=== PATIENT | male | born 1950 | race Caucasian/White ===

== ENCOUNTER 2018-09-22 16:14 | Emergency (ER) | payer MEDICARE, OTHER ==
[2018-09-22 16:22] VITALS: PULSE 72
--- NOTE | 2018-09-22 16:56 | ED ---
General Adult HPI - General Chief complaint: Recheck/Abnormal Lab/Rx Stated complaint: pt states he felt a shock in body Time Seen by Provider: 09/22/18 16:15 Source: patient, RN notes reviewed Mode of arrival: wheelchair Limitations: no limitations - History of Present Illness Initial comments: This is a 68-year-old man who presents with a past history of coronary artery disease. Patient has a pacemaker defibrillator in place. Patient states she was falling asleep today when he quickly woke up and thought maybe he was shocked. Patient states there was no pain there was no palpitations there was no difficult to breathing or shortness of breath. Patient states this happens about once a month to him and today it happened so he decided to come in and get it checked out. Patient states she's had no symptoms since and currently feels completely fine. Patient never experienced any chest pain at all just a sensation of being awoken quickly and he thought maybe it was because he was shocked. Patient denies any abdominal pain patient denies nausea vomiting diarrhea. Patient denies any fever chills or cough. Patient denies any calf pain or leg swelling. - Related Data Home Medications Medication Instructions Recorded Confirmed Aspirin [Adult Low Dose Aspirin EC] 81 mg PO DAILY 07/08/16 09/22/18 Atorvastatin [Lipitor] 20 mg PO DAILY 07/08/16 09/22/18 Carvedilol [Coreg] 12.5 mg PO BID 07/08/16 09/22/18 Digoxin [Lanoxin] 125 mcg PO DAILY 07/08/16 09/22/18 Enalapril [Vasotec] 10 mg PO BID 07/08/16 09/22/18 Fenofibrate Nanocrystallized 145 mg PO DAILY 07/08/16 09/22/18 [Tricor] Furosemide [Lasix] 40 mg PO BID 07/08/16 09/22/18 HYDROcodone/APAP 5-325MG [[place] 1 tab PO Q12H PRN 07/08/16 09/22/18 5-325] Ipratropium/Albuterol Sulfate 2 puff INHALATION RT-QID 07/08/16 09/22/18 [Combivent Respimat Inhaler] Tamsulosin [Flomax] 0.4 mg PO DAILY 07/08/16 09/22/18 glipiZIDE [Glucotrol] 5 mg PO AC-TID 07/08/16 09/22/18 Ergocalciferol [Vitamin D2] 50,000 unit PO WE 09/22/18 09/22/18 Folic Acid 1 mg PO DAILY 09/22/18 09/22/18 Nitroglycerin Sl Tabs [Nitrostat] 0.4 mg SUBLINGUAL Q5M PRN 09/22/18 09/22/18 Ranitidine HCl 300 mg PO BID 09/22/18 09/22/18 traZODone HCL 50 mg PO HS 09/22/18 09/22/18 Allergies Allergy/AdvReac Type Severity Reaction Status Date / Time corn Allergy Unknown Verified 09/22/18 16:56 Fish Containing Products Allergy Unknown Verified 09/22/18 16:56 Mushroom Allergy Unknown Verified 09/22/18 16:56 all nuts Allergy Unknown Uncoded 09/22/18 16:22 green beans Allergy Unknown Uncoded 09/22/18 16:22 olives Allergy Unknown Uncoded 09/22/18 16:22 peanuts Allergy Unknown Uncoded 09/22/18 16:22 white cheese Allergy Unknown Uncoded 09/22/18 16:22 Review of Systems ROS Statement: Those systems with pertinent positive or pertinent negative responses have been documented in the HPI. ROS Other: All systems not noted in ROS Statement are negative. Past Medical History Past Medical History: Diabetes Mellitus, Skin Disorder Additional Past Medical History / Comment(s): SEE DR RAFIQ Flores, ECZEMA, USES WHEELCHAIR IS ABLE TO TRANSFER WITH SLIDING BOARD History of Any Multi-Drug Resistant Organisms: MRSA Date of last positivie culture/infection: ?2010 MDRO Source:: ARM Past Surgical History: AICD Additional Past Surgical History / Comment(s): RADHA LEG AMPUTATIONS, LEFT IS BELOW THE KNEE AND RT IS ABOVE THE KNEE Past Anesthesia/Blood Transfusion Reactions: No Reported Reaction Type of Cardiac Device: Permanent Pacemaker, AICD Device Placement Date:: 2005 Past Psychological History: No Psychological Hx Reported Smoking Status: Current every day smoker Past Alcohol Use History: None Reported Past Drug Use History: None Reported General Exam - General Exam Comments Initial Comments: GENERAL: Patient is well-developed and well-nourished. Patient is nontoxic and well- hydrated and is in no acute distress. ENT: Neck is soft and supple. No significant lymphadenopathy is noted. Oropharynx is clear. Moist mucous membranes. Neck has full range of motion without eliciting any pain. EYES: The sclera were anicteric and conjunctiva were pink and moist. Extraocular movements were intact and pupils were equal round and reactive to light. Eyelids were unremarkable. PULMONARY: Unlabored respirations. Good breath sounds bilaterally. No audible rales rhonchi or wheezing was noted. CARDIOVASCULAR: There is a regular rate and rhythm without any murmurs gallops or rubs. ABDOMEN: Soft and nontender with normal bowel sounds. No palpable organomegaly was noted. There is no palpable pulsatile mass. SKIN: Skin is clear with no lesions or rashes and otherwise unremarkable. NEUROLOGIC: Patient is alert and oriented x3. Cranial nerves II through XII are grossly intact. Motor and sensory are also intact. Normal speech, volume and content. Symmetrical smile. MUSCULOSKELETAL: Patient has a amputation of the right leg [id number] in the left leg below the knee LYMPHATICS: No significant lymphadenopathy is noted PSYCHIATRIC: Normal psychiatric evaluation. Limitations: no limitations Course Vital Signs 09/22/18 16:18 Temperature 97.7 F Pulse Rate 72 Respiratory 20 Rate Blood Pressure 160/83 O2 Sat by Pulse 99 Oximetry Medical Decision Making - Medical Decision Making EKG shows a normal sinus rhythm at 69 bpm MT interval is 196 QRS is 90 QT interval 364 QTC is 390 per patient's EKG shows no ST segment elevation or depression Patient had his defibrillator interrogated I was called by the shared services representative and he said that there was no shock in no arrhythmia. Patient has been asymptomatic throughout his ED stay. - Lab Data Result diagrams: 09/22/18 17:28 09/22/18 17:28 Lab Results 09/22/18 09/22/18 09/22/18 Range/Units 17:28 17:28 17:28 WBC 8.1 (3.8-10.6) k/uL RBC 5.19 (4.30-5.90) m/uL Hgb 16.4 (13.0-17.5) gm/dL Hct 47.9 (39.0-53.0) % MCV 92.4 (80.0-100.0) fL MCH 31.6 (25.0-35.0) pg MCHC 34.3 (31.0-37.0) g/dL RDW 13.6 (11.5-15.5) % Plt Count 267 (150-450) k/uL Neutrophils % 61 % Lymphocytes % 24 % Monocytes % 9 % Eosinophils % 4 % Basophils % 0 % Neutrophils # 4.9 (1.3-7.7) k/uL Lymphocytes # 1.9 (1.0-4.8) k/uL Monocytes # 0.7 (0-1.0) k/uL Eosinophils # 0.3 (0-0.7) k/uL Basophils # 0.0 (0-0.2) k/uL PT (9.0-12.0) sec INR (<1.2) APTT (22.0-30.0) sec Sodium 135 L (137-145) mmol/L Potassium 4.5 (3.5-5.1) mmol/L Chloride 98 (98-107) mmol/L Carbon Dioxide 28 (22-30) mmol/L Anion Gap 9 mmol/L BUN 14 (9-20) mg/dL Creatinine 0.84 (0.66-1.25) mg/dL Est GFR (CKD-EPI)AfAm >90 (>60 ml/min/1.73 sqM) Est GFR (CKD-EPI)NonAf 89 (>60 ml/min/1.73 sqM) Glucose 133 H (74-99) mg/dL Calcium 9.8 (8.4-10.2) mg/dL Magnesium 1.7 (1.6-2.3) mg/dL Total Bilirubin 0.9 (0.2-1.3) mg/dL AST 19 (17-59) U/L ALT 25 (21-72) U/L Alkaline Phosphatase 34 L (38-126) U/L Total Creatine Kinase 48 L (55-170) U/L CK-MB (CK-2) 1.6 (0.0-2.4) ng/mL CK-MB (CK-2) Rel Index 3.3 Troponin I <0.012 (0.000-0.034) ng/mL Total Protein 7.5 (6.3-8.2) g/dL Albumin 4.2 (3.5-5.0) g/dL 09/22/18 Range/Units 17:28 WBC (3.8-10.6) k/uL RBC (4.30-5.90) m/uL Hgb (13.0-17.5) gm/dL Hct (39.0-53.0) % MCV (80.0-100.0) fL MCH (25.0-35.0) pg MCHC (31.0-37.0) g/dL RDW (11.5-15.5) % Plt Count (150-450) k/uL Neutrophils % % Lymphocytes % % Monocytes % % Eosinophils % % Basophils % % Neutrophils # (1.3-7.7) k/uL Lymphocytes # (1.0-4.8) k/uL Monocytes # (0-1.0) k/uL Eosinophils # (0-0.7) k/uL Basophils # (0-0.2) k/uL PT 13.2 H (9.0-12.0) sec INR 1.4 H (<1.2) APTT 26.1 (22.0-30.0) sec Sodium (137-145) mmol/L Potassium (3.5-5.1) mmol/L Chloride (98-107) mmol/L Carbon Dioxide (22-30) mmol/L Anion Gap mmol/L BUN (9-20) mg/dL Creatinine (0.66-1.25) mg/dL Est GFR (CKD-EPI)AfAm (>60 ml/min/1.73 sqM) Est GFR (CKD-EPI)NonAf (>60 ml/min/1.73 sqM) Glucose (74-99) mg/dL Calcium (8.4-10.2) mg/dL Magnesium (1.6-2.3) mg/dL Total Bilirubin (0.2-1.3) mg/dL AST (17-59) U/L ALT (21-72) U/L Alkaline Phosphatase (38-126) U/L Total Creatine Kinase (55-170) U/L CK-MB (CK-2) (0.0-2.4) ng/mL CK-MB (CK-2) Rel Index Troponin I (0.000-0.034) ng/mL Total Protein (6.3-8.2) g/dL Albumin (3.5-5.0) g/dL Disposition Clinical Impression: Normal cardiac exam Disposition: HOME SELF-CARE Condition: Good Instructions: Implantable Cardioverter Defibrillator (DC) Is patient prescribed a controlled substance at d/c from ED?: No Referrals: Robinson Campuzano MD [Primary Care Provider] - 1-2 days Time of Disposition: 18:56
[2018-09-22 17:50] LABS: Basophils % (A) 0 %; Eosinophils # (A) 0.3 k/uL (0-0.7); Eosinophils % (A) 4 %; HCT 47.9 % (39.0-53.0); HGB 16.4 gm/dL (13.0-17.5); Lymphocytes # (A) 1.9 k/uL (1.0-4.8); Lymphocytes % (A) 24 %; MCH 31.6 pg (25.0-35.0); MCHC 34.3 g/dL (31.0-37.0); MCV 92.4 fL (80.0-100.0); Mean Platelet Volume 7.2; Monocytes # (A) 0.7 k/uL (0-1.0); Monocytes % (A) 9 %; Neutrophils # (A) 4.9 k/uL (1.3-7.7); Neutrophils % (A) 61 %; Platelet Count 267 k/uL (150-450); RBC 5.19 m/uL (4.30-5.90); RDW 13.6 % (11.5-15.5); WBC 8.1 k/uL (3.8-10.6)
[2018-09-22 18:01] LABS: INR 1.4 (<1.2); Partial Thromboplastin Time 26.1 sec (22.0-30.0); Prothrombin Time 13.2 sec (9.0-12.0)
[2018-09-22 18:03] LABS: Creatine Kinase 48 U/L (55-170)
[2018-09-22 18:04] LABS: ALT 25 U/L (21-72); AST 19 U/L (17-59); Albumin 4.2 g/dL (3.5-5.0); Alkaline Phosphatase 34 U/L (38-126); Anion Gap 9 mmol/L; Blood Urea Nitrogen 14 mg/dL (9-20); Calcium 9.8 mg/dL (8.4-10.2); Carbon Dioxide 28 mmol/L (22-30); Chloride 98 mmol/L (98-107); Glucose 133 mg/dL (74-99); Magnesium 1.7 mg/dL (1.6-2.3); Potassium 4.5 mmol/L (3.5-5.1); Sodium 135 mmol/L (137-145); Total Bilirubin 0.9 mg/dL (0.2-1.3); Total Protein 7.5 g/dL (6.3-8.2)
[2018-09-22 18:15] LABS: Creatine Kinase MB 1.6 ng/mL (0.0-2.4); Troponin I <0.012 ng/mL (0.000-0.034)
[2018-09-22 19:07] VITALS: BP 146/82; RESP 18; TEMP 97.8
== END 2018-09-22 19:07 | disposition home or self-care (01) ==
LOC: EC 16:14
DX: Z13.6 Encounter for screening for cardiovascular disorders (principal); I25.10 Atherosclerotic heart disease of native coronary artery without angina pectoris; E11.9 Type 2 diabetes mellitus without complications; F17.200 Nicotine dependence, unspecified, uncomplicated; Z91.010 Allergy to peanuts; Z91.013 Allergy to seafood; Z91.018 Allergy to other foods; Z79.82 Long term (current) use of aspirin; Z79.84 Long term (current) use of oral hypoglycemic drugs; Z79.899 Other long term (current) drug therapy; Z86.14 Personal history of Methicillin resistant Staphylococcus aureus infection; Z95.0 Presence of cardiac pacemaker; Z89.611 Acquired absence of right leg above knee; Z89.512 Acquired absence of left leg below knee; Z99.3 Dependence on wheelchair
CPT/HCPCS: 36415; 80053; 82550; 82553; 83735; 84484; 85025; 85610; 85730; 93005; 99283

== ENCOUNTER → 2018-11-27 | Outpatient (CLI) | payer MEDICARE, OTHER | END | disposition home or self-care (01) | LOC: LABWHC1 15:59 | PROVIDERS: ATTEND Dermatology Dermatopathology | DX: L40.0 Psoriasis vulgaris (principal); Z11.1 Encounter for screening for respiratory tuberculosis; Z79.899 Other long term (current) drug therapy | CPT/HCPCS: 36415; 86480 ==

== ENCOUNTER → 2019-10-18 | Outpatient (CLI) | payer MEDICARE, OTHER ==
[2019-10-18 19:19] LABS: African American GFR (CKD) 87.4 (60.0-200.0); Anion Gap 5.1 mmol/L (4.00-12.00); Calcium 9.5 mg/dL (8.7-10.3); Carbon Dioxide 27.9 mmol/L (21.6-31.8); Non-African American GFR(CKD) 75.4 (60.0-200.0); Potassium 4.2 mmol/L (3.5-5.5)
== END ==
LOC: LABWHC1 13:51
PROVIDERS: ATTEND Physician Assistant
DX: I11.0 Hypertensive heart disease with heart failure (principal); I50.9 Heart failure, unspecified
CPT/HCPCS: 36415; 80048; 80162

== ENCOUNTER → 2020-01-11 | Outpatient (CLI) | payer MEDICARE, OTHER | END | disposition home or self-care (01) | LOC: LABWHC1 14:02 | PROVIDERS: ATTEND Internal Medicine | DX: M06.9 Rheumatoid arthritis, unspecified (principal); Z79.899 Other long term (current) drug therapy | CPT/HCPCS: 36415; 86480 ==

== ENCOUNTER 2020-04-26 16:14 | Emergency (ER) | payer MEDICARE, OTHER ==
[2020-04-26 16:24] VITALS: BP 148/75; PULSE 78; RESP 18; TEMP 98
[2020-04-26] MEDS ORDERED: MORPHINE SULFATE 4 MG/ML SYRINGE IM STA (16:59)
--- NOTE | 2020-04-26 17:04 | ED ---
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 Patient states that for very long time he has had numbness in the left hand and fingertips. States he often drops coffee cups which has been chronic. Patient states that today and yesterday he had sharp shooting pains in the fingertips and hand. States his pain kept him up at night. Patient denies any increased numbness in the left hand. Denies any weakness of the left arm or hand.Patient has no other complaints at this time including shortness of breath, chest pain, abdominal pain, nausea or vomiting, headache, or visual changes. - Related Data Home Medications Medication Instructions Recorded Confirmed Aspirin [Adult Low Dose Aspirin EC] 81 mg PO DAILY 07/08/16 09/22/18 Atorvastatin [Lipitor] 20 mg PO DAILY 07/08/16 09/22/18 Carvedilol [Coreg] 12.5 mg PO BID 07/08/16 09/22/18 Digoxin [Lanoxin] 125 mcg PO DAILY 07/08/16 09/22/18 Enalapril [Vasotec] 10 mg PO BID 07/08/16 09/22/18 Fenofibrate Nanocrystallized 145 mg PO DAILY 07/08/16 09/22/18 [Tricor] Furosemide [Lasix] 40 mg PO BID 07/08/16 09/22/18 HYDROcodone/APAP 5-325MG [[place] 1 tab PO Q12H PRN 07/08/16 09/22/18 5-325] Ipratropium/Albuterol Sulfate 2 puff INHALATION RT-QID 07/08/16 09/22/18 [Combivent Respimat Inhaler] Tamsulosin [Flomax] 0.4 mg PO DAILY 07/08/16 09/22/18 glipiZIDE [Glucotrol] 5 mg PO AC-TID 07/08/16 09/22/18 Ergocalciferol [Vitamin D2] 50,000 unit PO WE 09/22/18 09/22/18 Folic Acid 1 mg PO DAILY 09/22/18 09/22/18 Nitroglycerin Sl Tabs [Nitrostat] 0.4 mg SUBLINGUAL Q5M PRN 09/22/18 09/22/18 Ranitidine HCl 300 mg PO BID 09/22/18 09/22/18 traZODone HCL 50 mg PO HS 09/22/18 09/22/18 Previous Rx's Medication Instructions Recorded HYDROcodone/APAP 5-325MG [[place] 1 tab PO Q6HR PRN #10 tab 04/26/20 5-325] Allergies Allergy/AdvReac Type Severity Reaction Status Date / Time corn Allergy Unknown Verified 04/26/20 16:24 Fish Containing Products Allergy Unknown Verified 04/26/20 16:24 Mushroom Allergy Unknown Verified 04/26/20 16:24 all nuts Allergy Unknown Uncoded 04/26/20 16:24 green beans Allergy Unknown Uncoded 04/26/20 16:24 olives Allergy Unknown Uncoded 04/26/20 16:24 peanuts Allergy Unknown Uncoded 04/26/20 16:24 white cheese Allergy Unknown Uncoded 04/26/20 16:24 Review of Systems ROS Statement: Those systems with pertinent positive or pertinent negative responses have been documented in the HPI. ROS Other: All systems not noted in ROS Statement are negative. Past Medical History Past Medical History: CVA/TIA, Diabetes Mellitus, Myocardial Infarction ([place]), Skin Disorder Additional Past Medical History / Comment(s): SEE DR CONROY H&P, ECZEMA, USES WHEELCHAIR IS ABLE TO TRANSFER WITH SLIDING BOARD History of Any Multi-Drug Resistant Organisms: MRSA Date of last positivie culture/infection: ?2010 MDRO Source:: ARM Past Surgical History: AICD Additional Past Surgical History / Comment(s): RADHA LEG AMPUTATIONS, LEFT IS BELOW THE KNEE AND RT IS ABOVE THE KNEE Past Anesthesia/Blood Transfusion Reactions: No Reported Reaction Type of Cardiac Device: Permanent Pacemaker, AICD Device Placement Date:: 2005 Past Psychological History: No Psychological Hx Reported Smoking Status: Current every day smoker Past Alcohol Use History: None Reported Past Drug Use History: None Reported General Exam - General Exam Comments Initial Comments: 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 He has flaccid paralysis of the right arm. Patient's does have sensation in the fingertips of the left hand however states these are diminished. Radial pulse is 2+. Full range of motion of the left hand. Gynaecological Oncologist strength 5 out of 5. No drift of the left arm. Full range of motion of the left arm, no weakness. Limitations: physical limitation General appearance: alert, in no apparent distress Head exam: Present: atraumatic, normocephalic, normal inspection Eye exam: Present: normal appearance, PERRL, EOMI. Absent: scleral icterus, conjunctival injection, periorbital swelling ENT exam: Present: normal exam, mucous membranes moist Neck exam: Present: normal inspection. Absent: tenderness, meningismus, lymphadenopathy Respiratory exam: Present: normal lung sounds bilaterally. Absent: respiratory distress, wheezes, rales, rhonchi, stridor Cardiovascular Exam: Present: regular rate, normal rhythm, normal heart sounds. Absent: systolic murmur, diastolic murmur, rubs, gallop, clicks GI/Abdominal exam: Present: soft, normal bowel sounds. Absent: distended, tenderness, guarding, rebound, rigid Neurological exam: Present: alert Course Vital Signs 04/26/20 16:21 Temperature 98.0 F Pulse Rate 78 Respiratory 18 Rate Blood Pressure 148/75 O2 Sat by Pulse 98 Oximetry Medical Decision Making - Medical Decision Making Vitals are stable. Physical exam does reveal bilateral lower extremity P patient, patient has flaccid paralysis of the right arm secondary to a remote stroke. Patient is denying any new numbness or weakness in the left arm saying those have been chronic. He always drops coffee cups because of this. There is no change in the numbness or weakness. On physical exam I do not appreciate any obvious weakness of the left arm he is able to fully lift the left arm and floor grinder strength is 5 out of 5. He does have sensation in all fingertips of the left hand however slightly diminished. Radial pulses 2+ and left upper extremity. Cap refill less than 2 seconds, hand is warm and skin exam is normal. Patient's new symptom is pain in the left hand. His heart is a shooting pain in the left hand. Feels similar to pains he has in his legs from neuropathy. Patient does take gabapentin. Patient states the pain kept him up at night. Patient was given IM morphine here in the emergency room. Patient will be given a prescription of pain medication. Maps is performed which is unremarkable. He will follow up with his doctor for further management of this pain and return here for any worsening symptoms. Disposition Clinical Impression: Hand pain, left Disposition: HOME SELF-CARE Condition: Good Instructions (If sedation given, give patient instructions): Arthralgia (ED) Additional Instructions: Please take pain medication as directed. Please follow-up with your primary care provider for further pain management. If you have any worsening symptoms return here to the emergency room. Prescriptions: HYDROcodone/APAP 5-325MG [[place] 5-325] 1 tab PO Q6HR PRN #10 tab PRN Reason: Pain Is patient prescribed a controlled substance at d/c from ED?: Yes When asked, does pt state using other controlled substances?: No If prescribed controlled substance>3 days was MAPS reviewed?: Prescribed <3 Days If opioid is for acute pain is fill amount 7 days or less?: Yes If Rx opioid, was Start Talking consent form obtained?: Yes Referrals: Robinson Campuzano MD [Primary Care Provider] - 1-2 days Time of Disposition: 17:33
== END 2020-04-26 18:21 | disposition home or self-care (01) ==
LOC: EC 16:14
DX: M79.642 Pain in left hand (principal); R20.0 Anesthesia of skin; E11.9 Type 2 diabetes mellitus without complications; I25.2 Old myocardial infarction; F17.200 Nicotine dependence, unspecified, uncomplicated; Z89.512 Acquired absence of left leg below knee; Z89.611 Acquired absence of right leg above knee; Z95.810 Presence of automatic (implantable) cardiac defibrillator; Z79.82 Long term (current) use of aspirin; Z79.02 Long term (current) use of antithrombotics/antiplatelets; Z79.899 Other long term (current) drug therapy; Z79.51 Long term (current) use of inhaled steroids; Z79.84 Long term (current) use of oral hypoglycemic drugs; Z91.018 Allergy to other foods; Z91.013 Allergy to seafood; Z91.010 Allergy to peanuts; Z91.011 Allergy to milk products; Z86.73 Personal history of transient ischemic attack (TIA), and cerebral infarction without residual deficits
CPT/HCPCS: 99284; 96372; J2270

== ENCOUNTER 2020-10-02 17:38 | Inpatient (IN) | payer MEDICARE, OTHER ==
[2020-10-02] MEDS ORDERED: methylPREDNISolone SOD SUCCI 125 MG/2 ML VIAL IV STA (18:14)
[2020-10-02] MEDS ORDERED: ALBUTEROL HFA INHALER INHALATION STA (18:14)
[2020-10-02 19:07] LABS: Basophils # (A) 0.1 k/uL (0-0.2); Basophils % (A) 1 %; Eosinophils # (A) 0.4 k/uL (0-0.7); Eosinophils % (A) 5 %; HCT 40.5 % (39.0-53.0); HGB 12.6 gm/dL (13.0-17.5); Hypochromasia Slight; Lymphocytes # (A) 1.6 k/uL (1.0-4.8); Lymphocytes % (A) 19 %; MCH 29.3 pg (25.0-35.0); MCHC 31.1 g/dL (31.0-37.0); Mean Platelet Volume 7.7; Monocytes # (A) 0.5 k/uL (0-1.0); Monocytes % (A) 6 %; Neutrophils # (A) 5.8 k/uL (1.3-7.7); Neutrophils % (A) 68 %; Platelet Count 482 k/uL (150-450); RBC 4.31 m/uL (4.30-5.90); RDW 13.5 % (11.5-15.5); WBC 8.5 k/uL (3.8-10.6)
--- NOTE | 2020-10-02 19:14 | ED ---
General Adult HPI - General Chief complaint: Shortness of Breath Stated complaint: Diff Breathing Time Seen by Provider: 10/02/20 17:40 Source: patient, EMS, RN notes reviewed, old records reviewed Mode of arrival: EMS Limitations: no limitations - History of Present Illness Initial comments: 70-year-old male history of COPD and CHF presenting with dyspnea for the past 24 hours. EMS reports that the patient was found at home without his home oxygen. Patient states that he does not use home oxygen. He was hypoxic by EMS, placed on nasal cannula transported to the emergency department. He complains of cough which is productive of clear sputum. no chest pain at all, not currently and now within the past week.. No abdominal pain nausea vomiting. No central chest pain. He has history of bilateral lower extremity Amputation. - Related Data Home Medications Medication Instructions Recorded Confirmed Aspirin [Adult Low Dose Aspirin EC] 81 mg PO DAILY 07/08/16 09/22/18 Atorvastatin [Lipitor] 20 mg PO DAILY 07/08/16 09/22/18 Carvedilol [Coreg] 12.5 mg PO BID 07/08/16 09/22/18 Digoxin [Lanoxin] 125 mcg PO DAILY 07/08/16 09/22/18 Enalapril [Vasotec] 10 mg PO BID 07/08/16 09/22/18 Fenofibrate Nanocrystallized 145 mg PO DAILY 07/08/16 09/22/18 [Tricor] Furosemide [Lasix] 40 mg PO BID 07/08/16 09/22/18 HYDROcodone/APAP 5-325MG [[place] 1 tab PO Q12H PRN 07/08/16 09/22/18 5-325] Ipratropium/Albuterol Sulfate 2 puff INHALATION RT-QID 07/08/16 09/22/18 [Combivent Respimat Inhaler] Tamsulosin [Flomax] 0.4 mg PO DAILY 07/08/16 09/22/18 glipiZIDE [Glucotrol] 5 mg PO AC-TID 07/08/16 09/22/18 Ergocalciferol [Vitamin D2] 50,000 unit PO WE 09/22/18 09/22/18 Folic Acid 1 mg PO DAILY 09/22/18 09/22/18 Nitroglycerin Sl Tabs [Nitrostat] 0.4 mg SUBLINGUAL Q5M PRN 09/22/18 09/22/18 raNITIdine HCL [Ranitidine HCl] 300 mg PO BID 09/22/18 09/22/18 traZODone HCL 50 mg PO HS 09/22/18 09/22/18 Previous Rx's Medication Instructions Recorded HYDROcodone/APAP 5-325MG [[place] 1 tab PO Q6HR PRN #10 tab 04/26/20 5-325] Allergies Allergy/AdvReac Type Severity Reaction Status Date / Time corn Allergy Unknown Verified 04/26/20 16:24 Fish Containing Products Allergy Unknown Verified 04/26/20 16:24 Mushroom Allergy Unknown Verified 04/26/20 16:24 all nuts Allergy Unknown Uncoded 04/26/20 16:24 green beans Allergy Unknown Uncoded 04/26/20 16:24 olives Allergy Unknown Uncoded 04/26/20 16:24 peanuts Allergy Unknown Uncoded 04/26/20 16:24 white cheese Allergy Unknown Uncoded 04/26/20 16:24 Review of Systems ROS Statement: Those systems with pertinent positive or pertinent negative responses have been documented in the HPI. ROS Other: All systems not noted in ROS Statement are negative. Past Medical History Past Medical History: CVA/TIA, Diabetes Mellitus, Myocardial Infarction (PA), Skin Disorder Additional Past Medical History / Comment(s): SEE DR RAFIQ [place], [place], USES WHEELCHAIR IS ABLE TO TRANSFER WITH SLIDING BOARD History of Any Multi-Drug Resistant Organisms: MRSA Date of last positivie culture/infection: ?2010 MDRO Source:: ARM Past Surgical History: AICD Additional Past Surgical History / Comment(s): RADHA LEG AMPUTATIONS, LEFT IS BELOW THE KNEE AND RT IS ABOVE THE KNEE Past Anesthesia/Blood Transfusion Reactions: No Reported Reaction Type of Cardiac Device: Permanent Pacemaker, AICD Device Placement Date:: 2005 Past Psychological History: No Psychological Hx Reported Smoking Status: Current every day smoker Past Alcohol Use History: None Reported Past Drug Use History: None Reported General Exam Limitations: no limitations General appearance: alert, in no apparent distress Head exam: Present: atraumatic, normocephalic Eye exam: Present: normal appearance ENT exam: Present: mucous membranes dry Neck exam: Present: normal inspection. Absent: tenderness, meningismus Respiratory exam: Present: rales, decreased breath sounds. Absent: respiratory distress Cardiovascular Exam: Present: regular rate, normal rhythm. Absent: bradycardia, tachycardia GI/Abdominal exam: Present: soft. Absent: distended, tenderness, guarding Extremities exam: Present: other (left belowthe knee, right above the knee amputation) Back exam: Present: normal inspection Neurological exam: Present: alert, oriented X3, CN II-XII intact. Absent: motor sensory deficit Psychiatric exam: Present: normal affect, normal mood Skin exam: Present: warm, dry, intact. Absent: cyanosis, diaphoretic Course Vital Signs 10/02/20 10/02/20 17:48 18:07 Temperature 97.5 F L 98.2 F Pulse Rate 98 Respiratory 18 Rate Blood Pressure 187/92 O2 Sat by Pulse 98 Oximetry - Reevaluation(s) Reevaluation #1: 10/02/20 20:54 patient comfortable, normal oxygenation on 2 L nasal cannula, no chest pain. Reevaluation #2: 10/02/20 20:[address] García regarding elevated troponin. Patient has been started on heparin, given aspirin, will be given Lasix, echo will be obtained. EKG Findings - EKG Comments: EKG Findings:: EKG: Sinus rhythm with a first-degree AV block left atrial enlargement, low voltage, rate of 92, NM interval 226, QRS duration 90, QTC 427, no ST segment elevation. Medical Decision Making - Medical Decision Making 70-year-old male history of COPD and CHF presenting with dyspnea. No pain complaints. EKG is sinus rhythm. Workup reveals a chest x-ray showing CHF. He has a mildly elevated d-dimer, CT angiography has been obtained which is negative for PE does show CHF. His troponin is significantly elevated at 5. He has no active chest pain. He is started on heparin, given aspirin, Lasix. Echo will be obtained. Case discussed with both the admitting physician Dr. Campuzano and technology development intern Dr. García. - Lab Data Result diagrams: 10/02/20 18:33 10/02/20 18:33 Lab Results 10/02/20 10/02/20 10/02/20 Range/Units 18:33 18:33 18:33 WBC 8.5 (3.8-10.6) k/uL RBC 4.31 (4.30-5.90) m/uL Hgb 12.6 L (13.0-17.5) gm/dL Hct 40.5 (39.0-53.0) % MCV 94.0 (80.0-100.0) fL MCH 29.3 (25.0-35.0) pg MCHC 31.1 (31.0-37.0) g/dL RDW 13.5 (11.5-15.5) % Plt Count 482 H (150-450) k/uL MPV 7.7 Neutrophils % 68 % Lymphocytes % 19 % Monocytes % 6 % Eosinophils % 5 % Basophils % 1 % Neutrophils # 5.8 (1.3-7.7) k/uL Lymphocytes # 1.6 (1.0-4.8) k/uL Monocytes # 0.5 (0-1.0) k/uL Eosinophils # 0.4 (0-0.7) k/uL Basophils # 0.1 (0-0.2) k/uL Hypochromasia Slight PT 14.7 H (9.0-12.0) sec INR 1.5 H (<1.2) APTT 27.8 (22.0-30.0) sec D-Dimer 0.66 H (<0.60) mg/L FEU VBG pH (7.31-7.41) VBG pCO2 (37-51) mmHg VBG HCO3 (24-28) mmol/L Sodium 136 L (137-145) mmol/L Potassium 4.7 (3.5-5.1) mmol/L Chloride 102 (98-107) mmol/L Carbon Dioxide 32 H (22-30) mmol/L Anion Gap 2 mmol/L BUN 11 (9-20) mg/dL Creatinine 0.77 (0.66-1.25) mg/dL Est GFR (CKD-EPI)AfAm >90 (>60 ml/min/1.73 sqM) Est GFR (CKD-EPI)NonAf >90 (>60 ml/min/1.73 sqM) Glucose 186 H (74-99) mg/dL Plasma Lactic Acid Elvis (0.7-2.0) mmol/L Calcium 8.9 (8.4-10.2) mg/dL Magnesium 1.6 (1.6-2.3) mg/dL Total Bilirubin 0.5 (0.2-1.3) mg/dL AST 25 (17-59) U/L ALT 24 (4-49) U/L Alkaline Phosphatase 50 (38-126) U/L Troponin I (0.000-0.034) ng/mL NT-Pro-B Natriuret Pep pg/mL Total Protein 6.9 (6.3-8.2) g/dL Albumin 3.2 L (3.5-5.0) g/dL Coronavirus (PCR) (Not Detectd) Influenza Type A RNA (Not Detectd) Influenza Type B (PCR) (Not Detectd) 10/02/20 10/02/20 10/02/20 Range/Units 18:33 18:33 18:33 WBC (3.8-10.6) k/uL RBC (4.30-5.90) m/uL Hgb (13.0-17.5) gm/dL Hct (39.0-53.0) % MCV (80.0-100.0) fL MCH (25.0-35.0) pg MCHC (31.0-37.0) g/dL RDW (11.5-15.5) % Plt Count (150-450) k/uL MPV Neutrophils % % Lymphocytes % % Monocytes % % Eosinophils % % Basophils % % Neutrophils # (1.3-7.7) k/uL Lymphocytes # (1.0-4.8) k/uL Monocytes # (0-1.0) k/uL Eosinophils # (0-0.7) k/uL Basophils # (0-0.2) k/uL Hypochromasia PT (9.0-12.0) sec INR (<1.2) APTT (22.0-30.0) sec D-Dimer (<0.60) mg/L FEU VBG pH (7.31-7.41) VBG pCO2 (37-51) mmHg VBG HCO3 (24-28) mmol/L Sodium (137-145) mmol/L Potassium (3.5-5.1) mmol/L Chloride (98-107) mmol/L Carbon Dioxide (22-30) mmol/L Anion Gap mmol/L BUN (9-20) mg/dL Creatinine (0.66-1.25) mg/dL Est GFR (CKD-EPI)AfAm (>60 ml/min/1.73 sqM) Est GFR (CKD-EPI)NonAf (>60 ml/min/1.73 sqM) Glucose (74-99) mg/dL Plasma Lactic Acid Elvis 0.8 (0.7-2.0) mmol/L Calcium (8.4-10.2) mg/dL Magnesium (1.6-2.3) mg/dL Total Bilirubin (0.2-1.3) mg/dL AST (17-59) U/L ALT (4-49) U/L Alkaline Phosphatase (38-126) U/L Troponin I 5.640 H* (0.000-0.034) ng/mL NT-Pro-B Natriuret Pep 2510 pg/mL Total Protein (6.3-8.2) g/dL Albumin (3.5-5.0) g/dL Coronavirus (PCR) (Not Detectd) Influenza Type A RNA (Not Detectd) Influenza Type B (PCR) (Not Detectd) 10/02/20 10/02/20 10/02/20 Range/Units 18:33 18:33 19:41 WBC (3.8-10.6) k/uL RBC (4.30-5.90) m/uL Hgb (13.0-17.5) gm/dL Hct (39.0-53.0) % MCV (80.0-100.0) fL MCH (25.0-35.0) pg MCHC (31.0-37.0) g/dL RDW (11.5-15.5) % Plt Count (150-450) k/uL MPV Neutrophils % % Lymphocytes % % Monocytes % % Eosinophils % % Basophils % % Neutrophils # (1.3-7.7) k/uL Lymphocytes # (1.0-4.8) k/uL Monocytes # (0-1.0) k/uL Eosinophils # (0-0.7) k/uL Basophils # (0-0.2) k/uL Hypochromasia PT (9.0-12.0) sec INR (<1.2) APTT (22.0-30.0) sec D-Dimer (<0.60) mg/L FEU VBG pH 7.44 H (7.31-7.41) VBG pCO2 45 (37-51) mmHg VBG HCO3 30 H (24-28) mmol/L Sodium (137-145) mmol/L Potassium (3.5-5.1) mmol/L Chloride (98-107) mmol/L Carbon Dioxide (22-30) mmol/L Anion Gap mmol/L BUN (9-20) mg/dL Creatinine (0.66-1.25) mg/dL Est GFR (CKD-EPI)AfAm (>60 ml/min/1.73 sqM) Est GFR (CKD-EPI)NonAf (>60 ml/min/1.73 sqM) Glucose (74-99) mg/dL Plasma Lactic Acid Elvis (0.7-2.0) mmol/L Calcium (8.4-10.2) mg/dL Magnesium (1.6-2.3) mg/dL Total Bilirubin (0.2-1.3) mg/dL AST (17-59) U/L ALT (4-49) U/L Alkaline Phosphatase (38-126) U/L Troponin I (0.000-0.034) ng/mL NT-Pro-B Natriuret Pep pg/mL Total Protein (6.3-8.2) g/dL Albumin (3.5-5.0) g/dL Coronavirus (PCR) Not Detected (Not Detectd) Influenza Type A RNA Not Detected (Not Detectd) Influenza Type B (PCR) Not Detected (Not Detectd) Critical Care Time Critical Care Time: Yes Total Critical Care Time: 35 Disposition Clinical Impression: Congestive heart failure, NSTEMI (non-ST elevated myocardial infarction) Disposition: ADMITTED IP TO THIS [facility] Condition: Stable Is patient prescribed a controlled substance at d/c from ED?: No Referrals: Robinson Campuzano MD [Primary Care Provider] - 1-2 days Decision to Admit Reason: Admit from EC Decision Date: 10/02/20 Decision Time: 20:56
[2020-10-02 19:21] LABS: ALT 24 U/L (4-49); AST 25 U/L (17-59); African American GFR (CKD) >90 (>60 ml/min/1.73 sqM); Albumin 3.2 g/dL (3.5-5.0); Alkaline Phosphatase 50 U/L (38-126); Anion Gap 2 mmol/L; Blood Urea Nitrogen 11 mg/dL (9-20); Calcium 8.9 mg/dL (8.4-10.2); Carbon Dioxide 32 mmol/L (22-30); Chloride 102 mmol/L (98-107); Glucose 186 mg/dL (74-99); Magnesium 1.6 mg/dL (1.6-2.3); Non-African American GFR(CKD) >90 (>60 ml/min/1.73 sqM); Potassium 4.7 mmol/L (3.5-5.1); Sodium 136 mmol/L (137-145); Total Bilirubin 0.5 mg/dL (0.2-1.3); Total Protein 6.9 g/dL (6.3-8.2)
[2020-10-02 19:29] LABS: INR 1.5 (<1.2); Partial Thromboplastin Time 27.8 sec (22.0-30.0); Prothrombin Time 14.7 sec (9.0-12.0)
[2020-10-02 19:36] LABS: D-Dimer 0.66 mg/L FEU (<0.60)
[2020-10-02 19:55] LABS: VBG PH 7.44 (7.31-7.41)
[2020-10-02] MEDS ORDERED: HEPARIN SODIUM,PORCINE 5,000 UNIT/ML 1 ML VIAL IV ONE (20:00)
[2020-10-02] MEDS ORDERED: ASPIRIN 325 MG TAB PO STA (20:00)
--- NOTE | 2020-10-02 20:19 | CT ---
EXAMINATION TYPE: CT angio chest DATE OF EXAM: 10/02/2020 8:11 PM COMPARISON: None available. HISTORY: Difficulty breathing. CT DLP: 424.5 mGycm Automated exposure control for dose reduction was used. CONTRAST: CTA scan of the thorax is performed with IV Contrast, patient injected with 100 mL of Isovue 370, pul monary embolism protocol. MIP images are created and reviewed. FINDINGS: LUNGS: There is mild interstitial thickening with atelectatic changes, compatible with interstitial e jeannie. No significant patchy airspace opacity, consolidation or pneumothorax. There is small right ple ural effusion. No suspicious pulmonary nodule. MEDIASTINUM: There is satisfactory enhancement of the pulmonary artery and its branches, there is no CT evidence for pulmonary embolism. There are scattered small to borderline mediastinal lymph nodes, likely reactive. No pericardial effusion is seen. Cardiomegaly is seen. OTHER: No additional significant abnormality is seen. IMPRESSION: FINDINGS COMPATIBLE WITH MILD INTERSTITIAL EDEMA WITH SMALL RIGHT PLEURAL EFFUSION. NO SIGNIFICANT PATCHY AIRSPACE OPACITY OR CONSOLIDATION.
[2020-10-02] MEDS ORDERED: FUROSEMIDE 10 MG/ML 4 ML VIAL IV STA (20:26)
[2020-10-02] MEDS: HEPARIN SOD,PORK IN 0.45% NACL 25,000 UNIT in 0.45% NACL 1 250ML.BAG IV SCH (20:37)
--- NOTE | 2020-10-02 20:37 | XR ---
EXAMINATION TYPE: XR chest 2V DATE OF EXAM: 10/02/2020 COMPARISON: 10/03/2014. HISTORY: Fever and shortness of breath. TECHNIQUE: Frontal and lateral views of the chest are obtained. FINDINGS: There is moderate perihilar and bibasilar opacities. No significant pleural effusion or pn eumothorax seen. Cardiomegaly and left AICD seen. The osseous structures are intact. IMPRESSION: Moderate perihilar and bibasilar opacities concerning for infiltrates in the setting of fever.
[2020-10-02] MEDS ORDERED: MORPHINE SULFATE 4 MG/ML SYRINGE IV PRN (20:51)
[2020-10-02] MEDS ORDERED: NALOXONE 0.4 MG/ML 1 ML VIAL IV PRN (20:51)
[2020-10-02] MEDS ORDERED: ACETAMINOPHEN TAB 325 MG TAB PO PRN (20:51)
[2020-10-03 02:39] LABS: Basophils % (A) 0 %; Eosinophils # (A) 0.1 k/uL (0-0.7); Eosinophils % (A) 1 %; HGB 13.4 gm/dL (13.0-17.5); Hypochromasia Marked; Lymphocytes # (A) 0.6 k/uL (1.0-4.8); Lymphocytes % (A) 7 %; MCH 29.2 pg (25.0-35.0); MCHC 29.7 g/dL (31.0-37.0); MCV 98.3 fL (80.0-100.0); Mean Platelet Volume 7.9; Monocytes # (A) 0.1 k/uL (0-1.0); Monocytes % (A) 1 %; Neutrophils # (A) 8.5 k/uL (1.3-7.7); Neutrophils % (A) 91 %; Platelet Count 608 k/uL (150-450); RBC 4.58 m/uL (4.30-5.90); RDW 13.4 % (11.5-15.5); WBC 9.3 k/uL (3.8-10.6)
[2020-10-03] MEDS: HEPARIN SODIUM,PORCINE 5,000 UNIT/ML 1 ML VIAL IV PRN ×2 (03:07→11:28)
[2020-10-03] MEDS: FUROSEMIDE 10 MG/ML 4 ML VIAL IV SCH ×2 (08:36→20:09)
[2020-10-03] MEDS ORDERED: lisinopriL 20 MG TAB PO SCH (09:00)
[2020-10-03] MEDS ORDERED: ALPRAZolam 0.25 MG TAB PO PRN (09:50)
--- NOTE | 2020-10-03 10:00 | ECHOF ---
Referral Reason:shortness of breath MEASUREMENTS -------- HEIGHT: 172.7 cm WEIGHT: 80.3 kg BP: 162/81 RVIDd: 2.0 cm (< 3.3) IVSd: 1.3 cm (0.6 - 1.1) LVIDd: 5.8 cm (3.9 - 5.3) LVPWd: 1.5 cm (0.6 - 1.1) IVSs: 1.6 cm LVIDs: 5.4 cm LVPWs: 1.6 cm LA Diam: 1.5 cm (2.7 - 3.8) LAESV Index (A-L): 40.10 ml/m Ao Diam: 3.3 cm (2.0 - 3.7) AV Cusp: 1.9 cm (1.5 - 2.6) LA Diam: 4.7 cm (2.7 - 3.8) MV EXCURSION: 19.436 mm (> 18.000) MV EF SLOPE: 235 mm/s (70 - 150) EPSS: 1.6 cm MV E Aamir: 0.83 m/s MV DecT: 91 ms MV A Aamir: 0.76 m/s MV E/A Ratio: 1.10 AR PHT: 321 ms RAP: 5.00 mmHg RVSP: 10.49 mmHg FINDINGS -------- AICD This was a technically difficult study with suboptimal views. The left ventricular size is normal. There is mild concentric left ventricular hypertrophy. Overa ll left ventricular systolic function is severely impaired with, an EF between 25 - 30 %. Increased LAP Grade 3 Diastolic Dysfunction. Inferior Hypokinesis The right ventricle is normal in size. LA is severely dilated >40 ml/m2 The right atrial size is normal. Lumason used Unable to visualize the septum. Aortic valve is trileaflet and is mildly thickened. Trace amount of aortic regurgitation. The mitral valve is normal. Mild mitral regurgitation is present. The tricuspid valve appears structurally normal. Mild tricuspid regurgitation present. Right vent ricular systolic pressure is normal at < 35 mmHg. There is no pulmonic regurgitation present. The aortic root size is normal. IVC Not well visulized. There is no pericardial effusion. CONCLUSIONS -------- 1. The left ventricular size is normal. 2. There is mild concentric left ventricular hypertrophy. 3. Overall left ventricular systolic function is severely impaired with, an EF between 25 - 30 %. 4. Increased LAP Grade 3 Diastolic Dysfunction. 5. Inferior Hypokinesis 6. LA is severely dilated >40 ml/m2 7. Aortic valve is trileaflet and is mildly thickened. 8. Trace amount of aortic regurgitation. 9. Mild mitral regurgitation is present. 10. Mild tricuspid regurgitation present. 11. There is no pericardial effusion. PERSONAL INJURY ATTORNEY: Elif Barney RDCS
--- NOTE | 2020-10-03 10:11 | P.CRDCN ---
History of Present Illness History of present illness: HISTORY OF PRESENTING ILLNESS This is a pleasant 70-year-old male past medical history significant for coronary artery disease with a chronically occluded mid RCA and mild disease of the LAD and circumflex, ischemic cardiomyopathy status post AICD, chronic systolic heart failure, COPD, hypertension, dyslipidemia, peripheral vascular disease status post bilateral [id number] amputations and chronic nicotine dependence. He follows in the office with and Dr. Hernandez. We have been asked to see in consultation for NSTEMI. He presented to the hospital with symptoms of shortness of breath. He states he woke up acutely last night with a sensation of shortness of breath and a warm sensation all over. He states he could not lay flat and could not catch his breath. He denies ever feeling chest discomfort or pain. He denies any recent changes in his medications or diet. He was given one dose of IV Lasix. Currently his breathing is stable. He denies any worsening shortness of breath. DIAGNOSTICS EKG reveals sinus mechanism with first-degree AV block and nonspecific ST abnormalities. Chest xray bibasilar opacity is and cardiomegaly. CT angio chest reveals mild interstitial edema with small right pleural effusion. Negative for pulmonary embolism. No pericardial effusion noted and cardiomegaly. Laboratory reviewed, WBC 9.3, hemoglobin 13.4, platelets 608, INR 1.5, d-dimer 0.66, venous pH 7.44, pCO2 45 and venous bicarb 30, sodium 136, potassium 4.7, creatinine 0.77, magnesium 1.6, troponin 5.64, 5.33, 4.29 and NT proBNP 2510. Current cardiac medications include losartan 25 mg daily, Lasix 40 mg twice a day, atorvastatin 80 mg daily, Coreg 12.5 mg twice a day and aspirin 81 mg daily. Most recent echocardiogram obtained in the office December 2018 revealed s everely impaired LV systolic function with ejection fraction 35-40%, moderate concentric LVH, grade 1 diastolic dysfunction, mild mitral regurgitation and mild tricuspid regurgitation. Most recent cardiac catheterization performed in 2009 revealed severe calcification involving the LAD and the circumflex, left main with no obstructive disease, LAD with an eccentric plaque in the midsegment 40-50%, circumflex with 20-30% mild intimal disease, RCA totally occluded in the mid segment with bridging collaterals that slowly fill distally. REVIEW OF SYSTEMS At the time of my exam: CONSTITUTIONAL: Denies fever or chills. CARDIOVASCULAR: Denies chest pain, shortness of breath, orthopnea, PND or pa lpitations. RESPIRATORY: Denies cough. GASTROINTESTINAL: Denies abdominal pain, diarrhea, constipation, nausea or vomiting. MUSCULOSKELETAL: Denies myalgias. NEUROLOGIC: Denies numbness, tingling or weakness. ENDOCRINE: Denies fatigue, weight change, polydipsia or polyurina. GENITOURINARY: Denies burning, hematuria or urgency with micturation. HEMATOLOGIC: Denies history of anemia or bleeding. PHYSICAL EXAMINATION Blood pressure 162/81 heart rate 84 afebrile and maintaining oxygen saturation on nasal cannula. CONSTITUTIONAL: No apparent distress. HEENT: Head is normocephalic. Pupils are equal, round. Sclerae anicteric. Mucous membranes of the mouth are moist. No JVD. No carotid bruit. CHEST EXAMINATION: Diminished bilaterally. No chest wall tenderness is noted on palpation or with deep breathing. HEART EXAMINATION: Regular rate and rhythm. S1, S2 heard. No murmurs, gallops or rub. ABDOMEN: Soft, nontender. Positive bowel sounds. EXTREMITIES: 2+ radial pulses, bilateral above the knee amputation and no calf tenderness. NEUROLOGIC EXAMINATION: Patient is awake, alert and oriented x3. ASSESSMENT Non-ST elevated myocardial infarction Acute on chronic mixed systolic and diastolic heart failure Ischemic cardiomyopathy s/p AICD Coronary artery disease Hypertension Dyslipidemia Diabetes mellitus Peripheral vascular disease Chronic nicotine dependence PLAN Repeat 2D echocardiogram and doppler study to assess cardiac structure and function. Continue heparin infusion. Continue IV diuresis for 24 hours. Repeat chest xray in the morning. Recommend proceeding with coronary angiography tomorrow morning via the right radial artery. I have discussed the risks, benefits and alternative therapies for the above-mentioned procedure and for both sedation/analgesia as well as n ecessary blood product administration, if indicated, as they pertain to this patient. The patient has indicated understanding and acceptance of the risks and procedures discussed. Follow renal function and electrolytes in the morning. Document accurate intake and output along with daily weights. Further recommendations to follow based on clinical course. Thank you kindly for this consultation. Nurse Practitioner note has been reviewed, I agree with a documented findings and plan of care. Patient was seen and examined. Past Medical History Past Medical History: CVA/TIA, Diabetes Mellitus, Myocardial Infarction ([place]), Skin Disorder Additional Past Medical History / Comment(s): SEE DR RAFIQ [place]mber[place], [place], USES WHEELCHAIR IS ABLE TO TRANSFER WITH SLIDING BOARD History of Any Multi-Drug Resistant Organisms: MRSA Date of last positivie culture/infection: ?2010 MDRO Source:: ARM Past Surgical History: AICD Additional Past Surgical History / Comment(s): RADHA LEG AMPUTATIONS, LEFT IS BELOW THE KNEE AND RT IS ABOVE THE KNEE Past Anesthesia/Blood Transfusion Reactions: No Reported Reaction Type of Cardiac Device: Permanent Pacemaker, AICD Device Placement Date:: 2005 Past Psychological History: No Psychological Hx Reported Smoking Status: Current every day smoker Past Alcohol Use History: None Reported Past Drug Use History: None Reported Medications and Allergies Home Medications Medication Instructions Recorded Confirmed Type Aspirin [Adult Low Dose Aspirin EC] 81 mg PO DAILY 07/08/16 09/22/18 History Atorvastatin [Lipitor] 20 mg PO DAILY 07/08/16 09/22/18 History Carvedilol [Coreg] 12.5 mg PO BID 07/08/16 09/22/18 History Digoxin [Lanoxin] 125 mcg PO DAILY 07/08/16 09/22/18 History Enalapril [Vasotec] 10 mg PO BID 07/08/16 09/22/18 History Fenofibrate Nanocrystallized 145 mg PO DAILY 07/08/16 09/22/18 History [Tricor] Furosemide [Lasix] 40 mg PO BID 07/08/16 09/22/18 History HYDROcodone/APAP 5-325MG [[facility] 1 tab PO Q12H PRN 07/08/16 09/22/18 History 5-325] Ipratropium/Albuterol Sulfate 2 puff INHALATION RT-QID 07/08/16 09/22/18 History [Combivent Respimat Inhaler] Tamsulosin [Flomax] 0.4 mg PO DAILY 07/08/16 09/22/18 History glipiZIDE [Glucotrol] 5 mg PO AC-TID 07/08/16 09/22/18 History Ergocalciferol [Vitamin D2] 50,000 unit PO WE 09/22/18 09/22/18 History Folic Acid 1 mg PO DAILY 09/22/18 09/22/18 History Nitroglycerin Sl Tabs [Nitrostat] 0.4 mg SUBLINGUAL Q5M PRN 09/22/18 09/22/18 History raNITIdine HCL [Ranitidine HCl] 300 mg PO BID 09/22/18 09/22/18 History traZODone HCL 50 mg PO HS 09/22/18 09/22/18 History HYDROcodone/APAP 5-325MG [[facility] 1 tab PO Q6HR PRN #10 tab 04/26/20 Rx 5-325] Allergies Allergy/AdvReac Type Severity Reaction Status Date / Time corn Allergy Unknown Verified 04/26/20 16:24 Fish Containing Products Allergy Unknown Verified 04/26/20 16:24 Mushroom Allergy Unknown Verified 04/26/20 16:24 all nuts Allergy Unknown Uncoded 04/26/20 16:24 green beans Allergy Unknown Uncoded 04/26/20 16:24 olives Allergy Unknown Uncoded 04/26/20 16:24 peanuts Allergy Unknown Uncoded 04/26/20 16:24 white cheese Allergy Unknown Uncoded 04/26/20 16:24 Physical Exam Vitals: Vital Signs Temp Pulse Resp BP Pulse Ox 10/03/20 06:25 98.3 F 84 18 162/81 96 10/03/20 02:00 98.1 F 100 18 171/78 95 10/02/20 22:00 98.5 F 92 18 164/76 95 10/02/20 18:07 98.2 F 10/02/20 17:48 97.5 F L 98 18 187/92 98 Intake and Output 10/02/20 10/03/20 10/03/20 22:59 06:59 14:59 Intake Total 62.621 49.778 Balance 62.621 49.778 Intake: Intake, IV Titration 62.621 49.778 Amount Heparin Sod,Pork in 0.45% 62.621 49.778 NaCl 25,000 unit In 0.45 % NaCl 1 250ml.bag @ 12 UNITS/KG/HR 9.634 mls/hr IV .Q24H [facility] Rx#: [id number] Other: Weight 80.286 kg Results 10/03/20 02:05 10/02/20 18:33 Cardiac Enzymes 10/02/20 10/02/20 10/02/20 Range/Units 18:33 18:33 22:40 AST 25 (17-59) U/L Troponin I 5.640 H* 5.330 H* (0.000-0.034) ng/mL 10/03/20 Range/Units 02:05 AST (17-59) U/L Troponin I 4.290 H* (0.000-0.034) ng/mL Coagulation 10/02/20 10/03/20 Range/Units 18:33 02:05 PT 14.7 H (9.0-12.0) sec APTT 27.8 27.7 (22.0-30.0) sec CBC 10/02/20 10/03/20 Range/Units 18:33 02:05 WBC 8.5 9.3 (3.8-10.6) k/uL RBC 4.31 4.58 (4.30-5.90) m/uL Hgb 12.6 L 13.4 (13.0-17.5) gm/dL Hct 40.5 45.0 (39.0-53.0) % Plt Count 482 H 608 H (150-450) k/uL Comprehensive Metabolic Panel 10/02/20 Range/Units 18:33 Sodium 136 L (137-145) mmol/L Potassium 4.7 (3.5-5.1) mmol/L Chloride 102 (98-107) mmol/L Carbon Dioxide 32 H (22-30) mmol/L BUN 11 (9-20) mg/dL Creatinine 0.77 (0.66-1.25) mg/dL Glucose 186 H (74-99) mg/dL Calcium 8.9 (8.4-10.2) mg/dL AST 25 (17-59) U/L ALT 24 (4-49) U/L Alkaline Phosphatase 50 (38-126) U/L Total Protein 6.9 (6.3-8.2) g/dL Albumin 3.2 L (3.5-5.0) g/dL Current Medications Generic Name Dose Route Start Last Admin Trade Name Freq PRN Reason Stop Dose Admin Acetaminophen 650 mg 10/02/20 20:51 Acetaminophen Tab 325 Mg Tab PO Q6HR PRN Mild Pain or Fever > 100.5 Aspirin 81 mg 10/03/20 09:00 Aspirin 81 Mg PO DAILY [facility] Atorvastatin Calcium 80 mg 10/03/20 09:00 Atorvastatin 20 Mg Tab PO DAILY [facility] Carvedilol 12.5 mg 11/17/20 09:00 Carvedilol 12.5 Mg Tab PO BID [facility] Furosemide 40 mg 10/03/20 09:00 10/03/20 08:36 Furosemide 10 Mg/Ml 4 Ml Vial IV 40 mg Q12HR [facility] Administration Heparin Sodium (Porcine) 0 unit 10/02/20 20:00 10/03/20 03:07 Heparin Sodium,Porcine 5,000 Unit/Ml 1 Ml Vial IV 4,000 unit PER PROTOCOL PRN Administration Low PTT Protocol Heparin Sodium/Sodium Chloride 250 mls @ 9.634 mls/hr 10/02/20 20:00 10/03/20 07:50 25,000 unit/ Sodium Chloride IV 15 units/kg/hr .Q24H [facility] 12.043 mls/hr Titration Protocol 12 UNITS/KG/HR Morphine Sulfate 4 mg 10/02/20 20:51 Morphine Sulfate 4 Mg/Ml Syringe IV Q4HR PRN Severe Pain Naloxone HCl 0.2 mg 10/02/20 20:51 Naloxone 0.4 Mg/Ml 1 Ml Vial IV Q2M PRN Opioid Reversal Nitroglycerin 0.4 mg 10/02/20 20:52 Nitroglycerin Sl Tabs 0.4 Mg Tab SUBLINGUAL Q5M PRN Chest Pain Non-Formulary Medication 10 mg 10/03/20 09:00 Enalapril PO BID [facility] Intake and Output 10/02/20 10/03/20 10/03/20 22:59 06:59 14:59 Intake Total 62.621 49.778 Balance 62.621 49.778 Intake: Intake, IV Titration 62.621 49.778 Amount Heparin Sod,Pork in 0.45% 62.621 49.778 NaCl 25,000 unit In 0.45 % NaCl 1 250ml.bag @ 12 UNITS/KG/HR 9.634 mls/hr IV .Q24H [facility] Rx#: [id number] Other: Weight 80.286 kg 10/03/20 02:05 10/02/20 18:33
[2020-10-03] MEDS ORDERED: LOSARTAN 25 MG TAB PO SCH (10:15)
[2020-10-03 12:17] LABS: Glucose,Whole Blood 250 mg/dL (75-99)
[2020-10-03] MEDS: carvediloL 12.5 MG TAB PO SCH ×2 (13:52→19:30)
[2020-10-03 16:28] LABS: Glucose,Whole Blood 371 mg/dL (75-99)
--- NOTE | 2020-10-03 17:14 | P.CNPUL ---
History of Present Illness Consult date: 10/03/20 Reason for consult: dyspnea History of present illness: 70-year-old male patient, known history of coronary artery disease and CHF and the patient is known to have chronic occluded mid RCA, mild LAD, mild circumflex disease, and addition to ischemic artery myopathy and the patient has an AICD in place. Other comorbidities include COPD as the patient is a chronic smoker, hypertension and hyperlipidemia and peripheral Vascular disease and the patient has had previous amputation of the lower extremities bilaterally. The patient is coming to the hospital because of increased shortness of breath and the patient is ruled in for acute non-ST segment elevation myocardial infarction. Noted the patient's troponin peaked at 5.33 and the patient's EKG showed sinus mechanism with a first-degree AV block and nonspecific ST segment abnormalities. I was consulted in this patient because of shortness of breath. The patient is still going to undergo a cardiac physician tomorrow. Note that the chest x-ray showed cardiac megaly and some bibasilar opacities and a CT angiogram showed interstitial edema and a small right-sided pleural effusion. It was negative for pulmonary embolism. No evidence of any pericardial effusion. Note that the patient had a proBNP level of 2510. The venous blood gas showed a pH of 7.44 with a pCO2 of 45. The sodium level was at 136 with a potassium level of 4.7 and a creatinine of 0.7. White cell count was at 9.3. He is feeling well for now. Is a chronic smoker. He is known to have COPD. Uses only albuterol and asked and his bases without any maintenance inhalational treatments. He denies being on oxygen on outpatient basis. Review of Systems Constitutional: Reports fatigue Eyes: denies as per HPI, denies blurred vision, denies bulging eye, denies decreased vision, denies diplopia, denies discharge, denies dry eye, denies ir ritation, denies itching, denies pain, denies photophobia, denies loss of peripheral vision, denies loss of vision, denies tunnel vision/blind spots Ears: deny: decreased hearing, ear discharge, earache, tinnitus Ears, nose, mouth and throat: Reports as per HPI Breasts: absent: as per HPI, gynecomastia Cardiovascular: Reports chest pain, Reports decreased exercise tolerance, Reports dyspnea on exertion Respiratory: Reports dyspnea Gastrointestinal: Reports as per HPI Genitourinary: Reports as per HPI Musculoskeletal: Reports as per HPI Integumentary: Reports as per HPI Neurological: Reports as per HPI, Reports gait dysfunction Psychiatric: Reports as per HPI Endocrine: Reports as per HPI Hematologic/Lymphatic: Reports as per HPI Allergic/Immunologic: Reports as per HPI Past Medical History Past Medical History: Coronary Artery Disease (CAD), Heart Failure, COPD, CVA/TIA, Diabetes Mellitus, Hyperlipidemia, Myocardial Infarction ([place]), Prostate Disorder, Skin Disorder, Vascular Disorder Additional Past Medical History / Comment(s): CAD, COPD, CHF and patient has AICD, PVOD and the patient has 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, History of Any Multi-Drug Resistant Organisms: MRSA Date of last positivie culture/infection: ?2010 MDRO Source:: ARM Past Surgical History: AICD Additional Past Surgical History / Comment(s): RADHA LEG AMPUTATIONS, LEFT IS BELOW THE KNEE AND RT IS ABOVE THE KNEE Past Anesthesia/Blood Transfusion Reactions: No Reported Reaction Type of Cardiac Device: Permanent Pacemaker, AICD Device Placement Date:: 2005 Past Psychological History: No Psychological Hx Reported Smoking Status: Current every day smoker Past Alcohol Use History: None Reported Past Drug Use History: None Reported - Past Family History Mother History Unknown: Yes Father History Unknown: Yes Medications and Allergies Home Medications Medication Instructions Recorded Confirmed Type Aspirin [Adult Low Dose Aspirin EC] 81 mg PO DAILY 07/08/16 10/03/20 History Digoxin [Lanoxin] 125 mcg PO DAILY 07/08/16 10/03/20 History Fenofibrate Nanocrystallized 145 mg PO DAILY 07/08/16 10/03/20 History [Tricor] Tamsulosin [Flomax] 0.4 mg PO DAILY 07/08/16 10/03/20 History glipiZIDE [Glucotrol] 5 mg PO AC-TID 07/08/16 10/03/20 History Folic Acid 1 mg PO DAILY 09/22/18 10/03/20 History Nitroglycerin Sl Tabs [Nitrostat] 0.4 mg SUBLINGUAL Q5M PRN 09/22/18 10/03/20 History traZODone HCL 50 mg PO HS 09/22/18 10/03/20 History Adalimumab [Humira Pen 40 mg SQ Q14D 10/03/20 10/03/20 History Crohn's-Uc-Hs] Atorvastatin [Lipitor] 40 mg PO HS 10/03/20 10/03/20 History Cetirizine HCl [Zyrtec] 10 mg PO DAILY 10/03/20 10/03/20 History Famotidine [Pepcid] 20 mg PO BID 10/03/20 10/03/20 History Fluticasone Propionate [Flovent 1 puff INHALATION RT-DAILY 10/03/20 10/03/20 History Diskus] Gabapentin [Neurontin] 300 mg PO TID 10/03/20 10/03/20 History Losartan Potassium [Cozaar] 25 mg PO DAILY 10/03/20 10/03/20 History Montelukast [Singulair] 10 mg PO DAILY 10/03/20 10/03/20 History Multivitamins, Thera [Multivitamin 1 tab PO DAILY 10/03/20 10/03/20 History (formulary)] Allergies Allergy/AdvReac Type Severity Reaction Status Date / Time corn Allergy Unknown Verified 04/26/20 16:24 Fish Containing Products Allergy Unknown Verified 04/26/20 16:24 Mushroom Allergy Unknown Verified 04/26/20 16:24 all nuts Allergy Unknown Uncoded 04/26/20 16:24 green beans Allergy Unknown Uncoded 04/26/20 16:24 olives Allergy Unknown Uncoded 04/26/20 16:24 peanuts Allergy Unknown Uncoded 04/26/20 16:24 white cheese Allergy Unknown Uncoded 04/26/20 16:24 Physical Exam Vitals: Vital Signs Temp Pulse Resp BP Pulse Ox 10/03/20 10:00 98.5 F 80 18 148/78 95 10/03/20 06:25 98.3 F 84 18 162/81 96 10/03/20 02:00 98.1 F 100 18 171/78 95 10/02/20 22:00 98.5 F 92 18 164/76 95 10/02/20 18:07 98.2 F 10/02/20 17:48 97.5 F L 98 18 187/92 98 Intake and Output 10/02/20 10/03/20 10/03/20 22:59 06:59 14:59 Intake Total 62.621 93.936 Balance 62.621 93.936 Intake: Intake, IV Titration 62.621 93.936 Amount Heparin Sod,Pork in 0.45% 62.621 93.936 NaCl 25,000 unit In 0.45 % NaCl 1 250ml.bag @ 12 UNITS/KG/HR 9.634 mls/hr IV .Q24H [facility] Rx#: [id number] Other: Weight 80.286 kg Blood pressure 162/81 heart rate 84 afebrile and maintaining oxygen saturation on nasal cannula. CONSTITUTIONAL: No apparent distress. Head exam was generally normal. There was no scleral icterus or corneal arcus. Mucous membranes were moist. HEENT: Head is normocephalic. Pupils are equal, round. Sclerae anicteric. Mucous membranes of the mouth are moist. No JVD. No carotid bruit. CHEST EXAMINATION: Diminished bilaterally. No chest wall tenderness is noted on palpation or with deep breathing. HEART EXAMINATION: Regular rate and rhythm. S1, S2 heard. No murmurs, gallops or rub. ABDOMEN: Soft, nontender. Positive bowel sounds. EXTREMITIES: 2+ radial pulses, bilateral amputation, right-sided [id number] and a left-sided below the knee. No cyanosis in upper extremities. No clubbing. NEUROLOGIC EXAMINATION: Patient is awake, alert and oriented x3. Results - Laboratory Findings CBC and BMP: 10/03/20 02:05 10/02/20 18:33 PT/INR, D-dimer PT 14.7 sec (9.0-12.0) H 10/02/20 18:33 INR 1.5 (<1.2) H 10/02/20 18:33 D-Dimer 0.66 mg/L FEU (<0.60) H 10/02/20 18:33 Abnormal lab findings: Abnormal Labs 10/02/20 10/02/20 10/02/20 18:33 18:33 18:33 Hgb 12.6 L MCHC Plt Count 482 H Neutrophils # Lymphocytes # PT 14.7 H INR 1.5 H APTT D-Dimer 0.66 H VBG pH VBG HCO3 Sodium 136 L Carbon Dioxide 32 H Glucose 186 H Troponin I Albumin 3.2 L 10/02/20 10/02/20 10/02/20 18:33 19:41 22:40 Hgb MCHC Plt Count Neutrophils # Lymphocytes # PT INR APTT D-Dimer VBG pH 7.44 H VBG HCO3 30 H Sodium Carbon Dioxide Glucose Troponin I 5.640 H* 5.330 H* Albumin 10/03/20 10/03/20 10/03/20 02:05 02:05 09:08 Hgb MCHC 29.7 L Plt Count 608 H Neutrophils # 8.5 H Lymphocytes # 0.6 L PT INR APTT 32.5 H D-Dimer VBG pH VBG HCO3 Sodium Carbon Dioxide Glucose Troponin I 4.290 H* Albumin - Diagnostic Findings Chest x-ray: image reviewed CT scan - chest: image reviewed Assessment and Plan Plan: 1 shortness of breath likely on the basis of CHF in the setting of a acute non- STEMI 2 acute non-STEMI, and the patient has a known history of coronary artery disease with a previous cardiac catheterization from 2009 revealing severe calcification of the LAD and circumflex, LAD with an eccentric plaque in the order of 40-50% and the circumflex involving a 20% to 30% lesion and RCA is chronically occluded with some collaterals. 3 History ischemic cardiomyopathy with an ejection fraction of 25-30% and the patient has a mass in place 4 hypertension 5 hyperlipidemia 6 COPD 7 diabetes mellitus 8 peripheral vascular disease and the patient has bilateral amputation 9 chronic smoking Plan Continue aspirin and IV heparin Keep the patient on Coreg 12.5 mg by mouth twice a day IV Lasix 40 mg every 12 hours to optimize CHF Repeat echocardiogram was noted Cardiac catheterization in a.m. to assess the patient's coronary artery status in the setting of an acute non-STEMI Smoking cessation counseling was done We'll continue to follow
[2020-10-03 18:08] LABS: Glucose,Whole Blood 252 mg/dL (75-99)
[2020-10-03] MEDS: NITROGLYCERIN SL TABS 0.4 MG TAB SUBLINGUAL PRN ×3 (18:08→18:20)
[2020-10-03] MEDS ORDERED: FUROSEMIDE 10 MG/ML 2 ML VIAL IV ONE ×2 (18:14→18:45)
[2020-10-03] MEDS: IPRATROPIUM-ALBUTEROL 3 ML NEB INHALATION SCH (18:15)
[2020-10-03] MEDS ORDERED: hydrALAZINE HCL 20 MG/ML 1 ML VIAL ONE (18:21)
[2020-10-03] MEDS ORDERED: hydrALAZINE HCL 20 MG/ML 1 ML VIAL IVP STA (18:22)
--- NOTE | 2020-10-03 18:37 | P.HPIM ---
History of Present Illness H&P Date: 10/03/20 Eder Fang, is a 70-year-old male who presented to [facility] emergency room with a chief complaint of worsening shortness of breath, he was evaluated in the emergency room, vital examination on presentation reveals a temperature of 97.5 pulse 98 respiration 18 blood pressure 187/92 pulse ox 98% on room air, his white blood count was 8.5 hemoglobin 12.6 platelet count 482 INR 1.5 d-dimer 0.66 troponin level was elevated at 5.33 and BNP level was 2510 patient was started on IV heparin and was admitted to telemetry floor for further evaluation and treatment cardiology consultation and pulmonary consultation were requested echocardiogram was ordered. Patient has a known history of coronary artery disease, he had a cardiac catheterization 10 years ago which revealed severe calcification in his coronary arteries, patient continued to smoke, he has underlying history of congestive heart failure with cardiomyopathy with ejection fraction of 25-30% , he also has a known history of chronic obstructive pulmonary disease and severe peripheral vascular disease with bilateral lower extremity amputation. On review of systems patient is alert and oriented 3 in no distress he is complaining of shortness of breath with activity otherwise he denies any complaints there is no fever or chills no headache or dizziness no chest pain he has occasional cough no nausea or vomiting no abdominal pain no diarrhea no blood in the stools no burning with urination no frequency or urgency and no hematuria no weakness or numbness in any of the extremities no change in vision speech or mobility. Past Medical History Past Medical History: Coronary Artery Disease (CAD), Heart Failure, COPD, CVA/TIA, Diabetes Mellitus, Hyperlipidemia, Myocardial Infarction (RI), Prostate Disorder, Skin Disorder, Vascular Disorder Additional Past Medical History / Comment(s): CAD, COPD, CHF and patient has AICD, PVOD and the patient has 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, History of Any Multi-Drug Resistant Organisms: MRSA Date of last positivie culture/infection: ?2010 MDRO Source:: ARM Past Surgical History: AICD Additional Past Surgical History / Comment(s): RADHA LEG AMPUTATIONS, LEFT IS BELOW THE KNEE AND RT IS ABOVE THE KNEE Past Anesthesia/Blood Transfusion Reactions: No Reported Reaction Type of Cardiac Device: Permanent Pacemaker, AICD Device Placement Date:: 2005 Past Psychological History: No Psychological Hx Reported Smoking Status: Current every day smoker Past Alcohol Use History: None Reported Past Drug Use History: None Reported - Past Family History Mother History Unknown: Yes Father History Unknown: Yes Medications and Allergies Home Medications Medication Instructions Recorded Confirmed Type Aspirin [Adult Low Dose Aspirin EC] 81 mg PO DAILY 07/08/16 10/03/20 History Digoxin [Lanoxin] 125 mcg PO DAILY 07/08/16 10/03/20 History Fenofibrate Nanocrystallized 145 mg PO DAILY 07/08/16 10/03/20 History [Tricor] Tamsulosin [Flomax] 0.4 mg PO DAILY 07/08/16 10/03/20 History glipiZIDE [Glucotrol] 5 mg PO AC-TID 07/08/16 10/03/20 History Folic Acid 1 mg PO DAILY 09/22/18 10/03/20 History Nitroglycerin Sl Tabs [Nitrostat] 0.4 mg SUBLINGUAL Q5M PRN 09/22/18 10/03/20 History traZODone HCL 50 mg PO HS 09/22/18 10/03/20 History Adalimumab [Humira Pen 40 mg SQ Q14D 10/03/20 10/03/20 History Crohn's-Uc-Hs] Atorvastatin [Lipitor] 40 mg PO HS 10/03/20 10/03/20 History Cetirizine HCl [Zyrtec] 10 mg PO DAILY 10/03/20 10/03/20 History Famotidine [Pepcid] 20 mg PO BID 10/03/20 10/03/20 History Fluticasone Propionate [Flovent 1 puff INHALATION RT-DAILY 10/03/20 10/03/20 History Diskus] Gabapentin [Neurontin] 300 mg PO TID 10/03/20 10/03/20 History Losartan Potassium [Cozaar] 25 mg PO DAILY 10/03/20 10/03/20 History Montelukast [Singulair] 10 mg PO DAILY 10/03/20 10/03/20 History Multivitamins, Thera [Multivitamin 1 tab PO DAILY 10/03/20 10/03/20 History (formulary)] Allergies Allergy/AdvReac Type Severity Reaction Status Date / Time corn Allergy Unknown Verified 04/26/20 16:24 Fish Containing Products Allergy Unknown Verified 04/26/20 16:24 Mushroom Allergy Unknown Verified 04/26/20 16:24 all nuts Allergy Unknown Uncoded 04/26/20 16:24 green beans Allergy Unknown Uncoded 04/26/20 16:24 olives Allergy Unknown Uncoded 04/26/20 16:24 peanuts Allergy Unknown Uncoded 04/26/20 16:24 white cheese Allergy Unknown Uncoded 04/26/20 16:24 Physical Exam Vitals: Vital Signs Temp Pulse Resp BP Pulse Ox 10/03/20 10:00 98.5 F 80 18 148/78 95 10/03/20 06:25 98.3 F 84 18 162/81 96 10/03/20 02:00 98.1 F 100 18 171/78 95 10/02/20 22:00 98.5 F 92 18 164/76 95 10/02/20 18:07 98.2 F 10/02/20 17:48 97.5 F L 98 18 187/92 98 Intake and Output 10/03/20 10/03/20 10/03/20 06:59 14:59 22:59 Intake Total 62.621 93.936 Balance 62.621 93.936 Intake: Intake, IV Titration 62.621 93.936 Amount Heparin Sod,Pork in 0.45% 62.621 93.936 NaCl 25,000 unit In 0.45 % NaCl 1 250ml.bag @ 12 UNITS/KG/HR 9.634 mls/hr IV .Q24H [facility] Rx#: [id number] In general patient is alert and oriented 3 in no distress HEENT head normocephalic and atraumatic Neck is supple no JVD no goiter no lymphadenopathy Chest exam reveals a few scattered crackles in both bases no wheezing Cardiac exam reveals regular heart sounds S1 and S2 no gallops no murmurs Abdomen is soft nontender no organomegaly with normal bowel sounds Extremity exam patient has bilateral lower extremity amputation Neurological examination no gross focal deficit Results CBC & Chem 7: 10/03/20 02:05 10/02/20 18:33 Labs: Abnormal Lab Results - Last 24 Hours (Table) 10/02/20 10/02/20 10/02/20 Range/Units 18:33 18:33 18:33 Hgb 12.6 L (13.0-17.5) gm/dL MCHC (31.0-37.0) g/dL Plt Count 482 H (150-450) k/uL Neutrophils # (1.3-7.7) k/uL Lymphocytes # (1.0-4.8) k/uL PT 14.7 H (9.0-12.0) sec INR 1.5 H (<1.2) APTT (22.0-30.0) sec D-Dimer 0.66 H (<0.60) mg/L FEU VBG pH (7.31-7.41) VBG HCO3 (24-28) mmol/L Sodium 136 L (137-145) mmol/L Carbon Dioxide 32 H (22-30) mmol/L Glucose 186 H (74-99) mg/dL POC Glucose (mg/dL) (75-99) mg/dL Troponin I (0.000-0.034) ng/mL Albumin 3.2 L (3.5-5.0) g/dL 10/02/20 10/02/20 10/02/20 Range/Units 18:33 19:41 22:40 Hgb (13.0-17.5) gm/dL MCHC (31.0-37.0) g/dL Plt Count (150-450) k/uL Neutrophils # (1.3-7.7) k/uL Lymphocytes # (1.0-4.8) k/uL PT (9.0-12.0) sec INR (<1.2) APTT (22.0-30.0) sec D-Dimer (<0.60) mg/L FEU VBG pH 7.44 H (7.31-7.41) VBG HCO3 30 H (24-28) mmol/L Sodium (137-145) mmol/L Carbon Dioxide (22-30) mmol/L Glucose (74-99) mg/dL POC Glucose (mg/dL) (75-99) mg/dL Troponin I 5.640 H* 5.330 H* (0.000-0.034) ng/mL Albumin (3.5-5.0) g/dL 10/03/20 10/03/20 10/03/20 Range/Units 02:05 02:05 09:08 Hgb (13.0-17.5) gm/dL MCHC 29.7 L (31.0-37.0) g/dL Plt Count 608 H (150-450) k/uL Neutrophils # 8.5 H (1.3-7.7) k/uL Lymphocytes # 0.6 L (1.0-4.8) k/uL PT (9.0-12.0) sec INR (<1.2) APTT 32.5 H (22.0-30.0) sec D-Dimer (<0.60) mg/L FEU VBG pH (7.31-7.41) VBG HCO3 (24-28) mmol/L Sodium (137-145) mmol/L Carbon Dioxide (22-30) mmol/L Glucose (74-99) mg/dL POC Glucose (mg/dL) (75-99) mg/dL Troponin I 4.290 H* (0.000-0.034) ng/mL Albumin (3.5-5.0) g/dL 10/03/20 10/03/20 10/03/20 Range/Units 12:14 15:07 16:27 Hgb (13.0-17.5) gm/dL MCHC (31.0-37.0) g/dL Plt Count (150-450) k/uL Neutrophils # (1.3-7.7) k/uL Lymphocytes # (1.0-4.8) k/uL PT (9.0-12.0) sec INR (<1.2) APTT 61.2 H (22.0-30.0) sec D-Dimer (<0.60) mg/L FEU VBG pH (7.31-7.41) VBG HCO3 (24-28) mmol/L Sodium (137-145) mmol/L Carbon Dioxide (22-30) mmol/L Glucose (74-99) mg/dL POC Glucose (mg/dL) 250 H 371 H (75-99) mg/dL Troponin I (0.000-0.034) ng/mL Albumin (3.5-5.0) g/dL Thrombosis Risk Factor Assmnt - Choose All That Apply Any of the Below Risk Factors Present?: Yes Each Factor Represents 1 point: Abnormal pulmonary function (COPD) Other Risk Factors: Yes Each Risk Factor Represents 2 Points: Age 61-74 years Other congenital or acquired thrombophilia - If yes, enter type in comment: No Thrombosis Risk Factor Assessment Total Risk Factor Score: 3 Thrombosis Risk Factor Assessment Level: Moderate Risk Assessment and Plan Plan: 1. Acute systolic and diastolic congestive heart failure exacerbation 2. Acute non-STEMI, with elevated troponin level 3. Chronic COPD 4. Underlying history of hypertension 5. Underlying history of hyperlipidemia 6. Underlying history of peripheral vascular disease with bilateral lower extremity amputation 7. Underlying history of diabetes mellitus 8. Underlying history of chronic tobacco use. At this time patient is admitted to telemetry floor he was started on IV heparin He was also started on IV Lasix for CHF exacerbation Cardiology consultation and echocardiogram were requested Pulmonary critical care consultation requested Patient was counseled in length in regard to smoking cessation Prognosis is guarded will follow closely
[2020-10-03 19:53] LABS: Glucose,Whole Blood 241 mg/dL (75-99)
[2020-10-03] MEDS: NITROGLYCERIN-D5W PMX 50 MG in DEXTROSE/WATER 1 250ML.BAG IV SCH (20:38)
[2020-10-03] MEDS: INSULIN ASPART (NovoLOG) 100 UNIT/ML VIAL SQ SCH (20:58)
[2020-10-03] MEDS: HEPARIN SOD,PORK IN 0.45% NACL 25,000 UNIT in 0.45% NACL 1 250ML.BAG IV SCH (22:47)
[2020-10-04] MEDS ORDERED: FUROSEMIDE 10 MG/ML 4 ML VIAL IV ONE
[2020-10-04] MEDS: IPRATROPIUM-ALBUTEROL 3 ML NEB INHALATION SCH ×6 (01:39→21:18)
[2020-10-04] MEDS: NITROGLYCERIN SL TABS 0.4 MG TAB SUBLINGUAL PRN (04:30)
[2020-10-04] MEDS ORDERED: FUROSEMIDE 10 MG/ML 4 ML VIAL IV STA (04:59)
[2020-10-04 05:00] LABS: Glucose,Whole Blood 157 mg/dL (75-99)
[2020-10-04] MEDS ORDERED: propofoL 100 ML IV ONE (05:37)
[2020-10-04] MEDS ORDERED: ATROPINE SULFATE 0.1 MG/ML 10ML SYRINGE ONE ×2 (05:39→05:54)
[2020-10-04] MEDS ORDERED: ASPIRIN 325 MG TAB PO ONE (06:00)
[2020-10-04 06:08] LABS: ABG PCO2 96 mmHg (35-45); ABG PH 7.17 (7.35-7.45); Allen Test Performed? Yes
[2020-10-04 06:09] LABS: ABG HCO3 35 mmol/L (21-25); ABG PO2 174 mmHg (83-108); ABG TCO2 38 mmol/L (19-24)
[2020-10-04 06:10] LABS: ABG Oxygen Saturation 99.4 % (94-97)
[2020-10-04] MEDS ORDERED: NOREPINEPHRIN 4 MG-0.9% NS PMX 4 MG/250 ML ML IV ONE (06:49)
--- NOTE | 2020-10-04 07:18 | XR ---
EXAMINATION TYPE: XR chest 1V portable DATE OF EXAM: 10/04/2020 COMPARISON: 10/02/2020 HISTORY: SOB, Follow Up FINDINGS: Interval placement of endotracheal tube which is appropriately placed as well as an NG tube coursing into the stomach. Pacer device is unchanged in position. Patchy perihilar and basilar infiltrates. Stable appearance of the cardio-mediastinal structures at this time. Pleural effusion unchanged. IMPRESSION: 1. Patchy perihilar and basilar infiltrates.
[2020-10-04 07:45] LABS: Basophils # (A) 0.1 k/uL (0-0.2); Basophils % (A) 0 %; Eosinophils # (A) 0.4 k/uL (0-0.7); Eosinophils % (A) 2 %; HCT 38.8 % (39.0-53.0); HGB 12.1 gm/dL (13.0-17.5); Lymphocytes # (A) 2.2 k/uL (1.0-4.8); Lymphocytes % (A) 11 %; MCH 29.2 pg (25.0-35.0); MCHC 31.2 g/dL (31.0-37.0); MCV 93.4 fL (80.0-100.0); Mean Platelet Volume 7.8; Monocytes # (A) 1.1 k/uL (0-1.0); Monocytes % (A) 5 %; Neutrophils # (A) 17.1 k/uL (1.3-7.7); Neutrophils % (A) 81 %; Platelet Count 557 k/uL (150-450); RBC 4.15 m/uL (4.30-5.90); RDW 13.6 % (11.5-15.5); WBC 21.1 k/uL (3.8-10.6)
[2020-10-04 08:00] LABS: Albumin 3.1 g/dL (3.5-5.0); Calcium 8.7 mg/dL (8.4-10.2); Potassium 5.6 mmol/L (3.5-5.1); Total Protein 6.4 g/dL (6.3-8.2)
[2020-10-04 08:01] LABS: Total Bilirubin 0.5 mg/dL (0.2-1.3)
[2020-10-04] MEDS: ATORVASTATIN 80 MG TAB PO SCH ×2 (08:12→09:35)
[2020-10-04] MEDS: ASPIRIN 81 MG PO SCH ×4 (08:12→09:36)
[2020-10-04] MEDS: NOREPINEPHRINE 4 MG in SODIUM CHLORIDE 0.9% 250 ML IV SCH (09:32)
[2020-10-04] MEDS: carvediloL 12.5 MG TAB PO SCH ×2 (09:33→19:02)
[2020-10-04] MEDS: CHLORHEXIDINE GLUCONATE 15 ML CUP MUCOUS MEM SCH ×2 (09:35→22:23)
[2020-10-04] MEDS: INSULIN ASPART (NovoLOG) 100 UNIT/ML VIAL SQ SCH ×3 (09:38→19:00)
[2020-10-04] MEDS: FUROSEMIDE 10 MG/ML 4 ML VIAL IV SCH (09:40)
--- NOTE | 2020-10-04 10:18 | PN ---
PROGRESS NOTE Mr. Fang is a 70-year-old male with a known history of coronary artery disease with chronically occluded right coronary artery with obstructive disease in the left circumflex and the LAD over 10 years ago, history of severe ischemic cardiomyopathy status post ICD implant, chronic tobacco use and chronic obstructive lung disease, history of bilateral above knee amputation who presented yesterday with symptoms congestive heart failure and progressive dyspnea with PND. Yesterday, he became hypertensive with respiratory failure requiring mechanical intubation. He is in the ICU at this time. He is in atrial fibrillation. He was in sinus mechanism yesterday. He required pressors. His blood pressure is on the low side at this point. He had a few beats of ventricular tachycardia yesterday, but none since. He has been maintained on aspirin, Lipitor 80 mg daily, Coreg 12.5 mg twice a day. He is receiving Lasix 40 mg IV q.12 hours, losartan 25 mg daily. He is intubated and sedated at this time. PHYSICAL EXAMINATION: Blood pressure 115/50 with a heart rate in 60s. LUNGS: With decreased air exchange anteriorly, no wheezes. HEART: Irregular, regular, S1, S2. No S3. No rub. ABDOMEN: Soft, positive bowel sounds. EXTREMITIES: Status post amputation noted. LAB DATA: Revealed white blood cell of 21.1, hemoglobin 12.1, BUN and creatinine 30 and 1.53. PH 7.17, PO2 of 174, pCO2 of 96. His chest x-ray shows evidence of congestive heart failure with cardiomegaly, ICD noted. His EKG revealed no evidence of acute ST-segment elevation. His echocardiogram performed yesterday showed ejection fraction 25%-30% with mild mitral and tricuspid regurgitation. IMPRESSION: 1. Respiratory failure with severe cardiomyopathy and evidence of congestive heart failure with systolic dysfunction. 2. Non ST-segment elevation myocardial infarction. 3. Known history of coronary artery disease. 4. Status post ICD implantation. 5. Worsening renal function. 6. History of hyperlipidemia. 7. Chronic tobacco use and chronic obstructive lung disease. 8. Peripheral vascular disease. RECOMMENDATION: At this time, I will continue supportive care. I would not proceed with cardiac catheterization at this point in view of the worsening renal function and the overall status. Will follow his renal function closely. I have discussed his case with Dr. Freeman and depending on his progress, further recommendation will be made. The prognosis is guarded. MMODL / IJN: [id number] /
[2020-10-04 10:56] LABS: Allen Test Performed? Yes
[2020-10-04 10:57] LABS: ABG Base Excess 10.1 mmol/L; ABG HCO3 32 mmol/L (21-25); ABG Oxygen Saturation 95.7 % (94-97); ABG PCO2 32 mmHg (35-45); ABG PO2 66 mmHg (83-108); ABG TCO2 33 mmol/L (19-24)
[2020-10-04 10:58] LABS: ABG PH 7.61 (7.35-7.45)
[2020-10-04 11:14] LABS: Glucose,Whole Blood 174 mg/dL (75-99)
--- NOTE | 2020-10-04 11:28 | CDI ---
Documentation Clarification Form Date: 10/04/2020 11:16:02 AM From: Shira Escalante CCS, CCDS Admit Date: 10/02/2020 08:51:00 PM Patient Name: Eder Fang Visit Number: [id number] Discharge Date: ATTENTION: The Clinical Documentation Specialists (CDI) and [facility] Coding Staff appreciate your assistance in clarifying documentation. Please respond to the clarification below the line at the bottom and electronically sign. The CDI & [facility] Coding staff will review the response and follow-up if needed. Please note: Queries are made part of the Legal Health Record. If you have any questions, please contact the author of this message via ITS. Dr. Robinson Campuzano: Per the 10/04 Cardiology Consult: "Respiratory failure with severe cardiomyopathy and evidence of congestive heart failure with systolic dysfunction." Respiratory Failure has not been documented by Pulmonary. History/Risk Factors: CAD status post previous heart catheterization, CHF, Hyperlipidemia, PVD, COPD, Bilateral Lower Extremity Amputee. Chronic tobacco use. Patient is on Home O2 at home. Clinical Indicators: Presented to the ED on 10/02 with SOB via EMS, found to be without his O2 on. Also complaining of productive cough with clear sputum. Admitted with NSTEMI and Acute on Chronic Combined Heart Failure. VS 10/02: T 97.5*, P 98, R 18 (sob), BP 187/92, PO 98 RA VS 10/04: P 101 - 57*, R 20 - 28^, BP 41/25*, PO 100 on vent. 10/04 ABG: pH 7.17, pCO2 96^^, pO2 174^, HCO3 35^, Total CO2 38^, O2 Sat 99.4^. Treatment 10/02: INH Albuterol, IV Solumedrol, IV heparin drip, IV Lasix, IV Morphine, O2 2Lnc. 10/04: Intubated on vent. IV Lasix, IV Levophed, IV Propofol In your professional opinion, can you please clarify if these findings signify one of the following conditions? Acute Respiratory Failure Acute on Chronic Respiratory Failure Chronic Respiratory Failure Other Diagnosis, please specify Unable to determine Specificity: If known, further specify (if known): o With hypercapnia? (pCO2 >50 and pH <7.35) o With hypoxia? (pO2 <60 mm Hg or SpO2 <91% on room air) (Last Query Form Revision: July 2019) Acute Respiratory Failure MTDD
[2020-10-04 11:57] LABS: Appearance,Urine Clear (Clear); Bilirubin,Urine Negative (Negative); Blood,Urine Negative (Negative); Color,Urine Light Yellow; Glucose,Urine (UA) Negative (Negative); Hyaline Casts,Urine 4 /lpf (0-2); Ketones,Urine Negative (Negative); Leukocyte Esterase,Urine Negative (Negative); Mucus,Urine Rare /hpf; Nitrite,Urine Negative (Negative); Protein,Urine 1+ (Negative); Sperm,Urine Moderate /hpf; Squamous Epithelial Cell,Urine <1 /hpf (0-4); Urobilinogen,Urine <2.0 mg/dL (<2.0); WBC,Urine 2 /hpf (0-5)
--- NOTE | 2020-10-04 14:43 | XR ---
EXAMINATION TYPE: XR chest 1V portable DATE OF EXAM: 10/04/2020 COMPARISON: 10/04/2020 HISTORY: SOB, Follow Up FINDINGS: Indwelling tubes and catheters are unchanged. No change in bibasilar opacities. Stable appearance of the cardio-mediastinal structures at this time. Pleural effusion unchanged. IMPRESSION: 1. Stable portable chest. Clinical correlation and follow up until resolution is recommended.
[2020-10-04 14:49] LABS: Hemoglobin A1C 6.2 % (4.0-6.0)
--- NOTE | 2020-10-04 16:13 | P.PN ---
Subjective Progress Note Date: 10/04/20 70-year-old male patient, known history of coronary artery disease and CHF and the patient is known to have chronic occluded mid RCA, mild LAD, mild circumflex disease, and addition to ischemic artery myopathy and the patient has an AICD in place. Other comorbidities include COPD as the patient is a chronic smoker, hypertension and hyperlipidemia and peripheral Vascular disease and the patient has had previous amputation of the lower extremities bilaterally. The patient is coming to the hospital because of increased shortness of breath and the patient is ruled in for acute non-ST segment elevation myocardial infarction. Noted the patient's troponin peaked at 5.33 and the patient's EKG showed sinus mechanism with a first-degree AV block and nonspecific ST segment abnormalities. I was consulted in this patient because of shortness of breath. The patient is still going to undergo a cardiac physician tomorrow. Note that the chest x-ray showed cardiac megaly and some bibasilar opacities and a CT angiogram showed interstitial edema and a small right-sided pleural effusion. It was negative for pulmonary embolism. No evidence of any pericardial effusion. Note that the patient had a proBNP level of 2510. The venous blood gas showed a pH of 7.44 with a pCO2 of 45. The sodium level was at 136 with a potassium level of 4.7 and a creatinine of 0.7. White cell count was at 9.3. He is feeling well for now. Is a chronic smoker. He is known to have COPD. Uses only albuterol and asked and his bases without any maintenance inhalational treatments. He denies being on oxygen on outpatient basis. On 10/04/2020, the patient is being seen in follow-up in the intensive care unit. Note that earlier this morning, the patient became acutely hypotensive and went into significant respiratory distress and his blood gases showed severe respiratory acidosis. The patient was becoming unresponsive and he was having diminished level of consciousness in addition to significant respiratory distress. Based on all this, the patient was intubated and the patient was placed on a mechanical ventilator and subsequently was moved to the intensive care unit. This morning he is an assist-control mode at the rate of 28 with FiO2 100% with a PEEP of 5 and tidal volume of 500. The subsequent blood gases showed a pH of 7.61 with a pCO2 of 32 and pO2 of 66 and this was on FiO2 of 60%. This is a ventilator changes was done. The respiratory rate will drop in the tidal volume was also dropped. The patient currently is hemodynamically stable. The patient is not requiring any pressors. The patient is afebrile. White cell count came at 21. Chest x-ray showed acute pulmonary edema. ET tube is in a good location. A triple lumen catheter was inserted in the right IJ and the patient had a follow-up chest x-ray that showed improvement in the pulmonary edema. Troponin is down trending is down to 3.7. The patient was supposed underwent cardiac catheterization today. This was postponed as the patient developed an acute kidney injury creatinine is up to 1.5. His potassium level i s also at 5.6. He is currently sedated on a mechanical ventilator. On propofol which is running at 40 mg per KG per minute. He remains on IV heparin. IV fluids at KVO and the patient is still being diuresed. No fever. No other significant events otherwise for now. Objective - Vital Signs Vital signs: Vital Signs Temp 98.6 F 10/04/20 12:00 Pulse 47 L 10/04/20 15:37 Resp 24 10/04/20 15:30 BP 113/67 10/04/20 14:00 Pulse Ox 100 10/04/20 15:30 Intake & Output 10/03/20 10/04/20 10/04/20 18:59 06:59 18:59 Intake Total 187.379 55.058 424.500 Output Total 1000 595 Balance 187.379 -944.942 -170.500 Weight 85.5 kg Intake: IV 90 0.9 NaCl 90 Intake, IV Titration 187.379 5.058 314.500 Amount Heparin Sod,Pork in 0.45% 187.379 0.241 188.937 NaCl 25,000 unit In 0.45 % NaCl 1 250ml.bag @ 12 UNITS/KG/HR 9.634 mls/hr IV .Q24H BRE Rx#: [id number] Nitroglycerin-D5w Pmx 50 16.3 mg In Dextrose/Water 1 250ml.bag @ 5 MCG/MIN 1.5 mls/hr IV .Q24H BRE Rx#: [id number] Norepinephrine 4 mg In 23.758 Sodium Chloride 0.9% 250 ml @ 0.05 MCG/KG/MIN 15. 294 mls/hr IV .U47X67M BRE Rx#:[id number] propofoL 1,000 mg In 4.817 85.505 Empty Bag 1 bag @ Titrate IV .Q0M BRE Rx#: [id number] Oral 50 Tube Feeding 20 Output: Urine 1000 595 Other: Voiding Method Indwelling Catheter Indwelling Catheter ABP, PAP, CO, CI - Last Documented Arterial Blood Pressure 127/54 - Exam Gen. appearance, the patient is intubated, comfortable sedated and the patient on acute respiratory distress. The patient has an orogastric and orotracheal tube are both of them are in place. The patient also has a right IJ triple- lumen catheter. Head exam was generally normal. There was no scleral icterus or corneal arcus. Mucous membranes were moist. Neck was supple and without jugular venous distension, thyromegaly, or carotid bruits. Carotids were easily palpable bilaterally. There was no adenopathy. The patient has a right IJ triple-lumen catheter in place Lungs sounds are diminished in the patient's crackles in lung bases bilaterally. She is scattered rhonchi and wheezes are also appreciated. Cardiac exam revealed the PMI to be normally situated and sized. The rhythm was regular and no extrasystoles were noted during several minutes of auscultation. The first and second heart sounds were normal and physiologic splitting of the second heart sound was noted. There were no murmurs, rubs, clicks, or gallops. The patient has an AICD pocket over the anterior chest area. Abdominal exam revealed normal bowel sounds. The abdomen was soft, non-tender, and without masses, organomegaly, or appreciable enlargement of the abdominal aorta. EXTREMITIES: 2+ radial pulses, bilateral amputation, right-sided [id number] and a left-sided below the knee. No cyanosis in upper extremities. No clubbing. NEUROLOGIC EXAMINATION: Patient is currently sedated and patient is calm and comfortable. - Labs CBC & Chem 7: 10/04/20 07:28 10/04/20 07:28 Labs: Abnormal Lab Results - Last 24 Hours (Table) 10/03/20 10/03/20 10/03/20 Range/Units 16:27 18:07 18:22 WBC (3.8-10.6) k/uL RBC (4.30-5.90) m/uL Hgb (13.0-17.5) gm/dL Hct (39.0-53.0) % Plt Count (150-450) k/uL Neutrophils # (1.3-7.7) k/uL Monocytes # (0-1.0) k/uL APTT (22.0-30.0) sec ABG pH (7.35-7.45) ABG pCO2 (35-45) mmHg ABG pO2 (83-108) mmHg ABG HCO3 (21-25) mmol/L ABG Total CO2 (19-24) mmol/L ABG O2 Saturation (94-97) % Sodium (137-145) mmol/L Potassium (3.5-5.1) mmol/L BUN (9-20) mg/dL Creatinine (0.66-1.25) mg/dL Glucose (74-99) mg/dL POC Glucose (mg/dL) 371 H 252 H (75-99) mg/dL Hemoglobin A1c (4.0-6.0) % Troponin I 4.410 H* (0.000-0.034) ng/mL Albumin (3.5-5.0) g/dL Urine Protein (Negative) Hyaline Casts (0-2) /lpf Urine Mucus (None) /hpf Urine Sperm (None) /hpf 10/03/20 10/03/20 10/04/20 Range/Units 19:51 20:24 04:59 WBC (3.8-10.6) k/uL RBC (4.30-5.90) m/uL Hgb (13.0-17.5) gm/dL Hct (39.0-53.0) % Plt Count (150-450) k/uL Neutrophils # (1.3-7.7) k/uL Monocytes # (0-1.0) k/uL APTT 42.8 H (22.0-30.0) sec ABG pH (7.35-7.45) ABG pCO2 (35-45) mmHg ABG pO2 (83-108) mmHg ABG HCO3 (21-25) mmol/L ABG Total CO2 (19-24) mmol/L ABG O2 Saturation (94-97) % Sodium (137-145) mmol/L Potassium (3.5-5.1) mmol/L BUN (9-20) mg/dL Creatinine (0.66-1.25) mg/dL Glucose (74-99) mg/dL POC Glucose (mg/dL) 241 H 157 H (75-99) mg/dL Hemoglobin A1c (4.0-6.0) % Troponin I (0.000-0.034) ng/mL Albumin (3.5-5.0) g/dL Urine Protein (Negative) Hyaline Casts (0-2) /lpf Urine Mucus (None) /hpf Urine Sperm (None) /hpf 10/04/20 10/04/20 10/04/20 Range/Units 05:51 07:28 07:28 WBC (3.8-10.6) k/uL RBC (4.30-5.90) m/uL Hgb (13.0-17.5) gm/dL Hct (39.0-53.0) % Plt Count (150-450) k/uL Neutrophils # (1.3-7.7) k/uL Monocytes # (0-1.0) k/uL APTT (22.0-30.0) sec ABG pH 7.17 L* (7.35-7.45) ABG pCO2 96 H* (35-45) mmHg ABG pO2 174 H (83-108) mmHg ABG HCO3 35 H (21-25) mmol/L ABG Total CO2 38 H (19-24) mmol/L ABG O2 Saturation 99.4 H (94-97) % Sodium 133 L (137-145) mmol/L Potassium 5.6 H (3.5-5.1) mmol/L BUN 30 H (9-20) mg/dL Creatinine 1.53 H (0.66-1.25) mg/dL Glucose 207 H (74-99) mg/dL POC Glucose (mg/dL) (75-99) mg/dL Hemoglobin A1c 6.2 H (4.0-6.0) % Troponin I (0.000-0.034) ng/mL Albumin 3.1 L (3.5-5.0) g/dL Urine Protein (Negative) Hyaline Casts (0-2) /lpf Urine Mucus (None) /hpf Urine Sperm (None) /hpf 10/04/20 10/04/20 10/04/20 Range/Units 07:28 07:28 10:49 WBC 21.1 H (3.8-10.6) k/uL RBC 4.15 L (4.30-5.90) m/uL Hgb 12.1 L (13.0-17.5) gm/dL Hct 38.8 L (39.0-53.0) % Plt Count 557 H (150-450) k/uL Neutrophils # 17.1 H (1.3-7.7) k/uL Monocytes # 1.1 H (0-1.0) k/uL APTT 51.1 H (22.0-30.0) sec ABG pH 7.61 H* (7.35-7.45) ABG pCO2 32 L (35-45) mmHg ABG pO2 66 L (83-108) mmHg ABG HCO3 32 H (21-25) mmol/L ABG Total CO2 33 H (19-24) mmol/L ABG O2 Saturation (94-97) % Sodium (137-145) mmol/L Potassium (3.5-5.1) mmol/L BUN (9-20) mg/dL Creatinine (0.66-1.25) mg/dL Glucose (74-99) mg/dL POC Glucose (mg/dL) (75-99) mg/dL Hemoglobin A1c (4.0-6.0) % Troponin I (0.000-0.034) ng/mL Albumin (3.5-5.0) g/dL Urine Protein (Negative) Hyaline Casts (0-2) /lpf Urine Mucus (None) /hpf Urine Sperm (None) /hpf 10/04/20 10/04/20 10/04/20 Range/Units 11:12 11:30 11:41 WBC (3.8-10.6) k/uL RBC (4.30-5.90) m/uL Hgb (13.0-17.5) gm/dL Hct (39.0-53.0) % Plt Count (150-450) k/uL Neutrophils # (1.3-7.7) k/uL Monocytes # (0-1.0) k/uL APTT (22.0-30.0) sec ABG pH (7.35-7.45) ABG pCO2 (35-45) mmHg ABG pO2 (83-108) mmHg ABG HCO3 (21-25) mmol/L ABG Total CO2 (19-24) mmol/L ABG O2 Saturation (94-97) % Sodium (137-145) mmol/L Potassium (3.5-5.1) mmol/L BUN (9-20) mg/dL Creatinine (0.66-1.25) mg/dL Glucose (74-99) mg/dL POC Glucose (mg/dL) 174 H (75-99) mg/dL Hemoglobin A1c (4.0-6.0) % Troponin I 3.770 H* (0.000-0.034) ng/mL Albumin (3.5-5.0) g/dL Urine Protein 1+ H (Negative) Hyaline Casts 4 H (0-2) /lpf Urine Mucus Rare H (None) /hpf Urine Sperm Moderate H (None) /hpf Microbiology - Last 24 Hours (Table) 10/04/20 05:35 Sputum Culture - Preliminary Sputum 10/02/20 18:33 Blood Culture - Preliminary Blood No Growth after 24 hours Assessment and Plan Plan: 1 acute hypoxic/hypercapnic respiratory failure secondary to pulmonary edema. The patient was having difficulty breathing secondary to CHF post myocardial infarction. Earlier this morning the patient went into flash pulmonary edema probably related to an acute hypertensive reaction. The patient had to be intubated and placed on a mechanical ventilator for severe hypercapnic and hypoxic respiratory failure and the patient was brought into the intensive care units. 2 acute non-STEMI, and the patient has a known history of coronary artery disease with a previous cardiac catheterization from 2009 revealing severe calcification of the LAD and circumflex, LAD with an eccentric plaque in the order of 40-50% and the circumflex involving a 20% to 30% lesion and RCA is chronically occluded with some collaterals. 3 History ischemic cardiomyopathy with an ejection fraction of 25-30% and the patient has a mass in place 4 acute kidney injury in the creatinine is up to 1.5 5 acute hypertensive reaction, and the blood pressures under better control, and the patient is currently on nitroglycerin drip in addition to IV heparin. The patient is also being diuresis with IV Lasix 40 mg every 12 hours. 6 COPD 7 diabetes mellitus 8 peripheral vascular disease and the patient has bilateral amputation 9 chronic smoking 10 acute leukocytosis, likely reactive 11 hyperlipidemia Plan Continue aspirin and IV heparin The troponin is down trending Keep the patient on Coreg 12.5 mg by mouth twice a day IV Lasix 40 mg every 12 hours to optimize CHF keep the patient sedated on propofol Monitor CVP Cardiac catheterization in a.m. to assess the patient's coronary artery status in the setting of an acute non-STEMI Condition is extremely critical and the patient's outcome is poor based on the above-mentioned morbidities. The plan is to do a cardiac catheterization the morning as long as the patient's renal function is stable. We'll check another set of electrolytes today. We'll continue to follow. This induration with on a more than 30 minutes. Case was also discussed with cardiology. Time with Patient: Greater than 30
--- NOTE | 2020-10-04 16:41 | P.PCN ---
Date of Procedure: 10/04/20 Preoperative Diagnosis: Acute pulmonary edema and respiratory failure Postoperative Diagnosis: Same Procedure(s) Performed: Insertion of a triple-lumen catheter Anesthesia: local Surgeon: Dimitry Freeman Pathology: other Condition: critical Disposition: ICU Operative Findings: Indication: Hemodynamic monitoring/Intravenous access. A time-out was completed verifying correct patient, procedure, site, positioning, and implant(s) or special equipment if applicable. The patient was placed in a dependent position appropriate for central line placement based on the vein to be cannulated. The patients right neck was prepped and draped in sterile fashion. 1% Lidocaine was used to anesthetize the surrounding skin area. A triple lumen 9F Cordis catheter was introduced into the internal jugular vein using Seldinger technique. The catheter was threaded smoothly over the guide wire and appropriate blood return was obtained. Each lumen of the catheter was evacuated of air and flushed with sterile saline. The catheter was then sutured in place to the skin and a sterile dressing applied. Perfusion to the extremity distal to the point of catheter insertion was checked and found to be adequate. The patient tolerated the procedure well and there were no complications.
[2020-10-04 18:24] LABS: Glucose,Whole Blood 137 mg/dL (75-99)
[2020-10-04 19:05] LABS: Calcium 8.7 mg/dL (8.4-10.2); Potassium 4.2 mmol/L (3.5-5.1)
[2020-10-04] MEDS: HEPARIN SOD,PORK IN 0.45% NACL 25,000 UNIT in 0.45% NACL 1 250ML.BAG IV SCH (20:18)
[2020-10-04] MEDS: NITROGLYCERIN-D5W PMX 50 MG in DEXTROSE/WATER 1 250ML.BAG IV SCH (20:20)
[2020-10-04 23:48] LABS: Glucose,Whole Blood 150 mg/dL (75-99)
[2020-10-05] MEDS: INSULIN ASPART (NovoLOG) 100 UNIT/ML VIAL SQ SCH ×5 (00:25→21:27)
[2020-10-05] MEDS: IPRATROPIUM-ALBUTEROL 3 ML NEB INHALATION SCH ×6 (00:36→21:35)
[2020-10-05 04:48] LABS: Basophils # (A) 0.1 k/uL (0-0.2); Basophils % (A) 0 %; Eosinophils # (A) 0.4 k/uL (0-0.7); Eosinophils % (A) 3 %; HCT 36.5 % (39.0-53.0); Lymphocytes # (A) 3.4 k/uL (1.0-4.8); Lymphocytes % (A) 24 %; MCV 91.1 fL (80.0-100.0); Mean Platelet Volume 7.7; Monocytes # (A) 1.1 k/uL (0-1.0); Monocytes % (A) 7 %; Neutrophils # (A) 9.2 k/uL (1.3-7.7); Neutrophils % (A) 64 %; Platelet Count 440 k/uL (150-450); RDW 13.7 % (11.5-15.5); WBC 14.3 k/uL (3.8-10.6)
[2020-10-05 05:10] LABS: Calcium 8.6 mg/dL (8.4-10.2); Potassium 3.4 mmol/L (3.5-5.1)
[2020-10-05 05:54] LABS: Allen Test Performed? Yes
[2020-10-05 05:55] LABS: ABG Base Excess 8.2 mmol/L; ABG HCO3 30 mmol/L (21-25); ABG PCO2 33 mmHg (35-45); ABG PH 7.57 (7.35-7.45); ABG PO2 113 mmHg (83-108); ABG TCO2 31 mmol/L (19-24)
[2020-10-05] MEDS ORDERED: Potassium Replacement Protocol 1 EACH MISC MISCELLANE PRN (06:20)
[2020-10-05] MEDS: NOREPINEPHRINE 4 MG in SODIUM CHLORIDE 0.9% 250 ML IV SCH ×2 (06:41→16:43)
[2020-10-05] MEDS: carvediloL 12.5 MG TAB PO SCH ×2 (06:42→17:45)
--- NOTE | 2020-10-05 07:16 | XR ---
EXAMINATION TYPE: XR chest 1V portable DATE OF EXAM: 10/05/2020 COMPARISON: Prior chest x-ray 10/04/2020 HISTORY: Intubated TECHNIQUE: Single frontal view of the chest is obtained. FINDINGS: Endotracheal tube, NG tube, right jugular central venous catheter, defibrillator are overl [place] appropriate positions. Patient is rotated. No evident pneumothorax. Heart is likely stable. No s izable effusion. There are overlying leads. Exam is expiratory. IMPRESSION: No significant interval change. Expiratory rotated exam.
--- NOTE | 2020-10-05 07:37 | PN ---
PROGRESS NOTE Mr. Fang is a 70-year-old male with known history of severe ischemic cardiomyopathy, status post ICD implant, history of peripheral vascular disease, status post bilateral amputation, history of chronically occluded right coronary artery, who presented with symptoms of progressive dyspnea and had elevation of his troponin. He became dyspneic requiring mechanical ventilation. He remains intubated at this time and sedated. Hemodynamically, he is in atrial fibrillation. His blood pressure is stable. He has no ventricular ectopic activity. He continues to be at this time on aspirin once a day, Lipitor 80 mg daily, Coreg 12.5 mg twice a day, IV heparin. PHYSICAL EXAMINATION: Blood pressure 114/50 with the heart rate in the 50s. LUNGS: Clear anteriorly. HEART: Irregular, irregular. S1, S2. No S3. No rub appreciated with a systolic murmur. ABDOMEN: Soft, nontender. EXTREMITIES: Status post bilateral amputation. LAB DATA: Lab data revealed BUN and creatinine 41 and 1.24, potassium 3.4. Troponin 5.26. A pO2 113. Hemoglobin of 4. Chest x-ray revealed no acute infiltrate. His echocardiogram on presentation showed an ejection fraction of 25% to 30% with mild mitral and tricuspid regurgitation. IMPRESSION: 1. Respiratory failure requiring mechanical ventilation with severe ischemic cardiomyopathy and congestive heart failure. 2. Non ST-segment elevation myocardial infarction. 3. Status post ICD. 4. Peripheral vascular disease. 5. Acute renal injury, improved. 6. Status post bilateral amputation. 7. Chronic obstructive pulmonary disease. RECOMMENDATION: I will discuss his case with Dr. Freeman, probably proceed with cardiac catheterization today to further assess his status and guide his treatment. The prognosis remains guarded. MMODL / IJN: [id number] /
[2020-10-05] MEDS: CHLORHEXIDINE GLUCONATE 15 ML CUP MUCOUS MEM SCH (08:34)
[2020-10-05] MEDS: POTASSIUM BICARBONATE/CIT AC 20 MEQ TABLET.EFF NG-TUBE SCH ×2 (08:34→12:54)
[2020-10-05] MEDS: PANTOPRAZOLE 40 MG/10 ML VIAL IVP SCH (08:34)
[2020-10-05] MEDS: ATORVASTATIN 80 MG TAB PO SCH (08:34)
[2020-10-05] MEDS: HEPARIN SOD,PORK IN 0.45% NACL 25,000 UNIT in 0.45% NACL 1 250ML.BAG IV SCH (08:48)
[2020-10-05] MEDS ORDERED: ASPIRIN 325 MG TAB PO ONE (09:00)
[2020-10-05] MEDS ORDERED: VERAPAMIL 2.5 MG/ML 2 ML AMP ONE (10:28)
[2020-10-05] MEDS ORDERED: LIDOCAINE 1% INJ 10MG/ML (20 ML MDV) ONE (10:28)
--- NOTE | 2020-10-05 10:28 | P.PN ---
Subjective Progress Note Date: 10/04/20 Eder Fang, is a 70-year-old male who presented to [facility] emergency room with a chief complaint of worsening shortness of breath, he was evaluated in the emergency room, vital examination on presentation reveals a temperature of 97.5 pulse 98 respiration 18 blood pressure 187/92 pulse ox 98% on room air, his white blood count was 8.5 hemoglobin 12.6 platelet count 482 INR 1.5 d-dimer 0.66 troponin level was elevated at 5.33 and BNP level was 2510 patient was started on IV heparin and was admitted to telemetry floor for further evaluation and treatment cardiology consultation and pulmonary consultation were requested echocardiogram was ordered. Patient has a known history of coronary artery disease, he had a cardiac catheterization 10 years ago which revealed severe calcification in his coronary arteries, patient continued to smoke, he has underlying history of congestive heart failure with cardiomyopathy with ejection fraction of 25-30% , he also has a known history of chronic obstructive pulmonary disease and severe peripheral vascular disease with bilateral lower extremity amputation. On review of systems patient is alert and oriented 3 in no distress he is com plaining of shortness of breath with activity otherwise he denies any complaints there is no fever or chills no headache or dizziness no chest pain he has occasional cough no nausea or vomiting no abdominal pain no diarrhea no blood in the stools no burning with urination no frequency or urgency and no hematuria no weakness or numbness in any of the extremities no change in vision speech or mobility. On 10/04/2020 patient was seen and examined in the ICU he is intubated sedated maintained on mechanical ventilation, last evening patient developed severe shortness of breath, 18 were called and patient was transferred to ICU and was intubated and started on mechanical ventilation he is currently maintained on nitroglycerin drip, norepinephrine drip, and IV propofol, IV heparin, and IV Lasix 40 mg twice daily, currently blood pressure is 119/60 pulse 67 respiration 28 pulse ox 100% on mechanical ventilation. His white blood count is 21.1 hemoglobin 12.1 platelet count 557 ABG reveals a pH of 7.17 pCO2 96 CO2 174 BUN is 30 creatinine 1.53 Objective - Vital Signs Vital signs: Vital Signs Temp 97.1 F L 10/04/20 08:00 Pulse 56 L 10/04/20 09:15 Resp 28 H 10/04/20 09:15 BP 102/49 11/18/20 09:15 Pulse Ox 100 10/04/20 09:15 Intake & Output 10/03/20 10/04/20 10/04/20 18:59 06:59 18:59 Intake Total 187.379 55.058 36.137 Output Total 1000 130 Balance 187.379 -944.942 -93.863 Intake: IV 20 0.9 NaCl 20 Intake, IV Titration 187.379 5.058 16.137 Amount Heparin Sod,Pork in 0.45% 187.379 0.241 NaCl 25,000 unit In 0.45 % NaCl 1 250ml.bag @ 12 UNITS/KG/HR 9.634 mls/hr IV .Q24H BRE Rx#: [id number] propofoL 1,000 mg In 4.817 16.137 Empty Bag 1 bag @ Titrate IV .Q0M BRE Rx#: [id number] Oral 50 Output: Urine 1000 130 Other: Voiding Method Indwelling Catheter ABP, PAP, CO, CI - Last Documented Arterial Blood Pressure 110/55 - Exam In general patient is intubated sedated maintained on mechanical ventilation HEENT head normocephalic and atraumatic Neck is supple no JVD no goiter no lymphadenopathy Chest exam reveals a few scattered crackles in both bases no wheezing Cardiac exam reveals regular heart sounds S1 and S2 no gallops no murmurs Abdomen is soft nontender no organomegaly with normal bowel sounds Extremity exam patient has bilateral lower extremity amputation Neurological examination no gross focal deficit - Labs CBC & Chem 7: 10/04/20 07:28 10/04/20 07:28 Labs: Abnormal Lab Results - Last 24 Hours (Table) 10/03/20 10/03/20 10/03/20 Range/Units 09:08 12:14 15:07 WBC (3.8-10.6) k/uL RBC (4.30-5.90) m/uL Hgb (13.0-17.5) gm/dL Hct (39.0-53.0) % Plt Count (150-450) k/uL Neutrophils # (1.3-7.7) k/uL Monocytes # (0-1.0) k/uL APTT 32.5 H 61.2 H (22.0-30.0) sec ABG pH (7.35-7.45) ABG pCO2 (35-45) mmHg ABG pO2 (83-108) mmHg ABG HCO3 (21-25) mmol/L ABG Total CO2 (19-24) mmol/L ABG O2 Saturation (94-97) % Sodium (137-145) mmol/L Potassium (3.5-5.1) mmol/L BUN (9-20) mg/dL Creatinine (0.66-1.25) mg/dL Glucose (74-99) mg/dL POC Glucose (mg/dL) 250 H (75-99) mg/dL Troponin I (0.000-0.034) ng/mL Albumin (3.5-5.0) g/dL 10/03/20 10/03/20 10/03/20 Range/Units 16:27 18:07 18:22 WBC (3.8-10.6) k/uL RBC (4.30-5.90) m/uL Hgb (13.0-17.5) gm/dL Hct (39.0-53.0) % Plt Count (150-450) k/uL Neutrophils # (1.3-7.7) k/uL Monocytes # (0-1.0) k/uL APTT (22.0-30.0) sec ABG pH (7.35-7.45) ABG pCO2 (35-45) mmHg ABG pO2 (83-108) mmHg ABG HCO3 (21-25) mmol/L ABG Total CO2 (19-24) mmol/L ABG O2 Saturation (94-97) % Sodium (137-145) mmol/L Potassium (3.5-5.1) mmol/L BUN (9-20) mg/dL Creatinine (0.66-1.25) mg/dL Glucose (74-99) mg/dL POC Glucose (mg/dL) 371 H 252 H (75-99) mg/dL Troponin I 4.410 H* (0.000-0.034) ng/mL Albumin (3.5-5.0) g/dL 10/03/20 10/03/20 10/04/20 Range/Units 19:51 20:24 04:59 WBC (3.8-10.6) k/uL RBC (4.30-5.90) m/uL Hgb (13.0-17.5) gm/dL Hct (39.0-53.0) % Plt Count (150-450) k/uL Neutrophils # (1.3-7.7) k/uL Monocytes # (0-1.0) k/uL APTT 42.8 H (22.0-30.0) sec ABG pH (7.35-7.45) ABG pCO2 (35-45) mmHg ABG pO2 (83-108) mmHg ABG HCO3 (21-25) mmol/L ABG Total CO2 (19-24) mmol/L ABG O2 Saturation (94-97) % Sodium (137-145) mmol/L Potassium (3.5-5.1) mmol/L BUN (9-20) mg/dL Creatinine (0.66-1.25) mg/dL Glucose (74-99) mg/dL POC Glucose (mg/dL) 241 H 157 H (75-99) mg/dL Troponin I (0.000-0.034) ng/mL Albumin (3.5-5.0) g/dL 10/04/20 10/04/20 10/04/20 Range/Units 05:51 07:28 07:28 WBC (3.8-10.6) k/uL RBC (4.30-5.90) m/uL Hgb (13.0-17.5) gm/dL Hct (39.0-53.0) % Plt Count (150-450) k/uL Neutrophils # (1.3-7.7) k/uL Monocytes # (0-1.0) k/uL APTT 51.1 H (22.0-30.0) sec ABG pH 7.17 L* (7.35-7.45) ABG pCO2 96 H* (35-45) mmHg ABG pO2 174 H (83-108) mmHg ABG HCO3 35 H (21-25) mmol/L ABG Total CO2 38 H (19-24) mmol/L ABG O2 Saturation 99.4 H (94-97) % Sodium 133 L (137-145) mmol/L Potassium 5.6 H (3.5-5.1) mmol/L BUN 30 H (9-20) mg/dL Creatinine 1.53 H (0.66-1.25) mg/dL Glucose 207 H (74-99) mg/dL POC Glucose (mg/dL) (75-99) mg/dL Troponin I (0.000-0.034) ng/mL Albumin 3.1 L (3.5-5.0) g/dL 10/04/20 Range/Units 07:28 WBC 21.1 H (3.8-10.6) k/uL RBC 4.15 L (4.30-5.90) m/uL Hgb 12.1 L (13.0-17.5) gm/dL Hct 38.8 L (39.0-53.0) % Plt Count 557 H (150-450) k/uL Neutrophils # 17.1 H (1.3-7.7) k/uL Monocytes # 1.1 H (0-1.0) k/uL APTT (22.0-30.0) sec ABG pH (7.35-7.45) ABG pCO2 (35-45) mmHg ABG pO2 (83-108) mmHg ABG HCO3 (21-25) mmol/L ABG Total CO2 (19-24) mmol/L ABG O2 Saturation (94-97) % Sodium (137-145) mmol/L Potassium (3.5-5.1) mmol/L BUN (9-20) mg/dL Creatinine (0.66-1.25) mg/dL Glucose (74-99) mg/dL POC Glucose (mg/dL) (75-99) mg/dL Troponin I (0.000-0.034) ng/mL Albumin (3.5-5.0) g/dL Microbiology - Last 24 Hours (Table) 10/04/20 05:35 Sputum Culture - Preliminary Sputum 10/02/20 18:33 Blood Culture - Preliminary Blood No Growth after 24 hours Assessment and Plan Plan: 1. Acute systolic and diastolic congestive heart failure exacerbation 2. Acute non-STEMI, with elevated troponin level 3. Acute hypoxic respiratory failure maintained on mechanical ventilation 4. Underlying history of hypertension 5. Underlying history of hyperlipidemia 6. Underlying history of peripheral vascular disease with bilateral lower extremity amputation 7. Underlying history of diabetes mellitus 8. Underlying history of COPD 9. Underlying history of chronic tobacco use. At this time patient is admitted to the ICU he was intubated sedated started on mechanical ventilation Prognosis is guarded due to severity of illness and multiple underlying medical conditions Pulmonary critical care and cardiology are following
[2020-10-05] MEDS ORDERED: IV FLUID CONTINUATION 500 ML IV ONE ×2 (10:51)
[2020-10-05] MEDS ORDERED: LIDOCAINE 1% INJ 10MG/ML (20 ML MDV) SQ ONE (10:59)
[2020-10-05] MEDS ORDERED: VERAPAMIL SYRINGE (5 MG/10 ML) INTRAARTER ONE (11:02)
[2020-10-05] MEDS ORDERED: HEPARIN SODIUM 1,000 UN/ML (10ML VL) ONE (11:08)
[2020-10-05] MEDS ORDERED: CLOPIDOGREL 75 MG TAB ONE (11:22)
[2020-10-05] MEDS: MIDAZOLAM 2 MG/2 ML VIAL IV ONE ×2 (11:24→11:38)
[2020-10-05] MEDS ORDERED: CLOPIDOGREL 75 MG TAB PO ONE (11:25)
[2020-10-05] MEDS ORDERED: IOPAMIDOL-370 125ML BTL INJ ONE ×2 (12:05)
[2020-10-05] MEDS ORDERED: IOPAMIDOL-370 100ML BTL INJ ONE (12:23)
[2020-10-05] MEDS ORDERED: ATROPINE SULFATE 0.1 MG/ML 10ML SYRINGE IV PRN (12:28)
[2020-10-05] MEDS ORDERED: RX INFO: IV CONTRAST WAS GIVEN 1 EACH MISC MISCELLANE PRN (12:28)
[2020-10-05] MEDS ORDERED: NITROGLYCERIN SL TABS 0.4 MG TAB SUBLINGUAL PRN (12:28)
[2020-10-05] MEDS ORDERED: ZOLPIDEM 5 MG TAB PO PRN (12:28)
[2020-10-05] MEDS ORDERED: MAG HYDROX/AL HYDROX/SIMETH 30 ML CUP PO PRN (12:28)
[2020-10-05] MEDS ORDERED: SODIUM CHLORIDE 0.9% 1,000 ML IV SCH (12:30)
[2020-10-05 12:45] LABS: Glucose,Whole Blood 168 mg/dL (75-99)
--- NOTE | 2020-10-05 14:49 | CC ---
CARDIAC CATHETERIZATION REPORT Mr. Fang is a 70-year-old male with known history of coronary artery disease, history of severe ischemic cardiomyopathy status post ICD implant, severe peripheral vascular disease, status post bilateral amputation of the lower extremities. History of chronic tobacco use, who presented with symptoms of progressive dyspnea, chest discomfort and evidence of non STEMI. The patient had deterioration of his breathing requiring mechanical ventilation. His echocardiogram revealed a severely impaired left ventricular systolic function. In view of the finding and the presentation, recommendation made regarding cardiac catheterization. The procedure was discussed with the patient on the admission day when he was awake and alert and he was in agreement. PROCEDURE: Patient was brought to the optical laboratory manager. He is intubated and sedated. Using Xylocaine anesthesia and Seldinger technique, a 6-[place] sheath was introduced in the left radial artery. Selective right and left coronary angiography performed using 5-[place] 4 bend right and left Ethel catheter, multiple views of the coronary artery including hemiaxial views were obtained. Following that, angioplasty and stenting was performed and using the guiding catheter, the aortic valve was crossed and the left ventricular end-diastolic pressure was calculated. Following that, catheter and sheath were removed. Hemostasis was obtained with deployment of a TR band. There was no immediate complication. Patient is returned to his room in stable condition. Of note, the patient received a total of 8500 units of intravenous heparin throughout the procedure. His ACT was monitored. He has received intra-arterial verapamil. FINDINGS: 1. FLUOROSCOPY: There was severe calcification involving the left anterior descending artery, left circumflex and the right coronary artery. 2. LEFT MAIN: This vessel is a moderate sized vessel, bifurcating into left circumflex, left anterior descending artery. Left main coronary artery has mild 10% plaque distally without any evidence of high-grade stenosis. 3. LEFT ANTERIOR DESCENDING ARTERY: This is a large-sized vessel, reaching toward the apex with a wraparound apex segment, heavily calcified in the mid segment. The LAD in the proximal mid segment has mild intimal disease of 20% to 30% without any evidence of high-grade stenosis. 4. LEFT CIRCUMFLEX: This vessel gives rise to a large first obtuse marginal branch proximally. The left circumflex has a 50% to 60% tubular lesion in the mid segment. The vessel is totally occluded with no significant antegrade flow. 5. RIGHT CORONARY ARTERY: This vessel is totally occluded proximally with ipsilateral collaterals filling up the distal RCA and there are collaterals to the distal left circumflex from the right coronary artery. 6. COLLATERALS: There is a contralateral collateral to the distal right PDA. 7. LEFT VENTRICULOGRAM: Left ventriculogram is not performed. 8. HEMODYNAMICS: There was no gradient across the aortic valve. The left ventricular end-diastolic pressure is 16-20 mmHg. CONCLUSION: 1. Acutely occluded mid left circumflex. 2. Heavily calcified coronary arteries. 3. Chronic occluded right coronary artery. 4. Moderate disease in the proximal left circumflex and mild to moderate disease in the LAD. RECOMMENDATION: In view of finding anatomy, I recommend proceeding with angioplasty and stenting of the left circumflex. MMODL / IJN: [id number] /
--- NOTE | 2020-10-05 14:53 | PTCA ---
PERCUTANEOUSTRANS CORORONARY ANGIOGRAPHY Mr. Fang is a 70-year-old male who presented with evidence of non ST-segment elevation myocardial infarction complicated by respiratory failure requiring mechanical ventilation. He underwent cardiac catheterization, was found to have totally occluded mid left circumflex. In view of that, recommendation made regarding angioplasty and stenting. PROCEDURE DESCRIPTION: A 6-H[place]ian LBU 3.75 guiding catheter introduced into the system after cannulating the left main, a 0.014 balanced medium weight J-wire and a straight FineCross microcatheter were advanced. There was inability to cross the total occlusion. The wire was removed and a Whisper J-wire was advanced. Unable to cross the total occlusion positioned distally, but there was inability to advance the microcatheter, the microcatheter was removed and a 1.5 x 6 mm Trek balloon was advanced and multiple inflations at 10 atmospheres were done. Following that. the balloon was removed and a 2.0 x 12 mm Trek balloon was advanced and through the balloon the wire was exchanged to a BMW J- wire and subsequently multiple inflation with the balloon was done at maximum of 10 atmospheres. After removing the balloon, a 2.5 x 15 mm NC Trek balloon was advanced and multiple inflations maximum of 10 atmospheres were done. Following that, the balloon was removed and a 2.5 x 28 mm Xience Kera stent was advanced, deployed and post- dilated at 16 atmospheres and removing the balloon a 2.75 x 18 mm Xience Kera stent was deployed proximal to the first one and postdilated at 16 atmospheres. Following that the balloon was advanced to the distal stent and inflation at 16 atmospheres were done. After the last inflation, after appropriate wait, the balloon and guidewire were removed. The left ventricular end-diastolic pressure was calculated. Following that, catheter and sheath were removed. Hemostasis was obtained with deployment of a TR band. There was no immediate complication. Patient was returned to his room in stable condition. Of note, the patient received an oral loading dose of clopidogrel and his ACT was monitored. RESULTS: Successful stenting of a long segment of total occlusion of the mid left circumflex with reduction of stenosis from 100% to 0%. RECOMMENDATION: Patient will be continued on aspirin, Plavix, statin, MIGUEL inhibitor and beta puja. Depending on his progress, further recommendation will be made. Duration of the sedation is 74 minutes. MMODL / IJN: [id number] / MTDD
--- NOTE | 2020-10-05 14:53 | LTR ---
DATE OF SERVICE: 10/05/2020 RE: Eder Fang Dear Dr. Campuzano; I had the pleasure to perform cardiac catheterization on Mr. Fang at [facility] on October 05, 2020 and a full copy of the procedure note will be forwarded to you. In brief, he was found to have chronic total occlusion of the right coronary artery and what appears to be an acute or subacute occlusion of the left circumflex. He underwent successful recanalization of the left circumflex. I am hopeful that this procedure will stabilize his status and I will keep you updated on his progress. Thank you again for allowing me to participate in this patient's care. Please feel free to call for any questions. Sincerely yours, MD ARIEL Castaneda / ANSHU: [id number] /
--- NOTE | 2020-10-05 15:46 | P.PN ---
Subjective Progress Note Date: 10/05/20 70-year-old male patient, known history of coronary artery disease and CHF and the patient is known to have chronic occluded mid RCA, mild LAD, mild circumflex disease, and addition to ischemic artery myopathy and the patient has an AICD in place. Other comorbidities include COPD as the patient is a chronic smoker, hypertension and hyperlipidemia and peripheral Vascular disease and the patient has had previous amputation of the lower extremities bilaterally. The patient is coming to the hospital because of increased shortness of breath and the patient is ruled in for acute non-ST segment elevation myocardial infarction. Noted the patient's troponin peaked at 5.33 and the patient's EKG showed sinus mechanism with a first-degree AV block and nonspecific ST segment abnormalities. I was consulted in this patient because of shortness of breath. The patient is still going to undergo a cardiac physician tomorrow. Note that the chest x-ray showed cardiac megaly and some bibasilar opacities and a CT angiogram showed interstitial edema and a small right-sided pleural effusion. It was negative for pulmonary embolism. No evidence of any pericardial effusion. Note that the patient had a proBNP level of 2510. The venous blood gas showed a pH of 7.44 with a pCO2 of 45. The sodium level was at 136 with a potassium level of 4.7 and a creatinine of 0.7. White cell count was at 9.3. He is feeling well for now. Is a chronic smoker. He is known to have COPD. Uses only albuterol and asked and his bases without any maintenance inhalational treatments. He denies being on oxygen on outpatient basis. On 10/04/2020, the patient is being seen in follow-up in the intensive care unit. Note that earlier this morning, the patient became acutely hypotensive and went into significant respiratory distress and his blood gases showed severe respiratory acidosis. The patient was becoming unresponsive and he was having diminished level of consciousness in addition to significant respiratory distress. Based on all this, the patient was intubated and the patient was placed on a mechanical ventilator and subsequently was moved to the intensive care unit. This morning he is an assist-control mode at the rate of 28 with FiO2 100% with a PEEP of 5 and tidal volume of 500. The subsequent blood gases showed a pH of 7.61 with a pCO2 of 32 and pO2 of 66 and this was on FiO2 of 60%. This is a ventilator changes was done. The respiratory rate will drop in the tidal volume was also dropped. The patient currently is hemodynamically stable. The patient is not requiring any pressors. The patient is afebrile. White cell count came at 21. Chest x-ray showed acute pulmonary edema. ET tube is in a good location. A triple lumen catheter was inserted in the right IJ and the patient had a follow-up chest x-ray that showed improvement in the pulmonary edema. Troponin is down trending is down to 3.7. The patient was supposed underwent cardiac catheterization today. This was postponed as the patient developed an acute kidney injury creatinine is up to 1.5. His potassium level i s also at 5.6. He is currently sedated on a mechanical ventilator. On propofol which is running at 40 mg per KG per minute. He remains on IV heparin. IV fluids at KVO and the patient is still being diuresed. No fever. No other significant events otherwise for now. On 10/05/2020, satting the patient for a follow-up. The patient remains intubated on a mechanical ventilator. The plan is to proceed with a cardiac catheterization today. The patient is still sedated propofol running at 50 mg per KG per minute. The patient is also on a low-dose levothyroid 20 metabolic support running at 0.02 g per KG per minute. The blood gas showed a pH of 7.57 with a pCO2 of 33 and pO2 of 113. The current vent settings with an assist- control at the rate of 24 with a tidal volume of 500 and FiO2 of 50% with a PEEP of 5. There is a component of respiratory alkalosis and I dropped a respiratory rate down to 16. As mentioned, the plan is to proceed with cardiac catheterization today. The patient's cardiac rhythm is atrial fibrillation with a controlled rate. Chest x-ray showed no evidence of any acute pulmonary edema. The CHF on exam improved. ET tube is in a good location. The patient has a triple lumen catheter inserted in the right IJ. Renal function is improved in the creatinine is down to 1.2. The fluid balance is +307 for today but is -7 5740 yesterday. Objective - Vital Signs Vital signs: Vital Signs Temp 97.4 F L 10/05/20 12:45 Pulse 48 L 10/05/20 15:00 Resp 16 10/05/20 15:00 BP 105/59 10/05/20 10:00 Pulse Ox 100 10/05/20 15:00 Intake & Output 10/04/20 10/05/20 10/05/20 18:59 06:59 18:59 Intake Total 733.341 999.175 745.065 Output Total 780 645 475 Balance -46.659 354.175 270.065 Weight 85.5 kg Intake: IV 159 312 96 0.9 NaCl 150 240 60 0.9 NaCl Pressure Bag 9 72 36 Intake, IV Titration 444.341 307.175 579.065 Amount Heparin Sod,Pork in 0.45% 249.759 200.713 NaCl 25,000 unit In 0.45 % NaCl 1 250ml.bag @ 12 UNITS/KG/HR 9.634 mls/hr IV .Q24H BRE Rx#: [id number] Nitroglycerin-D5w Pmx 50 16.3 mg In Dextrose/Water 1 250ml.bag @ 5 MCG/MIN 1.5 mls/hr IV .Q24H BRE Rx#: [id number] Norepinephrine 4 mg In 83.099 106.861 Sodium Chloride 0.9% 250 ml @ 0.05 MCG/KG/MIN 15. 294 mls/hr IV .[id number] BRE Rx#:[id number] Sodium Chloride 0.9% 1, 225 000 ml @ 75 mls/hr IV . [id number] BRE Rx#:[id number] propofoL 1,000 mg In 95.183 200.314 153.352 Empty Bag 1 bag @ Titrate IV .Q0M BRE Rx#: [id number] Tube Feeding 100 310 30 Other 30 70 40 Output: Urine 780 645 475 Other: Voiding Method Indwelling Catheter Indwelling Catheter Indwelling Catheter ABP, PAP, CO, CI - Last Documented Arterial Blood Pressure 129/48 - Exam Gen. appearance, the patient is intubated, comfortable sedated and the patient on acute respiratory distress. The patient has an orogastric and orotracheal tube are both of them are in place. The patient also has a right IJ triple- lumen catheter. Head exam was generally normal. There was no scleral icterus or corneal arcus. Mucous membranes were moist. Neck was supple and without jugular venous distension, thyromegaly, or carotid bruits. Carotids were easily palpable bilaterally. There was no adenopathy. The patient has a right IJ triple-lumen catheter in place Lungs sounds are diminished in the patient's crackles in lung bases bilaterally. She is scattered rhonchi and wheezes are also appreciated. Cardiac exam revealed the PMI to be normally situated and sized. The rhythm was regular and no extrasystoles were noted during several minutes of auscultation. The first and second heart sounds were normal and physiologic splitting of the second heart sound was noted. There were no murmurs, rubs, clicks, or gallops. The patient has an AICD pocket over the anterior chest area. Abdominal exam revealed normal bowel sounds. The abdomen was soft, non-tender, and without masses, organomegaly, or appreciable enlargement of the abdominal aorta. EXTREMITIES: 2+ radial pulses, bilateral amputation, right-sided [id number] and a left-sided below the knee. No cyanosis in upper extremities. No clubbing. NEUROLOGIC EXAMINATION: Patient is currently sedated and patient is calm and comfortable. - Labs CBC & Chem 7: 10/05/20 04:30 10/05/20 04:30 Labs: Abnormal Lab Results - Last 24 Hours (Table) 10/04/20 10/04/20 10/04/20 Range/Units 18:23 18:42 19:22 WBC (3.8-10.6) k/uL RBC (4.30-5.90) m/uL Hgb (13.0-17.5) gm/dL Hct (39.0-53.0) % Neutrophils # (1.3-7.7) k/uL Monocytes # (0-1.0) k/uL APTT (22.0-30.0) sec ABG pH (7.35-7.45) ABG pCO2 (35-45) mmHg ABG pO2 (83-108) mmHg ABG HCO3 (21-25) mmol/L ABG Total CO2 (19-24) mmol/L Sodium 133 L (137-145) mmol/L Potassium (3.5-5.1) mmol/L Carbon Dioxide 31 H (22-30) mmol/L BUN 36 H (9-20) mg/dL Creatinine 1.42 H (0.66-1.25) mg/dL Glucose 140 H (74-99) mg/dL POC Glucose (mg/dL) 137 H (75-99) mg/dL Troponin I 5.080 H* (0.000-0.034) ng/mL 10/04/20 10/04/20 10/05/20 Range/Units 23:46 23:47 04:30 WBC 14.3 H (3.8-10.6) k/uL RBC 4.00 L (4.30-5.90) m/uL Hgb 12.0 L (13.0-17.5) gm/dL Hct 36.5 L (39.0-53.0) % Neutrophils # 9.2 H (1.3-7.7) k/uL Monocytes # 1.1 H (0-1.0) k/uL APTT (22.0-30.0) sec ABG pH (7.35-7.45) ABG pCO2 (35-45) mmHg ABG pO2 (83-108) mmHg ABG HCO3 (21-25) mmol/L ABG Total CO2 (19-24) mmol/L Sodium (137-145) mmol/L Potassium (3.5-5.1) mmol/L Carbon Dioxide (22-30) mmol/L BUN (9-20) mg/dL Creatinine (0.66-1.25) mg/dL Glucose (74-99) mg/dL POC Glucose (mg/dL) 150 H (75-99) mg/dL Troponin I 5.260 H* (0.000-0.034) ng/mL 10/05/20 10/05/20 10/05/20 Range/Units 04:30 04:30 05:20 WBC (3.8-10.6) k/uL RBC (4.30-5.90) m/uL Hgb (13.0-17.5) gm/dL Hct (39.0-53.0) % Neutrophils # (1.3-7.7) k/uL Monocytes # (0-1.0) k/uL APTT 48.4 H (22.0-30.0) sec ABG pH 7.57 H* (7.35-7.45) ABG pCO2 33 L (35-45) mmHg ABG pO2 113 H (83-108) mmHg ABG HCO3 30 H (21-25) mmol/L ABG Total CO2 31 H (19-24) mmol/L Sodium 134 L (137-145) mmol/L Potassium 3.4 L (3.5-5.1) mmol/L Carbon Dioxide (22-30) mmol/L BUN 41 H (9-20) mg/dL Creatinine (0.66-1.25) mg/dL Glucose 182 H (74-99) mg/dL POC Glucose (mg/dL) (75-99) mg/dL Troponin I (0.000-0.034) ng/mL 10/05/20 Range/Units 12:43 WBC (3.8-10.6) k/uL RBC (4.30-5.90) m/uL Hgb (13.0-17.5) gm/dL Hct (39.0-53.0) % Neutrophils # (1.3-7.7) k/uL Monocytes # (0-1.0) k/uL APTT (22.0-30.0) sec ABG pH (7.35-7.45) ABG pCO2 (35-45) mmHg ABG pO2 (83-108) mmHg ABG HCO3 (21-25) mmol/L ABG Total CO2 (19-24) mmol/L Sodium (137-145) mmol/L Potassium (3.5-5.1) mmol/L Carbon Dioxide (22-30) mmol/L BUN (9-20) mg/dL Creatinine (0.66-1.25) mg/dL Glucose (74-99) mg/dL POC Glucose (mg/dL) 168 H (75-99) mg/dL Troponin I (0.000-0.034) ng/mL Microbiology - Last 24 Hours (Table) 10/02/20 18:33 Blood Culture - Preliminary Blood No Growth after 48 hours 10/04/20 05:35 Gram Stain - Preliminary Sputum Sputum Culture - Preliminary Assessment and Plan Plan: 1 acute hypoxic/hypercapnic respiratory failure secondary to pulmonary edema. The patient was having difficulty breathing secondary to CHF post myocardial infarction. Earlier this morning the patient went into flash pulmonary edema probably related to an acute hypertensive reaction. The patient had to be intubated and placed on a mechanical ventilator for severe hypercapnic and hypoxic respiratory failure and the patient was brought into the intensive care units. 2 acute non-STEMI, and the patient has a known history of coronary artery d isease with a previous cardiac catheterization from 2009 revealing severe calcification of the LAD and circumflex, LAD with an eccentric plaque in the order of 40-50% and the circumflex involving a 20% to 30% lesion and RCA is chronically occluded with some collaterals. The plan is to proceed with cardiac catheterization today. The cardiac catheterization was done at the renal function is improving and the patient's creatinine is down to 1.2 3 History ischemic cardiomyopathy with an ejection fraction of 25-30% and the patient has a mass in place 4 acute kidney injury in the creatinine is improved down to 1.2 5 acute hypertensive reaction, recovered and the patient is currently on low-d ose norepinephrine infusion for blood pressure control 6 COPD 7 diabetes mellitus 8 peripheral vascular disease and the patient has bilateral amputation 9 chronic smoking 10 acute leukocytosis, likely reactive, improvement in the white cell count is down to 14.3 11 hyperlipidemia Plan Dropped a respiratory rate down to 16 Drop the norepinephrine infusion and weaned off based on the blood pressure control Gentle hydration with 75 mL an hour of normal saline Continue ASA and Coreg and lisinopril as long as the BP tolerate keep the patient sedated on propofol Monitor CVP Cardiac catheterizationto be done today. to assess the patient's coronary artery status in the setting of an acute non-STEMI Condition is extremely critical and the patient's outcome is poor based on the above-mentioned morbidities. The plan is to do a cardiac catheterization and based on the results and proceed with further weaning off the mechanical ventilator. We'll continue to follow. This induration with on a more than 30 minutes. Case was also discussed with cardiology. Time with Patient: Greater than 30
[2020-10-05 16:11] LABS: ABG Base Excess 6.4 mmol/L; ABG HCO3 30 mmol/L (21-25); ABG Oxygen Saturation 99.1 % (94-97); ABG PCO2 41 mmHg (35-45); ABG PH 7.48 (7.35-7.45); ABG PO2 348 mmHg (83-108); ABG TCO2 31 mmol/L (19-24)
[2020-10-05 16:14] LABS: Allen Test Performed? no
[2020-10-05 16:54] LABS: Glucose,Whole Blood 144 mg/dL (75-99)
--- NOTE | 2020-10-05 18:12 | P.PN ---
Subjective Progress Note Date: 10/05/20 Eder Fang, is a 70-year-old male who presented to [facility] emergency room with a chief complaint of worsening shortness of breath, he was evaluated in the emergency room, vital examination on presentation reveals a temperature of 97.5 pulse 98 respiration 18 blood pressure 187/92 pulse ox 98% on room air, his white blood count was 8.5 hemoglobin 12.6 platelet count 482 INR 1.5 d-dimer 0.66 troponin level was elevated at 5.33 and BNP level was 2510 patient was started on IV heparin and was admitted to telemetry floor for further evaluation and treatment cardiology consultation and pulmonary consultation were requested echocardiogram was ordered. Patient has a known history of coronary artery disease, he had a cardiac catheterization 10 years ago which revealed severe calcification in his coronary arteries, patient continued to smoke, he has underlying history of congestive heart failure with cardiomyopathy with ejection fraction of 25-30% , he also has a known history of chronic obstructive pulmonary disease and severe peripheral vascular disease with bilateral lower extremity amputation. On review of systems patient is alert and oriented 3 in no distress he is com plaining of shortness of breath with activity otherwise he denies any complaints there is no fever or chills no headache or dizziness no chest pain he has occasional cough no nausea or vomiting no abdominal pain no diarrhea no blood in the stools no burning with urination no frequency or urgency and no hematuria no weakness or numbness in any of the extremities no change in vision speech or mobility. On 10/04/2020 patient was seen and examined in the ICU he is intubated sedated maintained on mechanical ventilation, last evening patient developed severe shortness of breath, 18 were called and patient was transferred to ICU and was intubated and started on mechanical ventilation he is currently maintained on nitroglycerin drip, norepinephrine drip, and IV propofol, IV heparin, and IV Lasix 40 mg twice daily, currently blood pressure is 119/60 pulse 67 respiration 28 pulse ox 100% on mechanical ventilation. His white blood count is 21.1 hemoglobin 12.1 platelet count 557 ABG reveals a pH of 7.17 pCO2 96 CO2 174 BUN is 30 creatinine 1.53 On 10/05/2020 patient was seen and examined in the ICU, case was discussed over the phone with Dr. Fenton who performed a cardiac catheterization today. Patient remains intubated sedated maintained on mechanical ventilation he is maintained on vasopressors he is in atrial fibrillation his temperature is 97.8 pulse 69 respiration 20 blood pressure 157/61 his white blood count is 14.3 hemoglobin 12.0 platelet count 440 pH 7.57 pCO2 33 by mouth to 113 sodium 134 potassium 3.4 creatinine 1.24 Objective - Vital Signs Vital signs: Vital Signs Temp 98.2 F 10/05/20 04:00 Pulse 60 10/05/20 10:00 Resp 22 10/05/20 10:00 BP 105/59 10/05/20 10:00 Pulse Ox 100 10/05/20 10:00 Intake & Output 10/04/20 10/05/20 10/05/20 18:59 06:59 18:59 Intake Total 733.341 999.175 348.713 Output Total 780 645 280 Balance -46.659 354.175 68.713 Weight 85.5 kg Intake: IV 159 312 78 0.9 NaCl 150 240 60 0.9 NaCl Pressure Bag 9 72 18 Intake, IV Titration 444.341 307.175 200.713 Amount Heparin Sod,Pork in 0.45% 249.759 200.713 NaCl 25,000 unit In 0.45 % NaCl 1 250ml.bag @ 12 UNITS/KG/HR 9.634 mls/hr IV .Q24H BRE Rx#: [id number] Nitroglycerin-D5w Pmx 50 16.3 mg In Dextrose/Water 1 250ml.bag @ 5 MCG/MIN 1.5 mls/hr IV .Q24H BRE Rx#: [id number] Norepinephrine 4 mg In 83.099 106.861 Sodium Chloride 0.9% 250 ml @ 0.05 MCG/KG/MIN 15. 294 mls/hr IV .[id number] BRE Rx#:[id number] propofoL 1,000 mg In 95.183 200.314 Empty Bag 1 bag @ Titrate IV .Q0M BRE Rx#: [id number] Tube Feeding 100 310 30 Other 30 70 40 Output: Urine 780 645 280 Other: Voiding Method Indwelling Catheter Indwelling Catheter Indwelling Catheter ABP, PAP, CO, CI - Last Documented Arterial Blood Pressure 122/52 - Exam In general patient is intubated sedated maintained on mechanical ventilation HEENT head normocephalic and atraumatic Neck is supple no JVD no goiter no lymphadenopathy Chest exam reveals a few scattered crackles in both bases no wheezing Cardiac exam reveals regular heart sounds S1 and S2 no gallops no murmurs Abdomen is soft nontender no organomegaly with normal bowel sounds Extremity exam patient has bilateral lower extremity amputation Neurological examination no gross focal deficit - Labs CBC & Chem 7: 10/05/20 04:30 10/05/20 04:30 Labs: Abnormal Lab Results - Last 24 Hours (Table) 10/04/20 10/04/20 10/04/20 Range/Units 07:28 18:23 18:42 WBC (3.8-10.6) k/uL RBC (4.30-5.90) m/uL Hgb (13.0-17.5) gm/dL Hct (39.0-53.0) % Neutrophils # (1.3-7.7) k/uL Monocytes # (0-1.0) k/uL APTT (22.0-30.0) sec ABG pH (7.35-7.45) ABG pCO2 (35-45) mmHg ABG pO2 (83-108) mmHg ABG HCO3 (21-25) mmol/L ABG Total CO2 (19-24) mmol/L Sodium 133 L (137-145) mmol/L Potassium (3.5-5.1) mmol/L Carbon Dioxide 31 H (22-30) mmol/L BUN 36 H (9-20) mg/dL Creatinine 1.42 H (0.66-1.25) mg/dL Glucose 140 H (74-99) mg/dL POC Glucose (mg/dL) 137 H (75-99) mg/dL Hemoglobin A1c 6.2 H (4.0-6.0) % Troponin I (0.000-0.034) ng/mL 10/04/20 10/04/20 10/04/20 Range/Units 19:22 23:46 23:47 WBC (3.8-10.6) k/uL RBC (4.30-5.90) m/uL Hgb (13.0-17.5) gm/dL Hct (39.0-53.0) % Neutrophils # (1.3-7.7) k/uL Monocytes # (0-1.0) k/uL APTT (22.0-30.0) sec ABG pH (7.35-7.45) ABG pCO2 (35-45) mmHg ABG pO2 (83-108) mmHg ABG HCO3 (21-25) mmol/L ABG Total CO2 (19-24) mmol/L Sodium (137-145) mmol/L Potassium (3.5-5.1) mmol/L Carbon Dioxide (22-30) mmol/L BUN (9-20) mg/dL Creatinine (0.66-1.25) mg/dL Glucose (74-99) mg/dL POC Glucose (mg/dL) 150 H (75-99) mg/dL Hemoglobin A1c (4.0-6.0) % Troponin I 5.080 H* 5.260 H* (0.000-0.034) ng/mL 10/05/20 10/05/20 10/05/20 Range/Units 04:30 04:30 04:30 WBC 14.3 H (3.8-10.6) k/uL RBC 4.00 L (4.30-5.90) m/uL Hgb 12.0 L (13.0-17.5) gm/dL Hct 36.5 L (39.0-53.0) % Neutrophils # 9.2 H (1.3-7.7) k/uL Monocytes # 1.1 H (0-1.0) k/uL APTT 48.4 H (22.0-30.0) sec ABG pH (7.35-7.45) ABG pCO2 (35-45) mmHg ABG pO2 (83-108) mmHg ABG HCO3 (21-25) mmol/L ABG Total CO2 (19-24) mmol/L Sodium 134 L (137-145) mmol/L Potassium 3.4 L (3.5-5.1) mmol/L Carbon Dioxide (22-30) mmol/L BUN 41 H (9-20) mg/dL Creatinine (0.66-1.25) mg/dL Glucose 182 H (74-99) mg/dL POC Glucose (mg/dL) (75-99) mg/dL Hemoglobin A1c (4.0-6.0) % Troponin I (0.000-0.034) ng/mL 10/05/20 10/05/20 Range/Units 05:20 12:43 WBC (3.8-10.6) k/uL RBC (4.30-5.90) m/uL Hgb (13.0-17.5) gm/dL Hct (39.0-53.0) % Neutrophils # (1.3-7.7) k/uL Monocytes # (0-1.0) k/uL APTT (22.0-30.0) sec ABG pH 7.57 H* (7.35-7.45) ABG pCO2 33 L (35-45) mmHg ABG pO2 113 H (83-108) mmHg ABG HCO3 30 H (21-25) mmol/L ABG Total CO2 31 H (19-24) mmol/L Sodium (137-145) mmol/L Potassium (3.5-5.1) mmol/L Carbon Dioxide (22-30) mmol/L BUN (9-20) mg/dL Creatinine (0.66-1.25) mg/dL Glucose (74-99) mg/dL POC Glucose (mg/dL) 168 H (75-99) mg/dL Hemoglobin A1c (4.0-6.0) % Troponin I (0.000-0.034) ng/mL Microbiology - Last 24 Hours (Table) 10/02/20 18:33 Blood Culture - Preliminary Blood No Growth after 48 hours 10/04/20 05:35 Gram Stain - Preliminary Sputum Sputum Culture - Preliminary Assessment and Plan Plan: 1. Acute systolic and diastolic congestive heart failure exacerbation 2. Acute non-STEMI, with elevated troponin level 3. Acute hypoxic respiratory failure maintained on mechanical ventilation 4. Underlying history of hypertension 5. Underlying history of hyperlipidemia 6. Underlying history of peripheral vascular disease with bilateral lower extremity amputation 7. Underlying history of diabetes mellitus 8. Underlying history of COPD 9. Underlying history of chronic tobacco use. At this time patient is admitted to the ICU he was intubated sedated started on mechanical ventilation Prognosis is guarded due to severity of illness and multiple underlying medical conditions Pulmonary critical care and cardiology are following
[2020-10-05 21:15] LABS: Glucose,Whole Blood 183 mg/dL (75-99)
[2020-10-06] MEDS: IPRATROPIUM-ALBUTEROL 3 ML NEB INHALATION SCH ×7 (00:55→19:56)
[2020-10-06 04:55] LABS: HCT 33.1 % (39.0-53.0); HGB 11.1 gm/dL (13.0-17.5); MCH 30.9 pg (25.0-35.0); MCHC 33.6 g/dL (31.0-37.0); MCV 92.1 fL (80.0-100.0); Platelet Count 326 k/uL (150-450); RBC 3.59 m/uL (4.30-5.90); RDW 13.5 % (11.5-15.5); WBC 12.7 k/uL (3.8-10.6)
[2020-10-06 05:10] LABS: Calcium 8.4 mg/dL (8.4-10.2); Potassium 3.7 mmol/L (3.5-5.1)
--- NOTE | 2020-10-06 07:24 | XR ---
EXAMINATION TYPE: XR chest 1V portable DATE OF EXAM: 10/06/2020 COMPARISON: 10/05/2020 INDICATION: Tube placement TECHNIQUE: Single frontal view of the chest is obtained. FINDINGS: The heart size is mildly prominent. The pulmonary vasculature is mildly prominent. Left lower lobe infiltrate has developed. Small effusion is not excluded. Mild infiltrate is developi ng at the right base. Right central venous catheter is present with the tip in the right atrium. Pacemaker overlies left ch est. Endotracheal tube and nasogastric tube. IMPRESSION: 1. Developing bibasilar infiltrates. Correlate for atelectasis and pneumonia. 2. Mild cardiomegaly with prominence of pulmonary vascular markings. Correlate for volume overload.
--- NOTE | 2020-10-06 07:40 | PN ---
PROGRESS NOTE Mr. Fang is a 70-year-old male who presented with non ST-segment elevation myocardial infarction. Subsequently had respiratory failure, was intubated, underwent cardiac catheterization yesterday and stenting of the totally occluded left circumflex. He had a known history of chronic occlusion of the right coronary artery. He was extubated last night. He is feeling well this morning. He denies any chest pain. He denies any dizziness or palpitation. He is feeling better. He is awake and alert. He continues to be on aspirin once a day, Lipitor 80 mg daily, Coreg 12.5 mg twice a day, lisinopril 2.5 mg daily, Aldactone 25 mg daily. PHYSICAL EXAMINATION: Blood pressure running in the 130 to 140 with the heart rate in 70s. LUNGS: A few crackles at the bases. No wheezes. HEART: Irregular, irregular. S1, S2. No S3 with systolic ejection murmur. No diastolic murmur. No rub. ABDOMEN: Soft, nontender. EXTREMITIES: Status post bilateral amputation. Right radial pulse intact. Chest x-ray shows a small infiltrate in the right lower lobe. IMPRESSION: 1. Status post non ST-elevation myocardial infarction with chronically occluded right coronary artery and status post stenting of a totally occluded left circumflex. 2. Respiratory failure, improved. Patient extubated. 3. Atrial fibrillation. 4. Severe ischemic cardiomyopathy. 5. Status post ICD implantation. 6. Severe peripheral vascular disease, status post bilateral amputation. 7. Hyperlipidemia. 8. Renal failure. 9. Chronic obstructive lung disease. RECOMMENDATION: I will increase the dose of his Coreg. I will continue present dose of his MIGUEL inhibitor and follow his renal function. We will increase his activity. Follow his blood pressure and heart rate and depending on his progress, further recommendation will be made. MMODL / IJN: [id number] /
[2020-10-06] MEDS ORDERED: POTASSIUM CHLORIDE ER 20 MEQ TAB.ER PO SCH (08:00)
[2020-10-06 08:19] LABS: Glucose,Whole Blood 182 mg/dL (75-99)
[2020-10-06] MEDS: ATORVASTATIN 80 MG TAB PO SCH (08:53)
[2020-10-06] MEDS: APIXABAN 5 MG TAB PO SCH ×2 (08:53→21:34)
[2020-10-06] MEDS: INSULIN ASPART (NovoLOG) 100 UNIT/ML VIAL SQ SCH ×4 (08:54→21:34)
[2020-10-06] MEDS: CLOPIDOGREL 75 MG TAB PO SCH (08:54)
[2020-10-06] MEDS: SPIRONOLACTONE 25 MG TAB PO SCH (08:54)
[2020-10-06] MEDS: ASPIRIN 81 MG PO SCH (08:54)
[2020-10-06] MEDS: carvediloL 12.5 MG TAB PO SCH ×2 (08:54→18:25)
[2020-10-06] MEDS: PANTOPRAZOLE 40 MG/10 ML VIAL IVP SCH (08:54)
[2020-10-06] MEDS: NOREPINEPHRINE 4 MG in SODIUM CHLORIDE 0.9% 250 ML IV SCH (08:58)
[2020-10-06] MEDS ORDERED: ASPIRIN 81 MG PO SCH (09:00)
[2020-10-06] MEDS: FUROSEMIDE 20 MG TAB PO SCH (11:49)
[2020-10-06] MEDS: AMOXIC-POT CLAV 875-125MG 1 EACH TAB PO SCH ×2 (11:49→21:34)
--- NOTE | 2020-10-06 12:19 | CDI ---
Documentation Clarification Form Date: 10/06/2020 12:08:48 PM From: Shira Escalante CCS, CCDS Admit Date: 10/02/2020 08:51:00 PM Patient Name: Eder Fang Visit Number: [id number] Discharge Date: ATTENTION: The Clinical Documentation Specialists (CDI) and [facility] Coding Staff appreciate your assistance in clarifying documentation. Please respond to the clarification below the line at the bottom and electronically sign. The CDI & [facility] Coding staff will review the response and follow-up if needed. Please note: Queries are made part of the Legal Health Record. If you have any questions, please contact the author of this message via ITS. Dr. Idalia Fenton: Atrial Fibrillation is documented in the 10/04 Cardiology Progress Note: "He is in atrial fibrillation." and also in subsequent Progress Notes without further specificity. History/Risk Factors: CHF, GA, COPD, DM II, Nicotine Dependence, AICD, History of TIA, Bilateral Leg amputations, Wheelchair bound. Clinical Indicators: Presented to the ED on 10/02 via EMS with SOB. Admitted with CHF & NSTEMI. EKG 10/02: R 92 Sinus rhythm with 1st degree block. EKG 10/03: R 104 Sinus tachycardia, T wave abnormality, consider lateral ischemia. Treatment 10/02: INH Albuterol, IV Solumedrol, po Aspirin, IV Heparin, IV Lasix, IV Morphine, Nitro sl, O2 2Lnc. 10/03: IV Lasix, IV Apresoline. 10/04: Intubated, IV Levophed, IV Propofol, po Aspirin 10/05 IV Heparin, Heart Catheterization & PTCA with stent to Left Circumflex. In your professional opinion, can you please clarify the type of Atrial Fibrillation, if known? Chronic/Permanent Paroxysmal Persistent Other, please specify new onset Unable to determine (Last Revision: February 2018) MTDD
[2020-10-06 12:21] LABS: Glucose,Whole Blood 149 mg/dL (75-99)
--- NOTE | 2020-10-06 13:06 | P.PN ---
Subjective Progress Note Date: 10/06/20 Eder Fang, is a 70-year-old male who presented to [facility] emergency room with a chief complaint of worsening shortness of breath, he was evaluated in the emergency room, vital examination on presentation reveals a temperature of 97.5 pulse 98 respiration 18 blood pressure 187/92 pulse ox 98% on room air, his white blood count was 8.5 hemoglobin 12.6 platelet count 482 INR 1.5 d-dimer 0.66 troponin level was elevated at 5.33 and BNP level was 2510 patient was started on IV heparin and was admitted to telemetry floor for further evaluation and treatment cardiology consultation and pulmonary consultation were requested echocardiogram was ordered. Patient has a known history of coronary artery disease, he had a cardiac catheterization 10 years ago which revealed severe calcification in his coronary arteries, patient continued to smoke, he has underlying history of congestive heart failure with cardiomyopathy with ejection fraction of 25-30% , he also has a known history of chronic obstructive pulmonary disease and severe peripheral vascular disease with bilateral lower extremity amputation. On review of systems patient is alert and oriented 3 in no distress he is com plaining of shortness of breath with activity otherwise he denies any complaints there is no fever or chills no headache or dizziness no chest pain he has occasional cough no nausea or vomiting no abdominal pain no diarrhea no blood in the stools no burning with urination no frequency or urgency and no hematuria no weakness or numbness in any of the extremities no change in vision speech or mobility. On 10/04/2020 patient was seen and examined in the ICU he is intubated sedated maintained on mechanical ventilation, last evening patient developed severe shortness of breath, 18 were called and patient was transferred to ICU and was intubated and started on mechanical ventilation he is currently maintained on nitroglycerin drip, norepinephrine drip, and IV propofol, IV heparin, and IV Lasix 40 mg twice daily, currently blood pressure is 119/60 pulse 67 respiration 28 pulse ox 100% on mechanical ventilation. His white blood count is 21.1 hemoglobin 12.1 platelet count 557 ABG reveals a pH of 7.17 pCO2 96 CO2 174 BUN is 30 creatinine 1.53 On 10/05/2020 patient was seen and examined in the ICU, case was discussed over the phone with Dr. Fenton who performed a cardiac catheterization today. Patient remains intubated sedated maintained on mechanical ventilation he is maintained on vasopressors he is in atrial fibrillation his temperature is 97.8 pulse 69 respiration 20 blood pressure 157/61 his white blood count is 14.3 hemoglobin 12.0 platelet count 440 pH 7.57 pCO2 33 by mouth to 113 sodium 134 potassium 3.4 creatinine 1.24 On 10/06/2020 patient was seen and examined in the ICU he is alert and oriented 3 in no apparent distress he was extubated and is maintained on oxygen via nasal cannula and is tolerating well at this time he denies any chest pain or shortness of breath there is no fever or chills no headache or dizziness no palpitation no cough no nausea or vomiting no abdominal pain no diarrhea no blood in the stools no burning with urination no frequency or urgency and no hematuria Objective - Vital Signs Vital signs: Vital Signs Temp 99.1 F 10/06/20 12:00 Pulse 63 10/06/20 12:00 Resp 11 L 10/06/20 12:00 BP 116/61 10/06/20 12:00 Pulse Ox 94 L 10/06/20 12:00 Intake & Output 10/05/20 10/06/20 10/06/20 18:59 06:59 18:59 Intake Total 944.277 7355 156 Output Total 945 770 240 Balance -66.935 1172 -84 Weight 85 kg 85 kg Intake: IV 154 262 156 0.9 NaCl 60 0.9 NaCl Pressure Bag 54 42 36 ns 40 220 120 Intake, IV Titration 654.065 Amount Heparin Sod,Pork in 0.45% 200.713 NaCl 25,000 unit In 0.45 % NaCl 1 250ml.bag @ 12 UNITS/KG/HR 9.634 mls/hr IV .Q24H BRE Rx#: [id number] Sodium Chloride 0.9% 1, 300 000 ml @ 75 mls/hr IV . [id number] BRE Rx#:[id number] propofoL 1,000 mg In 153.352 Empty Bag 1 bag @ Titrate IV .Q0M BRE Rx#: [id number] Oral 1680 Tube Feeding 30 Other 40 Output: Gastric Drainage 200 Urine 745 770 240 Other: Voiding Method Indwelling Catheter Indwelling Catheter Indwelling Catheter ABP, PAP, CO, CI - Last Documented Arterial Blood Pressure 118/49 - Exam In general patient is intubated sedated maintained on mechanical ventilation HEENT head normocephalic and atraumatic Neck is supple no JVD no goiter no lymphadenopathy Chest exam reveals a few scattered crackles in both bases no wheezing Cardiac exam reveals regular heart sounds S1 and S2 no gallops no murmurs Abdomen is soft nontender no organomegaly with normal bowel sounds Extremity exam patient has bilateral lower extremity amputation Neurological examination no gross focal deficit - Labs CBC & Chem 7: 10/06/20 04:25 10/06/20 04:25 Labs: Abnormal Lab Results - Last 24 Hours (Table) 10/05/20 10/05/20 10/05/20 Range/Units 16:10 16:53 21:14 WBC (3.8-10.6) k/uL RBC (4.30-5.90) m/uL Hgb (13.0-17.5) gm/dL Hct (39.0-53.0) % ABG pH 7.48 H (7.35-7.45) ABG pO2 348 H (83-108) mmHg ABG HCO3 30 H (21-25) mmol/L ABG Total CO2 31 H (19-24) mmol/L ABG O2 Saturation 99.1 H (94-97) % Sodium (137-145) mmol/L BUN (9-20) mg/dL Creatinine (0.66-1.25) mg/dL Glucose (74-99) mg/dL POC Glucose (mg/dL) 144 H 183 H (75-99) mg/dL 10/06/20 10/06/20 10/06/20 Range/Units 04:25 04:25 08:18 WBC 12.7 H (3.8-10.6) k/uL RBC 3.59 L (4.30-5.90) m/uL Hgb 11.1 L (13.0-17.5) gm/dL Hct 33.1 L (39.0-53.0) % ABG pH (7.35-7.45) ABG pO2 (83-108) mmHg ABG HCO3 (21-25) mmol/L ABG Total CO2 (19-24) mmol/L ABG O2 Saturation (94-97) % Sodium 132 L (137-145) mmol/L BUN 34 H (9-20) mg/dL Creatinine 1.32 H (0.66-1.25) mg/dL Glucose 191 H (74-99) mg/dL POC Glucose (mg/dL) 182 H (75-99) mg/dL 10/06/20 Range/Units 12:20 WBC (3.8-10.6) k/uL RBC (4.30-5.90) m/uL Hgb (13.0-17.5) gm/dL Hct (39.0-53.0) % ABG pH (7.35-7.45) ABG pO2 (83-108) mmHg ABG HCO3 (21-25) mmol/L ABG Total CO2 (19-24) mmol/L ABG O2 Saturation (94-97) % Sodium (137-145) mmol/L BUN (9-20) mg/dL Creatinine (0.66-1.25) mg/dL Glucose (74-99) mg/dL POC Glucose (mg/dL) 149 H (75-99) mg/dL Microbiology - Last 24 Hours (Table) 10/04/20 05:35 Gram Stain - Final Sputum Sputum Culture - Final Haemophilus influenzae 10/02/20 18:33 Blood Culture - Preliminary Blood No Growth after 72 hours Assessment and Plan Plan: 1. Acute systolic and diastolic congestive heart failure exacerbation 2. Acute non-STEMI, with elevated troponin level, status post cardiac catheterization with stent placement yesterday 3. Acute hypoxic respiratory failure maintained on mechanical ventilation, patient extubated and is tolerating well 4. Underlying history of hypertension 5. Underlying history of hyperlipidemia 6. Underlying history of peripheral vascular disease with bilateral lower ext remity amputation 7. Underlying history of diabetes mellitus 8. Underlying history of COPD 9. Underlying history of chronic tobacco use. At this time patient is admitted to the ICU he was intubated sedated started on mechanical ventilation Prognosis is guarded due to severity of illness and multiple underlying medical conditions Pulmonary critical care and cardiology are following
--- NOTE | 2020-10-06 15:53 | P.PN ---
Subjective Progress Note Date: 10/06/20 Principal diagnosis: Coronary artery disease, status post cardiac arrest 70-year-old male patient, known history of coronary artery disease and CHF and the patient is known to have chronic occluded mid RCA, mild LAD, mild circumflex disease, and addition to ischemic artery myopathy and the patient has an AICD in place. Other comorbidities include COPD as the patient is a chronic smoker, hypertension and hyperlipidemia and peripheral Vascular disease and the patient has had previous amputation of the lower extremities bilaterally. The patient is coming to the hospital because of increased shortness of breath and the patient is ruled in for acute non-ST segment elevation myocardial infarction. Noted the patient's troponin peaked at 5.33 and the patient's EKG showed sinus mechanism with a first-degree AV block and nonspecific ST segment abnormalities. I was consulted in this patient because of shortness of breath. The patient is still going to undergo a cardiac physician tomorrow. Note that the chest x-ray showed cardiac megaly and some bibasilar opacities and a CT angiogram showed interstitial edema and a small right-sided pleural effusion. It was negative for pulmonary embolism. No evidence of any pericardial effusion. Note that the patient had a proBNP level of 2510. The venous blood gas showed a pH of 7.44 with a pCO2 of 45. The sodium level was at 136 with a potassium level of 4.7 and a creatinine of 0.7. White cell count was at 9.3. He is feeling well for now. Is a chronic smoker. He is known to have COPD. Uses only albuterol and asked and his bases without any maintenance inhalational treatments. He denies being on oxygen on outpatient basis. On 10/04/2020, the patient is being seen in follow-up in the intensive care unit. Note that earlier this morning, the patient became acutely hypotensive and went into significant respiratory distress and his blood gases showed severe respiratory acidosis. The patient was becoming unresponsive and he was having diminished level of consciousness in addition to significant respiratory distress. Based on all this, the patient was intubated and the patient was placed on a mechanical ventilator and subsequently was moved to the intensive care unit. This morning he is an assist-control mode at the rate of 28 with FiO2 100% with a PEEP of 5 and tidal volume of 500. The subsequent blood gases showed a pH of 7.61 with a pCO2 of 32 and pO2 of 66 and this was on FiO2 of 60%. This is a ventilator changes was done. The respiratory rate will drop in the tidal volume was also dropped. The patient currently is hemodynamically stable. The patient is not requiring any pressors. The patient is afebrile. White cell count came at 21. Chest x-ray showed acute pulmonary edema. ET tube is in a good location. A triple lumen catheter was inserted in the right IJ and the patient had a follow-up chest x-ray that showed improvement in the pulmonary edema. Troponin is down trending is down to 3.7. The patient was supposed underwent cardiac catheterization today. This was postponed as the patient developed an acute kidney injury creatinine is up to 1.5. His potassium level is also at 5.6. He is currently sedated on a mechanical ventilator. On propofol which is running at 40 mg per KG per minute. He remains on IV heparin. IV fluids at [facility] and the patient is still being diuresed. No fever. No other significant events otherwise for now. On 10/05/2020, satting the patient for a follow-up. The patient remains intubated on a mechanical ventilator. The plan is to proceed with a cardiac catheterization today. The patient is still sedated propofol running at 50 mg per KG per minute. The patient is also on a low-dose levothyroid 20 metabolic support running at 0.02 g per KG per minute. The blood gas showed a pH of 7.57 with a pCO2 of 33 and pO2 of 113. The current vent settings with an assist- control at the rate of 24 with a tidal volume of 500 and FiO2 of 50% with a PEEP of 5. There is a component of respiratory alkalosis and I dropped a respiratory rate down to 16. As mentioned, the plan is to proceed with cardiac catheterization today. The patient's cardiac rhythm is atrial fibrillation with a controlled rate. Chest x-ray showed no evidence of any acute pulmonary edema. The CHF on exam improved. ET tube is in a good location. The patient has a triple lumen catheter inserted in the right IJ. Renal function is improved in the creatinine is down to 1.2. The fluid balance is +307 for today but is -7 5740 yesterday. The patient is seen today 10/06/2020 in follow-up in the intensive care unit. He is awake and alert in no acute distress. He is oriented. He's been off the ventilator since yesterday. He currently denies any worsening shortness of breath, cough or congestion. Maintaining O2 saturations in the mid 90s on 2 L/m per nasal cannula. His been afebrile. Hemodynamically stable. No chest pain, palpitations lightheadedness or dizziness. The patient did undergo cardiac catheterization and stenting of a long segment totally occluded mid left circumflex. Continued on aspirin, Plavix, statins, MIGUEL inhibitor and beta blockers. Sputum culture positive for Haemophilus influenza. White count 12.7. Hemoglobin 11.1. Sodium 132 potassium 3.7 and creatinine 1.32. He remains on bronchodilators, Augmentin. Anticoagulated with Eliquis. Objective - Vital Signs Vital signs: Vital Signs Temp 98.1 F 10/06/20 13:30 Pulse 72 10/06/20 15:25 Resp 18 10/06/20 13:30 BP 115/53 10/06/20 13:30 Pulse Ox 97 10/06/20 13:30 Intake & Output 10/05/20 10/06/20 10/06/20 18:59 06:59 18:59 Intake Total 661.514 4233 256 Output Total 945 770 240 Balance -66.935 1172 16 Weight 85 kg 85 kg Intake: IV 154 262 156 0.9 NaCl 60 0.9 NaCl Pressure Bag 54 42 36 ns 40 220 120 Intake, IV Titration 654.065 Amount Heparin Sod,Pork in 0.45% 200.713 NaCl 25,000 unit In 0.45 % NaCl 1 250ml.bag @ 12 UNITS/KG/HR 9.634 mls/hr IV .Q24H BRE Rx#: [id number] Sodium Chloride 0.9% 1, 300 000 ml @ 75 mls/hr IV . [id number] BRE Rx#:[id number] propofoL 1,000 mg In 153.352 Empty Bag 1 bag @ Titrate IV .Q0M BRE Rx#: [id number] Oral 1680 100 Tube Feeding 30 Other 40 Output: Gastric Drainage 200 Urine 745 770 240 Other: Voiding Method Indwelling Catheter Indwelling Catheter Indwelling Catheter # Voids 0 # Bowel Movements 0 ABP, PAP, CO, CI - Last Documented Arterial Blood Pressure 118/49 - Exam Gen. appearance, the patient is awake and alert on 2 L nasal cannula, in no acute respiratory distress. Head exam was generally normal. There was no scleral icterus or corneal arcus. Mucous membranes were moist. Neck was supple and without jugular venous distension, thyromegaly, or carotid bruits. Carotids were easily palpable bilaterally. There was no adenopathy. The patient has a right IJ triple-lumen catheter in place Lungs sounds are diminished, crackles in lung bases bilaterally. Few scattered rhonchi and wheezes are also appreciated. Cardiac exam revealed the PMI to be normally situated and sized. The rhythm was regular and no extrasystoles were noted during several minutes of auscultation. The first and second heart sounds were normal and physiologic splitting of the second heart sound was noted. There were no murmurs, rubs, clicks, or gallops. The patient has an AICD pocket over the anterior chest area. Abdominal exam revealed normal bowel sounds. The abdomen was soft, non-tender, and without masses, organomegaly, or appreciable enlargement of the abdominal aorta. EXTREMITIES: 2+ radial pulses, bilateral amputation, right-sided [id number] and a left-sided below the knee. No cyanosis in upper extremities. No clubbing. NEUROLOGIC EXAMINATION: Patient is currently awake and alert, is calm and comfortable. - Labs CBC & Chem 7: 10/06/20 04:25 10/06/20 04:25 Labs: Abnormal Lab Results - Last 24 Hours (Table) 10/05/20 10/05/20 10/05/20 Range/Units 16:10 16:53 21:14 WBC (3.8-10.6) k/uL RBC (4.30-5.90) m/uL Hgb (13.0-17.5) gm/dL Hct (39.0-53.0) % ABG pH 7.48 H (7.35-7.45) ABG pO2 348 H (83-108) mmHg ABG HCO3 30 H (21-25) mmol/L ABG Total CO2 31 H (19-24) mmol/L ABG O2 Saturation 99.1 H (94-97) % Sodium (137-145) mmol/L BUN (9-20) mg/dL Creatinine (0.66-1.25) mg/dL Glucose (74-99) mg/dL POC Glucose (mg/dL) 144 H 183 H (75-99) mg/dL 10/06/20 10/06/20 10/06/20 Range/Units 04:25 04:25 08:18 WBC 12.7 H (3.8-10.6) k/uL RBC 3.59 L (4.30-5.90) m/uL Hgb 11.1 L (13.0-17.5) gm/dL Hct 33.1 L (39.0-53.0) % ABG pH (7.35-7.45) ABG pO2 (83-108) mmHg ABG HCO3 (21-25) mmol/L ABG Total CO2 (19-24) mmol/L ABG O2 Saturation (94-97) % Sodium 132 L (137-145) mmol/L BUN 34 H (9-20) mg/dL Creatinine 1.32 H (0.66-1.25) mg/dL Glucose 191 H (74-99) mg/dL POC Glucose (mg/dL) 182 H (75-99) mg/dL 10/06/20 Range/Units 12:20 WBC (3.8-10.6) k/uL RBC (4.30-5.90) m/uL Hgb (13.0-17.5) gm/dL Hct (39.0-53.0) % ABG pH (7.35-7.45) ABG pO2 (83-108) mmHg ABG HCO3 (21-25) mmol/L ABG Total CO2 (19-24) mmol/L ABG O2 Saturation (94-97) % Sodium (137-145) mmol/L BUN (9-20) mg/dL Creatinine (0.66-1.25) mg/dL Glucose (74-99) mg/dL POC Glucose (mg/dL) 149 H (75-99) mg/dL Microbiology - Last 24 Hours (Table) 10/04/20 05:35 Gram Stain - Final Sputum Sputum Culture - Final Haemophilus influenzae 10/02/20 18:33 Blood Culture - Preliminary Blood No Growth after 72 hours Assessment and Plan Assessment: 1 acute hypoxic/hypercapnic respiratory failure secondary to pulmonary edema. The patient was having difficulty breathing secondary to CHF post myocardial infarction. Earlier this morning the patient went into flash pulmonary edema probably related to an acute hypertensive reaction. The patient had to be intubated and placed on a mechanical ventilator for severe hypercapnic and hypoxic respiratory failure and the patient was brought into the intensive care units. Extubated 10/06/2020. Ativan 2 L/m per nasal cannula 2 acute non-STEMI, and the patient has a known history of coronary artery disease with a previous cardiac catheterization from 2009 revealing severe calcification of the LAD and circumflex, LAD with an eccentric plaque in the order of 40-50% and the circumflex involving a 20% to 30% lesion and RCA is chronically occluded with some collaterals. Status post stenting of a long segment of total occlusion of the mid left circumflex artery on 10/05/2020 3 History ischemic cardiomyopathy with an ejection fraction of 25-30% and the patient has a mass in place 4 acute kidney injury in the creatinine is improved down to 1.2 5 acute hypertensive reaction, recovered and the patient is currently on low- dose norepinephrine infusion for blood pressure control 6 COPD 7 diabetes mellitus 8 peripheral vascular disease and the patient has bilateral amputation 9 chronic smoking 10 acute leukocytosis, likely reactive, improvement in the white cell count is down to 14.3 11 hyperlipidemia 12 Haemophilus influenza per sputum Plan The patient was seen and evaluated by Dr. Freeman He was successfully extubated yesterday and doing well today Chest x-ray and labs reviewed He will be transferred out of the ICU Continue current medications including Augmentin and bronchodilators Titrate down the FiO2 as tolerated We will continue to follow I, the cosigning physician, performed a history & physical examination of the patient. Lungs sounds with basilar crackles. Maintaining good O2 saturations in the 90s on 2 L/m per nasal cannula. I discussed the assessment and plan of care with my nurse practitioner, Celina Isaac. I attest to the above note as dictated by her.
[2020-10-06 16:44] LABS: Glucose,Whole Blood 262 mg/dL (75-99)
[2020-10-06 21:02] LABS: Glucose,Whole Blood 206 mg/dL (75-99)
[2020-10-06] MEDS: ALPRAZolam 0.5 MG TAB PO PRN (21:34)
[2020-10-07 06:42] LABS: Glucose,Whole Blood 150 mg/dL (75-99)
[2020-10-07] MEDS: carvediloL 12.5 MG TAB PO SCH ×3 (06:50→17:10)
[2020-10-07] MEDS: INSULIN ASPART (NovoLOG) 100 UNIT/ML VIAL SQ SCH ×4 (06:51→21:06)
[2020-10-07] MEDS: IPRATROPIUM-ALBUTEROL 3 ML NEB INHALATION SCH ×4 (07:34→18:41)
[2020-10-07 08:04] LABS: HCT 31.8 % (39.0-53.0); HGB 10.5 gm/dL (13.0-17.5); MCH 31.1 pg (25.0-35.0); MCHC 33.1 g/dL (31.0-37.0); MCV 94.1 fL (80.0-100.0); Mean Platelet Volume 7.9; Platelet Count 296 k/uL (150-450); RBC 3.38 m/uL (4.30-5.90); RDW 13.4 % (11.5-15.5); WBC 10.8 k/uL (3.8-10.6)
[2020-10-07 08:14] LABS: Calcium 8.4 mg/dL (8.4-10.2); Potassium 4.1 mmol/L (3.5-5.1)
[2020-10-07] MEDS: PANTOPRAZOLE 40 MG/10 ML VIAL IVP SCH (08:50)
[2020-10-07] MEDS: CLOPIDOGREL 75 MG TAB PO SCH (08:51)
[2020-10-07] MEDS: APIXABAN 5 MG TAB PO SCH ×2 (08:51→21:06)
[2020-10-07] MEDS: SPIRONOLACTONE 25 MG TAB PO SCH (08:51)
[2020-10-07] MEDS: FUROSEMIDE 20 MG TAB PO SCH (08:51)
[2020-10-07] MEDS: ATORVASTATIN 80 MG TAB PO SCH (08:51)
[2020-10-07] MEDS: AMOXIC-POT CLAV 875-125MG 1 EACH TAB PO SCH ×2 (08:51→21:06)
[2020-10-07] MEDS: ASPIRIN 81 MG PO SCH (08:51)
--- NOTE | 2020-10-07 11:21 | XR ---
EXAMINATION TYPE: XR chest 2V DATE OF EXAM: 10/07/2020 COMPARISON: 10/06/2020 HISTORY: Shortness of breath TECHNIQUE: Frontal and lateral views of the chest are obtained. FINDINGS: Scattered senescent parenchymal changes noted. Hyperinflation compatible with COPD. Patchy basilar infiltrates persist. Mild cardiomegaly with pulmonary venous congestion. Mediastinal structures are stable and grossly unremarkable. No evidence for hilar prominence. Degenerative changes dorsal spine. IMPRESSION: 1. Stable Chest.
[2020-10-07 12:24] LABS: Glucose,Whole Blood 299 mg/dL (75-99)
--- NOTE | 2020-10-07 13:49 | PN ---
PROGRESS NOTE Mr. Fang underwent stenting of a totally occluded circumflex by Dr. Fenton. He is also known to have a total occlusion of RCA. Ejection fraction is poor. He seems to be comfortable, but on examination, there are rales on both bases and he seems to be short of breath with mild activity. Vitals however are stable. JVD is evident S1-S2 heard normally. Short, systolic murmur noted. Lungs reveal bilateral diminished air entry with fine rales on both bases. I am recommending that we give him IV Lasix for a couple of days, increase activity and optimize his medical therapy and see how he does. Prognosis remains guarded. MMODL / IJN: [id number] /
[2020-10-07] MEDS: FUROSEMIDE 10 MG/ML 2 ML VIAL IV SCH ×2 (14:13→23:57)
[2020-10-07] MEDS: IPRATROPIUM-ALBUTEROL 3 ML NEB INHALATION PRN (14:17)
--- NOTE | 2020-10-07 14:38 | P.PN ---
Subjective Progress Note Date: 10/07/20 Eder Fang, is a 70-year-old male who presented to [facility] emergency room with a chief complaint of worsening shortness of breath, he was evaluated in the emergency room, vital examination on presentation reveals a temperature of 97.5 pulse 98 respiration 18 blood pressure 187/92 pulse ox 98% on room air, his white blood count was 8.5 hemoglobin 12.6 platelet count 482 INR 1.5 d-dimer 0.66 troponin level was elevated at 5.33 and BNP level was 2510 patient was started on IV heparin and was admitted to telemetry floor for further evaluation and treatment cardiology consultation and pulmonary consultation were requested echocardiogram was ordered. Patient has a known history of coronary artery disease, he had a cardiac catheterization 10 years ago which revealed severe calcification in his coronary arteries, patient continued to smoke, he has underlying history of congestive heart failure with cardiomyopathy with ejection fraction of 25-30% , he also has a known history of chronic obstructive pulmonary disease and severe peripheral vascular disease with bilateral lower extremity amputation. On review of systems patient is alert and oriented 3 in no distress he is com plaining of shortness of breath with activity otherwise he denies any complaints there is no fever or chills no headache or dizziness no chest pain he has occasional cough no nausea or vomiting no abdominal pain no diarrhea no blood in the stools no burning with urination no frequency or urgency and no hematuria no weakness or numbness in any of the extremities no change in vision speech or mobility. On 10/04/2020 patient was seen and examined in the ICU he is intubated sedated maintained on mechanical ventilation, last evening patient developed severe shortness of breath, 18 were called and patient was transferred to ICU and was intubated and started on mechanical ventilation he is currently maintained on nitroglycerin drip, norepinephrine drip, and IV propofol, IV heparin, and IV Lasix 40 mg twice daily, currently blood pressure is 119/60 pulse 67 respiration 28 pulse ox 100% on mechanical ventilation. His white blood count is 21.1 hemoglobin 12.1 platelet count 557 ABG reveals a pH of 7.17 pCO2 96 CO2 174 BUN is 30 creatinine 1.53 On 10/05/2020 patient was seen and examined in the ICU, case was discussed over the phone with Dr. Fenton who performed a cardiac catheterization today. Patient remains intubated sedated maintained on mechanical ventilation he is maintained on vasopressors he is in atrial fibrillation his temperature is 97.8 pulse 69 respiration 20 blood pressure 157/61 his white blood count is 14.3 hemoglobin 12.0 platelet count 440 pH 7.57 pCO2 33 by mouth to 113 sodium 134 potassium 3.4 creatinine 1.24 On 10/06/2020 patient was seen and examined in the ICU he is alert and oriented 3 in no apparent distress he was extubated and is maintained on oxygen via nasal cannula and is tolerating well at this time he denies any chest pain or shortness of breath there is no fever or chills no headache or dizziness no palpitation no cough no nausea or vomiting no abdominal pain no diarrhea no blood in the stools no burning with urination no frequency or urgency and no hematuria On 10/07/2020 patient was seen and examined on the telemetry floor. He is out of the ICU he is maintained on oxygen via nasal cannula and is tolerating well there is no new episodes of chest pain he has occasionally some shortness of breath otherwise he denies any complaints there is no fever or chills no headache or dizziness no palpitation no chest pain no nausea or vomiting no abdominal pain no diarrhea no blood in the stools no burning with urination no frequency or urgency and no hematuria no weakness or numbness in any of the extremities no change in vision speech or mobility Objective - Vital Signs Vital signs: Vital Signs Temp 98.3 F 10/07/20 11:00 Pulse 72 10/07/20 12:10 Resp 18 10/07/20 11:00 BP 137/57 10/07/20 11:00 Pulse Ox 100 10/07/20 11:00 Intake & Output 10/06/20 10/07/20 10/07/20 18:59 06:59 18:59 Intake Total 256 640 370 Output Total 240 800 Balance 16 -160 370 Weight 85 kg 84.5 kg Intake: IV 156 10 0.9 NaCl Pressure Bag 36 ns 120 10 Oral 100 640 360 Output: Urine 240 800 Other: Voiding Method Indwelling Catheter Indwelling Catheter Indwelling Catheter # Voids 0 1 # Bowel Movements 0 1 0 ABP, PAP, CO, CI - Last Documented Arterial Blood Pressure 118/49 - Exam In general patient is intubated sedated maintained on mechanical ventilation HEENT head normocephalic and atraumatic Neck is supple no JVD no goiter no lymphadenopathy Chest exam reveals a few scattered crackles in both bases no wheezing Cardiac exam reveals regular heart sounds S1 and S2 no gallops no murmurs Abdomen is soft nontender no organomegaly with normal bowel sounds Extremity exam patient has bilateral lower extremity amputation Neurological examination no gross focal deficit - Labs CBC & Chem 7: 10/07/20 07:19 10/07/20 07:19 Labs: Abnormal Lab Results - Last 24 Hours (Table) 10/06/20 10/06/20 10/07/20 Range/Units 16:42 20:59 06:24 WBC (3.8-10.6) k/uL RBC (4.30-5.90) m/uL Hgb (13.0-17.5) gm/dL Hct (39.0-53.0) % Sodium (137-145) mmol/L BUN (9-20) mg/dL Creatinine (0.66-1.25) mg/dL Glucose (74-99) mg/dL POC Glucose (mg/dL) 262 H 206 H 150 H (75-99) mg/dL 10/07/20 10/07/20 10/07/20 Range/Units 07:19 07:19 11:47 WBC 10.8 H (3.8-10.6) k/uL RBC 3.38 L (4.30-5.90) m/uL Hgb 10.5 L (13.0-17.5) gm/dL Hct 31.8 L (39.0-53.0) % Sodium 135 L (137-145) mmol/L BUN 45 H (9-20) mg/dL Creatinine 1.55 H (0.66-1.25) mg/dL Glucose 140 H (74-99) mg/dL POC Glucose (mg/dL) 299 H (75-99) mg/dL Microbiology - Last 24 Hours (Table) 10/02/20 18:33 Blood Culture - Preliminary Blood No Growth after 96 hours Assessment and Plan Plan: 1. Acute systolic and diastolic congestive heart failure exacerbation 2. Acute non-STEMI, with elevated troponin level, status post cardiac catheterization with stent placement yesterday 3. Acute hypoxic respiratory failure maintained on mechanical ventilation, patient extubated and is tolerating well 4. Underlying history of hypertension 5. Underlying history of hyperlipidemia 6. Underlying history of peripheral vascular disease with bilateral lower extremity amputation 7. Underlying history of diabetes mellitus 8. Underlying history of COPD 9. Underlying history of chronic tobacco use. At this time patient is admitted to the ICU he was intubated sedated started on mechanical ventilation Prognosis is guarded due to severity of illness and multiple underlying medical conditions Pulmonary critical care and cardiology are following
--- NOTE | 2020-10-07 15:49 | P.PN ---
Subjective Progress Note Date: 10/07/20 Principal diagnosis: Coronary artery disease, status post cardiac arrest 70-year-old male patient, known history of coronary artery disease and CHF and the patient is known to have chronic occluded mid RCA, mild LAD, mild circumflex disease, and addition to ischemic artery myopathy and the patient has an AICD in place. Other comorbidities include COPD as the patient is a chronic smoker, hypertension and hyperlipidemia and peripheral Vascular disease and the patient has had previous amputation of the lower extremities bilaterally. The patient is coming to the hospital because of increased shortness of breath and the patient is ruled in for acute non-ST segment elevation myocardial infarction. Noted the patient's troponin peaked at 5.33 and the patient's EKG showed sinus mechanism with a first-degree AV block and nonspecific ST segment abnormalities. I was consulted in this patient because of shortness of breath. The patient is still going to undergo a cardiac physician tomorrow. Note that the chest x-ray showed cardiac megaly and some bibasilar opacities and a CT angiogram showed interstitial edema and a small right-sided pleural effusion. It was negative for pulmonary embolism. No evidence of any pericardial effusion. Note that the patient had a proBNP level of 2510. The venous blood gas showed a pH of 7.44 with a pCO2 of 45. The sodium level was at 136 with a potassium level of 4.7 and a creatinine of 0.7. White cell count was at 9.3. He is feeling well for now. Is a chronic smoker. He is known to have COPD. Uses only albuterol and asked and his bases without any maintenance inhalational treatments. He denies being on oxygen on outpatient basis. On 10/04/2020, the patient is being seen in follow-up in the intensive care unit. Note that earlier this morning, the patient became acutely hypotensive and went into significant respiratory distress and his blood gases showed severe respiratory acidosis. The patient was becoming unresponsive and he was having diminished level of consciousness in addition to significant respiratory distress. Based on all this, the patient was intubated and the patient was placed on a mechanical ventilator and subsequently was moved to the intensive care unit. This morning he is an assist-control mode at the rate of 28 with FiO2 100% with a PEEP of 5 and tidal volume of 500. The subsequent blood gases showed a pH of 7.61 with a pCO2 of 32 and pO2 of 66 and this was on FiO2 of 60%. This is a ventilator changes was done. The respiratory rate will drop in the tidal volume was also dropped. The patient currently is hemodynamically stable. The patient is not requiring any pressors. The patient is afebrile. White cell count came at 21. Chest x-ray showed acute pulmonary edema. ET tube is in a good location. A triple lumen catheter was inserted in the right IJ and the patient had a follow-up chest x-ray that showed improvement in the pulmonary edema. Troponin is down trending is down to 3.7. The patient was supposed underwent cardiac catheterization today. This was postponed as the patient developed an acute kidney injury creatinine is up to 1.5. His potassium level is also at 5.6. He is currently sedated on a mechanical ventilator. On propofol which is running at 40 mg per KG per minute. He remains on IV heparin. IV fluids at [facility] and the patient is still being diuresed. No fever. No other significant events otherwise for now. On 10/05/2020, satting the patient for a follow-up. The patient remains intubated on a mechanical ventilator. The plan is to proceed with a cardiac catheterization today. The patient is still sedated propofol running at 50 mg per KG per minute. The patient is also on a low-dose levothyroid 20 metabolic support running at 0.02 g per KG per minute. The blood gas showed a pH of 7.57 with a pCO2 of 33 and pO2 of 113. The current vent settings with an assist- control at the rate of 24 with a tidal volume of 500 and FiO2 of 50% with a PEEP of 5. There is a component of respiratory alkalosis and I dropped a respiratory rate down to 16. As mentioned, the plan is to proceed with cardiac catheterization today. The patient's cardiac rhythm is atrial fibrillation with a controlled rate. Chest x-ray showed no evidence of any acute pulmonary edema. The CHF on exam improved. ET tube is in a good location. The patient has a triple lumen catheter inserted in the right IJ. Renal function is improved in the creatinine is down to 1.2. The fluid balance is +307 for today but is -7 [phone] yesterday. The patient is seen today 10/06/2020 in follow-up in the intensive care unit. He is awake and alert in no acute distress. He is oriented. He's been off the ventilator since yesterday. He currently denies any worsening shortness of breath, cough or congestion. Maintaining O2 saturations in the mid 90s on 2 L/m per nasal cannula. His been afebrile. Hemodynamically stable. No chest pain, palpitations lightheadedness or dizziness. The patient did undergo cardiac catheterization and stenting of a long segment totally occluded mid left circumflex. Continued on aspirin, Plavix, statins, MIGUEL inhibitor and beta blockers. Sputum culture positive for Haemophilus influenza. White count 12.7. Hemoglobin 11.1. Sodium 132 potassium 3.7 and creatinine 1.32. He remains on bronchodilators, Augmentin. Anticoagulated with Eliquis. The patient is seen today October 07 2020 in follow-up on the [facility]. He remains awake and alert in no acute distress. No worsening shortness of breath, cough or congestion. No chest pain or palpitations. Currently maintaining good O2 saturations in the upper 90s on 2 L/m per nasal cannula. He is afebrile. Hemodynamically stable. White count 10.8 Hemoglobin 10.5. Sodium 135. Potassium 4.1. Creatinine 1.55. Currently on Lasix 20 mg IV every 8 hours. He remains on Augmentin, bronchodilators. Objective - Vital Signs Vital signs: Vital Signs Temp 97.7 F 10/07/20 15:15 Pulse 61 10/07/20 15:15 Resp 20 10/07/20 15:15 BP 98/57 10/07/20 15:15 Pulse Ox 98 10/07/20 15:15 Intake & Output 10/06/20 10/07/20 10/07/20 18:59 06:59 18:59 Intake Total 256 640 370 Output Total 240 800 Balance 16 -160 370 Weight 85 kg 84.5 kg Intake: IV 156 10 0.9 NaCl Pressure Bag 36 ns 120 10 Oral 100 640 360 Output: Urine 240 800 Other: Voiding Method Indwelling Catheter Indwelling Catheter Indwelling Catheter # Voids 0 1 # Bowel Movements 0 1 0 ABP, PAP, CO, CI - Last Documented Arterial Blood Pressure 118/49 - Exam Gen. appearance, pleasant 70-year-old gentleman, awake and alert on 2 L nasal cannula, in no acute respiratory distress. Head exam was generally normal. There was no scleral icterus or corneal arcus. Mucous membranes were moist. Neck was supple and without jugular venous distension, thyromegaly, or carotid bruits. Carotids were easily palpable bilaterally. There was no adenopathy. The patient has a right IJ triple-lumen catheter in place Lungs sounds are diminished, crackles in lung bases bilaterally. Few scattered rhonchi and wheezes are also appreciated. Cardiac exam revealed the PMI to be normally situated and sized. The rhythm was regular and no extrasystoles were noted during several minutes of auscultation. The first and second heart sounds were normal and physiologic splitting of the second heart sound was noted. There were no murmurs, rubs, clicks, or gallops. The patient has an AICD pocket over the anterior chest area. Abdominal exam revealed normal bowel sounds. The abdomen was soft, non-tender, and without masses, organomegaly, or appreciable enlargement of the abdominal aorta. EXTREMITIES: 2+ radial pulses, bilateral amputation, right-sided [id number] and a left-sided below the knee. No cyanosis in upper extremities. No clubbing . NEUROLOGIC EXAMINATION: Patient is currently awake and alert, is calm and comfortable. - Labs CBC & Chem 7: 10/07/20 07:19 10/07/20 07:19 Labs: Abnormal Lab Results - Last 24 Hours (Table) 10/06/20 10/06/20 10/07/20 Range/Units 16:42 20:59 06:24 WBC (3.8-10.6) k/uL RBC (4.30-5.90) m/uL Hgb (13.0-17.5) gm/dL Hct (39.0-53.0) % Sodium (137-145) mmol/L BUN (9-20) mg/dL Creatinine (0.66-1.25) mg/dL Glucose (74-99) mg/dL POC Glucose (mg/dL) 262 H 206 H 150 H (75-99) mg/dL 10/07/20 10/07/20 10/07/20 Range/Units 07:19 07:19 11:47 WBC 10.8 H (3.8-10.6) k/uL RBC 3.38 L (4.30-5.90) m/uL Hgb 10.5 L (13.0-17.5) gm/dL Hct 31.8 L (39.0-53.0) % Sodium 135 L (137-145) mmol/L BUN 45 H (9-20) mg/dL Creatinine 1.55 H (0.66-1.25) mg/dL Glucose 140 H (74-99) mg/dL POC Glucose (mg/dL) 299 H (75-99) mg/dL Microbiology - Last 24 Hours (Table) 10/02/20 18:33 Blood Culture - Preliminary Blood No Growth after 96 hours Assessment and Plan Assessment: 1 acute hypoxic/hypercapnic respiratory failure secondary to pulmonary edema. The patient was having difficulty breathing secondary to CHF post myocardial infarction. Earlier this morning the patient went into flash pulmonary edema probably related to an acute hypertensive reaction. The patient had to be intubated and placed on a mechanical ventilator for severe hypercapnic and hypoxic respiratory failure and the patient was brought into the intensive care units. Extubated 10/06/2020. Currently on 2 L/m per nasal cannula 2 acute non-STEMI, and the patient has a known history of coronary artery disease with a previous cardiac catheterization from 2009 revealing severe calcification of the LAD and circumflex, LAD with an eccentric plaque in the order of 40-50% and the circumflex involving a 20% to 30% lesion and RCA is chronically occluded with some collaterals. Status post stenting of a long segment of total occlusion of the mid left circumflex artery on 10/05/2020 3 History ischemic cardiomyopathy with an ejection fraction of 25-30% and the patient has a mass in place 4 acute kidney injury in the creatinine is improved down to 1.55 5 acute hypertensive reaction, recovered and the patient is currently on low- dose norepinephrine infusion for blood pressure control 6 COPD 7 diabetes mellitus 8 peripheral vascular disease and the patient has bilateral amputation 9 chronic smoking 10 acute leukocytosis, likely reactive, improvement in the white cell count is down to 14.3 11 hyperlipidemia 12 Haemophilus influenza per sputum Plan The patient was seen and evaluated by Dr. Lydia Mayen from the pulmonary and critical care standpoint Continue current medications including Augmentin and bronchodilators Titrate down the FiO2 as tolerated We will continue to follow I, the cosigning physician, performed a history & physical examination of the patient. Lungs sounds with basilar crackles, end expiratory wheeze, diminished. Maintaining good O2 saturations in the 90s on 2 L/m per nasal cannula. I disc ussed the assessment and plan of care with my nurse practitioner, Celina Isaac. I attest to the above note as dictated by her.
[2020-10-07 16:45] LABS: Glucose,Whole Blood 188 mg/dL (75-99)
[2020-10-07 20:53] LABS: Glucose,Whole Blood 208 mg/dL (75-99)
[2020-10-07] MEDS: ALPRAZolam 0.5 MG TAB PO PRN (21:06)
[2020-10-08] MEDS: INSULIN ASPART (NovoLOG) 100 UNIT/ML VIAL SQ SCH ×4 (07:01→20:56)
[2020-10-08] MEDS: carvediloL 12.5 MG TAB PO SCH (07:01)
[2020-10-08 07:02] LABS: Glucose,Whole Blood 179 mg/dL (75-99)
[2020-10-08] MEDS: IPRATROPIUM-ALBUTEROL 3 ML NEB INHALATION SCH ×4 (07:34→20:19)
[2020-10-08 08:12] LABS: Basophils % (A) 0 %; Eosinophils # (A) 0.3 k/uL (0-0.7); Eosinophils % (A) 2 %; HCT 36.2 % (39.0-53.0); HGB 11.3 gm/dL (13.0-17.5); Hypochromasia Slight; Lymphocytes # (A) 1.5 k/uL (1.0-4.8); Lymphocytes % (A) 13 %; MCH 30.1 pg (25.0-35.0); MCHC 31.2 g/dL (31.0-37.0); MCV 96.2 fL (80.0-100.0); Mean Platelet Volume 8.7; Monocytes # (A) 0.8 k/uL (0-1.0); Monocytes % (A) 7 %; Neutrophils # (A) 9.1 k/uL (1.3-7.7); Neutrophils % (A) 77 %; Platelet Count 321 k/uL (150-450); RBC 3.76 m/uL (4.30-5.90); RDW 13.5 % (11.5-15.5); WBC 11.7 k/uL (3.8-10.6)
[2020-10-08 08:24] LABS: Albumin 3.1 g/dL (3.5-5.0); Calcium 8.8 mg/dL (8.4-10.2); Potassium 4.5 mmol/L (3.5-5.1); Total Bilirubin 0.7 mg/dL (0.2-1.3); Total Protein 6.5 g/dL (6.3-8.2)
[2020-10-08] MEDS: FUROSEMIDE 10 MG/ML 2 ML VIAL IV SCH ×3 (08:50→23:08)
[2020-10-08] MEDS: APIXABAN 5 MG TAB PO SCH ×2 (08:52→20:09)
[2020-10-08] MEDS: CLOPIDOGREL 75 MG TAB PO SCH (08:52)
[2020-10-08] MEDS: ATORVASTATIN 80 MG TAB PO SCH (08:52)
[2020-10-08] MEDS: AMOXIC-POT CLAV 875-125MG 1 EACH TAB PO SCH ×2 (08:52→20:09)
[2020-10-08] MEDS: ASPIRIN 81 MG PO SCH (08:53)
[2020-10-08] MEDS: SPIRONOLACTONE 25 MG TAB PO SCH (08:53)
[2020-10-08] MEDS: PANTOPRAZOLE 40 MG/10 ML VIAL IVP SCH (08:53)
--- NOTE | 2020-10-08 10:09 | P.PN ---
Subjective Progress Note Date: 10/08/20 Eder Fang, is a 70-year-old male who presented to [facility] emergency room with a chief complaint of worsening shortness of breath, he was evaluated in the emergency room, vital examination on presentation reveals a temperature of 97.5 pulse 98 respiration 18 blood pressure 187/92 pulse ox 98% on room air, his white blood count was 8.5 hemoglobin 12.6 platelet count 482 INR 1.5 d-dimer 0.66 troponin level was elevated at 5.33 and BNP level was 2510 patient was started on IV heparin and was admitted to telemetry floor for further evaluation and treatment cardiology consultation and pulmonary consultation were requested echocardiogram was ordered. Patient has a known history of coronary artery disease, he had a cardiac catheterization 10 years ago which revealed severe calcification in his coronary arteries, patient continued to smoke, he has underlying history of congestive heart failure with cardiomyopathy with ejection fraction of 25-30% , he also has a known history of chronic obstructive pulmonary disease and severe peripheral vascular disease with bilateral lower extremity amputation. On review of systems patient is alert and oriented 3 in no distress he is com plaining of shortness of breath with activity otherwise he denies any complaints there is no fever or chills no headache or dizziness no chest pain he has occasional cough no nausea or vomiting no abdominal pain no diarrhea no blood in the stools no burning with urination no frequency or urgency and no hematuria no weakness or numbness in any of the extremities no change in vision speech or mobility. On 10/04/2020 patient was seen and examined in the ICU he is intubated sedated maintained on mechanical ventilation, last evening patient developed severe shortness of breath, 18 were called and patient was transferred to ICU and was intubated and started on mechanical ventilation he is currently maintained on nitroglycerin drip, norepinephrine drip, and IV propofol, IV heparin, and IV Lasix 40 mg twice daily, currently blood pressure is 119/60 pulse 67 respiration 28 pulse ox 100% on mechanical ventilation. His white blood count is 21.1 hemoglobin 12.1 platelet count 557 ABG reveals a pH of 7.17 pCO2 96 CO2 174 BUN is 30 creatinine 1.53 On 10/05/2020 patient was seen and examined in the ICU, case was discussed over the phone with Dr. Fenton who performed a cardiac catheterization today. Patient remains intubated sedated maintained on mechanical ventilation he is maintained on vasopressors he is in atrial fibrillation his temperature is 97.8 pulse 69 respiration 20 blood pressure 157/61 his white blood count is 14.3 hemoglobin 12.0 platelet count 440 pH 7.57 pCO2 33 by mouth to 113 sodium 134 potassium 3.4 creatinine 1.24 On 10/06/2020 patient was seen and examined in the ICU he is alert and oriented 3 in no apparent distress he was extubated and is maintained on oxygen via nasal cannula and is tolerating well at this time he denies any chest pain or shortness of breath there is no fever or chills no headache or dizziness no palpitation no cough no nausea or vomiting no abdominal pain no diarrhea no blood in the stools no burning with urination no frequency or urgency and no hematuria On 10/07/2020 patient was seen and examined on the telemetry floor. He is out of the ICU he is maintained on oxygen via nasal cannula and is tolerating well there is no new episodes of chest pain he has occasionally some shortness of breath otherwise he denies any complaints there is no fever or chills no headache or dizziness no palpitation no chest pain no nausea or vomiting no abdominal pain no diarrhea no blood in the stools no burning with urination no frequency or urgency and no hematuria no weakness or numbness in any of the extremities no change in vision speech or mobility On 10/08/2020 patient is currently resting comfortably on telemetry floor. Patient's alert and oriented 3. Patient denies chest pain or shortness breath. Patient denies nausea vomiting or diarrhea. Patient denies any urinary burning or frequency. Objective - Vital Signs Vital signs: Vital Signs Temp 97.4 F L 10/08/20 08:00 Pulse 56 L 10/08/20 08:00 Resp 16 10/08/20 08:00 BP 95/51 10/08/20 08:00 Pulse Ox 91 L 10/08/20 08:00 Intake & Output 10/07/20 10/08/20 10/08/20 18:59 06:59 18:59 Intake Total 490 Output Total 200 700 Balance 290 -700 Weight 91.5 kg Intake: IV 10 ns 10 Oral 480 Output: Urine 200 700 Other: Voiding Method Indwelling Catheter Indwelling Catheter # Voids 1 0 # Bowel Movements 0 1 ABP, PAP, CO, CI - Last Documented Arterial Blood Pressure 118/49 - Exam In general patient is intubated sedated maintained on mechanical ventilation HEENT head normocephalic and atraumatic Neck is supple no JVD no goiter no lymphadenopathy Chest exam reveals a few scattered crackles in both bases no wheezing Cardiac exam reveals regular heart sounds S1 and S2 no gallops no murmurs Abdomen is soft nontender no organomegaly with normal bowel sounds Extremity exam patient has bilateral lower extremity amputation Neurological examination no gross focal deficit - Labs CBC & Chem 7: 10/08/20 07:31 10/08/20 07:31 Labs: Abnormal Lab Results - Last 24 Hours (Table) 10/07/20 10/07/20 10/07/20 Range/Units 11:47 16:33 20:41 WBC (3.8-10.6) k/uL RBC (4.30-5.90) m/uL Hgb (13.0-17.5) gm/dL Hct (39.0-53.0) % Neutrophils # (1.3-7.7) k/uL Sodium (137-145) mmol/L BUN (9-20) mg/dL Glucose (74-99) mg/dL POC Glucose (mg/dL) 299 H 188 H 208 H (75-99) mg/dL ALT (4-49) U/L Albumin (3.5-5.0) g/dL 10/08/20 10/08/20 10/08/20 Range/Units 06:56 07:31 07:31 WBC 11.7 H (3.8-10.6) k/uL RBC 3.76 L (4.30-5.90) m/uL Hgb 11.3 L (13.0-17.5) gm/dL Hct 36.2 L (39.0-53.0) % Neutrophils # 9.1 H (1.3-7.7) k/uL Sodium 134 L (137-145) mmol/L BUN 45 H (9-20) mg/dL Glucose 169 H (74-99) mg/dL POC Glucose (mg/dL) 179 H (75-99) mg/dL ALT 71 H (4-49) U/L Albumin 3.1 L (3.5-5.0) g/dL Microbiology - Last 24 Hours (Table) 10/02/20 18:33 Blood Culture - Preliminary Blood No Growth after 120 hours Assessment and Plan Plan: 1. Acute systolic and diastolic congestive heart failure exacerbation 2. Acute non-STEMI, with elevated troponin level, status post cardiac catheterization with stent placement yesterday 3. Acute hypoxic respiratory failure maintained on mechanical ventilation, patient extubated and is tolerating well 4. Underlying history of hypertension 5. Underlying history of hyperlipidemia 6. Underlying history of peripheral vascular disease with bilateral lower extremity amputation 7. Underlying history of diabetes mellitus 8. Underlying history of COPD 9. Underlying history of chronic tobacco use. 10. History of ischemic cardiomyopathy with EF 25-30% DVT prophylaxis eliquis. GI prophylaxis Protonix Patient has been moved out of the intensive care unit currently on telemetry Cardiology and pulmonary services are following Maintained on IV Lasix per cardiology
--- NOTE | 2020-10-08 12:07 | P.PN ---
Subjective HISTORY OF PRESENTING ILLNESS This is a pleasant 70-year-old male past medical history significant for coronary artery disease with a chronically occluded mid RCA and mild disease of the LAD and circumflex, ischemic cardiomyopathy status post AICD, chronic systolic heart failure, COPD, hypertension, dyslipidemia, peripheral vascular disease status post right [id number] amputation, left below the knee amputation and chronic nicotine dependence. He follows in the office with and Dr. Hernandez. He underwent PCI of the mid-circumflex and is currently maintained on IV lasix. He is seen and examined sitting up sleeping in bed in no acute distress. He states he did not sleep well last night. He feels like his breathing is worse today than was yesterday. Blood pressure 95/51 heart rate 56 afebrile maintaining oxygen saturation on nasal cannula. Repeat chest x-ray performed yesterday reveals scattered parenchymal changes, hyperinflation compatible with COPD, patchy basilar infiltrates persist and mild pulmonary venous congestion. 24-hour urine output 1040 mL's. PHYSICAL EXAMINATION CONSTITUTIONAL: No apparent distress. HEENT: Head is normocephalic. Pupils are equal, round. Sclerae anicteric. Mucous membranes of the mouth are moist. No JVD. No carotid bruit. CHEST EXAMINATION: Diminished bilaterally. No chest wall tenderness is noted on palpation or with deep breathing. HEART EXAMINATION: Regular rate and rhythm. S1, S2 heard. No murmurs, gallops or rub. EXTREMITIES: 2+ radial pulses, bilateral above the knee amputation and no calf tenderness. ASSESSMENT Non-ST elevated myocardial infarction Acute on chronic mixed systolic and diastolic heart failure Ischemic cardiomyopathy s/p AICD Coronary artery disease Hypertension Dyslipidemia Diabetes mellitus Peripheral vascular disease Chronic nicotine dependence PLAN Decrease coreg to 6.25 mg BID. Change lisinopril to 2.5 mg at bedtime. Continue to diurese with IV lasix. Follow renal function and electrolytes in the morning. Nurse Practitioner note has been reviewed, I agree with a documented findings and plan of care. Patient was seen and examined. Objective - Vital Signs Vital signs: Vital Signs Temp 97.4 F L 10/08/20 08:00 Pulse 56 L 10/08/20 08:00 Resp 16 10/08/20 08:00 BP 95/51 10/08/20 08:00 Pulse Ox 91 L 10/08/20 08:00 Intake & Output 10/07/20 10/08/2020 18:59 06:59 18:59 Intake Total 490 Output Total 200 700 Balance 290 -700 Weight 91.5 kg Intake: IV 10 ns 10 Oral 480 Output: Urine 200 700 Other: Voiding Method Indwelling Catheter Indwelling Catheter # Voids 1 0 # Bowel Movements 0 1 ABP, PAP, CO, CI - Last Documented Arterial Blood Pressure 118/49 - Labs CBC & Chem 7: 10/08/20 07:31 10/08/20 07:31 Labs: Abnormal Lab Results - Last 24 Hours (Table) 10/07/20 10/07/20 10/07/20 Range/Units 11:47 16:33 20:41 WBC (3.8-10.6) k/uL RBC (4.30-5.90) m/uL Hgb (13.0-17.5) gm/dL Hct (39.0-53.0) % Neutrophils # (1.3-7.7) k/uL Sodium (137-145) mmol/L BUN (9-20) mg/dL Glucose (74-99) mg/dL POC Glucose (mg/dL) 299 H 188 H 208 H (75-99) mg/dL ALT (4-49) U/L Albumin (3.5-5.0) g/dL 10/08/20 10/08/20 10/08/20 Range/Units 06:56 07:31 07:31 WBC 11.7 H (3.8-10.6) k/uL RBC 3.76 L (4.30-5.90) m/uL Hgb 11.3 L (13.0-17.5) gm/dL Hct 36.2 L (39.0-53.0) % Neutrophils # 9.1 H (1.3-7.7) k/uL Sodium 134 L (137-145) mmol/L BUN 45 H (9-20) mg/dL Glucose 169 H (74-99) mg/dL POC Glucose (mg/dL) 179 H (75-99) mg/dL ALT 71 H (4-49) U/L Albumin 3.1 L (3.5-5.0) g/dL Microbiology - Last 24 Hours (Table) 10/02/20 18:33 Blood Culture - Preliminary Blood No Growth after 120 hours
[2020-10-08 12:11] LABS: Glucose,Whole Blood 216 mg/dL (75-99)
--- NOTE | 2020-10-08 15:08 | P.PN ---
Subjective Progress Note Date: 10/08/20 Principal diagnosis: Coronary artery disease, status post cardiac arrest 70-year-old male patient, known history of coronary artery disease and CHF and the patient is known to have chronic occluded mid RCA, mild LAD, mild circumflex disease, and addition to ischemic artery myopathy and the patient has an AICD in place. Other comorbidities include COPD as the patient is a chronic smoker, hypertension and hyperlipidemia and peripheral Vascular disease and the patient has had previous amputation of the lower extremities bilaterally. The patient is coming to the hospital because of increased shortness of breath and the patient is ruled in for acute non-ST segment elevation myocardial infarction. Noted the patient's troponin peaked at 5.33 and the patient's EKG showed sinus mechanism with a first-degree AV block and nonspecific ST segment abnormalities. I was consulted in this patient because of shortness of breath. The patient is still going to undergo a cardiac physician tomorrow. Note that the chest x-ray showed cardiac megaly and some bibasilar opacities and a CT angiogram showed interstitial edema and a small right-sided pleural effusion. It was negative for pulmonary embolism. No evidence of any pericardial effusion. Note that the patient had a proBNP level of 2510. The venous blood gas showed a pH of 7.44 with a pCO2 of 45. The sodium level was at 136 with a potassium level of 4.7 and a creatinine of 0.7. White cell count was at 9.3. He is feeling well for now. Is a chronic smoker. He is known to have COPD. Uses only albuterol and asked and his bases without any maintenance inhalational treatments. He denies being on oxygen on outpatient basis. On 10/04/2020, the patient is being seen in follow-up in the intensive care unit. Note that earlier this morning, the patient became acutely hypotensive and went into significant respiratory distress and his blood gases showed severe respiratory acidosis. The patient was becoming unresponsive and he was having diminished level of consciousness in addition to significant respiratory distress. Based on all this, the patient was intubated and the patient was placed on a mechanical ventilator and subsequently was moved to the intensive care unit. This morning he is an assist-control mode at the rate of 28 with FiO2 100% with a PEEP of 5 and tidal volume of 500. The subsequent blood gases showed a pH of 7.61 with a pCO2 of 32 and pO2 of 66 and this was on FiO2 of 60%. This is a ventilator changes was done. The respiratory rate will drop in the tidal volume was also dropped. The patient currently is hemodynamically stable. The patient is not requiring any pressors. The patient is afebrile. White cell count came at 21. Chest x-ray showed acute pulmonary edema. ET tube is in a good location. A triple lumen catheter was inserted in the right IJ and the patient had a follow-up chest x-ray that showed improvement in the pulmonary edema. Troponin is down trending is down to 3.7. The patient was supposed underwent cardiac catheterization today. This was postponed as the patient developed an acute kidney injury creatinine is up to 1.5. His potassium level is also at 5.6. He is currently sedated on a mechanical ventilator. On propofol which is running at 40 mg per KG per minute. He remains on IV heparin. IV fluids at [facility] and the patient is still being diuresed. No fever. No other significant events otherwise for now. On 10/05/2020, satting the patient for a follow-up. The patient remains intubated on a mechanical ventilator. The plan is to proceed with a cardiac catheterization today. The patient is still sedated propofol running at 50 mg per KG per minute. The patient is also on a low-dose levothyroid 20 metabolic support running at 0.02 g per KG per minute. The blood gas showed a pH of 7.57 with a pCO2 of 33 and pO2 of 113. The current vent settings with an assist- control at the rate of 24 with a tidal volume of 500 and FiO2 of 50% with a PEEP of 5. There is a component of respiratory alkalosis and I dropped a respiratory rate down to 16. As mentioned, the plan is to proceed with cardiac catheterization today. The patient's cardiac rhythm is atrial fibrillation with a controlled rate. Chest x-ray showed no evidence of any acute pulmonary edema. The CHF on exam improved. ET tube is in a good location. The patient has a triple lumen catheter inserted in the right IJ. Renal function is improved in the creatinine is down to 1.2. The fluid balance is +307 for today but is -[phone] yesterday. The patient is seen today 10/06/2020 in follow-up in the intensive care unit. He is awake and alert in no acute distress. He is oriented. He's been off the ventilator since yesterday. He currently denies any worsening shortness of breath, cough or congestion. Maintaining O2 saturations in the mid 90s on 2 L/m per nasal cannula. His been afebrile. Hemodynamically stable. No chest pain, palpitations lightheadedness or dizziness. The patient did undergo cardiac catheterization and stenting of a long segment totally occluded mid left circumflex. Continued on aspirin, Plavix, statins, MIGUEL inhibitor and beta blockers. Sputum culture positive for Haemophilus influenza. White count 12.7. Hemoglobin 11.1. Sodium 132 potassium 3.7 and creatinine 1.32. He remains on bronchodilators, Augmentin. Anticoagulated with Eliquis. The patient is seen today October 07 2020 in follow-up on the [facility]. He remains awake and alert in no acute distress. No worsening shortness of breath, cough or congestion. No chest pain or palpitations. Currently maintaining good O2 saturations in the upper 90s on 2 L/m per nasal cannula. He is afebrile. Hemodynamically stable. White count 10.8 Hemoglobin 10.5. Sodium 135. Potassium 4.1. Creatinine 1.55. Currently on Lasix 20 mg IV every 8 hours. He remains on Augmentin, bronchodilators. Patient is seen today 10/08/2020 in follow-up on the [facility] care unit. He is resting comfortably in bed. Awake and alert in no acute distress. T O2 satur ations in the mid 90s on 2 L/m per nasal cannula. White count 11.7. Hemoglobin 11.3. Sodium 134. Potassium 4.5. Creatinine 1.17. He remains anticoagulated with Eliquis. Currently on Augmentin. Remains on IV diuretics. Objective - Vital Signs Vital signs: Vital Signs Temp 97.7 F 10/08/20 11:09 Pulse 76 10/08/20 12:09 Resp 16 10/08/20 11:09 BP 117/71 10/08/20 11:09 Pulse Ox 96 10/08/20 11:09 Intake & Output 10/07/20 10/08/20 10/08/20 18:59 06:59 18:59 Intake Total 490 120 Output Total 200 700 400 Balance 290 -700 -280 Weight 91.5 kg Intake: IV 10 ns 10 Oral 480 120 Output: Urine 200 700 400 Other: Voiding Method Indwelling Catheter Indwelling Catheter Indwelling Catheter # Voids 1 0 # Bowel Movements 0 1 0 ABP, PAP, CO, CI - Last Documented Arterial Blood Pressure 118/49 - Exam Gen. appearance, pleasant 70-year-old gentleman, awake and alert on 2 L nasal cannula, in no acute respiratory distress. Head exam was generally normal. There was no scleral icterus or corneal arcus. Mucous membranes were moist. Neck was supple and without jugular venous distension, thyromegaly, or carotid bruits. Carotids were easily palpable bilaterally. There was no adenopathy. The patient has a right IJ triple-lumen catheter in place Lungs sounds are diminished, crackles in lung bases bilaterally. Few scattered rhonchi and wheezes are also appreciated. Cardiac exam revealed the PMI to be normally situated and sized. The rhythm was regular and no extrasystoles were noted during several minutes of auscultation. The first and second heart sounds were normal and physiologic splitting of the second heart sound was noted. There were no murmurs, rubs, clicks, or gallops. The patient has an AICD pocket over the anterior chest area. Abdominal exam revealed normal bowel sounds. The abdomen was soft, non-tender, and without masses, organomegaly, or appreciable enlargement of the abdominal aorta. EXTREMITIES: 2+ radial pulses, bilateral amputation, right-sided [id number] and a left-sided below the knee. No cyanosis in upper extremities. No clubbing. NEUROLOGIC EXAMINATION: Patient is currently awake and alert, is calm and comfortable. - Labs CBC & Chem 7: 10/08/20 07:31 10/08/20 07:31 Labs: Abnormal Lab Results - Last 24 Hours (Table) 10/07/20 10/07/20 10/08/20 Range/Units 16:33 20:41 06:56 WBC (3.8-10.6) k/uL RBC (4.30-5.90) m/uL Hgb (13.0-17.5) gm/dL Hct (39.0-53.0) % Neutrophils # (1.3-7.7) k/uL Sodium (137-145) mmol/L BUN (9-20) mg/dL Glucose (74-99) mg/dL POC Glucose (mg/dL) 188 H 208 H 179 H (75-99) mg/dL ALT (4-49) U/L Albumin (3.5-5.0) g/dL 10/08/20 10/08/20 10/08/20 Range/Units 07:31 07:31 11:48 WBC 11.7 H (3.8-10.6) k/uL RBC 3.76 L (4.30-5.90) m/uL Hgb 11.3 L (13.0-17.5) gm/dL Hct 36.2 L (39.0-53.0) % Neutrophils # 9.1 H (1.3-7.7) k/uL Sodium 134 L (137-145) mmol/L BUN 45 H (9-20) mg/dL Glucose 169 H (74-99) mg/dL POC Glucose (mg/dL) 216 H (75-99) mg/dL ALT 71 H (4-49) U/L Albumin 3.1 L (3.5-5.0) g/dL Microbiology - Last 24 Hours (Table) 10/02/20 18:33 Blood Culture - Preliminary Blood No Growth after 120 hours Assessment and Plan Assessment: 1 acute hypoxic/hypercapnic respiratory failure secondary to pulmonary edema. The patient was having difficulty breathing secondary to CHF post myocardial infarction. Earlier this morning the patient went into flash pulmonary edema probably related to an acute hypertensive reaction. The patient had to be intubated and placed on a mechanical ventilator for severe hypercapnic and hypoxic respiratory failure and the patient was brought into the intensive care units. Extubated 10/06/2020. Currently on 2 L/m per nasal cannula 2 acute non-STEMI, and the patient has a known history of coronary artery disease with a previous cardiac catheterization from 2009 revealing severe calcification of the LAD and circumflex, LAD with an eccentric plaque in the order of 40-50% and the circumflex involving a 20% to 30% lesion and RCA is chronically occluded with some collaterals. Status post stenting of a long segment of total occlusion of the mid left circumflex artery on 10/05/2020 3 History ischemic cardiomyopathy with an ejection fraction of 25-30% and the patient has a mass in place 4 acute kidney injury in the creatinine is improved down to 1.55 5 acute hypertensive reaction, recovered and the patient is currently on low- dose norepinephrine infusion for blood pressure control 6 COPD 7 diabetes mellitus 8 peripheral vascular disease and the patient has bilateral amputation 9 chronic smoking 10 acute leukocytosis, likely reactive, improvement in the white cell count is down to 14.3 11 hyperlipidemia 12 Haemophilus influenza per sputum Plan The patient was seen and evaluated by Dr. Lydia Mayen from the pulmonary and critical care standpoint Titrate down the FiO2 as tolerated We will follow as needed. I, the cosigning physician, performed a history & physical examination of the patient. Lungs sounds with basilar crackles, end expiratory wheeze, diminished. Maintaining good O2 saturations in the 90s on 2 L/m per nasal cannula. I discussed the assessment and plan of care with my nurse practitioner, Celina Isaac. I attest to the above note as dictated by her.
[2020-10-08] MEDS: carvediloL 6.25 MG TAB PO SCH (16:15)
[2020-10-08 17:07] LABS: Glucose,Whole Blood 209 mg/dL (75-99)
[2020-10-08 21:15] LABS: Glucose,Whole Blood 246 mg/dL (75-99)
[2020-10-09] MEDS: ALPRAZolam 0.5 MG TAB PO PRN (00:08)
[2020-10-09] MEDS: IPRATROPIUM-ALBUTEROL 3 ML NEB INHALATION PRN (01:53)
[2020-10-09 06:10] LABS: Glucose,Whole Blood 195 mg/dL (75-99)
[2020-10-09] MEDS: INSULIN ASPART (NovoLOG) 100 UNIT/ML VIAL SQ SCH ×4 (06:26→20:18)
[2020-10-09] MEDS: carvediloL 6.25 MG TAB PO SCH ×2 (06:26→16:47)
[2020-10-09] MEDS: IPRATROPIUM-ALBUTEROL 3 ML NEB INHALATION SCH ×4 (08:11→20:30)
[2020-10-09] MEDS: PANTOPRAZOLE 40 MG/10 ML VIAL IVP SCH (08:52)
[2020-10-09] MEDS: FUROSEMIDE 10 MG/ML 2 ML VIAL IV SCH (08:53)
[2020-10-09] MEDS: AMOXIC-POT CLAV 875-125MG 1 EACH TAB PO SCH ×2 (08:53→20:18)
[2020-10-09] MEDS: APIXABAN 5 MG TAB PO SCH ×2 (08:53→20:18)
[2020-10-09] MEDS: SPIRONOLACTONE 25 MG TAB PO SCH (08:53)
[2020-10-09] MEDS: ATORVASTATIN 80 MG TAB PO SCH (08:53)
[2020-10-09] MEDS: CLOPIDOGREL 75 MG TAB PO SCH (08:53)
[2020-10-09] MEDS: ASPIRIN 81 MG PO SCH (08:53)
[2020-10-09 11:34] LABS: Glucose,Whole Blood 259 mg/dL (75-99)
[2020-10-09 11:56] LABS: Basophils % (A) 0 %; Eosinophils # (A) 0.3 k/uL (0-0.7); Eosinophils % (A) 2 %; HCT 38.9 % (39.0-53.0); HGB 11.9 gm/dL (13.0-17.5); Hypochromasia Slight; Lymphocytes # (A) 1.2 k/uL (1.0-4.8); Lymphocytes % (A) 9 %; MCH 29.6 pg (25.0-35.0); MCHC 30.5 g/dL (31.0-37.0); Monocytes # (A) 0.9 k/uL (0-1.0); Monocytes % (A) 7 %; Neutrophils # (A) 10.8 k/uL (1.3-7.7); Neutrophils % (A) 81 %; Platelet Count 338 k/uL (150-450); RBC 4.01 m/uL (4.30-5.90); RDW 13.6 % (11.5-15.5); WBC 13.4 k/uL (3.8-10.6)
[2020-10-09 12:10] LABS: African American GFR (CKD) >90 (>60 ml/min/1.73 sqM); Anion Gap 6 mmol/L; Blood Urea Nitrogen 40 mg/dL (9-20); Carbon Dioxide 28 mmol/L (22-30); Chloride 99 mmol/L (98-107); Glucose 206 mg/dL (74-99); Non-African American GFR(CKD) 80 (>60 ml/min/1.73 sqM); Potassium 4.9 mmol/L (3.5-5.1); Sodium 133 mmol/L (137-145)
--- NOTE | 2020-10-09 13:20 | P.PN ---
<Elvia Browne - Last Filed: 10/09/20 13:06> Subjective Progress Note Date: 10/09/20 HISTORY OF PRESENT ILLNESS: Patient examined this morning at the bedside. He denies chest pain or pressure. He reports discomfort at the site of his venegas catheter. He remains in afib with controlled rates. He is on Eliquis. Vital signs are stable. PHYSICAL EXAM: VITAL SIGNS: Reviewed. GENERAL: Well-developed in no acute distress. NECK: Supple. No JVD or thyromegaly LUNGS: Respirations even and unlabored. Lungs essentially clear to auscultation bilaterally. HEART: Irregular rate and rhythm. S1 and S2 heard. EXTREMITIES: Normal range of motion. No clubbing or cyanosis. Bilateral above the knee amputations. 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 Fenton Nurse practitioner note has been reviewed by physician. Signing provider agrees with the documented findings, assessment, and plan of care. Objective - Vital Signs Vital signs: Vital Signs Temp 97.8 F 10/09/20 08:00 Pulse 90 10/09/20 12:05 Resp 18 10/09/20 08:00 BP 120/65 10/09/20 08:00 Pulse Ox 94 L 10/09/20 08:00 Intake & Output 10/08/20 10/09/20 10/09/20 18:59 06:59 18:59 Intake Total 360 Output Total 400 950 Balance -40 -950 Weight 98 kg Intake: Oral 360 Output: Urine 400 950 Other: Voiding Method Indwelling Catheter Indwelling Catheter Indwelling Catheter # Voids 0 0 # Bowel Movements 0 1 1 ABP, PAP, CO, CI - Last Documented Arterial Blood Pressure 118/49 - Labs CBC & Chem 7: 10/09/20 11:21 10/09/20 11:21 Labs: Abnormal Lab Results - Last 24 Hours (Table) 10/08/20 10/08/20 10/09/20 Range/Units 16:53 20:46 06:08 WBC (3.8-10.6) k/uL RBC (4.30-5.90) m/uL Hgb (13.0-17.5) gm/dL Hct (39.0-53.0) % MCHC (31.0-37.0) g/dL Neutrophils # (1.3-7.7) k/uL Sodium (137-145) mmol/L BUN (9-20) mg/dL Glucose (74-99) mg/dL POC Glucose (mg/dL) 209 H 246 H 195 H (75-99) mg/dL 10/09/20 10/09/20 10/09/20 Range/Units 11:21 11:21 11:32 WBC 13.4 H (3.8-10.6) k/uL RBC 4.01 L (4.30-5.90) m/uL Hgb 11.9 L (13.0-17.5) gm/dL Hct 38.9 L (39.0-53.0) % MCHC 30.5 L (31.0-37.0) g/dL Neutrophils # 10.8 H (1.3-7.7) k/uL Sodium 133 L (137-145) mmol/L BUN 40 H (9-20) mg/dL Glucose 206 H (74-99) mg/dL POC Glucose (mg/dL) 259 H (75-99) mg/dL Microbiology - Last 24 Hours (Table) 10/02/20 18:33 Blood Culture - Final Blood No Growth after 144 hours <Tommy Figueroa - Last Filed: 10/09/20 16:12> Objective - Vital Signs Vital signs: Vital Signs Temp 98.1 F 10/09/20 12:00 Pulse 90 10/09/20 12:05 Resp 18 10/09/20 12:00 BP 140/72 10/09/20 12:00 Pulse Ox 98 10/09/20 12:00 Intake & Output 10/08/20 10/09/20 10/09/20 18:59 06:59 18:59 Intake Total 360 222 Output Total 400 950 900 Balance -40 -405 -382 Weight 98 kg 98 kg Intake: Oral 360 222 Output: Urine 400 950 900 Other: Voiding Method Indwelling Catheter Indwelling Catheter Indwelling Catheter # Voids 0 0 # Bowel Movements 0 1 1 ABP, PAP, CO, CI - Last Documented Arterial Blood Pressure 118/49 - Labs CBC & Chem 7: 10/09/20 11:21 10/09/20 11:21 Labs: Abnormal Lab Results - Last 24 Hours (Table) 10/08/20 10/08/20 10/09/20 Range/Units 16:53 20:46 06:08 WBC (3.8-10.6) k/uL RBC (4.30-5.90) m/uL Hgb (13.0-17.5) gm/dL Hct (39.0-53.0) % MCHC (31.0-37.0) g/dL Neutrophils # (1.3-7.7) k/uL Sodium (137-145) mmol/L BUN (9-20) mg/dL Glucose (74-99) mg/dL POC Glucose (mg/dL) 209 H 246 H 195 H (75-99) mg/dL 10/09/20 10/09/20 10/09/20 Range/Units 11:21 11:21 11:32 WBC 13.4 H (3.8-10.6) k/uL RBC 4.01 L (4.30-5.90) m/uL Hgb 11.9 L (13.0-17.5) gm/dL Hct 38.9 L (39.0-53.0) % MCHC 30.5 L (31.0-37.0) g/dL Neutrophils # 10.8 H (1.3-7.7) k/uL Sodium 133 L (137-145) mmol/L BUN 40 H (9-20) mg/dL Glucose 206 H (74-99) mg/dL POC Glucose (mg/dL) 259 H (75-99) mg/dL Microbiology - Last 24 Hours (Table) 10/02/20 18:33 Blood Culture - Final Blood No Growth after 144 hours
[2020-10-09 14:14] VITALS: BMI 32.8
[2020-10-09] MEDS ORDERED: FUROSEMIDE 20 MG TAB PO SCH (16:00)
[2020-10-09 16:32] LABS: Glucose,Whole Blood 258 mg/dL (75-99)
--- NOTE | 2020-10-09 18:22 | P.PN ---
Subjective Progress Note Date: 10/09/20 Eder Fang, is a 70-year-old male who presented to [facility] emergency room with a chief complaint of worsening shortness of breath, he was evaluated in the emergency room, vital examination on presentation reveals a temperature of 97.5 pulse 98 respiration 18 blood pressure 187/92 pulse ox 98% on room air, his white blood count was 8.5 hemoglobin 12.6 platelet count 482 INR 1.5 d-dimer 0.66 troponin level was elevated at 5.33 and BNP level was 2510 patient was started on IV heparin and was admitted to telemetry floor for further evaluation and treatment cardiology consultation and pulmonary consultation were requested echocardiogram was ordered. Patient has a known history of coronary artery disease, he had a cardiac catheterization 10 years ago which revealed severe calcification in his coronary arteries, patient continued to smoke, he has underlying history of congestive heart failure with cardiomyopathy with ejection fraction of 25-30% , he also has a known history of chronic obstructive pulmonary disease and severe peripheral vascular disease with bilateral lower extremity amputation. On review of systems patient is alert and oriented 3 in no distress he is com plaining of shortness of breath with activity otherwise he denies any complaints there is no fever or chills no headache or dizziness no chest pain he has occasional cough no nausea or vomiting no abdominal pain no diarrhea no blood in the stools no burning with urination no frequency or urgency and no hematuria no weakness or numbness in any of the extremities no change in vision speech or mobility. On 10/04/2020 patient was seen and examined in the ICU he is intubated sedated maintained on mechanical ventilation, last evening patient developed severe shortness of breath, 18 were called and patient was transferred to ICU and was intubated and started on mechanical ventilation he is currently maintained on nitroglycerin drip, norepinephrine drip, and IV propofol, IV heparin, and IV Lasix 40 mg twice daily, currently blood pressure is 119/60 pulse 67 respiration 28 pulse ox 100% on mechanical ventilation. His white blood count is 21.1 hemoglobin 12.1 platelet count 557 ABG reveals a pH of 7.17 pCO2 96 CO2 174 BUN is 30 creatinine 1.53 On 10/05/2020 patient was seen and examined in the ICU, case was discussed over the phone with Dr. Fenton who performed a cardiac catheterization today. Patient remains intubated sedated maintained on mechanical ventilation he is maintained on vasopressors he is in atrial fibrillation his temperature is 97.8 pulse 69 respiration 20 blood pressure 157/61 his white blood count is 14.3 hemoglobin 12.0 platelet count 440 pH 7.57 pCO2 33 by mouth to 113 sodium 134 potassium 3.4 creatinine 1.24 On 10/06/2020 patient was seen and examined in the ICU he is alert and oriented 3 in no apparent distress he was extubated and is maintained on oxygen via nasal cannula and is tolerating well at this time he denies any chest pain or shortness of breath there is no fever or chills no headache or dizziness no palpitation no cough no nausea or vomiting no abdominal pain no diarrhea no blood in the stools no burning with urination no frequency or urgency and no hematuria On 10/07/2020 patient was seen and examined on the telemetry floor. He is out of the ICU he is maintained on oxygen via nasal cannula and is tolerating well there is no new episodes of chest pain he has occasionally some shortness of breath otherwise he denies any complaints there is no fever or chills no headache or dizziness no palpitation no chest pain no nausea or vomiting no abdominal pain no diarrhea no blood in the stools no burning with urination no frequency or urgency and no hematuria no weakness or numbness in any of the extremities no change in vision speech or mobility On 10/08/2020 patient is currently resting comfortably on telemetry floor. Patient's alert and oriented 3. Patient denies chest pain or shortness breath. Patient denies nausea vomiting or diarrhea. Patient denies any urinary burning or frequency. On 10/09/2020 patient was seen and examined on the medical floor he is alert and oriented 3 in no apparent distress there is no new episodes of chest pain no shortness of breath no cough no nausea or vomiting no abdominal pain no diarrhea and no urinary symptoms. Ability of discharging patient to home today was discussed with him however he had severe anxiety and a panic attack, patient was counseled in length at this time will delay discharge tomorrow. Patient will need a nebulizer at home and may need oxygen at home. Will follow in a.m. possible discharge to home tomorrow Objective - Vital Signs Vital signs: Vital Signs Temp 97.4 F L 10/09/20 16:00 Pulse 80 10/09/20 16:38 Resp 18 10/09/20 16:00 BP 132/62 10/09/20 16:00 Pulse Ox 96 10/09/20 16:00 Intake & Output 10/08/20 10/09/20 10/09/20 18:59 06:59 18:59 Intake Total 360 222 Output Total 400 950 900 Balance -40 -226 -572 Weight 98 kg 98 kg Intake: Oral 360 222 Output: Urine 400 950 900 Other: Voiding Method Indwelling Catheter Indwelling Catheter Indwelling Catheter # Voids 0 0 # Bowel Movements 0 1 1 ABP, PAP, CO, CI - Last Documented Arterial Blood Pressure 118/49 - Exam In general patient is intubated sedated maintained on mechanical ventilation HEENT head normocephalic and atraumatic Neck is supple no JVD no goiter no lymphadenopathy Chest exam reveals a few scattered crackles in both bases no wheezing Cardiac exam reveals regular heart sounds S1 and S2 no gallops no murmurs Abdomen is soft nontender no organomegaly with normal bowel sounds Extremity exam patient has bilateral lower extremity amputation Neurological examination no gross focal deficit - Labs CBC & Chem 7: 10/09/20 11:21 10/09/20 11:21 Labs: Abnormal Lab Results - Last 24 Hours (Table) 10/08/20 10/09/20 10/09/20 Range/Units 20:46 06:08 11:21 WBC (3.8-10.6) k/uL RBC (4.30-5.90) m/uL Hgb (13.0-17.5) gm/dL Hct (39.0-53.0) % MCHC (31.0-37.0) g/dL Neutrophils # (1.3-7.7) k/uL Sodium 133 L (137-145) mmol/L BUN 40 H (9-20) mg/dL Glucose 206 H (74-99) mg/dL POC Glucose (mg/dL) 246 H 195 H (75-99) mg/dL 10/09/20 10/09/20 10/09/20 Range/Units 11:21 11:32 16:31 WBC 13.4 H (3.8-10.6) k/uL RBC 4.01 L (4.30-5.90) m/uL Hgb 11.9 L (13.0-17.5) gm/dL Hct 38.9 L (39.0-53.0) % MCHC 30.5 L (31.0-37.0) g/dL Neutrophils # 10.8 H (1.3-7.7) k/uL Sodium (137-145) mmol/L BUN (9-20) mg/dL Glucose (74-99) mg/dL POC Glucose (mg/dL) 259 H 258 H (75-99) mg/dL Microbiology - Last 24 Hours (Table) 10/02/20 18:33 Blood Culture - Final Blood No Growth after 144 hours Assessment and Plan Plan: 1. Acute systolic and diastolic congestive heart failure exacerbation 2. Acute non-STEMI, with elevated troponin level, status post cardiac catheterization with stent placement yesterday 3. Acute hypoxic respiratory failure maintained on mechanical ventilation, patient extubated and is tolerating well 4. Underlying history of hypertension 5. Underlying history of hyperlipidemia 6. Underlying history of peripheral vascular disease with bilateral lower extremity amputation 7. Underlying history of diabetes mellitus 8. Underlying history of COPD 9. Underlying history of chronic tobacco use. 10. History of ischemic cardiomyopathy with EF 25-30% DVT prophylaxis eliquis. GI prophylaxis Protonix Patient has been moved out of the intensive care unit currently on telemetry Cardiology and pulmonary services are following Maintained on IV Lasix per cardiology
[2020-10-09 20:16] LABS: Glucose,Whole Blood 274 mg/dL (75-99)
[2020-10-10] MEDS: ALPRAZolam 0.5 MG TAB PO PRN (03:15)
[2020-10-10 05:51] LABS: Glucose,Whole Blood 246 mg/dL (75-99)
[2020-10-10] MEDS: NITROGLYCERIN SL TABS 0.4 MG TAB SUBLINGUAL PRN (06:11)
[2020-10-10 06:17] LABS: ABG Base Excess 3.8 mmol/L; ABG HCO3 32 mmol/L (21-25); ABG Oxygen Saturation 97.7 % (94-97); ABG PO2 109 mmHg (83-108); ABG TCO2 35 mmol/L (19-24); Allen Test Performed? Yes
[2020-10-10 06:22] LABS: ABG PCO2 86 mmHg (35-45); ABG PH 7.18 (7.35-7.45)
[2020-10-10] MEDS: INSULIN ASPART (NovoLOG) 100 UNIT/ML VIAL SQ SCH ×4 (06:41→21:09)
[2020-10-10 06:52] LABS: Basophils # (A) 0.2 k/uL (0-0.2); Basophils % (A) 1 %; Eosinophils # (A) 0.2 k/uL (0-0.7); Eosinophils % (A) 1 %; HCT 38.6 % (39.0-53.0); HGB 12.5 gm/dL (13.0-17.5); Hypochromasia Moderate; Lymphocytes # (A) 0.7 k/uL (1.0-4.8); Lymphocytes % (A) 4 %; MCH 31.1 pg (25.0-35.0); MCHC 32.3 g/dL (31.0-37.0); MCV 96.4 fL (80.0-100.0); Mean Platelet Volume 8.4; Monocytes # (A) 0.8 k/uL (0-1.0); Monocytes % (A) 5 %; Neutrophils # (A) 14.3 k/uL (1.3-7.7); Neutrophils % (A) 88 %; Platelet Count 313 k/uL (150-450); RBC 4.01 m/uL (4.30-5.90); RDW 13.1 % (11.5-15.5); WBC 16.4 k/uL (3.8-10.6)
--- NOTE | 2020-10-10 06:54 | XR ---
EXAM: XR Chest, 1 View CLINICAL HISTORY: ITS.REASON XR Reason: sob TECHNIQUE: Frontal view of the chest. COMPARISON: 10/07/2020 IMPRESSION: Moderate right pleural effusion with overlying edema versus atelectasis. The left hemidiaphragm appears slightly more elevated. Cardiomegaly.
[2020-10-10 07:00] LABS: African American GFR (CKD) >90 (>60 ml/min/1.73 sqM); Anion Gap 6 mmol/L; Blood Urea Nitrogen 36 mg/dL (9-20); Calcium 8.9 mg/dL (8.4-10.2); Carbon Dioxide 29 mmol/L (22-30); Chloride 97 mmol/L (98-107); Glucose 226 mg/dL (74-99); Non-African American GFR(CKD) 86 (>60 ml/min/1.73 sqM); Potassium 4.9 mmol/L (3.5-5.1); Sodium 132 mmol/L (137-145)
[2020-10-10] MEDS ORDERED: FUROSEMIDE 10 MG/ML 4 ML VIAL IV STA (07:40)
[2020-10-10] MEDS: carvediloL 6.25 MG TAB PO SCH ×2 (07:43→18:47)
[2020-10-10] MEDS: PANTOPRAZOLE 40 MG TABLET PO SCH (07:43)
[2020-10-10] MEDS: IPRATROPIUM-ALBUTEROL 3 ML NEB INHALATION SCH ×4 (08:09→20:34)
[2020-10-10 09:40] LABS: Glucose,Whole Blood 213 mg/dL (75-99)
[2020-10-10] MEDS: APIXABAN 5 MG TAB PO SCH ×2 (11:08→21:32)
[2020-10-10] MEDS: ATORVASTATIN 80 MG TAB PO SCH (11:08)
[2020-10-10] MEDS: ASPIRIN 81 MG PO SCH (11:08)
[2020-10-10] MEDS: AMOXIC-POT CLAV 875-125MG 1 EACH TAB PO SCH ×2 (11:08→22:05)
[2020-10-10] MEDS: CLOPIDOGREL 75 MG TAB PO SCH (11:08)
[2020-10-10] MEDS: SPIRONOLACTONE 25 MG TAB PO SCH (11:09)
[2020-10-10 11:14] LABS: ABG Base Excess 6.9 mmol/L; ABG HCO3 33 mmol/L (21-25); ABG Oxygen Saturation 99.2 % (94-97); ABG PCO2 67 mmHg (35-45); ABG PO2 122 mmHg (83-108); ABG TCO2 35 mmol/L (19-24); Allen Test Performed? Yes
--- NOTE | 2020-10-10 12:44 | P.PN ---
Subjective Progress Note Date: 10/10/20 Principal diagnosis: Acute hypoxic and hypercapnic respiratory failure secondary to pulmonary edema and ischemic cardiomyopathy with LV dysfunction 70-year-old male patient, known history of coronary artery disease and CHF and the patient is known to have chronic occluded mid RCA, mild LAD, mild circumflex disease, and addition to ischemic artery myopathy and the patient has an AICD in place. Other comorbidities include COPD as the patient is a chronic smoker, hypertension and hyperlipidemia and peripheral Vascular disease and the patient has had previous amputation of the lower extremities bilaterally. The patient is coming to the hospital because of increased shortness of breath and the patient is ruled in for acute non-ST segment elevation myocardial infarction. Noted the patient's troponin peaked at 5.33 and the patient's EKG showed sinus mechanism with a first-degree AV block and nonspecific ST segment abnormalities. I was consulted in this patient because of shortness of breath. The patient is still going to undergo a cardiac physician tomorrow. Note that the chest x-ray showed cardiac megaly and some bibasilar opacities and a CT angiogram showed in terstitial edema and a small right-sided pleural effusion. It was negative for pulmonary embolism. No evidence of any pericardial effusion. Note that the patient had a proBNP level of 2510. The venous blood gas showed a pH of 7.44 with a pCO2 of 45. The sodium level was at 136 with a potassium level of 4.7 and a creatinine of 0.7. White cell count was at 9.3. He is feeling well for now. Is a chronic smoker. He is known to have COPD. Uses only albuterol and asked and his bases without any maintenance inhalational treatments. He denies being on oxygen on outpatient basis. On 10/04/2020, the patient is being seen in follow-up in the intensive care unit. Note that earlier this morning, the patient became acutely hypotensive and went into significant respiratory distress and his blood gases showed severe respiratory acidosis. The patient was becoming unresponsive and he was having diminished level of consciousness in addition to significant respiratory distress. Based on all this, the patient was intubated and the patient was placed on a mechanical ventilator and subsequently was moved to the intensive care unit. This morning he is an assist-control mode at the rate of 28 with FiO2 100% with a PEEP of 5 and tidal volume of 500. The subsequent blood gases showed a pH of 7.61 with a pCO2 of 32 and pO2 of 66 and this was on FiO2 of 60%. This is a ventilator changes was done. The respiratory rate will drop in the tidal volume was also dropped. The patient currently is hemodynamically stable. The patient is not requiring any pressors. The patient is afebrile. White cell count came at 21. Chest x-ray showed acute pulmonary edema. ET tube is in a good location. A triple lumen catheter was inserted in the right IJ and the patient had a follow-up chest x-ray that showed improvement in the pulmonary edema. Troponin is down trending is down to 3.7. The patient was supposed underwent cardiac catheterization today. This was postponed as the patient developed an acute kidney injury creatinine is up to 1.5. His potassium level is also at 5.6. He is currently sedated on a mechanical ventilator. On propofol which is running at 40 mg per KG per minute. He remains on IV heparin. IV fluids at KVO and the patient is still being diuresed. No fever. No other significant events otherwise for now. On 10/05/2020, satting the patient for a follow-up. The patient remains intubated on a mechanical ventilator. The plan is to proceed with a cardiac catheterization today. The patient is still sedated propofol running at 50 mg per KG per minute. The patient is also on a low-dose levothyroid 20 metabolic support running at 0.02 g per KG per minute. The blood gas showed a pH of 7.57 with a pCO2 of 33 and pO2 of 113. The current vent settings with an assist- control at the rate of 24 with a tidal volume of 500 and FiO2 of 50% with a PEEP of 5. There is a component of respiratory alkalosis and I dropped a respiratory rate down to 16. As mentioned, the plan is to proceed with cardiac catheterization today. The patient's cardiac rhythm is atrial fibrillation with a controlled rate. Chest x-ray showed no evidence of any acute pulmonary edema. The CHF on exam improved. ET tube is in a good location. The patient has a triple lumen catheter inserted in the right IJ. Renal function is improved in the creatinine is down to 1.2. The fluid balance is +307 for today but is -7 [phone] yesterday. The patient is seen today 10/06/2020 in follow-up in the intensive care unit. He is awake and alert in no acute distress. He is oriented. He's been off the ventilator since yesterday. He currently denies any worsening shortness of breath, cough or congestion. Maintaining O2 saturations in the mid 90s on 2 L/m per nasal cannula. His been afebrile. Hemodynamically stable. No chest pain, palpitations lightheadedness or dizziness. The patient did undergo cardiac catheterization and stenting of a long segment totally occluded mid left circumflex. Continued on aspirin, Plavix, statins, MIGUEL inhibitor and beta blockers. Sputum culture positive for Haemophilus influenza. White count 12.7. Hemoglobin 11.1. Sodium 132 potassium 3.7 and creatinine 1.32. He remains on bronchodilators, Augmentin. Anticoagulated with Eliquis. The patient is seen today October 07 2020 in follow-up on the selective care unit. He remains awake and alert in no acute distress. No worsening shortness of breath, cough or congestion. No chest pain or palpitations. Currently maintaining good O2 saturations in the upper 90s on 2 L/m per nasal cannula. He is afebrile. Hemodynamically stable. White count 10.8 Hemoglobin 10.5. Sodium 135. Potassium 4.1. Creatinine 1.55. Currently on Lasix 20 mg IV every 8 hours. He remains on Augmentin, bronchodilators. Patient is seen today 10/08/2020 in follow-up on the selective care unit. He is resting comfortably in bed. Awake and alert in no acute distress. T O2 saturations in the mid 90s on 2 L/m per nasal cannula. White count 11.7. Hemoglobin 11.3. Sodium 134. Potassium 4.5. Creatinine 1.17. He remains anticoagulated with Eliquis. Currently on Augmentin. Remains on IV diuretics. Patient was reevaluated today on 10/06/20, patient deteriorated last night, his pulmonary status got worse. Chest x-ray showing worsening pulmonary edema, hence I was notified about this patient, and I recommended ABG which showed a pO2 of 109 pCO2 of 86 pH of 7.18, patient was given Lasix 40 mg IV push, transferred to ICU, and his BiPAP settings were adjusted increased. IPAP to 16, and kept him on 50% FiO2. Repeat ABG showed a pO2 of 122 pCO2 of 67 pH of 7.30. Chest x-ray clearly showed evidence of pulmonary edema. Hence more Lasix were given and the dose was adjusted. Patient remains on anticoagulation therapy/Eliquis. WBC count is 16.4 hemoglobin is 12.5. Hematocrit is 38.6. Tr oponin is 1.5 chest x-ray was reviewed, showed pulmonary edema, and left hemidiaphragm elevation. With cardiomegaly. Objective - Vital Signs Vital signs: Vital Signs Temp 96.7 F L 10/10/20 03:32 Pulse 60 10/10/20 11:09 Resp 18 10/10/20 07:35 BP 117/58 10/10/20 07:35 Pulse Ox 100 10/10/20 07:35 Intake & Output 10/09/20 10/10/20 10/10/20 18:59 06:59 18:59 Intake Total 666 Output Total 900 925 Balance -234 -925 Weight 98 kg 83 kg Intake: Oral 666 Output: Urine 900 925 Uretheral (Boyd) 200 Other: Voiding Method Indwelling Catheter Urinal Urinal # Voids 0 # Bowel Movements 1 ABP, PAP, CO, CI - Last Documented Arterial Blood Pressure 118/49 - Exam GENERAL: Revealed a 70-year-old white male, on BiPAP. Head: Atraumatic, normocephalic. EENT: PERRLA, EOMI, neck tightness, neck masses, no JVD. NECK: No neck masses, no thyromegaly. LUNGS: Symmetrical chest expansion, crackles at the bases bilaterally. HEART: Irregular rate and rhythm. S1 and S2 heard. EXTREMITIES: Normal range of motion. No clubbing or cyanosis. Bilateral above the knee amputations. Neurologic: Alert and oriented 3, no gross focal deficits, patient is arousable, follows simple instructions. Psychiatric: Normal mood, affect and normal mental status examination. Lymphatics: No lymphadenopathy. - Labs CBC & Chem 7: 10/10/20 06:36 10/10/20 06:36 Labs: Abnormal Lab Results - Last 24 Hours (Table) 10/09/20 10/09/20 10/10/20 Range/Units 16:31 20:14 05:49 WBC (3.8-10.6) k/uL RBC (4.30-5.90) m/uL Hgb (13.0-17.5) gm/dL Hct (39.0-53.0) % Neutrophils # (1.3-7.7) k/uL Lymphocytes # (1.0-4.8) k/uL ABG pH (7.35-7.45) ABG pCO2 (35-45) mmHg ABG pO2 (83-108) mmHg ABG HCO3 (21-25) mmol/L ABG Total CO2 (19-24) mmol/L ABG O2 Saturation (94-97) % Sodium (137-145) mmol/L Chloride (98-107) mmol/L BUN (9-20) mg/dL Glucose (74-99) mg/dL POC Glucose (mg/dL) 258 H 274 H 246 H (75-99) mg/dL Troponin I (0.000-0.034) ng/mL 10/10/20 10/10/20 10/10/20 Range/Units 06:11 06:36 06:36 WBC 16.4 H (3.8-10.6) k/uL RBC 4.01 L (4.30-5.90) m/uL Hgb 12.5 L (13.0-17.5) gm/dL Hct 38.6 L (39.0-53.0) % Neutrophils # 14.3 H (1.3-7.7) k/uL Lymphocytes # 0.7 L (1.0-4.8) k/uL ABG pH 7.18 L* (7.35-7.45) ABG pCO2 86 H* (35-45) mmHg ABG pO2 109 H (83-108) mmHg ABG HCO3 32 H (21-25) mmol/L ABG Total CO2 35 H (19-24) mmol/L ABG O2 Saturation 97.7 H (94-97) % Sodium 132 L (137-145) mmol/L Chloride 97 L (98-107) mmol/L BUN 36 H (9-20) mg/dL Glucose 226 H (74-99) mg/dL POC Glucose (mg/dL) (75-99) mg/dL Troponin I (0.000-0.034) ng/mL 10/10/20 10/10/20 10/10/20 Range/Units 06:36 09:38 11:14 WBC (3.8-10.6) k/uL RBC (4.30-5.90) m/uL Hgb (13.0-17.5) gm/dL Hct (39.0-53.0) % Neutrophils # (1.3-7.7) k/uL Lymphocytes # (1.0-4.8) k/uL ABG pH 7.30 L (7.35-7.45) ABG pCO2 67 H (35-45) mmHg ABG pO2 122 H (83-108) mmHg ABG HCO3 33 H (21-25) mmol/L ABG Total CO2 35 H (19-24) mmol/L ABG O2 Saturation 99.2 H (94-97) % Sodium (137-145) mmol/L Chloride (98-107) mmol/L BUN (9-20) mg/dL Glucose (74-99) mg/dL POC Glucose (mg/dL) 213 H (75-99) mg/dL Troponin I 1.500 H* (0.000-0.034) ng/mL Assessment and Plan Assessment: Impression: Acute hypoxic and hypercapnic respiratory failure secondary to pulmonary edema secondary to acute on chronic systolic congestive heart failure and ischemic cardiomyopathy with LV dysfunction, ejection fraction of 25-50%. Obesity/hypoventilation syndrome, suspect some component of obstructive sleep apnea syndrome. Patient required intubation at one point, and he was extubated on 10/06/20. Presently on BiPAP, hoping not to intubate the patient again. Acute non-ST elevation myocardial infarction Ischemic cardiomyopathy with ejection fraction of 25-50%. Acute kidney injury, could be cardiorenal. Chronic obstructive pulmonary disease presently inactive, however may be contributing to his underlying hypercapnia. Peripheral vessel occlusive disease and previous bilateral amputations. Dyslipidemia. Haemophilus influenza infection noted in the sputum. Recommendation: Continue to monitor the patient in the ICU. Continue BiPAP, placed on IPAP of 16 and EPAP of 6, FiO2 is being adjusted down to maintain O2 saturation above 90%. Continue diuretics and the dose has been increased to 40 mg IV push every 12 hours. Continue Augmentin. Continue Coreg. Continue Plavix. Continue updrafts. Continue GI prophylaxis/Protonix. Continue diuretics including Lasix and Aldactone. Patient will be monitored in the ICU for the next 24 hours, and depending on how he responds to diuretics on BiPAP, we will decide whether the patient could be transferred back to a monitored bed on selective. Long-term prognosis is extremely poor and guarded considering his cardiomyopathy and LV dysfunction, Critical care time is 33 minutes. Time with Patient: Greater than 30
--- NOTE | 2020-10-10 13:04 | P.PN ---
Subjective Progress Note Date: 10/10/20 HISTORY OF PRESENT ILLNESS: Patient examined at the bedside in the ICU. Patient apparently developed respiratory distress early this morning. He was transferred to the ICU. He is currently lethargic on a bipap machine. He received a one time dose of IV lasix this morning per Dr. Ortiz and was started on Lasix 40mg IV q12 hours. Chest x-ray reveals moderate right pleural effusion with overlying edema versus atelectasis. Left hemodiaphragm appears slightly more elevated. Cardiomegaly. PHYSICAL EXAM: VITAL SIGNS: Reviewed. GENERAL: Well-developed in no acute distress-lethargic on bipap. NECK: Supple. No JVD or thyromegaly LUNGS: Respirations even and unlabored. Lungs with crackles to bilateral bases HEART: Irregular rate and rhythm. S1 and S2 heard. EXTREMITIES: Normal range of motion. No clubbing or cyanosis. Bilateral above the knee amputations. ASSESSMENT: Non-ST elevated myocardial infarction, s/p cardiac cath with stent to left circumflex Acute on chronic mixed systolic and diastolic heart failure Paroxysmal atrial fibrillation, on long-term anticoagulation with Eliquis Ischemic cardiomyopathy s/p AICD Coronary artery disease Hypertension Dyslipidemia Diabetes mellitus Peripheral vascular disease Chronic nicotine dependence PLAN: Continue current cardiac medications Patient started on IV lasix per pulmonary Continue ICU management per Dr. Ortiz Nurse practitioner note has been reviewed by physician. Signing provider agrees with the documented findings, assessment, and plan of care. Objective - Vital Signs Vital signs: Vital Signs Temp 96.7 F L 10/10/20 03:32 Pulse 60 10/10/20 11:09 Resp 18 10/10/20 07:35 BP 117/58 10/10/20 07:35 Pulse Ox 100 10/10/20 07:35 Intake & Output 10/09/20 10/10/20 10/10/20 18:59 06:59 18:59 Intake Total 666 Output Total 900 925 Balance -234 -925 Weight 98 kg 83 kg Intake: Oral 666 Output: Urine 900 925 Uretheral (Boyd) 200 Other: Voiding Method Indwelling Catheter Urinal Urinal # Voids 0 # Bowel Movements 1 ABP, PAP, CO, CI - Last Documented Arterial Blood Pressure 118/49 - Labs CBC & Chem 7: 10/10/20 06:36 10/10/20 06:36 Labs: Abnormal Lab Results - Last 24 Hours (Table) 10/09/20 10/09/20 10/10/20 Range/Units 16:31 20:14 05:49 WBC (3.8-10.6) k/uL RBC (4.30-5.90) m/uL Hgb (13.0-17.5) gm/dL Hct (39.0-53.0) % Neutrophils # (1.3-7.7) k/uL Lymphocytes # (1.0-4.8) k/uL ABG pH (7.35-7.45) ABG pCO2 (35-45) mmHg ABG pO2 (83-108) mmHg ABG HCO3 (21-25) mmol/L ABG Total CO2 (19-24) mmol/L ABG O2 Saturation (94-97) % Sodium (137-145) mmol/L Chloride (98-107) mmol/L BUN (9-20) mg/dL Glucose (74-99) mg/dL POC Glucose (mg/dL) 258 H 274 H 246 H (75-99) mg/dL Troponin I (0.000-0.034) ng/mL 10/10/20 10/10/20 10/10/20 Range/Units 06:11 06:36 06:36 WBC 16.4 H (3.8-10.6) k/uL RBC 4.01 L (4.30-5.90) m/uL Hgb 12.5 L (13.0-17.5) gm/dL Hct 38.6 L (39.0-53.0) % Neutrophils # 14.3 H (1.3-7.7) k/uL Lymphocytes # 0.7 L (1.0-4.8) k/uL ABG pH 7.18 L* (7.35-7.45) ABG pCO2 86 H* (35-45) mmHg ABG pO2 109 H (83-108) mmHg ABG HCO3 32 H (21-25) mmol/L ABG Total CO2 35 H (19-24) mmol/L ABG O2 Saturation 97.7 H (94-97) % Sodium 132 L (137-145) mmol/L Chloride 97 L (98-107) mmol/L BUN 36 H (9-20) mg/dL Glucose 226 H (74-99) mg/dL POC Glucose (mg/dL) (75-99) mg/dL Troponin I (0.000-0.034) ng/mL 10/10/20 10/10/20 10/10/20 Range/Units 06:36 09:38 11:14 WBC (3.8-10.6) k/uL RBC (4.30-5.90) m/uL Hgb (13.0-17.5) gm/dL Hct (39.0-53.0) % Neutrophils # (1.3-7.7) k/uL Lymphocytes # (1.0-4.8) k/uL ABG pH 7.30 L (7.35-7.45) ABG pCO2 67 H (35-45) mmHg ABG pO2 122 H (83-108) mmHg ABG HCO3 33 H (21-25) mmol/L ABG Total CO2 35 H (19-24) mmol/L ABG O2 Saturation 99.2 H (94-97) % Sodium (137-145) mmol/L Chloride (98-107) mmol/L BUN (9-20) mg/dL Glucose (74-99) mg/dL POC Glucose (mg/dL) 213 H (75-99) mg/dL Troponin I 1.500 H* (0.000-0.034) ng/mL
--- NOTE | 2020-10-10 13:04 | P.PN ---
Subjective Progress Note Date: 10/10/20 Eder Fang, is a 70-year-old male who presented to [facility] emergency room with a chief complaint of worsening shortness of breath, he was evaluated in the emergency room, vital examination on presentation reveals a temperature of 97.5 pulse 98 respiration 18 blood pressure 187/92 pulse ox 98% on room air, his white blood count was 8.5 hemoglobin 12.6 platelet count 482 INR 1.5 d-dimer 0.66 troponin level was elevated at 5.33 and BNP level was 2510 patient was started on IV heparin and was admitted to telemetry floor for further evaluation and treatment cardiology consultation and pulmonary consultation were requested echocardiogram was ordered. Patient has a known history of coronary artery disease, he had a cardiac catheterization 10 years ago which revealed severe calcification in his coronary arteries, patient continued to smoke, he has underlying history of congestive heart failure with cardiomyopathy with ejection fraction of 25-30% , he also has a known history of chronic obstructive pulmonary disease and severe peripheral vascular disease with bilateral lower extremity amputation. On review of systems patient is alert and oriented 3 in no distress he is com plaining of shortness of breath with activity otherwise he denies any complaints there is no fever or chills no headache or dizziness no chest pain he has occasional cough no nausea or vomiting no abdominal pain no diarrhea no blood in the stools no burning with urination no frequency or urgency and no hematuria no weakness or numbness in any of the extremities no change in vision speech or mobility. On 10/04/2020 patient was seen and examined in the ICU he is intubated sedated maintained on mechanical ventilation, last evening patient developed severe shortness of breath, 18 were called and patient was transferred to ICU and was intubated and started on mechanical ventilation he is currently maintained on nitroglycerin drip, norepinephrine drip, and IV propofol, IV heparin, and IV Lasix 40 mg twice daily, currently blood pressure is 119/60 pulse 67 respiration 28 pulse ox 100% on mechanical ventilation. His white blood count is 21.1 hemoglobin 12.1 platelet count 557 ABG reveals a pH of 7.17 pCO2 96 CO2 174 BUN is 30 creatinine 1.53 On 10/05/2020 patient was seen and examined in the ICU, case was discussed over the phone with Dr. Fenton who performed a cardiac catheterization today. Patient remains intubated sedated maintained on mechanical ventilation he is maintained on vasopressors he is in atrial fibrillation his temperature is 97.8 pulse 69 respiration 20 blood pressure 157/61 his white blood count is 14.3 hemoglobin 12.0 platelet count 440 pH 7.57 pCO2 33 by mouth to 113 sodium 134 potassium 3.4 creatinine 1.24 On 10/06/2020 patient was seen and examined in the ICU he is alert and oriented 3 in no apparent distress he was extubated and is maintained on oxygen via nasal cannula and is tolerating well at this time he denies any chest pain or shortness of breath there is no fever or chills no headache or dizziness no palpitation no cough no nausea or vomiting no abdominal pain no diarrhea no blood in the stools no burning with urination no frequency or urgency and no hematuria On 10/07/2020 patient was seen and examined on the telemetry floor. He is out of the ICU he is maintained on oxygen via nasal cannula and is tolerating well there is no new episodes of chest pain he has occasionally some shortness of breath otherwise he denies any complaints there is no fever or chills no headache or dizziness no palpitation no chest pain no nausea or vomiting no abdominal pain no diarrhea no blood in the stools no burning with urination no frequency or urgency and no hematuria no weakness or numbness in any of the extremities no change in vision speech or mobility On 10/08/2020 patient is currently resting comfortably on telemetry floor. Patient's alert and oriented 3. Patient denies chest pain or shortness breath. Patient denies nausea vomiting or diarrhea. Patient denies any urinary burning or frequency. On 10/09/2020 patient was seen and examined on the medical floor he is alert and oriented 3 in no apparent distress there is no new episodes of chest pain no shortness of breath no cough no nausea or vomiting no abdominal pain no diarrhea and no urinary symptoms. Ability of discharging patient to home today was discussed with him however he had severe anxiety and a panic attack, patient was counseled in length at this time will delay discharge tomorrow. Patient will need a nebulizer at home and may need oxygen at home. Will follow in a.m. possible discharge to home tomorrow. On 10/10/2020 patient was seen and examined in the ICU, last night patient had an episode of severe shortness of breath A Team was called, patient pulse ox was down he was transferred to ICU and was started on BiPAP, cardiology and pulmonary consult on the case were notified. This morning patient is alert and oriented 3 he is still maintained on BiPAP in the ICU he complains of shortness of breath otherwise he denies any complaints there is no fever or chills no headache or dizziness no chest pain no nausea or vomiting no abdominal pain no diarrhea no blood in the stools no burning with urination no frequency or urgency and no hematuria Objective - Vital Signs Vital signs: Vital Signs Temp 96.7 F L 10/10/20 03:32 Pulse 60 10/10/20 11:09 Resp 18 10/10/20 07:35 BP 117/58 10/10/20 07:35 Pulse Ox 100 10/10/20 07:35 Intake & Output 10/09/20 10/10/20 10/10/20 18:59 06:59 18:59 Intake Total 666 Output Total 900 925 Balance -234 -925 Weight 98 kg 83 kg Intake: Oral 666 Output: Urine 900 925 Uretheral (Boyd) 200 Other: Voiding Method Indwelling Catheter Urinal Urinal # Voids 0 # Bowel Movements 1 ABP, PAP, CO, CI - Last Documented Arterial Blood Pressure 118/49 - Exam In general patient is intubated sedated maintained on mechanical ventilation HEENT head normocephalic and atraumatic Neck is supple no JVD no goiter no lymphadenopathy Chest exam reveals a few scattered crackles in both bases no wheezing Cardiac exam reveals regular heart sounds S1 and S2 no gallops no murmurs Abdomen is soft nontender no organomegaly with normal bowel sounds Extremity exam patient has bilateral lower extremity amputation Neurological examination no gross focal deficit - Labs CBC & Chem 7: 10/10/20 06:36 10/10/20 06:36 Labs: Abnormal Lab Results - Last 24 Hours (Table) 10/09/20 10/09/20 10/10/20 Range/Units 16:31 20:14 05:49 WBC (3.8-10.6) k/uL RBC (4.30-5.90) m/uL Hgb (13.0-17.5) gm/dL Hct (39.0-53.0) % Neutrophils # (1.3-7.7) k/uL Lymphocytes # (1.0-4.8) k/uL ABG pH (7.35-7.45) ABG pCO2 (35-45) mmHg ABG pO2 (83-108) mmHg ABG HCO3 (21-25) mmol/L ABG Total CO2 (19-24) mmol/L ABG O2 Saturation (94-97) % Sodium (137-145) mmol/L Chloride (98-107) mmol/L BUN (9-20) mg/dL Glucose (74-99) mg/dL POC Glucose (mg/dL) 258 H 274 H 246 H (75-99) mg/dL Troponin I (0.000-0.034) ng/mL 10/10/20 10/10/20 10/10/20 Range/Units 06:11 06:36 06:36 WBC 16.4 H (3.8-10.6) k/uL RBC 4.01 L (4.30-5.90) m/uL Hgb 12.5 L (13.0-17.5) gm/dL Hct 38.6 L (39.0-53.0) % Neutrophils # 14.3 H (1.3-7.7) k/uL Lymphocytes # 0.7 L (1.0-4.8) k/uL ABG pH 7.18 L* (7.35-7.45) ABG pCO2 86 H* (35-45) mmHg ABG pO2 109 H (83-108) mmHg ABG HCO3 32 H (21-25) mmol/L ABG Total CO2 35 H (19-24) mmol/L ABG O2 Saturation 97.7 H (94-97) % Sodium 132 L (137-145) mmol/L Chloride 97 L (98-107) mmol/L BUN 36 H (9-20) mg/dL Glucose 226 H (74-99) mg/dL POC Glucose (mg/dL) (75-99) mg/dL Troponin I (0.000-0.034) ng/mL 10/10/20 10/10/20 10/10/20 Range/Units 06:36 09:38 11:14 WBC (3.8-10.6) k/uL RBC (4.30-5.90) m/uL Hgb (13.0-17.5) gm/dL Hct (39.0-53.0) % Neutrophils # (1.3-7.7) k/uL Lymphocytes # (1.0-4.8) k/uL ABG pH 7.30 L (7.35-7.45) ABG pCO2 67 H (35-45) mmHg ABG pO2 122 H (83-108) mmHg ABG HCO3 33 H (21-25) mmol/L ABG Total CO2 35 H (19-24) mmol/L ABG O2 Saturation 99.2 H (94-97) % Sodium (137-145) mmol/L Chloride (98-107) mmol/L BUN (9-20) mg/dL Glucose (74-99) mg/dL POC Glucose (mg/dL) 213 H (75-99) mg/dL Troponin I 1.500 H* (0.000-0.034) ng/mL Assessment and Plan Plan: 1. Acute systolic and diastolic congestive heart failure exacerbation 2. Acute non-STEMI, with elevated troponin level, status post cardiac catheterization with stent placement yesterday 3. Acute hypoxic respiratory failure maintained on mechanical ventilation, patient extubated and is tolerating well 4. Underlying history of hypertension 5. Underlying history of hyperlipidemia 6. Underlying history of peripheral vascular disease with bilateral lower extremity amputation 7. Underlying history of diabetes mellitus 8. Underlying history of COPD 9. Underlying history of chronic tobacco use. 10. History of ischemic cardiomyopathy with EF 25-30% DVT prophylaxis eliquis. GI prophylaxis Protonix Patient has been moved out of the intensive care unit currently on telemetry Cardiology and pulmonary services are following Maintained on IV Lasix per cardiology
[2020-10-10 18:54] LABS: Glucose,Whole Blood 138 mg/dL (75-99)
[2020-10-10 21:09] LABS: Glucose,Whole Blood 113 mg/dL (75-99)
[2020-10-10] MEDS: FUROSEMIDE 10 MG/ML 4 ML VIAL IV SCH (21:32)
[2020-10-11 04:38] LABS: Basophils # (A) 0.2 k/uL (0-0.2); Basophils % (A) 1 %; Eosinophils # (A) 0.2 k/uL (0-0.7); Eosinophils % (A) 1 %; HCT 36.4 % (39.0-53.0); HGB 11.5 gm/dL (13.0-17.5); Lymphocytes # (A) 1.3 k/uL (1.0-4.8); Lymphocytes % (A) 10 %; MCH 29.8 pg (25.0-35.0); MCHC 31.6 g/dL (31.0-37.0); MCV 94.4 fL (80.0-100.0); Mean Platelet Volume 9.2; Monocytes # (A) 1.1 k/uL (0-1.0); Monocytes % (A) 8 %; Neutrophils # (A) 10.2 k/uL (1.3-7.7); Neutrophils % (A) 78 %; Platelet Count 287 k/uL (150-450); RBC 3.86 m/uL (4.30-5.90); RDW 13.3 % (11.5-15.5); WBC 13.1 k/uL (3.8-10.6)
[2020-10-11 05:05] LABS: ALT 43 U/L (4-49); AST 32 U/L (17-59); African American GFR (CKD) >90 (>60 ml/min/1.73 sqM); Alkaline Phosphatase 56 U/L (38-126); Anion Gap 4 mmol/L; Blood Urea Nitrogen 39 mg/dL (9-20); Calcium 9.1 mg/dL (8.4-10.2); Carbon Dioxide 30 mmol/L (22-30); Chloride 98 mmol/L (98-107); Glucose 178 mg/dL (74-99); Non-African American GFR(CKD) 86 (>60 ml/min/1.73 sqM); Potassium 5.1 mmol/L (3.5-5.1); Sodium 132 mmol/L (137-145); Total Bilirubin 0.8 mg/dL (0.2-1.3); Total Protein 6.3 g/dL (6.3-8.2)
[2020-10-11 07:00] LABS: Glucose,Whole Blood 175 mg/dL (75-99)
--- NOTE | 2020-10-11 07:06 | XR ---
EXAMINATION TYPE: XR chest 1V portable DATE OF EXAM: 10/11/2020 HISTORY: Shortness of breath. COMPARISON: 10/10/2020 TECHNIQUE: Single view of the chest is submitted. FINDINGS: Demonstrated are scattered senescent parenchymal change. Bilateral airspace infiltrates and pleural effusions are unchanged. The heart is stable. Hilar and mediastinal structures are within normal limits. Degenerative changes are seen of the dorsal spine. IMPRESSION: 1. Bilateral airspace infiltrates and pleural effusions are unchanged.
[2020-10-11] MEDS: INSULIN ASPART (NovoLOG) 100 UNIT/ML VIAL SQ SCH ×4 (07:20→20:29)
[2020-10-11] MEDS: carvediloL 6.25 MG TAB PO SCH ×2 (07:20→20:29)
[2020-10-11] MEDS: PANTOPRAZOLE 40 MG TABLET PO SCH (07:20)
[2020-10-11] MEDS: CLOPIDOGREL 75 MG TAB PO SCH (08:07)
[2020-10-11] MEDS: SPIRONOLACTONE 25 MG TAB PO SCH (08:07)
[2020-10-11] MEDS: ATORVASTATIN 80 MG TAB PO SCH (08:07)
[2020-10-11] MEDS: ASPIRIN 81 MG PO SCH (08:07)
[2020-10-11] MEDS: FUROSEMIDE 10 MG/ML 4 ML VIAL IV SCH ×2 (08:07→20:30)
[2020-10-11] MEDS: APIXABAN 5 MG TAB PO SCH ×2 (08:07→20:30)
[2020-10-11] MEDS: IPRATROPIUM-ALBUTEROL 3 ML NEB INHALATION SCH ×4 (08:59→20:39)
[2020-10-11 12:17] LABS: Glucose,Whole Blood 338 mg/dL (75-99)
[2020-10-11] MEDS: AMOXIC-POT CLAV 875-125MG 1 EACH TAB PO SCH ×2 (12:59→20:29)
--- NOTE | 2020-10-11 14:19 | P.PN ---
Subjective Progress Note Date: 10/11/20 Principal diagnosis: Coronary artery disease, status post cardiac arrest 70-year-old male patient, known history of coronary artery disease and CHF and the patient is known to have chronic occluded mid RCA, mild LAD, mild circumflex disease, and addition to ischemic artery myopathy and the patient has an AICD in place. Other comorbidities include COPD as the patient is a chronic smoker, hypertension and hyperlipidemia and peripheral Vascular disease and the patient has had previous amputation of the lower extremities bilaterally. The patient is coming to the hospital because of increased shortness of breath and the patient is ruled in for acute non-ST segment elevation myocardial infarction. Noted the patient's troponin peaked at 5.33 and the patient's EKG showed sinus mechanism with a first-degree AV block and nonspecific ST segment abnormalities. I was consulted in this patient because of shortness of breath. The patient is still going to undergo a cardiac physician tomorrow. Note that the chest x-ray showed cardiac megaly and some bibasilar opacities and a CT angiogram showed interstitial edema and a small right-sided pleural effusion. It was negative for pulmonary embolism. No evidence of any pericardial effusion. Note that the patient had a proBNP level of 2510. The venous blood gas showed a pH of 7.44 with a pCO2 of 45. The sodium level was at 136 with a potassium level of 4.7 and a creatinine of 0.7. White cell count was at 9.3. He is feeling well for now. Is a chronic smoker. He is known to have COPD. Uses only albuterol and asked and his bases without any maintenance inhalational treatments. He denies being on oxygen on outpatient basis. On 10/04/2020, the patient is being seen in follow-up in the intensive care unit. Note that earlier this morning, the patient became acutely hypotensive and went into significant respiratory distress and his blood gases showed severe respiratory acidosis. The patient was becoming unresponsive and he was having diminished level of consciousness in addition to significant respiratory distress. Based on all this, the patient was intubated and the patient was placed on a mechanical ventilator and subsequently was moved to the intensive care unit. This morning he is an assist-control mode at the rate of 28 with FiO2 100% with a PEEP of 5 and tidal volume of 500. The subsequent blood gases showed a pH of 7.61 with a pCO2 of 32 and pO2 of 66 and this was on FiO2 of 60%. This is a ventilator changes was done. The respiratory rate will drop in the tidal volume was also dropped. The patient currently is hemodynamically stable. The patient is not requiring any pressors. The patient is afebrile. White cell count came at 21. Chest x-ray showed acute pulmonary edema. ET tube is in a good location. A triple lumen catheter was inserted in the right IJ and the patient had a follow-up chest x-ray that showed improvement in the pulmonary edema. Troponin is down trending is down to 3.7. The patient was supposed underwent cardiac catheterization today. This was postponed as the patient developed an acute kidney injury creatinine is up to 1.5. His potassium level is also at 5.6. He is currently sedated on a mechanical ventilator. On propofol which is running at 40 mg per KG per minute. He remains on IV heparin. IV fluids at [facility] and the patient is still being diuresed. No fever. No other significant events otherwise for now. On 10/05/2020, satting the patient for a follow-up. The patient remains intubated on a mechanical ventilator. The plan is to proceed with a cardiac catheterization today. The patient is still sedated propofol running at 50 mg per KG per minute. The patient is also on a low-dose levothyroid 20 metabolic support running at 0.02 g per KG per minute. The blood gas showed a pH of 7.57 with a pCO2 of 33 and pO2 of 113. The current vent settings with an assist- control at the rate of 24 with a tidal volume of 500 and FiO2 of 50% with a PEEP of 5. There is a component of respiratory alkalosis and I dropped a respiratory rate down to 16. As mentioned, the plan is to proceed with cardiac catheterization today. The patient's cardiac rhythm is atrial fibrillation with a controlled rate. Chest x-ray showed no evidence of any acute pulmonary edema. The CHF on exam improved. ET tube is in a good location. The patient has a triple lumen catheter inserted in the right IJ. Renal function is improved in the creatinine is down to 1.2. The fluid balance is +307 for today but is -7 [phone] yesterday. The patient is seen today 10/06/2020 in follow-up in the intensive care unit. He is awake and alert in no acute distress. He is oriented. He's been off the ventilator since yesterday. He currently denies any worsening shortness of breath, cough or congestion. Maintaining O2 saturations in the mid 90s on 2 L/m per nasal cannula. His been afebrile. Hemodynamically stable. No chest pain, palpitations lightheadedness or dizziness. The patient did undergo cardiac catheterization and stenting of a long segment totally occluded mid left circumflex. Continued on aspirin, Plavix, statins, MIGUEL inhibitor and beta blockers. Sputum culture positive for Haemophilus influenza. White count 12.7. Hemoglobin 11.1. Sodium 132 potassium 3.7 and creatinine 1.32. He remains on bronchodilators, Augmentin. Anticoagulated with Eliquis. The patient is seen today October 07 2020 in follow-up on the [facility] it. He remains awake and alert in no acute distress. No worsening shortness of breath, cough or congestion. No chest pain or palpitations. Currently maintaining good O2 saturations in the upper 90s on 2 L/m per nasal cannula. He is afebrile. Hemodynamically stable. White count 10.8 Hemoglobin 10.5. Sodium 135. Potassium 4.1. Creatinine 1.55. Currently on Lasix 20 mg IV every 8 hours. He remains on Augmentin, bronchodilators. Patient is seen today 10/08/2020 in follow-up on the [facility]. He is resting comfortably in bed. Awake and alert in no acute distress. T O2 satur ations in the mid 90s on 2 L/m per nasal cannula. White count 11.7. Hemoglobin 11.3. Sodium 134. Potassium 4.5. Creatinine 1.17. He remains anticoagulated with Eliquis. Currently on Augmentin. Remains on IV diuretics. The patient is seen today 10/11/2020 in the intensive care unit. He is c urrently sitting up in bed. Awake and alert in no acute distress. Currently maintaining O2 saturations in the 90s on 6 L/m per nasal cannula. He's been afebrile. Hemodynamically stable. Sputum was positive for Haemophilus influenza. White count 13.1. Hemoglobin 11.5. Sodium 132. Potassium 5.1. Creatinine 0.87. He is currently on IV diuretics, Augmentin, DuoNeb inhalations, anticoagulated with Eliquis. Objective - Vital Signs Vital signs: Vital Signs Temp 98.5 F 10/11/20 08:00 Pulse 84 10/11/20 12:42 Resp 16 10/11/20 12:00 BP 111/66 10/11/20 12:00 Pulse Ox 97 10/11/20 12:00 Intake & Output 10/10/20 10/11/20 10/11/20 18:59 06:59 18:59 Intake Total 200 Output Total 690 485 Balance -490 -485 Weight 85.5 kg Intake: Oral 200 Output: Urine 690 485 Other: Voiding Method Urinal Indwelling Catheter Indwelling Catheter ABP, PAP, CO, CI - Last Documented Arterial Blood Pressure 118/49 - Exam Gen. appearance: Alert, pleasant 70-year-old gentleman, awake and alert on 6 L nasal cannula, in no acute respiratory distress. Head exam was generally normal. There was no scleral icterus or corneal arcus. Mucous membranes were moist. Neck was supple and without jugular venous distension, thyromegaly, or carotid bruits. Carotids were easily palpable bilaterally. There was no adenopathy. The patient has a right IJ triple-lumen catheter in place Lungs sounds are diminished, crackles in lung bases bilaterally. Few scattered rhonchi and wheezes are also appreciated. Cardiac exam revealed the PMI to be normally situated and sized. The rhythm was regular and no extrasystoles were noted during several minutes of auscultation. The first and second heart sounds were normal and physiologic splitting of the second heart sound was noted. There were no murmurs, rubs, clicks, or gallops. The patient has an AICD pocket over the anterior chest area. Abdominal exam revealed normal bowel sounds. The abdomen was soft, non-tender, and without masses, organomegaly, or appreciable enlargement of the abdominal aorta. EXTREMITIES: 2+ radial pulses, bilateral amputation, right-sided [id number] and a left-sided below the knee. No cyanosis in upper extremities. No clubbing. NEUROLOGIC EXAMINATION: Patient is currently awake and alert, is calm and comfortable. - Labs CBC & Chem 7: 10/11/20 03:17 10/11/20 03:17 Labs: Abnormal Lab Results - Last 24 Hours (Table) 10/10/20 10/10/20 10/11/20 Range/Units 18:51 21:08 03:17 WBC 13.1 H (3.8-10.6) k/uL RBC 3.86 L (4.30-5.90) m/uL Hgb 11.5 L (13.0-17.5) gm/dL Hct 36.4 L (39.0-53.0) % Neutrophils # 10.2 H (1.3-7.7) k/uL Monocytes # 1.1 H (0-1.0) k/uL Sodium (137-145) mmol/L BUN (9-20) mg/dL Glucose (74-99) mg/dL POC Glucose (mg/dL) 138 H 113 H (75-99) mg/dL Albumin (3.5-5.0) g/dL 10/11/20 10/11/20 10/11/20 Range/Units 03:17 06:59 12:15 WBC (3.8-10.6) k/uL RBC (4.30-5.90) m/uL Hgb (13.0-17.5) gm/dL Hct (39.0-53.0) % Neutrophils # (1.3-7.7) k/uL Monocytes # (0-1.0) k/uL Sodium 132 L (137-145) mmol/L BUN 39 H (9-20) mg/dL Glucose 178 H (74-99) mg/dL POC Glucose (mg/dL) 175 H 338 H (75-99) mg/dL Albumin 3.0 L (3.5-5.0) g/dL Assessment and Plan Assessment: 1 acute hypoxic/hypercapnic respiratory failure secondary to pulmonary edema. The patient was having difficulty breathing secondary to CHF post myocardial infarction. Earlier this morning the patient went into flash pulmonary edema probably related to an acute hypertensive reaction. The patient had to be intubated and placed on a mechanical ventilator for severe hypercapnic and hypoxic respiratory failure and the patient was brought into the intensive care units. Extubated 10/06/2020. The patient had a readmission to the intensive care unit requiring BiPAP support. He was given additional IV diuretics and has improved. This x-ray continues to show bilateral airspace infiltrates with pleural effusions. Unchanged compared to previous. Currently on 6 L/m per nasal cannula. 2 acute non-STEMI, and the patient has a known history of coronary artery disease with a previous cardiac catheterization from 2009 revealing severe calcification of the LAD and circumflex, LAD with an eccentric plaque in the order of 40-50% and the circumflex involving a 20% to 30% lesion and RCA is chronically occluded with some collaterals. Status post stenting of a long segment of total occlusion of the mid left circumflex artery on 10/05/2020 3 History ischemic cardiomyopathy with an ejection fraction of 25-30% and the patient has a mass in place 4 acute kidney injury in the creatinine is improved down to 1.55 5 acute hypertensive reaction, recovered and the patient is currently on low- dose norepinephrine infusion for blood pressure control 6 COPD 7 diabetes mellitus 8 peripheral vascular disease and the patient has bilateral amputation 9 chronic smoking 10 acute leukocytosis, likely reactive, improvement in the white cell count is down to 14.3 11 hyperlipidemia 12 Haemophilus influenza per sputum Plan The patient was seen and evaluated by Dr. Ortiz Transferred back out of the intensive care unit to the selective care unit. Titrate down the FiO2 as tolerated Continue diuretics We will continue to follow I, the cosigning physician, performed a history & physical examination of the pa tient. Lungs sounds with basilar crackles, few scattered rhonchi, end expiratory wheeze, diminished. Maintaining good O2 saturations in the 90s on 6 L/m per nasal cannula. I discussed the assessment and plan of care with my nurse practitioner, Celina Isaac. I attest to the above note as dictated by her.
--- NOTE | 2020-10-11 16:32 | P.PN ---
Subjective Progress Note Date: 10/11/20 Eder Fang, is a 70-year-old male who presented to [facility] emergency room with a chief complaint of worsening shortness of breath, he was evaluated in the emergency room, vital examination on presentation reveals a temperature of 97.5 pulse 98 respiration 18 blood pressure 187/92 pulse ox 98% on room air, his white blood count was 8.5 hemoglobin 12.6 platelet count 482 INR 1.5 d-dimer 0.66 troponin level was elevated at 5.33 and BNP level was 2510 patient was started on IV heparin and was admitted to telemetry floor for further evaluation and treatment cardiology consultation and pulmonary consultation were requested echocardiogram was ordered. Patient has a known history of coronary artery disease, he had a cardiac catheterization 10 years ago which revealed severe calcification in his coronary arteries, patient continued to smoke, he has underlying history of congestive heart failure with cardiomyopathy with ejection fraction of 25-30% , he also has a known history of chronic obstructive pulmonary disease and severe peripheral vascular disease with bilateral lower extremity amputation. On review of systems patient is alert and oriented 3 in no distress he is com plaining of shortness of breath with activity otherwise he denies any complaints there is no fever or chills no headache or dizziness no chest pain he has occasional cough no nausea or vomiting no abdominal pain no diarrhea no blood in the stools no burning with urination no frequency or urgency and no hematuria no weakness or numbness in any of the extremities no change in vision speech or mobility. On 10/04/2020 patient was seen and examined in the ICU he is intubated sedated maintained on mechanical ventilation, last evening patient developed severe shortness of breath, 18 were called and patient was transferred to ICU and was intubated and started on mechanical ventilation he is currently maintained on nitroglycerin drip, norepinephrine drip, and IV propofol, IV heparin, and IV Lasix 40 mg twice daily, currently blood pressure is 119/60 pulse 67 respiration 28 pulse ox 100% on mechanical ventilation. His white blood count is 21.1 hemoglobin 12.1 platelet count 557 ABG reveals a pH of 7.17 pCO2 96 CO2 174 BUN is 30 creatinine 1.53 On 10/05/2020 patient was seen and examined in the ICU, case was discussed over the phone with Dr. Fenton who performed a cardiac catheterization today. Patient remains intubated sedated maintained on mechanical ventilation he is maintained on vasopressors he is in atrial fibrillation his temperature is 97.8 pulse 69 respiration 20 blood pressure 157/61 his white blood count is 14.3 hemoglobin 12.0 platelet count 440 pH 7.57 pCO2 33 by mouth to 113 sodium 134 potassium 3.4 creatinine 1.24 On 10/06/2020 patient was seen and examined in the ICU he is alert and oriented 3 in no apparent distress he was extubated and is maintained on oxygen via nasal cannula and is tolerating well at this time he denies any chest pain or shortness of breath there is no fever or chills no headache or dizziness no palpitation no cough no nausea or vomiting no abdominal pain no diarrhea no blood in the stools no burning with urination no frequency or urgency and no hematuria On 10/07/2020 patient was seen and examined on the telemetry floor. He is out of the ICU he is maintained on oxygen via nasal cannula and is tolerating well there is no new episodes of chest pain he has occasionally some shortness of breath otherwise he denies any complaints there is no fever or chills no headache or dizziness no palpitation no chest pain no nausea or vomiting no abdominal pain no diarrhea no blood in the stools no burning with urination no frequency or urgency and no hematuria no weakness or numbness in any of the extremities no change in vision speech or mobility On 10/08/2020 patient is currently resting comfortably on telemetry floor. Patient's alert and oriented 3. Patient denies chest pain or shortness breath. Patient denies nausea vomiting or diarrhea. Patient denies any urinary burning or frequency. On 10/09/2020 patient was seen and examined on the medical floor he is alert and oriented 3 in no apparent distress there is no new episodes of chest pain no shortness of breath no cough no nausea or vomiting no abdominal pain no diarrhea and no urinary symptoms. Ability of discharging patient to home today was discussed with him however he had severe anxiety and a panic attack, patient was counseled in length at this time will delay discharge tomorrow. Patient will need a nebulizer at home and may need oxygen at home. Will follow in a.m. possible discharge to home tomorrow. On 10/10/2020 patient was seen and examined in the ICU, last night patient had an episode of severe shortness of breath A Team was called, patient pulse ox was down he was transferred to ICU and was started on BiPAP, cardiology and pulmonary consult on the case were notified. This morning patient is alert and oriented 3 he is still maintained on BiPAP in the ICU he complains of shortness of breath otherwise he denies any complaints there is no fever or chills no headache or dizziness no chest pain no nausea or vomiting no abdominal pain no diarrhea no blood in the stools no burning with urination no frequency or urgency and no hematuria On 10/11/2020 patient was seen and examined on the medical floor he was transferred today out of ICU is alert and oriented 3 he is maintained on oxygen via nasal cannula and is tolerating well there is no fever or chills he has cough and shortness of breath no chest pain no nausea or vomiting no abdominal pain no diarrhea no blood in the stools no burning was urination no frequency or urgency and no hematuria. Sputum culture was positive for Haemophilus influenza, pulmonary are following, continue with current management will recheck in a.m. Objective - Vital Signs Vital signs: Vital Signs Temp 98.5 F 10/11/20 08:00 Pulse 84 10/11/20 12:42 Resp 16 10/11/20 12:00 BP 111/66 10/11/20 12:00 Pulse Ox 97 10/11/20 12:00 Intake & Output 10/10/20 10/11/20 10/11/20 18:59 06:59 18:59 Intake Total 200 Output Total 690 485 Balance -490 -485 Weight 85.5 kg Intake: Oral 200 Output: Urine 690 485 Other: Voiding Method Urinal Indwelling Catheter Indwelling Catheter # Voids 0 ABP, PAP, CO, CI - Last Documented Arterial Blood Pressure 118/49 - Exam In general patient is intubated sedated maintained on mechanical ventilation HEENT head normocephalic and atraumatic Neck is supple no JVD no goiter no lymphadenopathy Chest exam reveals a few scattered crackles in both bases no wheezing Cardiac exam reveals regular heart sounds S1 and S2 no gallops no murmurs Abdomen is soft nontender no organomegaly with normal bowel sounds Extremity exam patient has bilateral lower extremity amputation Neurological examination no gross focal deficit - Labs CBC & Chem 7: 10/11/20 03:17 10/11/20 03:17 Labs: Abnormal Lab Results - Last 24 Hours (Table) 10/10/20 10/10/20 10/11/20 Range/Units 18:51 21:08 03:17 WBC 13.1 H (3.8-10.6) k/uL RBC 3.86 L (4.30-5.90) m/uL Hgb 11.5 L (13.0-17.5) gm/dL Hct 36.4 L (39.0-53.0) % Neutrophils # 10.2 H (1.3-7.7) k/uL Monocytes # 1.1 H (0-1.0) k/uL Sodium (137-145) mmol/L BUN (9-20) mg/dL Glucose (74-99) mg/dL POC Glucose (mg/dL) 138 H 113 H (75-99) mg/dL Albumin (3.5-5.0) g/dL 10/11/20 10/11/20 10/11/20 Range/Units 03:17 06:59 12:15 WBC (3.8-10.6) k/uL RBC (4.30-5.90) m/uL Hgb (13.0-17.5) gm/dL Hct (39.0-53.0) % Neutrophils # (1.3-7.7) k/uL Monocytes # (0-1.0) k/uL Sodium 132 L (137-145) mmol/L BUN 39 H (9-20) mg/dL Glucose 178 H (74-99) mg/dL POC Glucose (mg/dL) 175 H 338 H (75-99) mg/dL Albumin 3.0 L (3.5-5.0) g/dL Assessment and Plan Plan: 1. Acute systolic and diastolic congestive heart failure exacerbation 2. Acute non-STEMI, with elevated troponin level, status post cardiac catheterization with stent placement yesterday 3. Acute hypoxic respiratory failure maintained on mechanical ventilation, patient extubated and is tolerating well 4. Underlying history of hypertension 5. Underlying history of hyperlipidemia 6. Underlying history of peripheral vascular disease with bilateral lower extremity amputation 7. Underlying history of diabetes mellitus 8. Underlying history of COPD 9. Underlying history of chronic tobacco use. 10. History of ischemic cardiomyopathy with EF 25-30% DVT prophylaxis eliquis. GI prophylaxis Protonix Patient has been moved out of the intensive care unit currently on telemetry Cardiology and pulmonary services are following Maintained on IV Lasix per cardiology
--- NOTE | 2020-10-11 17:47 | P.PN ---
Subjective HISTORY OF PRESENT ILLNESS: Patient examined at the bedside in the ICU. Patient was placed on BIPAP over the previous 24 hrs with AMS and likely CO2 narcosis. He admits he feels much better today and is much more alert. States it is "the best I've ever felt". He did recieve Lasix 40mg IV bid with good urine outpt. Vitals stable on NC. Cr 0.87. PHYSICAL EXAM: VITAL SIGNS: Reviewed. GENERAL: Well-developed in no acute distress NECK: Supple. No JVD or thyromegaly LUNGS: Respirations even and unlabored. Lungs with mild crackles to bilateral bases HEART: Irregular rate and rhythm. S1 and S2 heard. EXTREMITIES: Normal range of motion. No clubbing or cyanosis. Bilateral above the knee amputations. ASSESSMENT: Non-ST elevated myocardial infarction, s/p cardiac cath with stent to left circumflex Acute on chronic mixed systolic and diastolic heart failure Paroxysmal atrial fibrillation, on long-term anticoagulation with Eliquis Ischemic cardiomyopathy s/p AICD Coronary artery disease Hypertension Dyslipidemia Diabetes mellitus Peripheral vascular disease Chronic nicotine dependence PLAN: Continue current cardiac medications Patient looks much improved today. Continue one more day of IV diuretics and reassess volume status tomorrow. Continue triple therapy at this time with likely transition to Plavix and Elqius after 1 month. Uptitrate heart failure regimen as able. Objective - Vital Signs Vital signs: Vital Signs Temp 98.5 F 10/11/20 08:00 Pulse 88 10/11/20 16:59 Resp 18 10/11/20 16:59 BP 111/66 10/11/20 12:00 Pulse Ox 97 10/11/20 12:00 Intake & Output 10/10/20 10/11/20 10/11/20 18:59 06:59 18:59 Intake Total 200 Output Total 690 485 Balance -490 -485 Weight 85.5 kg Intake: Oral 200 Output: Urine 690 485 Other: Voiding Method Urinal Indwelling Catheter Indwelling Catheter # Voids 0 ABP, PAP, CO, CI - Last Documented Arterial Blood Pressure 118/49 - Labs CBC & Chem 7: 10/11/20 03:17 10/11/20 03:17 Labs: Abnormal Lab Results - Last 24 Hours (Table) 10/10/20 10/10/20 10/11/20 Range/Units 18:51 21:08 03:17 WBC 13.1 H (3.8-10.6) k/uL RBC 3.86 L (4.30-5.90) m/uL Hgb 11.5 L (13.0-17.5) gm/dL Hct 36.4 L (39.0-53.0) % Neutrophils # 10.2 H (1.3-7.7) k/uL Monocytes # 1.1 H (0-1.0) k/uL Sodium (137-145) mmol/L BUN (9-20) mg/dL Glucose (74-99) mg/dL POC Glucose (mg/dL) 138 H 113 H (75-99) mg/dL Albumin (3.5-5.0) g/dL 10/11/20 10/11/20 10/11/20 Range/Units 03:17 06:59 12:15 WBC (3.8-10.6) k/uL RBC (4.30-5.90) m/uL Hgb (13.0-17.5) gm/dL Hct (39.0-53.0) % Neutrophils # (1.3-7.7) k/uL Monocytes # (0-1.0) k/uL Sodium 132 L (137-145) mmol/L BUN 39 H (9-20) mg/dL Glucose 178 H (74-99) mg/dL POC Glucose (mg/dL) 175 H 338 H (75-99) mg/dL Albumin 3.0 L (3.5-5.0) g/dL
[2020-10-11 20:04] LABS: Glucose,Whole Blood 331 mg/dL (75-99)
[2020-10-12 05:54] LABS: Glucose,Whole Blood 197 mg/dL (75-99)
[2020-10-12] MEDS: PANTOPRAZOLE 40 MG TABLET PO SCH (06:23)
[2020-10-12] MEDS: carvediloL 6.25 MG TAB PO SCH ×2 (06:23→17:15)
[2020-10-12] MEDS: INSULIN ASPART (NovoLOG) 100 UNIT/ML VIAL SQ SCH ×4 (06:28→21:38)
--- NOTE | 2020-10-12 07:30 | XR ---
EXAMINATION TYPE: XR chest 1V portable DATE OF EXAM: 10/12/2020 HISTORY: Shortness of breath. COMPARISON: 10/11/2020 TECHNIQUE: Single view of the chest is submitted. FINDINGS: Demonstrated are scattered senescent parenchymal change. Perihilar and basilar infiltrates with pleural effusions persist. There is cardiomegaly with pulmonar y venous congestion. The heart is stable. Hilar and mediastinal structures are within normal limits. Degenerative changes are seen of the dorsal spine. IMPRESSION: 1. Correlate for congestive failure. Underlying infiltrates of other etiology are difficult to exclu de. Correlate clinically and progress studies are advised.
[2020-10-12] MEDS: ASPIRIN 81 MG PO SCH (08:04)
[2020-10-12] MEDS: ATORVASTATIN 80 MG TAB PO SCH (08:04)
[2020-10-12] MEDS: SPIRONOLACTONE 25 MG TAB PO SCH (08:04)
[2020-10-12] MEDS: APIXABAN 5 MG TAB PO SCH ×2 (08:04→21:38)
[2020-10-12] MEDS: CLOPIDOGREL 75 MG TAB PO SCH (08:05)
[2020-10-12] MEDS: FUROSEMIDE 10 MG/ML 4 ML VIAL IV SCH (08:05)
[2020-10-12] MEDS: AMOXIC-POT CLAV 875-125MG 1 EACH TAB PO SCH ×2 (08:05→21:38)
[2020-10-12] MEDS: IPRATROPIUM-ALBUTEROL 3 ML NEB INHALATION SCH ×5 (08:30→22:07)
[2020-10-12 08:35] LABS: Basophils # (A) 0.1 k/uL (0-0.2); Basophils % (A) 1 %; Eosinophils # (A) 0.3 k/uL (0-0.7); Eosinophils % (A) 3 %; HCT 37.5 % (39.0-53.0); HGB 11.9 gm/dL (13.0-17.5); Hypochromasia Slight; Lymphocytes # (A) 1.7 k/uL (1.0-4.8); Lymphocytes % (A) 16 %; MCH 29.7 pg (25.0-35.0); MCHC 31.6 g/dL (31.0-37.0); Mean Platelet Volume 8.5; Monocytes # (A) 1.1 k/uL (0-1.0); Monocytes % (A) 10 %; Neutrophils # (A) 7.3 k/uL (1.3-7.7); Neutrophils % (A) 69 %; Platelet Count 342 k/uL (150-450); RBC 3.99 m/uL (4.30-5.90); RDW 13.5 % (11.5-15.5); WBC 10.6 k/uL (3.8-10.6)
[2020-10-12 08:58] LABS: ALT 47 U/L (4-49); AST 28 U/L (17-59); African American GFR (CKD) >90 (>60 ml/min/1.73 sqM); Albumin 3.2 g/dL (3.5-5.0); Alkaline Phosphatase 50 U/L (38-126); Anion Gap 4 mmol/L; Blood Urea Nitrogen 35 mg/dL (9-20); Calcium 9.2 mg/dL (8.4-10.2); Carbon Dioxide 34 mmol/L (22-30); Chloride 98 mmol/L (98-107); Glucose 190 mg/dL (74-99); Non-African American GFR(CKD) 88 (>60 ml/min/1.73 sqM); Potassium 4.6 mmol/L (3.5-5.1); Sodium 136 mmol/L (137-145); Total Bilirubin 0.8 mg/dL (0.2-1.3); Total Protein 6.7 g/dL (6.3-8.2)
--- NOTE | 2020-10-12 12:12 | P.PN ---
Subjective Progress Note Date: 10/12/20 Eder Fang, is a 70-year-old male who presented to [facility] emergency room with a chief complaint of worsening shortness of breath, he was evaluated in the emergency room, vital examination on presentation reveals a temperature of 97.5 pulse 98 respiration 18 blood pressure 187/92 pulse ox 98% on room air, his white blood count was 8.5 hemoglobin 12.6 platelet count 482 INR 1.5 d-dimer 0.66 troponin level was elevated at 5.33 and BNP level was 2510 patient was started on IV heparin and was admitted to telemetry floor for further evaluation and treatment cardiology consultation and pulmonary consultation were requested echocardiogram was ordered. Patient has a known history of coronary artery disease, he had a cardiac catheterization 10 years ago which revealed severe calcification in his coronary arteries, patient continued to smoke, he has underlying history of congestive heart failure with cardiomyopathy with ejection fraction of 25-30% , he also has a known history of chronic obstructive pulmonary disease and severe peripheral vascular disease with bilateral lower extremity amputation. On review of systems patient is alert and oriented 3 in no distress he is com plaining of shortness of breath with activity otherwise he denies any complaints there is no fever or chills no headache or dizziness no chest pain he has occasional cough no nausea or vomiting no abdominal pain no diarrhea no blood in the stools no burning with urination no frequency or urgency and no hematuria no weakness or numbness in any of the extremities no change in vision speech or mobility. On 10/04/2020 patient was seen and examined in the ICU he is intubated sedated maintained on mechanical ventilation, last evening patient developed severe shortness of breath, 18 were called and patient was transferred to ICU and was intubated and started on mechanical ventilation he is currently maintained on nitroglycerin drip, norepinephrine drip, and IV propofol, IV heparin, and IV Lasix 40 mg twice daily, currently blood pressure is 119/60 pulse 67 respiration 28 pulse ox 100% on mechanical ventilation. His white blood count is 21.1 hemoglobin 12.1 platelet count 557 ABG reveals a pH of 7.17 pCO2 96 CO2 174 BUN is 30 creatinine 1.53 On 10/05/2020 patient was seen and examined in the ICU, case was discussed over the phone with Dr. Fenton who performed a cardiac catheterization today. Patient remains intubated sedated maintained on mechanical ventilation he is maintained on vasopressors he is in atrial fibrillation his temperature is 97.8 pulse 69 respiration 20 blood pressure 157/61 his white blood count is 14.3 hemoglobin 12.0 platelet count 440 pH 7.57 pCO2 33 by mouth to 113 sodium 134 potassium 3.4 creatinine 1.24 On 10/06/2020 patient was seen and examined in the ICU he is alert and oriented 3 in no apparent distress he was extubated and is maintained on oxygen via nasal cannula and is tolerating well at this time he denies any chest pain or shortness of breath there is no fever or chills no headache or dizziness no palpitation no cough no nausea or vomiting no abdominal pain no diarrhea no blood in the stools no burning with urination no frequency or urgency and no hematuria On 10/07/2020 patient was seen and examined on the telemetry floor. He is out of the ICU he is maintained on oxygen via nasal cannula and is tolerating well there is no new episodes of chest pain he has occasionally some shortness of breath otherwise he denies any complaints there is no fever or chills no headache or dizziness no palpitation no chest pain no nausea or vomiting no abdominal pain no diarrhea no blood in the stools no burning with urination no frequency or urgency and no hematuria no weakness or numbness in any of the extremities no change in vision speech or mobility On 10/08/2020 patient is currently resting comfortably on telemetry floor. Patient's alert and oriented 3. Patient denies chest pain or shortness breath. Patient denies nausea vomiting or diarrhea. Patient denies any urinary burning or frequency. On 10/09/2020 patient was seen and examined on the medical floor he is alert and oriented 3 in no apparent distress there is no new episodes of chest pain no shortness of breath no cough no nausea or vomiting no abdominal pain no diarrhea and no urinary symptoms. Ability of discharging patient to home today was discussed with him however he had severe anxiety and a panic attack, patient was counseled in length at this time will delay discharge tomorrow. Patient will need a nebulizer at home and may need oxygen at home. Will follow in a.m. possible discharge to home tomorrow. On 10/10/2020 patient was seen and examined in the ICU, last night patient had an episode of severe shortness of breath A Team was called, patient pulse ox was down he was transferred to ICU and was started on BiPAP, cardiology and pulmonary consult on the case were notified. This morning patient is alert and oriented 3 he is still maintained on BiPAP in the ICU he complains of shortness of breath otherwise he denies any complaints there is no fever or chills no headache or dizziness no chest pain no nausea or vomiting no abdominal pain no diarrhea no blood in the stools no burning with urination no frequency or urgency and no hematuria On 10/11/2020 patient was seen and examined on the medical floor he was transferred today out of ICU is alert and oriented 3 he is maintained on oxygen via nasal cannula and is tolerating well there is no fever or chills he has cough and shortness of breath no chest pain no nausea or vomiting no abdominal pain no diarrhea no blood in the stools no burning was urination no frequency or urgency and no hematuria. Sputum culture was positive for Haemophilus influenza, pulmonary are following, continue with current management will recheck in a.m.. On 10/12/2020 patient was seen and examined on the medical floor he is alert and oriented 3 in no distress there is no fever or chills no headache or dizziness no chest pain no shortness of breath no cough no nausea or vomiting no abdominal pain no diarrhea no blood in the stools no burning with urination no frequency or urgency and no hematuria his white blood count is 10.6 hemoglobin 11.9 sodium 136 glucose 190, continue to stabilize patient plan to discharge patient to home tomorrow if stable. Objective - Vital Signs Vital signs: Vital Signs Temp 97.6 F 10/12/20 11:43 Pulse 80 10/12/20 11:43 Resp 20 10/12/20 11:43 BP 129/78 10/12/20 11:43 Pulse Ox 95 10/12/20 11:43 Intake & Output 10/11/20 10/12/20 10/12/20 18:59 06:59 18:59 Intake Total 240 Output Total 485 881 Balance -485 -641 Weight 87.6 kg Intake: Oral 240 Output: Urine 485 881 Other: Voiding Method Indwelling Catheter Indwelling Catheter Indwelling Catheter # Voids 0 1 # Bowel Movements 1 ABP, PAP, CO, CI - Last Documented Arterial Blood Pressure 118/49 - Exam In general patient is intubated sedated maintained on mechanical ventilation HEENT head normocephalic and atraumatic Neck is supple no JVD no goiter no lymphadenopathy Chest exam reveals a few scattered crackles in both bases no wheezing Cardiac exam reveals regular heart sounds S1 and S2 no gallops no murmurs Abdomen is soft nontender no organomegaly with normal bowel sounds Extremity exam patient has bilateral lower extremity amputation Neurological examination no gross focal deficit - Labs CBC & Chem 7: 10/12/20 08:10 10/12/20 08:10 Labs: Abnormal Lab Results - Last 24 Hours (Table) 10/11/20 10/11/20 10/12/20 Range/Units 12:15 20:03 05:53 RBC (4.30-5.90) m/uL Hgb (13.0-17.5) gm/dL Hct (39.0-53.0) % Monocytes # (0-1.0) k/uL Sodium (137-145) mmol/L Carbon Dioxide (22-30) mmol/L BUN (9-20) mg/dL Glucose (74-99) mg/dL POC Glucose (mg/dL) 338 H 331 H 197 H (75-99) mg/dL Albumin (3.5-5.0) g/dL 10/12/20 10/12/20 Range/Units 08:10 08:10 RBC 3.99 L (4.30-5.90) m/uL Hgb 11.9 L (13.0-17.5) gm/dL Hct 37.5 L (39.0-53.0) % Monocytes # 1.1 H (0-1.0) k/uL Sodium 136 L (137-145) mmol/L Carbon Dioxide 34 H (22-30) mmol/L BUN 35 H (9-20) mg/dL Glucose 190 H (74-99) mg/dL POC Glucose (mg/dL) (75-99) mg/dL Albumin 3.2 L (3.5-5.0) g/dL Assessment and Plan Plan: 1. Acute systolic and diastolic congestive heart failure exacerbation 2. Acute non-STEMI, with elevated troponin level, status post cardiac catheterization with stent placement yesterday 3. Acute hypoxic respiratory failure maintained on mechanical ventilation, patient extubated and is tolerating well 4. Underlying history of hypertension 5. Underlying history of hyperlipidemia 6. Underlying history of peripheral vascular disease with bilateral lower extremity amputation 7. Underlying history of diabetes mellitus 8. Underlying history of COPD 9. Underlying history of chronic tobacco use. 10. History of ischemic cardiomyopathy with EF 25-30% DVT prophylaxis eliquis. GI prophylaxis Protonix Patient has been moved out of the intensive care unit currently on telemetry Cardiology and pulmonary services are following Maintained on IV Lasix per cardiology
[2020-10-12 12:30] LABS: Glucose,Whole Blood 194 mg/dL (75-99)
--- NOTE | 2020-10-12 13:30 | P.PN ---
Subjective Progress Note Date: 10/12/20 HISTORY OF PRESENT ILLNESS: Patient examined at the bedside this morning. Patient denies chest pain or pressure. Reports shortness of breath is improving he remains on 5 L nasal cannula. He is maintained on Lasix 40 mg twice a day. Creatinine 0.83 today. Fluid balance over the last 24 hours is -1100 mL. PHYSICAL EXAM: VITAL SIGNS: Reviewed. GENERAL: Well-developed in no acute distress NECK: Supple. No JVD or thyromegaly LUNGS: Respirations even and unlabored. Lungs with crackles to bilateral bases HEART: Irregular rate and rhythm. S1 and S2 heard. EXTREMITIES: Normal range of motion. No clubbing or cyanosis. Bilateral above the knee amputations. ASSESSMENT: Non-ST elevated myocardial infarction, s/p cardiac cath with stent to left circumflex Acute on chronic mixed systolic and diastolic heart failure Paroxysmal atrial fibrillation, on long-term anticoagulation with Eliquis Ischemic cardiomyopathy s/p AICD Coronary artery disease Hypertension Dyslipidemia Diabetes mellitus Peripheral vascular disease Chronic nicotine dependence PLAN: Continue current cardiac medications Discontinue IV Lasix. Begin oral Lasix 40 mg BID Accurate I&O Daily weights Further recommendations pending patient's course Nurse practitioner note has been reviewed by physician. Signing provider agrees with the documented findings, assessment, and plan of care. Objective - Vital Signs Vital signs: Vital Signs Temp 97.6 F 10/12/20 11:43 Pulse 80 10/12/20 11:43 Resp 20 10/12/20 13:13 BP 129/78 10/12/20 11:43 Pulse Ox 95 10/12/20 11:43 Intake & Output 10/11/20 10/12/20 10/12/20 18:59 06:59 18:59 Intake Total 240 Output Total 485 881 Balance -485 -641 Weight 87.6 kg Intake: Oral 240 Output: Urine 485 881 Other: Voiding Method Indwelling Catheter Indwelling Catheter Indwelling Catheter # Voids 0 1 # Bowel Movements 1 ABP, PAP, CO, CI - Last Documented Arterial Blood Pressure 118/49 - Labs CBC & Chem 7: 10/12/20 08:10 10/12/20 08:10 Labs: Abnormal Lab Results - Last 24 Hours (Table) 10/11/20 10/12/20 10/12/20 Range/Units 20:03 05:53 08:10 RBC 3.99 L (4.30-5.90) m/uL Hgb 11.9 L (13.0-17.5) gm/dL Hct 37.5 L (39.0-53.0) % Monocytes # 1.1 H (0-1.0) k/uL Sodium (137-145) mmol/L Carbon Dioxide (22-30) mmol/L BUN (9-20) mg/dL Glucose (74-99) mg/dL POC Glucose (mg/dL) 331 H 197 H (75-99) mg/dL Albumin (3.5-5.0) g/dL 10/12/20 10/12/20 Range/Units 08:10 12:29 RBC (4.30-5.90) m/uL Hgb (13.0-17.5) gm/dL Hct (39.0-53.0) % Monocytes # (0-1.0) k/uL Sodium 136 L (137-145) mmol/L Carbon Dioxide 34 H (22-30) mmol/L BUN 35 H (9-20) mg/dL Glucose 190 H (74-99) mg/dL POC Glucose (mg/dL) 194 H (75-99) mg/dL Albumin 3.2 L (3.5-5.0) g/dL
[2020-10-12] MEDS: FUROSEMIDE 40 MG TAB PO SCH (15:24)
[2020-10-12 17:05] LABS: Glucose,Whole Blood 259 mg/dL (75-99)
[2020-10-12 21:01] LABS: Glucose,Whole Blood 156 mg/dL (75-99)
[2020-10-12] MEDS ORDERED: MELATONIN 5 MG TABLET PO SCH (21:15)
[2020-10-13 06:22] LABS: Glucose,Whole Blood 160 mg/dL (75-99)
[2020-10-13] MEDS: PANTOPRAZOLE 40 MG TABLET PO SCH (06:58)
[2020-10-13] MEDS: carvediloL 6.25 MG TAB PO SCH (06:58)
[2020-10-13] MEDS: INSULIN ASPART (NovoLOG) 100 UNIT/ML VIAL SQ SCH ×3 (06:58→17:37)
--- NOTE | 2020-10-13 07:42 | XR ---
EXAMINATION TYPE: XR chest 1V portable DATE OF EXAM: 10/13/2020 COMPARISON: 10/12/2020 INDICATION: Pneumonia, follow-up TECHNIQUE: Single frontal view of the chest is obtained. FINDINGS: The heart size is mildly prominent. The pulmonary vasculature is normal. Small bilateral pleural effusions are present. There is some adjacent infiltrate. Findings may have s light improvement over the interval. IMPRESSION: 1. Improving infiltrates with small stable bilateral pleural effusions.
[2020-10-13] MEDS: AMOXIC-POT CLAV 875-125MG 1 EACH TAB PO SCH (08:12)
[2020-10-13] MEDS: SPIRONOLACTONE 25 MG TAB PO SCH (08:12)
[2020-10-13] MEDS: APIXABAN 5 MG TAB PO SCH (08:12)
[2020-10-13] MEDS: FUROSEMIDE 40 MG TAB PO SCH (08:12)
[2020-10-13] MEDS: CLOPIDOGREL 75 MG TAB PO SCH (08:12)
[2020-10-13] MEDS: ATORVASTATIN 80 MG TAB PO SCH (08:12)
[2020-10-13] MEDS: ASPIRIN 81 MG PO SCH (08:12)
[2020-10-13] MEDS: IPRATROPIUM-ALBUTEROL 3 ML NEB INHALATION SCH ×3 (08:26→16:02)
[2020-10-13 11:25] LABS: Basophils # (A) 0.1 k/uL (0-0.2); Basophils % (A) 1 %; Eosinophils # (A) 0.3 k/uL (0-0.7); Eosinophils % (A) 3 %; HCT 39.8 % (39.0-53.0); HGB 12.7 gm/dL (13.0-17.5); Lymphocytes # (A) 1.6 k/uL (1.0-4.8); Lymphocytes % (A) 15 %; MCH 29.7 pg (25.0-35.0); MCHC 31.9 g/dL (31.0-37.0); MCV 93.1 fL (80.0-100.0); Mean Platelet Volume 8.1; Monocytes # (A) 0.9 k/uL (0-1.0); Monocytes % (A) 9 %; Neutrophils # (A) 7.1 k/uL (1.3-7.7); Neutrophils % (A) 70 %; Platelet Count 342 k/uL (150-450); RBC 4.28 m/uL (4.30-5.90); RDW 13.2 % (11.5-15.5); WBC 10.2 k/uL (3.8-10.6)
[2020-10-13 11:38] LABS: ALT 47 U/L (4-49); AST 28 U/L (17-59); African American GFR (CKD) >90 (>60 ml/min/1.73 sqM); Albumin 3.5 g/dL (3.5-5.0); Alkaline Phosphatase 57 U/L (38-126); Anion Gap 6 mmol/L; Blood Urea Nitrogen 28 mg/dL (9-20); Calcium 9.3 mg/dL (8.4-10.2); Carbon Dioxide 36 mmol/L (22-30); Chloride 95 mmol/L (98-107); Glucose 196 mg/dL (74-99); Non-African American GFR(CKD) >90 (>60 ml/min/1.73 sqM); Potassium 4.7 mmol/L (3.5-5.1); Sodium 137 mmol/L (137-145); Total Bilirubin 1.2 mg/dL (0.2-1.3); Total Protein 7.3 g/dL (6.3-8.2)
[2020-10-13 12:08] LABS: Glucose,Whole Blood 165 mg/dL (75-99)
--- NOTE | 2020-10-13 13:06 | P.PN ---
Subjective Progress Note Date: 10/13/20 HISTORY OF PRESENT ILLNESS: Patient examined at the bedside this morning. Patient denies chest pain or pressure. He denies shortness of breath. He remains on oral Lasix. Creatinine 0.75. PHYSICAL EXAM: VITAL SIGNS: Reviewed. GENERAL: Well-developed in no acute distress NECK: Supple. No JVD or thyromegaly LUNGS: Respirations even and unlabored. Lungs diminished. No rales auscultated. HEART: Irregular rate and rhythm. S1 and S2 heard. EXTREMITIES: Normal range of motion. No clubbing or cyanosis. Bilateral above the knee amputations. 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 Will def er to internal medicine Nurse practitioner note has been reviewed by physician. Signing provider agrees with the documented findings, assessment, and plan of care. Objective - Vital Signs Vital signs: Vital Signs Temp 97.6 F 10/13/20 11:22 Pulse 84 10/13/20 11:44 Resp 20 10/13/20 12:49 BP 158/81 10/13/20 11:22 Pulse Ox 98 10/13/20 11:22 Intake & Output 10/12/20 10/13/20 10/13/20 18:59 06:59 18:59 Intake Total 1058 540 180 Output Total 1550 400 Balance -492 140 180 Weight 89.5 kg Intake: Oral 1058 540 180 Output: Urine 1550 400 Other: Voiding Method Indwelling Catheter Indwelling Catheter Urinal # Voids 0 # Bowel Movements 0 ABP, PAP, CO, CI - Last Documented Arterial Blood Pressure 118/49 - Labs CBC & Chem 7: 10/13/20 11:05 10/13/20 11:05 Labs: Abnormal Lab Results - Last 24 Hours (Table) 10/12/20 10/12/20 10/13/20 Range/Units 17:04 20:59 06:20 RBC (4.30-5.90) m/uL Hgb (13.0-17.5) gm/dL Chloride (98-107) mmol/L Carbon Dioxide (22-30) mmol/L BUN (9-20) mg/dL Glucose (74-99) mg/dL POC Glucose (mg/dL) 259 H 156 H 160 H (75-99) mg/dL 10/13/20 10/13/20 10/13/20 Range/Units 11:05 11:05 11:51 RBC 4.28 L (4.30-5.90) m/uL Hgb 12.7 L (13.0-17.5) gm/dL Chloride 95 L (98-107) mmol/L Carbon Dioxide 36 H (22-30) mmol/L BUN 28 H (9-20) mg/dL Glucose 196 H (74-99) mg/dL POC Glucose (mg/dL) 165 H (75-99) mg/dL
[2020-10-13 15:44] VITALS: BP 137/93; RESP 16; TEMP 98
--- NOTE | 2020-10-13 15:47 | P.DS ---
Providers Date of admission: 10/02/20 20:51 Expected date of discharge: 10/13/20 Attending physician: Robinson Campuzano Consults: 10/02/20 20:51 Consult Physician Routine Consulting Provider: Garrett García Consult Reason/Comments: NSTEMI, ECHO Do you want consulting provider notified?: Already Contacted 10/03/20 01:12 Consult Physician Routine Consulting Provider: Dimitry Freeman Consult Reason/Comments: shortness of breath Do you want consulting provider notified?: Yes 10/05/20 12:28 Consult Physician Routine Consulting Provider: [facility] Consult Reason/Comments: Post Interventional patient Do you want consulting provider notified?: Already Contacted Primary care physician: Robinson Campuzano [facility] Course: Diagnoses on discharge: 1. Acute systolic and diastolic congestive heart failure exacerbation 2. Acute non-STEMI, with elevated troponin level, status post cardiac catheterization with stent placement yesterday 3. Acute hypoxic respiratory failure maintained on mechanical ventilation, patient extubated and is tolerating well 4. Underlying history of hypertension 5. Underlying history of hyperlipidemia 6. Underlying history of peripheral vascular disease with bilateral lower extremity amputation 7. Underlying history of diabetes mellitus 8. Underlying history of COPD 9. Underlying history of chronic tobacco use. 10. History of ischemic cardiomyopathy with EF 25-30% DVT prophylaxis eliquis. GI prophylaxis Protonix Hospital Course: Eder Fang, is a 70-year-old male who presented to [facility] emergency room with a chief complaint of worsening shortness of breath, he was evaluated in the emergency room, vital examination on presentation reveals a temperature of 97.5 pulse 98 respiration 18 blood pressure 187/92 pulse ox 98% on room air, his white blood count was 8.5 hemoglobin 12.6 platelet count 482 INR 1.5 d-dimer 0.66 troponin level was elevated at 5.33 and BNP level was 2510 patient was started on IV heparin and was admitted to telemetry floor for further evaluation and treatment cardiology consultation and pulmonary consul tation were requested echocardiogram was ordered. Patient has a known history of coronary artery disease, he had a cardiac catheterization 10 years ago which revealed severe calcification in his coronary arteries, patient continued to smoke, he has underlying history of congestive heart failure with cardiomyopathy with ejection fraction of 25-30% , he also has a known history of chronic obstructive pulmonary disease and severe peripheral vascular disease with bilateral lower extremity amputation. On review of systems patient is alert and oriented 3 in no distress he is complaining of shortness of breath with activity otherwise he denies any complaints there is no fever or chills no headache or dizziness no chest pain he has occasional cough no nausea or vomiting no abdominal pain no diarrhea no blood in the stools no burning with urination no frequency or urgency and no hematuria no weakness or numbness in any of the extremities no change in vision speech or mobility. On 10/04/2020 patient was seen and examined in the ICU he is intubated sedated maintained on mechanical ventilation, last evening patient developed severe shortness of breath, 18 were called and patient was transferred to ICU and was intubated and started on mechanical ventilation he is currently maintained on nitroglycerin drip, norepinephrine drip, and IV propofol, IV heparin, and IV Lasix 40 mg twice daily, currently blood pressure is 119/60 pulse 67 respiration 28 pulse ox 100% on mechanical ventilation. His white blood count is 21.1 hemoglobin 12.1 platelet count 557 ABG reveals a pH of 7.17 pCO2 96 CO2 174 BUN is 30 creatinine 1.53 On 10/05/2020 patient was seen and examined in the ICU, case was discussed over the phone with Dr. Fenton who performed a cardiac catheterization today. Patient remains intubated sedated maintained on mechanical ventilation he is maintained on vasopressors he is in atrial fibrillation his temperature is 97.8 pulse 69 respiration 20 blood pressure 157/61 his white blood count is 14.3 hemoglobin 12.0 platelet count 440 pH 7.57 pCO2 33 by mouth to 113 sodium 134 potassium 3.4 creatinine 1.24 On 10/06/2020 patient was seen and examined in the ICU he is alert and oriented 3 in no apparent distress he was extubated and is maintained on oxygen via nasal cannula and is tolerating well at this time he denies any chest pain or shortness of breath there is no fever or chills no headache or dizziness no palpitation no cough no nausea or vomiting no abdominal pain no diarrhea no blood in the stools no burning with urination no frequency or urgency and no hematuria On 10/07/2020 patient was seen and examined on the telemetry floor. He is out of the ICU he is maintained on oxygen via nasal cannula and is tolerating well there is no new episodes of chest pain he has occasionally some shortness of breath otherwise he denies any complaints there is no fever or chills no headache or dizziness no palpitation no chest pain no nausea or vomiting no abdominal pain no diarrhea no blood in the stools no burning with urination no frequency or urgency and no hematuria no weakness or numbness in any of the extremities no change in vision speech or mobility On 10/08/2020 patient is currently resting comfortably on telemetry floor. Patient's alert and oriented 3. Patient denies chest pain or shortness breath. Patient denies nausea vomiting or diarrhea. Patient denies any urinary burning or frequency. On 10/09/2020 patient was seen and examined on the medical floor he is alert and oriented 3 in no apparent distress there is no new episodes of chest pain no shortness of breath no cough no nausea or vomiting no abdominal pain no diarrhea and no urinary symptoms. Ability of discharging patient to home today was discussed with him however he had severe anxiety and a panic attack, patient was counseled in length at this time will delay discharge tomorrow. Patient will need a nebulizer at home and may need oxygen at home. Will follow in a.m. poss ible discharge to home tomorrow. On 10/10/2020 patient was seen and examined in the ICU, last night patient had an episode of severe shortness of breath A Team was called, patient pulse ox was down he was transferred to ICU and was started on BiPAP, cardiology and pulmonary consult on the case were notified. This morning patient is alert and oriented 3 he is still maintained on BiPAP in the ICU he complains of shortness of breath otherwise he denies any complaints there is no fever or chills no headache or dizziness no chest pain no nausea or vomiting no abdominal pain no diarrhea no blood in the stools no burning with urination no frequency or urgency and no hematuria On 10/11/2020 patient was seen and examined on the medical floor he was transferred today out of ICU is alert and oriented 3 he is maintained on oxygen via nasal cannula and is tolerating well there is no fever or chills he has cough and shortness of breath no chest pain no nausea or vomiting no abdominal pain no diarrhea no blood in the stools no burning was urination no frequency or urgency and no hematuria. Sputum culture was positive for Haemophilus influenza, pulmonary are following, continue with current management will recheck in a.m.. On 10/12/2020 patient was seen and examined on the medical floor he is alert and oriented 3 in no distress there is no fever or chills no headache or dizziness no chest pain no shortness of breath no cough no nausea or vomiting no abdominal pain no diarrhea no blood in the stools no burning with urination no frequency or urgency and no hematuria his white blood count is 10.6 hemoglobin 11.9 sodium 136 glucose 190, continue to stabilize patient plan to discharge patient to home tomorrow if stable. On 10/13/2020 Patient was seen and examined on the medical floor he is alert and oriented 3 in no distress he states he feels well and he is ready to go home. Patient is currently maintained on oxygen 3 L nasal cannula. Oxygen was discontinued and pulse ox was checked on room air and it dropped down to 88% patient has a known diagnosis of COPD and congestive heart failure he is supposed myocardial infarction. At this time will arrange for home O2 at 3 L nasal cannula 24 hours per day. We will arrange for nebulizer with 2 on a 4 times daily patient was given a prescription for Eliquis, Plavix, lisinopril 2.5 mg, Coreg , dose of Lipitor was increased to 80 mg daily he was also given prescription for Lasix 40 mg twice daily and for Aldactone 25 mg once daily, he was also given a prescription for Protonix 40 mg once daily, he was given a prescription for nebulizer, DuoNeb updraft solution, and home oxygen, will follow in the office in 3-4 days, patient should also follow with cardiology, and pulmonary in the next 7-10 days Patient Condition at Discharge: Stable Plan - Discharge Summary Discharge Rx Participant: Yes New Discharge Prescriptions: New Spironolactone [Aldactone] 25 mg PO DAILY tab carvediloL [Coreg] 6.25 mg PO BID-W/MEALS tab Ipratropium-Albuterol Nebulize [Duoneb 0.5 mg-3 mg/3 ml Soln] 3 ml INHALATION RT-QID ml Ipratropium-Albuterol Nebulize [Duoneb 0.5 mg-3 mg/3 ml Soln] 3 ml INHALATION RT-Q2H PRN ml PRN Reason: Shortness Of Breath Or Wheezing Apixaban [Eliquis] 5 mg PO BID tab Furosemide [Lasix] 40 mg PO BID@0900,1600 tab Atorvastatin [Lipitor] 80 mg PO DAILY tab Mag Hydrox/Al Hydrox/Simeth [Maalox] 30 ml PO Q4HR PRN ml PRN Reason: Heartburn Clopidogrel [Plavix] 75 mg PO DAILY tab Pantoprazole [Protonix] 40 mg PO AC-BRKFST tablet. lisinopriL [Zestril] 2.5 mg PO HS tab Continue glipiZIDE [Glucotrol] 5 mg PO AC-TID Tamsulosin [Flomax] 0.4 mg PO DAILY Fenofibrate Nanocrystallized [Tricor] 145 mg PO DAILY Digoxin [Lanoxin] 125 mcg PO DAILY Aspirin [Adult Low Dose Aspirin EC] 81 mg PO DAILY traZODone HCL 50 mg PO HS Nitroglycerin Sl Tabs [Nitrostat] 0.4 mg SUBLINGUAL Q5M PRN PRN Reason: Chest Pain Folic Acid 1 mg PO DAILY Montelukast [Singulair] 10 mg PO DAILY Losartan Potassium [Cozaar] 25 mg PO DAILY Gabapentin [Neurontin] 300 mg PO TID Fluticasone Propionate [Flovent Diskus] 1 puff INHALATION RT-DAILY Adalimumab [Humira Pen Crohn's-Uc-Hs] 40 mg SQ Q14D Cetirizine HCl [Zyrtec] 10 mg PO DAILY Multivitamins, Thera [Multivitamin (formulary)] 1 tab PO DAILY Discontinued Atorvastatin [Lipitor] 40 mg PO HS Famotidine [Pepcid] 20 mg PO BID Discharge Medication List Aspirin [Adult Low Dose Aspirin EC] 81 mg PO DAILY 07/08/16 [History] Digoxin [Lanoxin] 125 mcg PO DAILY 07/08/16 [History] Fenofibrate Nanocrystallized [Tricor] 145 mg PO DAILY 07/08/16 [History] Tamsulosin [Flomax] 0.4 mg PO DAILY 07/08/16 [History] glipiZIDE [Glucotrol] 5 mg PO AC-TID 07/08/16 [History] Folic Acid 1 mg PO DAILY 09/22/18 [History] Nitroglycerin Sl Tabs [Nitrostat] 0.4 mg SUBLINGUAL Q5M PRN 09/22/18 [History] traZODone HCL 50 mg PO HS 09/22/18 [History] Adalimumab [Humira Pen Crohn's-Uc-Hs] 40 mg SQ Q14D 10/03/20 [History] Cetirizine HCl [Zyrtec] 10 mg PO DAILY 10/03/20 [History] Fluticasone Propionate [Flovent Diskus] 1 puff INHALATION RT-DAILY 10/03/20 [History] Gabapentin [Neurontin] 300 mg PO TID 10/03/20 [History] Losartan Potassium [Cozaar] 25 mg PO DAILY 10/03/20 [History] Montelukast [Singulair] 10 mg PO DAILY 10/03/20 [History] Multivitamins, Thera [Multivitamin (formulary)] 1 tab PO DAILY 10/03/20 [History] Apixaban [Eliquis] 5 mg PO BID tab 10/13/20 [Rx] Atorvastatin [Lipitor] 80 mg PO DAILY tab 10/13/20 [Rx] Clopidogrel [Plavix] 75 mg PO DAILY tab 10/13/20 [Rx] Furosemide [Lasix] 40 mg PO BID@0900,1600 tab 10/13/20 [Rx] Ipratropium-Albuterol Nebulize [Duoneb 0.5 mg-3 mg/3 ml Soln] 3 ml INHALATION RT-Q2H PRN ml 10/13/20 [Rx] Ipratropium-Albuterol Nebulize [Duoneb 0.5 mg-3 mg/3 ml Soln] 3 ml INHALATION RT-QID ml 10/13/20 [Rx] Mag Hydrox/Al Hydrox/Simeth [Maalox] 30 ml PO Q4HR PRN ml 10/13/20 [Rx] Pantoprazole [Protonix] 40 mg PO AC-BRKFST tablet. 10/13/20 [Rx] Spironolactone [Aldactone] 25 mg PO DAILY tab 10/13/20 [Rx] carvediloL [Coreg] 6.25 mg PO BID-W/MEALS tab 10/13/20 [Rx] lisinopriL [Zestril] 2.5 mg PO HS tab 10/13/20 [Rx] Follow up Appointment(s)/Referral(s): Robinson Campuzano MD [Primary Care Provider] - 1-2 days [facility] Visiting Nurse, [NON-STAFF] - 1-2 Days Activity/Diet/Wound Care/Special Instructions: Pt will need home O2 @ 2L 24-7 to maintain O2 sats above 90% and a nebulizer for treatment of COPD
[2020-10-13 16:34] VITALS: PULSE 86
[2020-10-13 17:06] LABS: Glucose,Whole Blood 362 mg/dL (75-99)
--- NOTE | 2020-10-16 09:55 | CDI ---
Documentation Clarification Form Date: 10/16/20 From: Shara Kohler Phone: If you have a question about this query, please contact Suad De [employer] at [phone] between 8am and 5pm. Admit Date: 10/02/20 Discharge Date:10/13/20 Patient Name: Eder Fang Visit Number: [id number] ATTENTION: The Clinical Documentation Specialists (CDI) and [facility] Coding Staff appreciate your assistance in clarifying documentation. Please respond to the clarification below the line at the bottom and electronically sign. The CDI & [facility] Coding staff will review the response and follow-up if needed. Please note: Queries are made part of the Legal Health Record. If you have any questions, please contact the author of this message via ITS. Dear Dr. Campuzano The patient presented with the following NSTEMI and acute exacerbation of diastolic and systolic CHF. You documented sputum culture positive for Haemophilus influenza in the discharge summary and your 10/11 & 10/12 progress notes. Pulmonology documented Haemophilus influenza infection noted in the sputum in the 10/10 progress note History/Risk Factors: COPD, acute hypoxic/hypercapnic respiratory failure, flash pulmonary edema, smoker, CHF exacerbation, NSTEMI Clinical Indicators: Elevated WBC, occasional cough productive of clear sputum WBC/Left Shift: 8.5 on admit and 21.1 on 10/04/68% on admit and 91% on 10/03 Radiology findings: CXR 10/02 - Moderated perihilar and bibasilar opacities concerning for infiltrates in the setting of fever. Vital Signs: T. 97.5, P. 98, R. 18, BP 187/92 Lung/Breathing Assessment: A few scattered crackles in both bases, no wheezing Treatment: Antibiotics: IV Amoxicillin O2: 2 l/min per nasal cannula, 6 L/min per non-rebreather, 15 L/min per non- rebreather, mechanical vent In your professional opinion, can you please clarify the Haemophilus influenza infection? Pneumonia Bronchitis (specifiy acute, chronic, etc.): Other, please specify Unable to determine Please clarify if POA: ____Y = Yes, the condition was present at the time of the order for inpatient admission. ____N = No, the condition was not present at the time of the order for inpatient admission. ____W = Clinically undetermined if the condition was present at the time of the order for inpatient admission. Bronchitis____ MTDD
== END 2020-10-13 18:00 | disposition home health service (06) | DRG 246 ==
LOC: EC 17:38 → 3SCARD 20:51 → 2SICU 10-04 06:44 → 3SCARD 10-06 13:21 → 2SICU 10-10 09:27 → 3SCARD 10-11 10:23
PROVIDERS: ADMIT Internal Medicine; ATTEND Internal Medicine
PROC: 0BH17EZ Insertion of Endotracheal Airway into Trachea, Via Natural or Artificial Opening (ICD-10-PCS; 2020-10-04)
PROC: 5A1935Z Respiratory Ventilation, Less than 24 Consecutive Hours (ICD-10-PCS; 2020-10-04)
PROC: 3E033XZ Introduction of Vasopressor into Peripheral Vein, Percutaneous Approach (ICD-10-PCS; 2020-10-04)
PROC: 02H633Z Insertion of Infusion Device into Right Atrium, Percutaneous Approach (ICD-10-PCS; 2020-10-04)
PROC: 4A023N7 Measurement of Cardiac Sampling and Pressure, Left Heart, Percutaneous Approach (ICD-10-PCS; principal; 2020-10-05 10:30)
PROC: B2111ZZ Fluoroscopy of Multiple Coronary Arteries using Low Osmolar Contrast (ICD-10-PCS; principal; 2020-10-05 10:30)
PROC: 027135Z Dilation of Coronary Artery, Two Arteries with Two Drug-eluting Intraluminal Devices, Percutaneous Approach (ICD-10-PCS; principal; 2020-10-05 10:30)
PROC: 5A09357 Assistance with Respiratory Ventilation, Less than 24 Consecutive Hours, Continuous Positive Airway Pressure (ICD-10-PCS; 2020-10-10)
DX: I21.4 Non-ST elevation (NSTEMI) myocardial infarction (principal); I50.43 Acute on chronic combined systolic (congestive) and diastolic (congestive) heart failure; J96.01 Acute respiratory failure with hypoxia; J96.02 Acute respiratory failure with hypercapnia; J81.0 Acute pulmonary edema; E66.2 Morbid (severe) obesity with alveolar hypoventilation; E87.4 Mixed disorder of acid-base balance; I47.2 Ventricular tachycardia; K50.90 Crohn's disease, unspecified, without complications; N17.9 Acute kidney failure, unspecified; J44.0 Chronic obstructive pulmonary disease with (acute) lower respiratory infection; I25.5 Ischemic cardiomyopathy; J98.6 Disorders of diaphragm; E11.51 Type 2 diabetes mellitus with diabetic peripheral angiopathy without gangrene; I11.0 Hypertensive heart disease with heart failure; I95.9 Hypotension, unspecified; Z86.74 Personal history of sudden cardiac arrest; Z89.611 Acquired absence of right leg above knee; Z99.81 Dependence on supplemental oxygen; I48.0 Paroxysmal atrial fibrillation; J20.1 Acute bronchitis due to Hemophilus influenzae; Z20.828 Contact with and (suspected) exposure to other viral communicable diseases; F41.0 Panic disorder [episodic paroxysmal anxiety]; Z89.512 Acquired absence of left leg below knee; D72.829 Elevated white blood cell count, unspecified; Z68.30 Body mass index [BMI] 30.0-30.9, adult; E78.5 Hyperlipidemia, unspecified; F17.200 Nicotine dependence, unspecified, uncomplicated; I25.10 Atherosclerotic heart disease of native coronary artery without angina pectoris; I25.2 Old myocardial infarction; I44.0 Atrioventricular block, first degree; L30.9 Dermatitis, unspecified; N42.9 Disorder of prostate, unspecified; I08.1 Rheumatic disorders of both mitral and tricuspid valves; Z79.51 Long term (current) use of inhaled steroids; Z79.82 Long term (current) use of aspirin; Z79.84 Long term (current) use of oral hypoglycemic drugs; Z79.899 Other long term (current) drug therapy; Z86.73 Personal history of transient ischemic attack (TIA), and cerebral infarction without residual deficits; Z95.810 Presence of automatic (implantable) cardiac defibrillator; Z71.6 Tobacco abuse counseling; Z99.3 Dependence on wheelchair; Z86.14 Personal history of Methicillin resistant Staphylococcus aureus infection; Z91.018 Allergy to other foods; Z91.010 Allergy to peanuts
CPT/HCPCS: 36415; 36600; 71045; 71046; 71275; 80048; 80053; 81001; 82803; 82805; 83036; 83605; 83735; 83880; 84484; 85025; 85027; 85347; 85379; 85610; 85730; 87040; 87070; 87205; 87502; 87635; 93005; 93306; 93458; 94002; 94640; 94660; 94760; 96374; 96375; 99291

== ENCOUNTER 2020-12-23 14:30 | Inpatient (IN) | payer MEDICARE, OTHER ==
[2020-12-23] MEDS ORDERED: SODIUM CHLORIDE 0.9% 1,000 ML IV STA (14:55)
--- NOTE | 2020-12-23 15:29 | ED ---
General Adult HPI - General Chief complaint: Weakness Stated complaint: Weakness Time Seen by Provider: 12/23/20 14:34 Source: EMS, RN notes reviewed, old records reviewed Mode of arrival: EMS Limitations: altered mental status - History of Present Illness Initial comments: 70-year-old male presenting with confusion. He said generalized weakness and fa tigue. No reported fever. No reported vomiting. Patient denies pain complaints. Patient has multiple medical problems including bilateral lower extremity amputation, CHF, diabetes, COPD, CAD. No reported focal weakness. No headache. - Related Data Home Medications Medication Instructions Recorded Confirmed Digoxin [Lanoxin] 125 mcg PO DAILY 07/08/16 12/23/20 Fenofibrate Nanocrystallized 145 mg PO DAILY 07/08/16 12/23/20 [Tricor] Tamsulosin [Flomax] 0.4 mg PO DAILY 07/08/16 12/23/20 glipiZIDE [Glucotrol] 5 mg PO AC-TID 07/08/16 12/23/20 Folic Acid 1 mg PO DAILY 09/22/18 12/23/20 Nitroglycerin Sl Tabs [Nitrostat] 0.4 mg SUBLINGUAL Q5M PRN 09/22/18 12/23/20 traZODone HCL 50 mg PO HS 09/22/18 12/23/20 Adalimumab [Humira Pen 40 mg SQ Q14D 10/03/20 12/23/20 Crohn's-Uc-Hs] Cetirizine HCl [Zyrtec] 10 mg PO DAILY 10/03/20 12/23/20 Fluticasone Propionate [Flovent 1 puff INHALATION RT-DAILY 10/03/20 12/23/20 Diskus] Gabapentin [Neurontin] 300 mg PO TID 10/03/20 12/23/20 Losartan Potassium [Cozaar] 25 mg PO DAILY 10/03/20 12/23/20 Montelukast [Singulair] 10 mg PO DAILY 10/03/20 12/23/20 Ergocalciferol [Vitamin D2 (1250 1,250 mcg PO Q7D 12/23/20 12/23/20 Mcg = 38089 Iu)] Ipratropium-Albuterol Nebulize 3 ml INHALATION RT-QID PRN 12/23/20 12/23/20 [Duoneb 0.5 mg-3 mg/3 ml Soln] carvediloL [Coreg] 6.25 mg PO BID 12/23/20 12/23/20 Previous Rx's Medication Instructions Recorded Apixaban [Eliquis] 5 mg PO BID tab 10/13/20 Allergies Allergy/AdvReac Type Severity Reaction Status Date / Time corn Allergy Unknown Verified 12/23/20 16:09 Fish Containing Products Allergy Unknown Verified 12/23/20 16:09 Mushroom Allergy Unknown Verified 12/23/20 16:09 nut - unspecified Allergy Verified 12/23/20 16:09 peanut Allergy Verified 12/23/20 16:09 tree nut Allergy Verified 12/23/20 16:09 all nuts Allergy Unknown Uncoded 12/23/20 16:09 green beans Allergy Unknown Uncoded 12/23/20 16:09 olives Allergy Unknown Uncoded 12/23/20 16:09 white cheese Allergy Unknown Uncoded 12/23/20 16:09 Review of Systems ROS Statement: Those systems with pertinent positive or pertinent negative responses have been documented in the HPI. ROS Other: All systems not noted in ROS Statement are negative. 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, History of Any Multi-Drug Resistant Organisms: MRSA Date of last positivie culture/infection: ?2010 MDRO Source:: ARM Past Surgical History: AICD Additional Past Surgical History / Comment(s): RADHA LEG AMPUTATIONS, LEFT IS BELOW THE KNEE AND RT IS ABOVE THE KNEE Past Anesthesia/Blood Transfusion Reactions: No Reported Reaction Type of Cardiac Device: Permanent Pacemaker, AICD Device Placement Date:: 2005 Past Psychological History: No Psychological Hx Reported Smoking Status: Current every day smoker Past Alcohol Use History: None Reported Past Drug Use History: None Reported - Past Family History Mother History Unknown: Yes Father History Unknown: Yes General Exam Limitations: altered mental status General appearance: alert, in no apparent distress Head exam: Present: atraumatic, normocephalic Eye exam: Present: normal appearance, PERRL ENT exam: Present: mucous membranes dry Neck exam: Present: normal inspection. Absent: tenderness, meningismus Respiratory exam: Present: rales, rhonchi, decreased breath sounds. Absent: respiratory distress Cardiovascular Exam: Present: regular rate, normal rhythm GI/Abdominal exam: Present: soft. Absent: distended, tenderness, guarding Rectal exam: Present: other (Stage II sacral decubitus) Extremities exam: Present: other (Bilateral amputation) Neurological exam: Present: alert Skin exam: Present: warm. Absent: cyanosis, diaphoretic Course Vital Signs 12/23/20 12/23/20 12/23/20 14:34 14:35 15:00 Temperature 95.5 F L Pulse Rate 91 102 H Respiratory 20 20 21 Rate Blood Pressure 160/94 160/94 O2 Sat by Pulse 96 95 Oximetry 12/23/20 12/23/20 12/23/20 15:30 15:35 16:00 Temperature Pulse Rate 88 Respiratory 20 20 21 Rate Blood Pressure 144/85 144/85 144/85 O2 Sat by Pulse 97 96 92 L Oximetry 12/23/20 12/23/20 12/23/20 16:30 16:36 17:00 Temperature Pulse Rate 101 H 98 Respiratory 20 20 20 Rate Blood Pressure 144/85 141/86 145/93 O2 Sat by Pulse 95 95 93 L Oximetry - Reevaluation(s) Reevaluation #1: 12/23/20 1445 EMS blood sugar of 109. Reevaluation #2: 12/23/20 17:[address] was ordered however patient cannot tolerate lying flat. He is more alert after IV dextrose, he is moving extremities symmetrically. Perhaps after IV diuresis he would be able to tolerate imaging if his mental status does not improve. EKG Findings - EKG Comments: EKG Findings:: EKG: Atrial fibrillation, rate of 89, QRS duration 102, QTC 433, no ST segment elevation. Medical Decision Making - Medical Decision Making 70-year-old male presenting with generalized weakness, fatigue. Multiple medical problems. Workup is initiated, chest x-ray showing CHF with pleural effusion. He has normal white blood cell count, stable hemoglobin, initial blood sugar by EMS was 109 over this does precipitously drop and his 34 on BMP. He is given IV dextrose emergency department. He has an elevated BNP at 3400. Urinalysis showing greater than 182 white cells, bacteria, cloudy urine. Urine culture as well as blood cultures are pending. He started on IV antibiotics. He's given Lasix for congestive heart failure. His blood glucose will be monitored. He will be admitted to Dr. Campuzano who has accepted admission. - Lab Data Result diagrams: 12/23/20 15:44 12/23/20 15:44 Lab Results 12/23/20 12/23/20 12/23/20 Range/Units 15:28 15:35 15:44 WBC 6.0 (3.8-10.6) k/uL RBC 4.21 L (4.30-5.90) m/uL Hgb 12.3 L (13.0-17.5) gm/dL Hct 39.3 (39.0-53.0) % MCV 93.5 (80.0-100.0) fL MCH 29.3 (25.0-35.0) pg MCHC 31.4 (31.0-37.0) g/dL RDW 14.2 (11.5-15.5) % Plt Count 257 (150-450) k/uL MPV 8.1 Neutrophils % 73 % Lymphocytes % 15 % Monocytes % 7 % Eosinophils % 3 % Basophils % 1 % Neutrophils # 4.3 (1.3-7.7) k/uL Lymphocytes # 0.9 L (1.0-4.8) k/uL Monocytes # 0.4 (0-1.0) k/uL Eosinophils # 0.2 (0-0.7) k/uL Basophils # 0.0 (0-0.2) k/uL Hypochromasia Slight PT (9.0-12.0) sec INR (<1.2) APTT (22.0-30.0) sec Sodium (137-145) mmol/L Potassium (3.5-5.1) mmol/L Chloride (98-107) mmol/L Carbon Dioxide (22-30) mmol/L Anion Gap mmol/L BUN (9-20) mg/dL Creatinine (0.66-1.25) mg/dL Est GFR (CKD-EPI)AfAm (>60 ml/min/1.73 sqM) Est GFR (CKD-EPI)NonAf (>60 ml/min/1.73 sqM) Glucose (74-99) mg/dL POC Glucose (mg/dL) (75-99) mg/dL POC Glu Mud Cleaner Operator ID Plasma Lactic Acid Elvis (0.7-2.0) mmol/L Calcium (8.4-10.2) mg/dL Magnesium (1.6-2.3) mg/dL Total Bilirubin (0.2-1.3) mg/dL AST (17-59) U/L ALT (4-49) U/L Alkaline Phosphatase (38-126) U/L Troponin I (0.000-0.034) ng/mL NT-Pro-B Natriuret Pep pg/mL Total Protein (6.3-8.2) g/dL Albumin (3.5-5.0) g/dL TSH (0.465-4.680) mIU/L Urine Color Yellow Urine Appearance Cloudy (Clear) Urine pH 6.0 (5.0-8.0) Ur Specific [place] 1.016 (1.001-1.035) Urine Protein 2+ H (Negative) Urine Glucose (UA) Negative (Negative) Urine Ketones Negative (Negative) Urine Blood Small H (Negative) Urine Nitrite Positive (Negative) Urine Bilirubin Negative (Negative) Urine Urobilinogen <2.0 (<2.0) mg/dL Ur Leukocyte Esterase Large H (Negative) Urine RBC 7 H (0-5) /hpf Urine WBC >182 H (0-5) /hpf Urine WBC Clumps Few H (None) /hpf Ur Squamous Epith Cells 1 (0-4) /hpf Urine Bacteria Many H (None) /hpf Hyaline Casts 8 H (0-2) /lpf Urine Mucus Rare H (None) /hpf Serum Alcohol mg/dL Coronavirus (PCR) Not Detected (Not Detectd) 12/23/20 12/23/20 12/23/20 Range/Units 15:44 15:44 15:44 WBC (3.8-10.6) k/uL RBC (4.30-5.90) m/uL Hgb (13.0-17.5) gm/dL Hct (39.0-53.0) % MCV (80.0-100.0) fL MCH (25.0-35.0) pg MCHC (31.0-37.0) g/dL RDW (11.5-15.5) % Plt Count (150-450) k/uL MPV Neutrophils % % Lymphocytes % % Monocytes % % Eosinophils % % Basophils % % Neutrophils # (1.3-7.7) k/uL Lymphocytes # (1.0-4.8) k/uL Monocytes # (0-1.0) k/uL Eosinophils # (0-0.7) k/uL Basophils # (0-0.2) k/uL Hypochromasia PT 15.4 H (9.0-12.0) sec INR 1.5 H (<1.2) APTT 27.2 (22.0-30.0) sec Sodium 138 (137-145) mmol/L Potassium 5.1 (3.5-5.1) mmol/L Chloride 98 (98-107) mmol/L Carbon Dioxide 33 H (22-30) mmol/L Anion Gap 7 mmol/L BUN 36 H (9-20) mg/dL Creatinine 1.23 (0.66-1.25) mg/dL Est GFR (CKD-EPI)AfAm 68 (>60 ml/min/1.73 sqM) Est GFR (CKD-EPI)NonAf 59 (>60 ml/min/1.73 sqM) Glucose 33 L* (74-99) mg/dL POC Glucose (mg/dL) (75-99) mg/dL POC Glu Mud Cleaner Operator ID Plasma Lactic Acid Elvis 1.1 (0.7-2.0) mmol/L Calcium 9.2 (8.4-10.2) mg/dL Magnesium 2.1 (1.6-2.3) mg/dL Total Bilirubin 0.6 (0.2-1.3) mg/dL AST 25 (17-59) U/L ALT 10 (4-49) U/L Alkaline Phosphatase 46 (38-126) U/L Troponin I (0.000-0.034) ng/mL NT-Pro-B Natriuret Pep pg/mL Total Protein 7.5 (6.3-8.2) g/dL Albumin 3.9 (3.5-5.0) g/dL TSH 3.310 (0.465-4.680) mIU/L Urine Color Urine Appearance (Clear) Urine pH (5.0-8.0) Ur Specific [place] (1.001-1.035) Urine Protein (Negative) Urine Glucose (UA) (Negative) Urine Ketones (Negative) Urine Blood (Negative) Urine Nitrite (Negative) Urine Bilirubin (Negative) Urine Urobilinogen (<2.0) mg/dL Ur Leukocyte Esterase (Negative) Urine RBC (0-5) /hpf Urine WBC (0-5) /hpf Urine WBC Clumps (None) /hpf Ur Squamous Epith Cells (0-4) /hpf Urine Bacteria (None) /hpf Hyaline Casts (0-2) /lpf Urine Mucus (None) /hpf Serum Alcohol <10 mg/dL Coronavirus (PCR) (Not Detectd) 12/23/20 12/23/20 12/23/20 Range/Units 15:44 15:44 16:39 WBC (3.8-10.6) k/uL RBC (4.30-5.90) m/uL Hgb (13.0-17.5) gm/dL Hct (39.0-53.0) % MCV (80.0-100.0) fL MCH (25.0-35.0) pg MCHC (31.0-37.0) g/dL RDW (11.5-15.5) % Plt Count (150-450) k/uL MPV Neutrophils % % Lymphocytes % % Monocytes % % Eosinophils % % Basophils % % Neutrophils # (1.3-7.7) k/uL Lymphocytes # (1.0-4.8) k/uL Monocytes # (0-1.0) k/uL Eosinophils # (0-0.7) k/uL Basophils # (0-0.2) k/uL Hypochromasia PT (9.0-12.0) sec INR (<1.2) APTT (22.0-30.0) sec Sodium (137-145) mmol/L Potassium (3.5-5.1) mmol/L Chloride (98-107) mmol/L Carbon Dioxide (22-30) mmol/L Anion Gap mmol/L BUN (9-20) mg/dL Creatinine (0.66-1.25) mg/dL Est GFR (CKD-EPI)AfAm (>60 ml/min/1.73 sqM) Est GFR (CKD-EPI)NonAf (>60 ml/min/1.73 sqM) Glucose (74-99) mg/dL POC Glucose (mg/dL) 143 H (75-99) mg/dL POC Glu Mud Cleaner Operator ID Salma Peace Plasma Lactic Acid Elvis (0.7-2.0) mmol/L Calcium (8.4-10.2) mg/dL Magnesium (1.6-2.3) mg/dL Total Bilirubin (0.2-1.3) mg/dL AST (17-59) U/L ALT (4-49) U/L Alkaline Phosphatase (38-126) U/L Troponin I 0.015 (0.000-0.034) ng/mL NT-Pro-B Natriuret Pep 3470 pg/mL Total Protein (6.3-8.2) g/dL Albumin (3.5-5.0) g/dL TSH (0.465-4.680) mIU/L Urine Color Urine Appearance (Clear) Urine pH (5.0-8.0) Ur Specific [place] (1.001-1.035) Urine Protein (Negative) Urine Glucose (UA) (Negative) Urine Ketones (Negative) Urine Blood (Negative) Urine Nitrite (Negative) Urine Bilirubin (Negative) Urine Urobilinogen (<2.0) mg/dL Ur Leukocyte Esterase (Negative) Urine RBC (0-5) /hpf Urine WBC (0-5) /hpf Urine WBC Clumps (None) /hpf Ur Squamous Epith Cells (0-4) /hpf Urine Bacteria (None) /hpf Hyaline Casts (0-2) /lpf Urine Mucus (None) /hpf Serum Alcohol mg/dL Coronavirus (PCR) (Not Detectd) Disposition Clinical Impression: Congestive heart failure, Hypoglycemia, UTI (urinary tract infection) Disposition: ADMITTED IP TO THIS HOSP Condition: Stable Is patient prescribed a controlled substance at d/c from ED?: No Referrals: Robinson Campuzano MD [Primary Care Provider] - 1-2 days Decision to Admit Reason: Admit from EC Decision Date: 12/23/20 Decision Time: 17:22
[2020-12-23 15:50] LABS: Appearance,Urine Cloudy (Clear); Bacteria,Urine Many /hpf; Bilirubin,Urine Negative (Negative); Blood,Urine Small (Negative); Color,Urine Yellow; Glucose,Urine (UA) Negative (Negative); Hyaline Casts,Urine 8 /lpf (0-2); Ketones,Urine Negative (Negative); Leukocyte Esterase,Urine Large (Negative); Mucus,Urine Rare /hpf; Nitrite,Urine Positive (Negative); Protein,Urine 2+ (Negative); RBC,Urine 7 /hpf (0-5); Specific Gravity,Urine 1.016 (1.001-1.035); Squamous Epithelial Cell,Urine 1 /hpf (0-4); Urobilinogen,Urine <2.0 mg/dL (<2.0); WBC,Urine >182 /hpf (0-5)
[2020-12-23 15:51] LABS: Basophils % (A) 1 %; Eosinophils # (A) 0.2 k/uL (0-0.7); Eosinophils % (A) 3 %; HCT 39.3 % (39.0-53.0); HGB 12.3 gm/dL (13.0-17.5); Hypochromasia Slight; Lymphocytes # (A) 0.9 k/uL (1.0-4.8); Lymphocytes % (A) 15 %; MCH 29.3 pg (25.0-35.0); MCHC 31.4 g/dL (31.0-37.0); MCV 93.5 fL (80.0-100.0); Mean Platelet Volume 8.1; Monocytes # (A) 0.4 k/uL (0-1.0); Monocytes % (A) 7 %; Neutrophils # (A) 4.3 k/uL (1.3-7.7); Neutrophils % (A) 73 %; Platelet Count 257 k/uL (150-450); RBC 4.21 m/uL (4.30-5.90); RDW 14.2 % (11.5-15.5)
[2020-12-23 16:06] LABS: INR 1.5 (<1.2); Partial Thromboplastin Time 27.2 sec (22.0-30.0); Prothrombin Time 15.4 sec (9.0-12.0)
[2020-12-23 16:13] LABS: ALT 10 U/L (4-49); AST 25 U/L (17-59); African American GFR (CKD) 68 (>60 ml/min/1.73 sqM); Albumin 3.9 g/dL (3.5-5.0); Alcohol <10 mg/dL; Alkaline Phosphatase 46 U/L (38-126); Anion Gap 7 mmol/L; Blood Urea Nitrogen 36 mg/dL (9-20); Calcium 9.2 mg/dL (8.4-10.2); Carbon Dioxide 33 mmol/L (22-30); Chloride 98 mmol/L (98-107); Magnesium 2.1 mg/dL (1.6-2.3); Non-African American GFR(CKD) 59 (>60 ml/min/1.73 sqM); Potassium 5.1 mmol/L (3.5-5.1); Sodium 138 mmol/L (137-145); Total Bilirubin 0.6 mg/dL (0.2-1.3); Total Protein 7.5 g/dL (6.3-8.2)
[2020-12-23] MEDS ORDERED: LORazepam 2 MG/ML INJ IV STA (16:16)
[2020-12-23] MEDS ORDERED: cefTRIAXone IN SWFI 1,000 MG/10 ML SYRINGE IVP STA ×2 (16:17→16:19)
[2020-12-23 16:23] LABS: Glucose 33 mg/dL (74-99)
[2020-12-23] MEDS ORDERED: SODIUM CHLORIDE 0.9% 1,000 ML IV SCH (16:30)
[2020-12-23] MEDS: DEXTROSE 50% SYRINGE 50 ML IVP STA (16:39)
[2020-12-23 16:40] LABS: Glucose,Whole Blood 143 mg/dL (75-99)
--- NOTE | 2020-12-23 17:01 | XR ---
EXAMINATION TYPE: XR chest 2V DATE OF EXAM: 12/23/2020 COMPARISON: 10/13/2020 HISTORY: Weakness TECHNIQUE: FINDINGS: Heart is enlarged. There is pulmonary vascular congestion. There is blunting of the costoph renic angles more on the right side. There is left axillary pacemaker. IMPRESSION: Congestive heart failure with pleural effusions. Chest appears the same or slightly worse than old exam.
[2020-12-23] MEDS ORDERED: FUROSEMIDE 10 MG/ML 4 ML VIAL IV STA (17:03)
[2020-12-23] MEDS ORDERED: NALOXONE 0.4 MG/ML 1 ML VIAL IV PRN (17:18)
[2020-12-23] MEDS ORDERED: ACETAMINOPHEN TAB 325 MG TAB PO PRN (17:18)
[2020-12-23 17:58] LABS: Glucose,Whole Blood 92 mg/dL (75-99)
[2020-12-23 18:49] LABS: Glucose,Whole Blood 95 mg/dL (75-99)
[2020-12-23] MEDS: FUROSEMIDE 10 MG/ML 4 ML VIAL IV SCH (21:52)
[2020-12-23 22:11] LABS: Glucose,Whole Blood 84 mg/dL (75-99)
[2020-12-24] MEDS: DEXTROSE 50% SYRINGE 50 ML IVP STA (06:06)
[2020-12-24 06:36] LABS: Glucose,Whole Blood 123 mg/dL (75-99)
[2020-12-24 06:36] LABS: Glucose,Whole Blood 48 mg/dL (75-99)
[2020-12-24 07:41] LABS: Basophils # (A) 0.1 k/uL (0-0.2); Basophils % (A) 1 %; Eosinophils # (A) 0.1 k/uL (0-0.7); Eosinophils % (A) 1 %; HCT 37.6 % (39.0-53.0); HGB 11.6 gm/dL (13.0-17.5); Hypochromasia Marked; Lymphocytes # (A) 1.4 k/uL (1.0-4.8); Lymphocytes % (A) 15 %; MCH 29.9 pg (25.0-35.0); MCHC 30.7 g/dL (31.0-37.0); MCV 97.1 fL (80.0-100.0); Mean Platelet Volume 8.2; Monocytes # (A) 0.8 k/uL (0-1.0); Monocytes % (A) 9 %; Neutrophils # (A) 6.6 k/uL (1.3-7.7); Neutrophils % (A) 73 %; Platelet Count 277 k/uL (150-450); RBC 3.87 m/uL (4.30-5.90); RDW 14.2 % (11.5-15.5)
[2020-12-24 07:57] LABS: Albumin 3.7 g/dL (3.5-5.0); Calcium 9.2 mg/dL (8.4-10.2); Potassium 5.6 mmol/L (3.5-5.1); Total Bilirubin 0.6 mg/dL (0.2-1.3); Total Protein 7.2 g/dL (6.3-8.2)
[2020-12-24] MEDS: FUROSEMIDE 10 MG/ML 4 ML VIAL IV SCH ×2 (08:22→21:54)
[2020-12-24] MEDS ORDERED: NITROGLYCERIN SL TABS 0.4 MG TAB SUBLINGUAL PRN (08:57)
[2020-12-24] MEDS ORDERED: ERGOCALCIFEROL 1,250 MCG (50,000 IU) CAPSULE PO SCH (09:00)
[2020-12-24] MEDS: APIXABAN 5 MG TAB PO SCH ×2 (09:36→21:55)
[2020-12-24] MEDS: carvediloL 6.25 MG TAB PO SCH ×2 (09:36→17:39)
[2020-12-24] MEDS: GABAPENTIN 300 MG CAP PO SCH ×3 (09:37→21:55)
[2020-12-24] MEDS: FENOFIBRATE 160 MG TAB PO SCH (09:37)
[2020-12-24] MEDS: DIGOXIN 125 MCG TAB PO SCH (09:37)
[2020-12-24] MEDS: LORATADINE 10 MG TAB PO SCH (09:37)
[2020-12-24] MEDS: FOLIC ACID 1 MG TAB PO SCH (09:37)
[2020-12-24] MEDS: TAMSULOSIN 0.4 MG CAP.ER.24H PO SCH (09:38)
[2020-12-24] MEDS: LOSARTAN 25 MG TAB PO SCH (09:38)
[2020-12-24] MEDS: MONTELUKAST 10 MG TAB PO SCH (09:38)
[2020-12-24] MEDS ORDERED: SODIUM POLYSTYRENE SULFONATE 15 GM/60 ML BOTTLE PO ONE (09:48)
[2020-12-24] MEDS ORDERED: FLUTICASONE 44 MCG INHALER INHALATION SCH (10:00)
--- NOTE | 2020-12-24 10:29 | P.HPIM ---
History of Present Illness H&P Date: 12/24/20 Eder Fang, is a 70-year-old male who presented to [facility] emergency room with confusion and mental status changes he was complaining of generalized weakness, he was evaluated in emergency room vital examination on presentation reveals a temperature of 95.5 pulse 91 respiration 20 blood pressure 160/94 pulse ox 90% on 2 L nasal cannula laboratory data revealed a white blood count of 6.0 hemoglobin 12.3 platelet count 257 INR 1.5 CO2 33 BUN 36 creatinine 1.23 glucose level was critically low at 33 urine analysis revealed evidence of urinary tract infection coronavirus PCR was negative chest x-ray was compatible with congestive heart failure with pleural effusions EKG revealed atrial fibrillation with a heart rate of 89 with poor R-wave progression in anterior leads. Patient was admitted to telemetry floor cardiology consultation and pulmonary consultation were requested, he was resuscitated with IV dextrose and warming blankets. His past medical history is significant for history of hypertension, history of diabetes mellitus, history of congestive heart failure with AICD placement, history of COPD, history of continued tobacco use, history of peripheral vascul ar disease with bilateral lower extremity amputation, history of coronary artery disease, history of atrial fibrillation maintained on anticoagulation at home. Review of system is not amenable at this time due to patient confusion and somnolence patient opens his eyes for a short while he answers few questions by yes or no then he goes back to sleep he denies any pain or discomfort at this time. 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, History of Any Multi-Drug Resistant Organisms: MRSA Date of last positivie culture/infection: ?2010 MDRO Source:: ARM Past Surgical History: AICD Additional Past Surgical History / Comment(s): RADHA LEG AMPUTATIONS, LEFT IS BELOW THE KNEE AND RT IS ABOVE THE KNEE Past Anesthesia/Blood Transfusion Reactions: No Reported Reaction Type of Cardiac Device: Permanent Pacemaker, AICD Device Placement Date:: 2005 Past Psychological History: No Psychological Hx Reported Smoking Status: Current every day smoker Past Alcohol Use History: None Reported Past Drug Use History: None Reported - Past Family History Mother History Unknown: Yes Father History Unknown: Yes Medications and Allergies Home Medications Medication Instructions Recorded Confirmed Type Digoxin [Lanoxin] 125 mcg PO DAILY 07/08/16 12/23/20 History Fenofibrate Nanocrystallized 145 mg PO DAILY 07/08/16 12/23/20 History [Tricor] Tamsulosin [Flomax] 0.4 mg PO DAILY 07/08/16 12/23/20 History glipiZIDE [Glucotrol] 5 mg PO AC-TID 07/08/16 12/23/20 History Folic Acid 1 mg PO DAILY 09/22/18 12/23/20 History Nitroglycerin Sl Tabs [Nitrostat] 0.4 mg SUBLINGUAL Q5M PRN 09/22/18 12/23/20 History traZODone HCL 50 mg PO HS 09/22/18 12/23/20 History Adalimumab [Humira Pen 40 mg SQ Q14D 10/03/20 12/23/20 History Crohn's-Uc-Hs] Cetirizine HCl [Zyrtec] 10 mg PO DAILY 10/03/20 12/23/20 History Fluticasone Propionate [Flovent 1 puff INHALATION RT-DAILY 10/03/20 12/23/20 History Diskus] Gabapentin [Neurontin] 300 mg PO TID 10/03/20 12/23/20 History Losartan Potassium [Cozaar] 25 mg PO DAILY 10/03/20 12/23/20 History Montelukast [Singulair] 10 mg PO DAILY 10/03/20 12/23/20 History Apixaban [Eliquis] 5 mg PO BID tab 10/13/20 12/23/20 Rx Ergocalciferol [Vitamin D2 (1250 1,250 mcg PO Q7D 12/23/20 12/23/20 History Mcg = 96821 Iu)] Ipratropium-Albuterol Nebulize 3 ml INHALATION RT-QID PRN 12/23/20 12/23/20 History [Duoneb 0.5 mg-3 mg/3 ml Soln] carvediloL [Coreg] 6.25 mg PO BID 12/23/20 12/23/20 History Allergies Allergy/AdvReac Type Severity Reaction Status Date / Time corn Allergy Unknown Verified 12/23/20 16:09 Fish Containing Products Allergy Unknown Verified 12/23/20 16:09 Mushroom Allergy Unknown Verified 12/23/20 16:09 nut - unspecified Allergy Verified 12/23/20 16:09 peanut Allergy Verified 12/23/20 16:09 tree nut Allergy Verified 12/23/20 16:09 all nuts Allergy Unknown Uncoded 12/23/20 16:09 green beans Allergy Unknown Uncoded 12/23/20 16:09 olives Allergy Unknown Uncoded 12/23/20 16:09 white cheese Allergy Unknown Uncoded 12/23/20 16:09 Physical Exam Vitals: Vital Signs Temp Pulse Pulse Pulse Resp BP BP 12/24/20 04:00 98.8 F 96 20 132/79 12/24/20 01:27 92 20 12/24/20 00:00 98.2 F 92 20 133/68 12/23/20 20:05 96.6 F L 89 18 127/71 12/23/20 19:03 12/23/20 18:45 12/23/20 18:30 95.5 F L 98 135/89 12/23/20 17:57 95.9 F L 88 21 161/86 12/23/20 17:36 12/23/20 17:32 95.9 F L 12/23/20 17:24 88 21 161/86 12/23/20 17:00 98 20 145/93 12/23/20 16:36 101 H 20 141/86 12/23/20 16:30 20 144/85 12/23/20 16:00 21 144/85 12/23/20 15:35 88 20 144/85 12/23/20 15:30 20 144/85 12/23/20 15:00 102 H 21 160/94 12/23/20 14:35 20 12/23/20 14:34 95.5 F L 91 20 160/94 Pulse Ox 12/24/20 04:00 93 L 12/24/20 01:27 12/24/20 00:00 96 12/23/20 20:05 93 L 12/23/20 19:03 92 L 12/23/20 18:45 92 L 12/23/20 18:30 85 L 12/23/20 17:57 96 12/23/20 17:36 96 12/23/20 17:32 12/23/20 17:24 96 12/23/20 17:00 93 L 12/23/20 16:36 95 12/23/20 16:30 95 12/23/20 16:00 92 L 12/23/20 15:35 96 12/23/20 15:30 97 12/23/20 15:00 12/23/20 14:35 95 12/23/20 14:34 90 L Intake and Output 12/23/20 12/24/20 12/24/20 22:59 06:59 14:59 Output Total 400 750 Balance -400 -750 Output: Urine 400 750 Other: Voiding Method Indwelling Catheter Indwelling Catheter Weight 87 kg In general patient is alert confused in no apparent distress HEENT head normocephalic and atraumatic Neck is supple no JVD no goiter no lymphadenopathy Chest exam reveals scattered crackles in both lung mccain no wheezing Cardiac exam reveals irregular heart sounds no gallops no murmurs Abdomen is soft nontender no organomegaly with normal bowel sounds Extremity exam reveals bilateral lower extremity amputation there is below knee amputation on the left and above-knee amputation on the right no obvious skin ulcers in the extremities Neurological examination reveals mental status changes with confusion and somnolence otherwise no gross focal deficit Results CBC & Chem 7: 12/24/20 07:04 12/24/20 07:04 Labs: Abnormal Lab Results - Last 24 Hours (Table) 12/23/20 12/23/20 12/23/20 Range/Units 15:28 15:44 15:44 RBC 4.21 L (4.30-5.90) m/uL Hgb 12.3 L (13.0-17.5) gm/dL Hct (39.0-53.0) % MCHC (31.0-37.0) g/dL Lymphocytes # 0.9 L (1.0-4.8) k/uL PT 15.4 H (9.0-12.0) sec INR 1.5 H (<1.2) Potassium (3.5-5.1) mmol/L Carbon Dioxide (22-30) mmol/L BUN (9-20) mg/dL Creatinine (0.66-1.25) mg/dL Glucose (74-99) mg/dL POC Glucose (mg/dL) (75-99) mg/dL Urine Protein 2+ H (Negative) Urine Blood Small H (Negative) Ur Leukocyte Esterase Large H (Negative) Urine RBC 7 H (0-5) /hpf Urine WBC >182 H (0-5) /hpf Urine WBC Clumps Few H (None) /hpf Urine Bacteria Many H (None) /hpf Hyaline Casts 8 H (0-2) /lpf Urine Mucus Rare H (None) /hpf 12/23/20 12/23/20 12/24/20 Range/Units 15:44 16:39 05:58 RBC (4.30-5.90) m/uL Hgb (13.0-17.5) gm/dL Hct (39.0-53.0) % MCHC (31.0-37.0) g/dL Lymphocytes # (1.0-4.8) k/uL PT (9.0-12.0) sec INR (<1.2) Potassium (3.5-5.1) mmol/L Carbon Dioxide 33 H (22-30) mmol/L BUN 36 H (9-20) mg/dL Creatinine (0.66-1.25) mg/dL Glucose 33 L* (74-99) mg/dL POC Glucose (mg/dL) 143 H 48 L (75-99) mg/dL Urine Protein (Negative) Urine Blood (Negative) Ur Leukocyte Esterase (Negative) Urine RBC (0-5) /hpf Urine WBC (0-5) /hpf Urine WBC Clumps (None) /hpf Urine Bacteria (None) /hpf Hyaline Casts (0-2) /lpf Urine Mucus (None) /hpf 12/24/20 12/24/20 12/24/20 Range/Units 06:21 07:04 07:04 RBC 3.87 L (4.30-5.90) m/uL Hgb 11.6 L (13.0-17.5) gm/dL Hct 37.6 L (39.0-53.0) % MCHC 30.7 L (31.0-37.0) g/dL Lymphocytes # (1.0-4.8) k/uL PT (9.0-12.0) sec INR (<1.2) Potassium 5.6 H (3.5-5.1) mmol/L Carbon Dioxide (22-30) mmol/L BUN 36 H (9-20) mg/dL Creatinine 1.32 H (0.66-1.25) mg/dL Glucose 101 H (74-99) mg/dL POC Glucose (mg/dL) 123 H (75-99) mg/dL Urine Protein (Negative) Urine Blood (Negative) Ur Leukocyte Esterase (Negative) Urine RBC (0-5) /hpf Urine WBC (0-5) /hpf Urine WBC Clumps (None) /hpf Urine Bacteria (None) /hpf Hyaline Casts (0-2) /lpf Urine Mucus (None) /hpf Microbiology - Last 24 Hours (Table) 12/23/20 15:28 Urine Culture - Preliminary Urine,Voided Assessment and Plan Plan: 1. Hypothermia 2. Severe hypoglycemia 3. Evidence of urinary tract infection 4. Evidence of congestive heart failure with pleural effusion on chest x-ray 5. Hyperkalemia 6. Acute on chronic renal failure acute component is probably related to dehydration and prerenal azotemia 7. Underlying history of diabetes mellitus 8. Underlying history of congestive heart failure, with history of AICD placement 9. Underlying history of coronary artery disease 10. Underlying history of peripheral vascular disease with bilateral lower extremity amputations 11. Underlying history of COPD 12. Underlying history of tobacco abuse 13. Underlying history of benign prostatic hypertrophy At this time patient is admitted to telemetry floor He was started on IV antibiotic Rocephin, awaiting urine culture results He was started on IV D5 0.45 at 50 mL per hour He was given Kayexalate for hyperkalemia For DVT prophylaxis patient is maintained on Eliquis For GI prophylaxis Will add Protonix Cardiology and pulmonary consultation were requested
[2020-12-24 11:40] LABS: Glucose,Whole Blood 69 mg/dL (75-99)
[2020-12-24 12:15] LABS: Glucose,Whole Blood 69 mg/dL (75-99)
--- NOTE | 2020-12-24 12:41 | P.CNPUL ---
History of Present Illness Consult date: 12/24/20 Requesting physician: Robinson Campuzano Reason for consult: dyspnea, hypoxemia, pleural effusion, abnormal CXR/CT Chief complaint: Shortness of breath. History of present illness: 70-year-old male, brought into the emergency room, by EMS, on December 23, at 1430, with complaints of weakness. Apparently, the patient was very confused in the emergency department and had altered mental status. He was evaluated in the emergency room and was apparently admitted with a diagnosis of mental status ch anges, confusion, and CHF. Will be walked into his room today, he was not wearing his oxygen. We put the pulse oximeter on him, his saturations were in the mid 50s. We placed him on oxygen at 10 L, and his saturation began to come up. His color improved and he felt much better. The nurse said that he should be on 6 L, and she would titrate him back down. The patient is a very poor historian, and we really don't get much history from him. He apparently has a history of bilateral lower extremity amputation, congestive heart failure, diabetes mellitus, COPD, and CAD. The patient apparently continues to smoke cigarettes. His chest x-ray was consistent with congestive heart failure, and bilateral pleural effusions. White count is 9, hemoglobin 11.6, hematocrit 37.6, and platelet count 277,000. Sodium 138, potassium 5.6, chlorides 100, CO2 28, anion gap 10, with a BUN of 36, and creatinine of 1.32. N-terminal proBNP was 4840. Review of Systems REVIEW OF SYSTEMS: CONSTITUTIONAL: Weakness, and mental status changes. NEUROLOGIC: Confusion. HEENT: [ Negative.] CARDIAC: [Negative.] PULMONARY: Shortness of breath. GI: [Negative.] : [Negative.] RHEUMATOLOGIC: [ Negative.] IMMUNOLOGIC: [ Negative.] ENDOCRINE: [Negative. ] DERMATOLOGIC: [Negative.] Past Medical History Past Medical History: Coronary Artery Disease (CAD), Heart Failure, COPD, CVA/TIA, Diabetes Mellitus, Hyperlipidemia, Myocardial Infarction (SC), Prostate Disorder, Skin Disorder, Vascular Disorder Additional Past Medical History / Comment(s): CAD, COPD, CHF and patient has AICD, PVOD and the patient has 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, History of Any Multi-Drug Resistant Organisms: MRSA Date of last positivie culture/infection: ?2010 MDRO Source:: ARM Past Surgical History: AICD Additional Past Surgical History / Comment(s): RADHA LEG AMPUTATIONS, LEFT IS BELOW THE KNEE AND RT IS ABOVE THE KNEE Past Anesthesia/Blood Transfusion Reactions: No Reported Reaction Type of Cardiac Device: Permanent Pacemaker, AICD Device Placement Date:: 2005 Past Psychological History: No Psychological Hx Reported Smoking Status: Current every day smoker Past Alcohol Use History: None Reported Past Drug Use History: None Reported - Past Family History Mother History Unknown: Yes Father History Unknown: Yes Medications and Allergies Home Medications Medication Instructions Recorded Confirmed Type Digoxin [Lanoxin] 125 mcg PO DAILY 07/08/16 12/23/20 History Fenofibrate Nanocrystallized 145 mg PO DAILY 07/08/16 12/23/20 History [Tricor] Tamsulosin [Flomax] 0.4 mg PO DAILY 07/08/16 12/23/20 History glipiZIDE [Glucotrol] 5 mg PO AC-TID 07/08/16 12/23/20 History Folic Acid 1 mg PO DAILY 09/22/18 12/23/20 History Nitroglycerin Sl Tabs [Nitrostat] 0.4 mg SUBLINGUAL Q5M PRN 09/22/18 12/23/20 History traZODone HCL 50 mg PO HS 09/22/18 12/23/20 History Adalimumab [Humira Pen 40 mg SQ Q14D 10/03/20 12/23/20 History Crohn's-Uc-Hs] Cetirizine HCl [Zyrtec] 10 mg PO DAILY 10/03/20 12/23/20 History Fluticasone Propionate [Flovent 1 puff INHALATION RT-DAILY 10/03/20 12/23/20 History Diskus] Gabapentin [Neurontin] 300 mg PO TID 10/03/20 12/23/20 History Losartan Potassium [Cozaar] 25 mg PO DAILY 10/03/20 12/23/20 History Montelukast [Singulair] 10 mg PO DAILY 10/03/20 12/23/20 History Apixaban [Eliquis] 5 mg PO BID tab 10/13/20 12/23/20 Rx Ergocalciferol [Vitamin D2 (1250 1,250 mcg PO Q7D 12/23/20 12/23/20 History Mcg = 21210 Iu)] Ipratropium-Albuterol Nebulize 3 ml INHALATION RT-QID PRN 12/23/20 12/23/20 History [Duoneb 0.5 mg-3 mg/3 ml Soln] carvediloL [Coreg] 6.25 mg PO BID 12/23/20 12/23/20 History Allergies Allergy/AdvReac Type Severity Reaction Status Date / Time corn Allergy Unknown Verified 12/23/20 16:09 Fish Containing Products Allergy Unknown Verified 12/23/20 16:09 Mushroom Allergy Unknown Verified 12/23/20 16:09 nut - unspecified Allergy Verified 12/23/20 16:09 peanut Allergy Verified 12/23/20 16:09 tree nut Allergy Verified 12/23/20 16:09 all nuts Allergy Unknown Uncoded 12/23/20 16:09 green beans Allergy Unknown Uncoded 12/23/20 16:09 olives Allergy Unknown Uncoded 12/23/20 16:09 white cheese Allergy Unknown Uncoded 12/23/20 16:09 Physical Exam Osteopathic Statement: *. No significant issues noted on an osteopathic structural exam other than those noted in the History and Physical/Consult. Vitals: Vital Signs Temp Pulse Pulse Pulse Resp BP BP 12/24/20 08:00 98.8 F 95 148/78 12/24/20 04:00 98.8 F 96 20 132/79 12/24/20 01:27 92 20 12/24/20 00:00 98.2 F 92 20 133/68 12/23/20 20:05 96.6 F L 89 18 127/71 12/23/20 19:03 12/23/20 18:45 12/23/20 18:30 95.5 F L 98 135/89 12/23/20 17:57 95.9 F L 88 21 161/86 12/23/20 17:36 12/23/20 17:32 95.9 F L 12/23/20 17:24 88 21 161/86 12/23/20 17:00 98 20 145/93 12/23/20 16:36 101 H 20 141/86 12/23/20 16:30 20 144/85 12/23/20 16:00 21 144/85 12/23/20 15:35 88 20 144/85 12/23/20 15:30 20 144/85 12/23/20 15:00 102 H 21 160/94 12/23/20 14:35 20 12/23/20 14:34 95.5 F L 91 20 160/94 Pulse Ox 12/24/20 08:00 99 12/24/20 04:00 93 L 12/24/20 01:27 12/24/20 00:00 96 12/23/20 20:05 93 L 12/23/20 19:03 92 L 12/23/20 18:45 92 L 12/23/20 18:30 85 L 12/23/20 17:57 96 12/23/20 17:36 96 12/23/20 17:32 12/23/20 17:24 96 12/23/20 17:00 93 L 12/23/20 16:36 95 12/23/20 16:30 95 12/23/20 16:00 92 L 12/23/20 15:35 96 12/23/20 15:30 97 12/23/20 15:00 12/23/20 14:35 95 12/23/20 14:34 90 L Intake and Output 12/23/20 12/24/20 12/24/20 22:59 06:59 14:59 Output Total 400 750 550 Balance -400 -750 -550 Output: Urine 400 750 550 Other: Voiding Method Indwelling Catheter Indwelling Catheter Indwelling Catheter Weight 87 kg 87 kg No acute distress, oriented 3. Nasal O2 at 6 L/m. Mild to moderate respiratory distress, while off oxygen. HEENT examination is grossly unremarkable. Mucous membranes are moist. No oral lesions. Neck supple. Full range of motion. No adenopathy thyromegaly or neck vein distention. Cardiovascular examination reveals irregular rhythm and rate. S1-S2 normal. No S3 or S4. Soft systolic murmur is noted. Heart rate is 95 bpm. Lungs reveal bilateral rhonchi and crackles. The patient does not take deep breaths. No distinct wheezes are noted. Breath sounds equal bilaterally. Abdomen soft bowel sounds are heard. No masses or tenderness. Extremities reveal a left cpjhe-yhj-lukv amputation, and a right qtjjv-ahi-pzia amputation. Skin is without rash or lesion. Neurologic examination is difficult to assess. The patient is quite confused. This in part relates to his saturation of only 56%. Results - Laboratory Findings CBC and BMP: 12/24/20 07:04 12/24/20 07:04 PT/INR, D-dimer PT 15.4 sec (9.0-12.0) H 12/23/20 15:44 INR 1.5 (<1.2) H 12/23/20 15:44 Abnormal lab findings: Abnormal Labs 12/23/20 12/23/20 12/23/20 15:28 15:44 15:44 RBC 4.21 L Hgb 12.3 L Hct MCHC Lymphocytes # 0.9 L PT 15.4 H INR 1.5 H Potassium Carbon Dioxide BUN Creatinine Glucose POC Glucose (mg/dL) Urine Protein 2+ H Urine Blood Small H Ur Leukocyte Esterase Large H Urine RBC 7 H Urine WBC >182 H Urine WBC Clumps Few H Urine Bacteria Many H Hyaline Casts 8 H Urine Mucus Rare H 12/23/20 12/23/20 12/24/20 15:44 16:39 05:58 RBC Hgb Hct MCHC Lymphocytes # PT INR Potassium Carbon Dioxide 33 H BUN 36 H Creatinine Glucose 33 L* POC Glucose (mg/dL) 143 H 48 L Urine Protein Urine Blood Ur Leukocyte Esterase Urine RBC Urine WBC Urine WBC Clumps Urine Bacteria Hyaline Casts Urine Mucus 12/24/20 12/24/20 12/24/20 06:21 07:04 07:04 RBC 3.87 L Hgb 11.6 L Hct 37.6 L MCHC 30.7 L Lymphocytes # PT INR Potassium 5.6 H Carbon Dioxide BUN 36 H Creatinine 1.32 H Glucose 101 H POC Glucose (mg/dL) 123 H Urine Protein Urine Blood Ur Leukocyte Esterase Urine RBC Urine WBC Urine WBC Clumps Urine Bacteria Hyaline Casts Urine Mucus 12/24/20 12/24/20 11:38 12:13 RBC Hgb Hct MCHC Lymphocytes # PT INR Potassium Carbon Dioxide BUN Creatinine Glucose POC Glucose (mg/dL) 69 L 69 L Urine Protein Urine Blood Ur Leukocyte Esterase Urine RBC Urine WBC Urine WBC Clumps Urine Bacteria Hyaline Casts Urine Mucus - Diagnostic Findings Chest x-ray: image reviewed Assessment and Plan Assessment: Acute hypoxemic respiratory failure, secondary to CHF with bilateral pleural effusions. Mental status changes, which may in fact relate to have hypoxemia, secondary to his fluid overload state and CHF. History of congestive heart failure. History of COPD, secondary chronic tobacco use. History of CAD. Status post pacemaker/defibrillator implantation, 2005. History of CVA. History of diabetes mellitus. History of hyperlipidemia. Prior history of myocardial infarction. Peripheral vascular occlusive disease, status post left below the knee amputation and right phauw-ccw-[id number] amputation. Prior history of MRSA infection. History of ongoing tobacco use with nicotine addiction. Plan: Plan dated 12/24/2020. Currently, the patient is getting Lasix 40 mg IV push every 12 hours. In addition, he was started on antibiotics for possible underlying infection/pneumonia. The patient is a very poor historian so it is hard to know exactly what his complaints are or were. When we entered the room, the patient was not on any supplemental oxygen and his saturation was only 56%. He was quite agitated, restless, and confused. His saturation came up once we place him back on oxygen. The nurse will wean him back down to 6 L. Additional recommendations and suggestions are forthcoming. Flovent was discontinued in favor of Symbicort, 160/4.5, 2 puffs twice a day. We'll also add a procalcitoni n level to his blood work. Prognosis is guarded. CODE STATUS should be addressed. Time with Patient: Greater than 30
[2020-12-24] MEDS: DEXTROSE 5%-0.45% NACL 1,000 ML IV SCH (12:43)
[2020-12-24] MEDS: IPRATROPIUM-ALBUTEROL 3 ML NEB INHALATION PRN ×2 (15:35→20:10)
[2020-12-24 16:37] LABS: Glucose,Whole Blood 162 mg/dL (75-99)
[2020-12-24 20:10] LABS: Glucose,Whole Blood 243 mg/dL (75-99)
[2020-12-24] MEDS: SYMBICORT 160-4.5 MCG INHALER INHALATION SCH (20:10)
[2020-12-24] MEDS: traZODone HCL 50 MG TAB PO SCH (21:55)
[2020-12-24 23:33] LABS: Glucose,Whole Blood 196 mg/dL (75-99)
[2020-12-25 02:00] LABS: Glucose,Whole Blood 140 mg/dL (75-99)
[2020-12-25 06:08] LABS: Glucose,Whole Blood 170 mg/dL (75-99)
[2020-12-25] MEDS: carvediloL 6.25 MG TAB PO SCH ×2 (06:31→17:16)
[2020-12-25] MEDS: DEXTROSE 5%-0.45% NACL 1,000 ML IV SCH (06:31)
[2020-12-25 07:28] LABS: Basophils % (A) 1 %; Eosinophils # (A) 0.2 k/uL (0-0.7); Eosinophils % (A) 2 %; HCT 35.1 % (39.0-53.0); HGB 10.6 gm/dL (13.0-17.5); Hypochromasia Marked; Lymphocytes # (A) 1.9 k/uL (1.0-4.8); Lymphocytes % (A) 26 %; MCH 29.1 pg (25.0-35.0); MCV 96.7 fL (80.0-100.0); Mean Platelet Volume 8.1; Monocytes # (A) 0.8 k/uL (0-1.0); Monocytes % (A) 12 %; Neutrophils % (A) 56 %; Platelet Count 248 k/uL (150-450); RBC 3.63 m/uL (4.30-5.90); RDW 14.4 % (11.5-15.5); WBC 7.2 k/uL (3.8-10.6)
[2020-12-25 07:45] LABS: Albumin 3.4 g/dL (3.5-5.0); Calcium 8.7 mg/dL (8.4-10.2); Potassium 4.9 mmol/L (3.5-5.1); Total Bilirubin 0.5 mg/dL (0.2-1.3); Total Protein 6.6 g/dL (6.3-8.2)
[2020-12-25] MEDS: SYMBICORT 160-4.5 MCG INHALER INHALATION SCH ×2 (08:25→20:51)
[2020-12-25] MEDS: IPRATROPIUM-ALBUTEROL 3 ML NEB INHALATION PRN ×2 (08:25→20:51)
[2020-12-25] MEDS: FUROSEMIDE 10 MG/ML 4 ML VIAL IV SCH ×2 (09:09→21:52)
[2020-12-25] MEDS: APIXABAN 5 MG TAB PO SCH ×2 (09:56→21:36)
[2020-12-25] MEDS: FOLIC ACID 1 MG TAB PO SCH (09:56)
[2020-12-25] MEDS: GABAPENTIN 300 MG CAP PO SCH ×3 (09:56→21:36)
[2020-12-25] MEDS: LOSARTAN 25 MG TAB PO SCH (09:56)
[2020-12-25] MEDS: MONTELUKAST 10 MG TAB PO SCH (09:56)
[2020-12-25] MEDS: FENOFIBRATE 160 MG TAB PO SCH (09:56)
[2020-12-25] MEDS: LORATADINE 10 MG TAB PO SCH (09:56)
[2020-12-25] MEDS: TAMSULOSIN 0.4 MG CAP.ER.24H PO SCH (09:56)
[2020-12-25] MEDS: DIGOXIN 125 MCG TAB PO SCH (09:56)
--- NOTE | 2020-12-25 10:07 | P.PN ---
Subjective Progress Note Date: 12/25/20 70-year-old male, brought into the emergency room, by EMS, on December 23, at 1430, with complaints of weakness. Apparently, the patient was very confused in the emergency department and had altered mental status. He was evaluated in the emergency room and was apparently admitted with a diagnosis of mental status changes, confusion, and CHF. Will be walked into his room today, he was not wearing his oxygen. We put the pulse oximeter on him, his saturations were in the mid 50s. We placed him on oxygen at 10 L, and his saturation began to come up. His color improved and he felt much better. The nurse said that he should be on 6 L, and she would titrate him back down. The patient is a very poor historian, and we really don't get much history from him. He apparently has a history of bilateral lower extremity amputation, congestive heart failure, diabetes mellitus, COPD, and CAD. The patient apparently continues to smoke cigarettes. His chest x-ray was consistent with congestive heart failure, and bilateral pleural effusions. White count is 9, hemoglobin 11.6, hematocrit 37.6, and platelet count 277,000. Sodium 138, potassium 5.6, chlorides 100, CO2 28, anion gap 10, with a BUN of 36, and creatinine of 1.32. N-terminal proBNP was 4840. On 12/25/2020 I'm seeing the patient for a follow-up. The patient remains on Lasix 40 mg IV every 12 hours. Since yesterday, the patient is still on oxygen at 4 L per minute nasal cannula. On today's blood work, the patient's creatin chuy down to 1.29 compared to 1.3 from yesterday, less of the electrodes are all within normal limits, hemoglobin is at 10.6. The patient is a negative fluid balance. Overall, the patient has been and 1.6 L negative fluid balance since 12/25/2020 and 1.1 L 4 12/24/2020. He is still receiving IV fluids with normal saline at rate of 50 mL an hour. His chest x-ray of this current admission showed cardiomegaly and bilateral pleural effusions and pulmonary vascular congestion. He also has an AICD in the left. Objective - Vital Signs Vital signs: Vital Signs Temp 98.3 F 12/25/20 03:30 Pulse 80 02/08/21 08:37 Resp 20 12/25/20 03:30 BP 131/85 12/25/20 03:30 Pulse Ox 99 12/25/20 05:43 Intake & Output 12/24/20 12/25/20 12/25/20 18:59 06:59 18:59 Intake Total 420 240 Output Total 1150 880 Balance -730 -880 240 Weight 87 kg 87.5 kg Intake: Oral 420 240 Output: Urine 1150 880 Other: Voiding Method Indwelling Catheter Indwelling Catheter - Exam No acute distress, oriented 3. Nasal O2 at 6 L/m. Mild to moderate respi ratory distress, while off oxygen. HEENT examination is grossly unremarkable. Mucous membranes are moist. No oral lesions. Neck supple. Full range of motion. No adenopathy thyromegaly or neck vein distention. Cardiovascular examination reveals irregular rhythm and rate. S1-S2 normal. No S3 or S4. Soft systolic murmur is noted. Lungs reveal bilateral rhonchi and crackles. The patient does not take deep breaths. No distinct wheezes are noted. Breath sounds equal bilaterally. Abdomen soft bowel sounds are heard. No masses or tenderness. Extremities reveal a left afhwd-zrt-hfdx amputation, and a right hrnso-clu-wrht amputation. Skin is without rash or lesion. Neurologic examination is difficult to assess. The patient is quite confused. This in part relates to his saturation of only 56%. - Labs CBC & Chem 7: 12/25/20 06:41 12/25/20 06:41 Labs: Abnormal Lab Results - Last 24 Hours (Table) 12/24/20 12/24/20 12/24/20 Range/Units 11:38 12:13 16:35 RBC (4.30-5.90) m/uL Hgb (13.0-17.5) gm/dL Hct (39.0-53.0) % MCHC (31.0-37.0) g/dL Sodium (137-145) mmol/L Chloride (98-107) mmol/L Carbon Dioxide (22-30) mmol/L BUN (9-20) mg/dL Creatinine (0.66-1.25) mg/dL Glucose (74-99) mg/dL POC Glucose (mg/dL) 69 L 69 L 162 H (75-99) mg/dL Alkaline Phosphatase (38-126) U/L Albumin (3.5-5.0) g/dL 12/24/20 12/24/20 12/25/20 Range/Units 20:09 23:31 01:59 RBC (4.30-5.90) m/uL Hgb (13.0-17.5) gm/dL Hct (39.0-53.0) % MCHC (31.0-37.0) g/dL Sodium (137-145) mmol/L Chloride (98-107) mmol/L Carbon Dioxide (22-30) mmol/L BUN (9-20) mg/dL Creatinine (0.66-1.25) mg/dL Glucose (74-99) mg/dL POC Glucose (mg/dL) 243 H 196 H 140 H (75-99) mg/dL Alkaline Phosphatase (38-126) U/L Albumin (3.5-5.0) g/dL 12/25/20 12/25/20 12/25/20 Range/Units 06:06 06:41 06:41 RBC 3.63 L (4.30-5.90) m/uL Hgb 10.6 L (13.0-17.5) gm/dL Hct 35.1 L (39.0-53.0) % MCHC 30.0 L (31.0-37.0) g/dL Sodium 134 L (137-145) mmol/L Chloride 96 L (98-107) mmol/L Carbon Dioxide 33 H (22-30) mmol/L BUN 36 H (9-20) mg/dL Creatinine 1.29 H (0.66-1.25) mg/dL Glucose 126 H (74-99) mg/dL POC Glucose (mg/dL) 170 H (75-99) mg/dL Alkaline Phosphatase 34 L (38-126) U/L Albumin 3.4 L (3.5-5.0) g/dL Microbiology - Last 24 Hours (Table) 12/23/20 15:28 Urine Culture - Preliminary Urine,Voided Gram Neg Bacilli 12/23/20 15:35 Blood Culture - Preliminary Blood No Growth after 24 hours 12/23/20 15:44 Blood Culture - Preliminary Blood No Growth after 24 hours Assessment and Plan Plan: 1 Acute hypoxemic respiratory failure, secondary to CHF with bilateral pleural effusions. 2 Mental status changes, which may in fact relate to have hypoxemia, secondary to his fluid overload state and CHF. 3 severe ischemic cardiomyopathy with a echocardiogram from September 2020 showed impaired LV function with an ejection fraction of 25-30%. The patient has severe ischemic cardiomyopathy and the patient has an AICD in place. He is post non-STEMI and successful stenting of the long segment of a mid circumflex artery. 4 History of COPD, secondary chronic tobacco use. 5 History of CAD, post non-STEMI post stenting of the circumflex artery, 6 Status post pacemaker/defibrillator implantation, 2005. 7 History of CVA. 7 History of diabetes mellitus. 8 History of hyperlipidemia. 9 Prior history of myocardial infarction. 10 Peripheral vascular occlusive disease, status post left below the knee amputation and right pawdt-qqf-hecb amputation. 11 Prior history of MRSA infection. 12 History of ongoing tobacco use with nicotine addiction. 13 ROSSY secondary to above, creatinine is at 1.29 14 suspected gram-negative urinary tract infection currently on IV Rocephin Plan: Lasix 40 mg IV push every 12 hours Patient is producing adequate amount of urine output and the patient is less short of breath compared to yesterday. Renal function stable. Electrolytes are stable. Suspected UTI, currently on IV Rocephin, awaiting urine cultures. Continue Lasix 40 mg every 12 hours. Continue digoxin. Continue Cozaar. Long- term and to coagulation with Eliquis 5 mg by mouth twice a day. The IV Fluids to KVO. We'll Continue to Follow.
--- NOTE | 2020-12-25 12:01 | ECHOF ---
Referral Reason:CHF MEASUREMENTS -------- HEIGHT: 127.0 cm WEIGHT: 87.1 kg BP: IVSd: 1.2 cm (0.6 - 1.1) LVIDd: 5.7 cm (3.9 - 5.3) LVPWd: 1.1 cm (0.6 - 1.1) IVSs: 1.5 cm LVIDs: 4.5 cm LVPWs: 1.4 cm LA Diam: 1.1 cm (2.7 - 3.8) LAESV Index (A-L): 45.74 ml/m Ao Diam: 3.1 cm (2.0 - 3.7) AV Cusp: 1.8 cm (1.5 - 2.6) LA Diam: 3.8 cm (2.7 - 3.8) MV EXCURSION: 13.883 mm (> 18.000) MV EF SLOPE: 106 mm/s (70 - 150) EPSS: 1.8 cm MV E Aamir: 1.13 m/s MV DecT: 178 ms MV A Aamir: 0.35 m/s MV E/A Ratio: 3.17 RAP: 5.00 mmHg RVSP: 34.67 mmHg FINDINGS -------- Sinus rhythm. Pacerwire seen in RV and RA. This was a technically difficult study with suboptimal views. The left ventricle is mildly dilated. There is mild concentric left ventricular hypertrophy. Over all left ventricular systolic function is moderately impaired with, an EF between 35 - 40 %. Increa sed LAP Grade 2 Diastolic Dysfunction. Basal inferior LV wall motion is akinetic. Basal inferose ptal LV wall motion is akinetic. Mid inferior LV wall motion is akinetic. Mid inferoseptal LV w all motion is akinetic. The right ventricle is normal in size. LA is severely dilated >40 ml/m2 The right atrial size is normal. Lumason used There is mild aortic valve sclerosis. The mitral valve leaflets are mildly thickened. Moderate mitral regurgitation is present. The tricuspid valve appears structurally normal. Mild tricuspid regurgitation present. Right vent ricular systolic pressure is normal at < 35 mmHg. There is no pulmonic regurgitation present. The aortic root size is normal. IVC Not well visulized. There is no pericardial effusion. CONCLUSIONS -------- 1. This was a technically difficult study with suboptimal views. 2. The left ventricle is mildly dilated. 3. There is mild concentric left ventricular hypertrophy. 4. Overall left ventricular systolic function is moderately impaired with, an EF between 35 - 40 %. 5. Increased LAP Grade 2 Diastolic Dysfunction. 6. Basal inferior LV wall motion is akinetic. 7. Basal inferoseptal LV wall motion is akinetic. 8. Mid inferior LV wall motion is akinetic. 9. Mid inferoseptal LV wall motion is akinetic. 10. LA is severely dilated >40 ml/m2 11. There is mild aortic valve sclerosis. 12. Moderate mitral regurgitation is present. 13. Mild tricuspid regurgitation present. 14. There is no pericardial effusion. AREA DIRECTOR: Elif Barney RDCS
[2020-12-25 12:10] LABS: Glucose,Whole Blood 151 mg/dL (75-99)
--- NOTE | 2020-12-25 13:07 | P.CRDCN ---
History of Present Illness Consult date: 12/25/20 History of present illness: CHIEF COMPLAINT: congestive heart failure HISTORY OF PRESENT ILLNESS: This is a 70-year-old male with a past medical history significant for COPD, congestive heart failure, hypertension, hyperlipidemia, ischemic cardiomyopathy with previous ICD implantation, and peripheral vascular disease with bilateral amputation of lower extremities. Patient follows in the office with Dr. Hernandez. We have been asked to see the patient in consultation for CHF. The patient was apparently brought to the hospital secondary to weakness, confusion, and mental status changes. Patient is lethargic this morning upon evaluation. He will open his eyes and answer one or two questions and then goes back to sleep and is somewhat difficult to arouse. He denied chest pain or pressure. He denied shortness of breath. DIAGNOSTICS: EKG reveals atrial fibrillation with controlled ventricular rate Chest xray congestive heart failure with pleural effusions. Laboratory data: WBC 7.2. Hemoglobin 10.6. Platelet count 248. Sodium 134. Potassium 4.9. BUN 36. Creatinine 1.29. Current home cardiac medications include Coreg 6.25 mg twice a day, losartan 25 mg daily, fenofibrate 145mg daily, digoxin 125mcg aily, and Eliquis 5 mg BID Echocardiogram completed in September 2020 revealed ejection fraction 25-30%. Repeat echocardiogram performed today reveals EF 35-40%, mild tricuspid regurgitation, and moderate mitral regurgitation Patient underwent cardiac catheterization in September [address] Fenton with PCI to the left circumflex. REVIEW OF SYSTEMS: Unable to obtain secondary to lethargy and altered mental status PHYSICAL EXAM: VITAL SIGNS: Reviewed. GENERAL: Well-developed in no acute distress. HEENT: Head is normocephalic. Pupils are equal, round. Sclerae anicteric. Mucous membranes of the mouth are moist. Neck supple. No JVD or thyromegaly LUNGS: Respirations even and unlabored. Lungs diminished with scattered rhonchi HEART: Irregular rate and rhythm. S1 and S2 heard. systolic murmur noted. ABDOMEN: Soft. Nondistended. Nontender. EXTREMITIES: Normal range of motion. No clubbing or cyanosis. left vaffy-gux-eepz amputation and right mclok-ybo-okdr amputation noted. NEUROLOGIC: lethargic ASSESSMENT: Altered mental status Suspected urinary tract infection Acute exacerbation of chronic systolic heart failure, EF 35-40% Ischemic cardiomyopathy with previous AICD Paroxysmal atrial fibrillation, on anticoagulation with Eliquis Coronary artery disease with previous PCI to left circumflex, September 2020 Peripheral vascular disease with previous left BKA and right AKA Hypertension Hyperlipidemia COPD Diabetes mellitus PLAN: Continue antibiotics for possible UTI Continue Eliquis for anticoagulation Continue additional cardiac medications Continue IV lasix Monitor kidney function Daily weights Accurate I&O Further recommendations pending patient course Nurse practitioner note has been reviewed by physician. Signing provider agrees with the documented findings, assessment, and plan of care. Past Medical History Past Medical History: Coronary Artery Disease (CAD), Heart Failure, COPD, CVA/TIA, Diabetes Mellitus, Hyperlipidemia, Myocardial Infarction ([place]), Prostate Disorder, Skin Disorder, Vascular Disorder Additional Past Medical History / Comment(s): CAD, COPD, CHF and patient has AICD, PVOD and the patient has 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, History of Any Multi-Drug Resistant Organisms: MRSA Date of last positivie culture/infection: ?2010 MDRO Source:: ARM Past Surgical History: AICD Additional Past Surgical History / Comment(s): RADHA LEG AMPUTATIONS, LEFT IS BELOW THE KNEE AND RT IS ABOVE THE KNEE Past Anesthesia/Blood Transfusion Reactions: No Reported Reaction Type of Cardiac Device: Permanent Pacemaker, AICD Device Placement Date:: 2005 Past Psychological History: No Psychological Hx Reported Smoking Status: Current every day smoker Past Alcohol Use History: None Reported Past Drug Use History: None Reported - Past Family History Mother History Unknown: Yes Father History Unknown: Yes Medications and Allergies Home Medications Medication Instructions Recorded Confirmed Type Digoxin [Lanoxin] 125 mcg PO DAILY 07/08/16 12/23/20 History Fenofibrate Nanocrystallized 145 mg PO DAILY 07/08/16 12/23/20 History [Tricor] Tamsulosin [Flomax] 0.4 mg PO DAILY 07/08/16 12/23/20 History glipiZIDE [Glucotrol] 5 mg PO AC-TID 07/08/16 12/23/20 History Folic Acid 1 mg PO DAILY 09/22/18 12/23/20 History Nitroglycerin Sl Tabs [Nitrostat] 0.4 mg SUBLINGUAL Q5M PRN 09/22/18 12/23/20 History traZODone HCL 50 mg PO HS 09/22/18 12/23/20 History Adalimumab [Humira Pen 40 mg SQ Q14D 10/03/20 12/23/20 History Crohn's-Uc-Hs] Cetirizine HCl [Zyrtec] 10 mg PO DAILY 10/03/20 12/23/20 History Fluticasone Propionate [Flovent 1 puff INHALATION RT-DAILY 10/03/20 12/23/20 History Diskus] Gabapentin [Neurontin] 300 mg PO TID 10/03/20 12/23/20 History Losartan Potassium [Cozaar] 25 mg PO DAILY 10/03/20 12/23/20 History Montelukast [Singulair] 10 mg PO DAILY 10/03/20 12/23/20 History Apixaban [Eliquis] 5 mg PO BID tab 10/13/20 12/23/20 Rx Ergocalciferol [Vitamin D2 (1250 1,250 mcg PO Q7D 12/23/20 12/23/20 History Mcg = 31676 Iu)] Ipratropium-Albuterol Nebulize 3 ml INHALATION RT-QID PRN 12/23/20 12/23/20 History [Duoneb 0.5 mg-3 mg/3 ml Soln] carvediloL [Coreg] 6.25 mg PO BID 12/23/20 12/23/20 History Allergies Allergy/AdvReac Type Severity Reaction Status Date / Time corn Allergy Unknown Verified 12/23/20 16:09 Fish Containing Products Allergy Unknown Verified 12/23/20 16:09 Mushroom Allergy Unknown Verified 12/23/20 16:09 nut - unspecified Allergy Verified 12/23/20 16:09 peanut Allergy Verified 12/23/20 16:09 tree nut Allergy Verified 12/23/20 16:09 all nuts Allergy Unknown Uncoded 12/23/20 16:09 green beans Allergy Unknown Uncoded 12/23/20 16:09 olives Allergy Unknown Uncoded 12/23/20 16:09 white cheese Allergy Unknown Uncoded 12/23/20 16:09 Physical Exam Vitals: Vital Signs Temp Pulse Pulse Pulse Resp BP Pulse Ox 12/25/20 08:55 98.4 F 77 18 145/63 96 12/25/20 08:37 80 12/25/20 08:27 88 12/25/20 05:43 99 12/25/20 03:30 98.3 F 98 20 131/85 98 12/24/20 23:25 99.4 F 78 20 138/70 98 12/24/20 20:25 66 12/24/20 20:11 66 99 12/24/20 19:53 97.4 F L 75 18 133/75 99 12/24/20 16:00 84 143/83 97 12/24/20 15:43 89 12/24/20 15:36 89 12/24/20 14:00 91 Intake and Output 12/24/20 12/25/20 12/25/20 22:59 06:59 14:59 Intake Total 240 240 Output Total 780 700 Balance -540 -700 240 Intake: Oral 240 240 Output: Urine 780 700 Other: Voiding Method Indwelling Catheter Indwelling Catheter Indwelling Catheter Weight 87.5 kg Results 12/25/20 06:41 12/25/20 06:41 Cardiac Enzymes 12/25/20 Range/Units 06:41 AST 17 (17-59) U/L CBC 12/25/20 Range/Units 06:41 WBC 7.2 (3.8-10.6) k/uL RBC 3.63 L (4.30-5.90) m/uL Hgb 10.6 L (13.0-17.5) gm/dL Hct 35.1 L (39.0-53.0) % Plt Count 248 (150-450) k/uL Comprehensive Metabolic Panel 12/25/20 Range/Units 06:41 Sodium 134 L (137-145) mmol/L Potassium 4.9 (3.5-5.1) mmol/L Chloride 96 L (98-107) mmol/L Carbon Dioxide 33 H (22-30) mmol/L BUN 36 H (9-20) mg/dL Creatinine 1.29 H (0.66-1.25) mg/dL Glucose 126 H (74-99) mg/dL Calcium 8.7 (8.4-10.2) mg/dL AST 17 (17-59) U/L ALT 7 (4-49) U/L Alkaline Phosphatase 34 L (38-126) U/L Total Protein 6.6 (6.3-8.2) g/dL Albumin 3.4 L (3.5-5.0) g/dL Current Medications Generic Name Dose Route Start Last Admin Trade Name Freq PRN Reason Stop Dose Admin Acetaminophen 650 mg 12/23/20 17:18 Acetaminophen Tab 325 Mg Tab PO Q6HR PRN Mild Pain or Fever > 100.5 Albuterol/Ipratropium 3 ml 12/24/20 08:57 12/25/20 08:25 Ipratropium-Albuterol 3 Ml Neb INHALATION 3 ml RT-QID PRN Administration Shortness Of Breath Apixaban 5 mg 12/24/20 09:00 12/25/20 09:56 Apixaban 5 Mg Tab PO 5 mg BID BRE Administration Budesonide/Formoterol Fumarate 2 puff 12/24/20 20:00 12/25/20 08:25 Symbicort 160-4.5 Mcg Inhaler INHALATION 2 puff RT-BID BRE Administration Carvedilol 6.25 mg 12/24/20 09:00 12/25/20 06:31 Carvedilol 6.25 Mg Tab PO 6.25 mg BID-W/MEALS BRE Administration Digoxin 125 mcg 12/24/20 09:00 12/25/20 09:56 Digoxin 125 Mcg Tab PO 125 mcg DAILY BRE Administration Ergocalciferol 1,250 mcg 12/24/20 09:00 12/24/20 09:37 Ergocalciferol 1,250 Mcg (50,000 Iu) Capsule PO Not Given Q7D BRE Fenofibrate 160 mg 12/24/20 09:00 12/25/20 09:56 Fenofibrate 160 Mg Tab PO 160 mg DAILY BRE Administration Folic Acid 1 mg 12/24/20 09:00 12/25/20 09:56 Folic Acid 1 Mg Tab PO 1 mg DAILY BRE Administration Furosemide 40 mg 12/23/20 21:00 12/25/20 09:09 Furosemide 10 Mg/Ml 4 Ml Vial IV 40 mg Q12HR BRE Administration Gabapentin 300 mg 12/24/20 09:00 12/25/20 09:56 Gabapentin 300 Mg Cap PO 300 mg TID BRE Administration Ceftriaxone Sodium 1 gm/ 50 mls @ 100 mls/hr 12/24/20 09:00 12/25/20 09:19 Sodium Chloride IVPB 100 mls/hr Q24HR BRE Administration Dextrose/Sodium Chloride 1,000 mls @ 20 mls/hr 12/24/20 10:00 12/25/20 06:31 Dextrose 5%-1/2ns Iv Soln IV 50 mls/hr .Q24H BRE Administration Loratadine 10 mg 12/24/20 09:00 12/25/20 09:56 Loratadine 10 Mg Tab PO 10 mg DAILY BRE Administration Losartan Potassium 25 mg 12/24/20 09:00 12/25/20 09:56 Losartan 25 Mg Tab PO 25 mg DAILY BRE Administration Montelukast Sodium 10 mg 12/24/20 09:00 12/25/20 09:56 Montelukast 10 Mg Tab PO 10 mg DAILY BRE Administration Naloxone HCl 0.2 mg 12/23/20 17:18 Naloxone 0.4 Mg/Ml 1 Ml Vial IV Q2M PRN Opioid Reversal Nitroglycerin 0.4 mg 12/24/20 08:57 Nitroglycerin Sl Tabs 0.4 Mg Tab SUBLINGUAL Q5M PRN Chest Pain Tamsulosin HCl 0.4 mg 12/24/20 09:00 12/25/20 09:56 Tamsulosin 0.4 Mg Cap.Er.24h PO 0.4 mg DAILY BRE Administration Trazodone HCl 50 mg 12/24/20 21:00 12/24/20 21:55 Trazodone Hcl 50 Mg Tab PO 50 mg HS BRE Administration Intake and Output 12/24/20 12/25/20 12/25/20 22:59 06:59 14:59 Intake Total 240 240 Output Total 780 700 Balance -540 -700 240 Intake: Oral 240 240 Output: Urine 780 700 Other: Voiding Method Indwelling Catheter Indwelling Catheter Indwelling Catheter Weight 87.5 kg 12/25/20 06:41 12/25/20 06:41
--- NOTE | 2020-12-25 15:22 | CDI ---
Documentation Clarification Form Date: 12/25/2020 02:27:55 PM From: Gisele Marquis RN, CCDS Admit Date: 12/23/2020 05:19:00 PM Patient Name: Eder Fnag Visit Number: [id number] Discharge Date: ATTENTION: The Clinical Documentation Specialists (CDI) and [facility] Coding Staff appreciate your assistance in clarifying documentation. Please respond to the clarification below the line at the bottom and electronically sign. The CDI & [facility] Coding staff will review the response and follow-up if needed. Please note: Queries are made part of the Legal Health Record. If you have any questions, please contact the author of this message via ITS. Dr. Robinson Campuzano Altered Mental Status was documented in the ED assessment, H/P, Pulmonary and cardiology consult. Please render your opinion on the type of altered mental status/confusion you are treating. History/Risk Factors: Diabetes mellitus, COPD, CAD, bilateral lower extremity amputation, Heart Failure Clinical Indicators: 70-year-old male present to ED on 12/23 with weakness and confusion. 2 Vital signs @ 14: 34 160/94 91 20 95.5 90 NC 96 2/L NC 26@ 28:30 Vital signs: 135/89 98 85 % 4/L NC positive shortness of breath, labored, tachypnea 2/ Labs: WBC 6.0, RBS 33; UA Large leukocyte Esterase, Covid not detected 2/ Chest X Ray: Congestive heart failure with pleural effusions 2/ Urine culture: preliminary: Gram Neg Bacilli 2/ Blood culture preliminary: no growth after 24 hrs Treatment: Telemetry monitoring Neurological Assessment per protocol Rocephin 1 GM IVPB Q 24 HRS Lasix 40 mg IV Q 12 HRS Duoneb 0.5 MG-3 MG/3ML Palak QID PRN Monitor O2 Sat's (titrate) Daily Weight In your professional opinion, please clarify the etiology of the Altered Mental Status, if known. Metabolic Encephalopathy Metabolic Encephalopathy and Encephalopathy with Hypoxia Other condition (please specify) Unable to determine (Last Revision: February 2018) metabolic encephalopathy with hypoxemia MTDD
[2020-12-25 16:55] LABS: Glucose,Whole Blood 238 mg/dL (75-99)
--- NOTE | 2020-12-25 17:12 | P.PN ---
Subjective Progress Note Date: 12/25/20 Eder Fang, is a 70-year-old male who presented to [facility] emergency room with confusion and mental status changes he was complaining of generalized weakness, he was evaluated in emergency room vital examination on presentation reveals a temperature of 95.5 pulse 91 respiration 20 blood pressure 160/94 pulse ox 90% on 2 L nasal cannula laboratory data revealed a white blood count of 6.0 hemoglobin 12.3 platelet count 257 INR 1.5 CO2 33 BUN 36 creatinine 1.23 glucose level was critically low at 33 urine analysis revealed evidence of urinary tract infection coronavirus PCR was negative chest x-ray was compatible with congestive heart failure with pleural effusions EKG revealed atrial fibrillation with a heart rate of 89 with poor R-wave progression in anterior leads. Patient was admitted to telemetry floor cardiology consultation and pulmonary consultation were requested, he was resuscitated with IV dextrose and warming blankets. His past medical history is significant for history of hypertension, history of diabetes mellitus, history of congestive heart failure with AICD placement, history of COPD, history of continued tobacco use, history of peripheral vascular disease with bilateral lower extremity amputation, history of coronary artery disease, history of atrial fibrillation maintained on anticoagulation at home. Review of system is not amenable at this time due to patient confusion and somnolence patient opens his eyes for a short while he answers few questions by yes or no then he goes back to sleep he denies any pain or discomfort at this time. on 12/25/2020 patient was seen and examined on the medical floor he is more alert and responsive today there is no fever or chills no headache or dizziness no chest pain no shortness of breath no cough no nausea or vomiting no abdominal pain no diarrhea no blood in the stools no burning with urination no frequency or urgency and no hematuria Objective - Vital Signs Vital signs: Vital Signs Temp 98.3 F 12/25/20 03:30 Pulse 98 12/25/20 03:30 Resp 20 12/25/20 03:30 BP 131/85 12/25/20 03:30 Pulse Ox 99 12/25/20 05:43 Intake & Output 12/24/20 12/25/20 12/25/20 18:59 06:59 18:59 Intake Total 420 240 Output Total 1150 880 Balance -730 -880 240 Weight 87 kg 87.5 kg Intake: Oral 420 240 Output: Urine 1150 880 Other: Voiding Method Indwelling Catheter Indwelling Catheter - Exam In general patient is alert confused in no apparent distress HEENT head normocephalic and atraumatic Neck is supple no JVD no goiter no lymphadenopathy Chest exam reveals scattered crackles in both lung mccain no wheezing Cardiac exam reveals irregular heart sounds no gallops no murmurs Abdomen is soft nontender no organomegaly with normal bowel sounds Extremity exam reveals bilateral lower extremity amputation there is below knee amputation on the left and above-knee amputation on the right no obvious skin ulcers in the extremities Neurological examination reveals mental status changes with confusion and somnolence otherwise no gross focal deficit - Labs CBC & Chem 7: 12/25/20 06:41 12/25/20 06:41 Labs: Abnormal Lab Results - Last 24 Hours (Table) 12/24/20 12/24/20 12/24/20 Range/Units 11:38 12:13 16:35 RBC (4.30-5.90) m/uL Hgb (13.0-17.5) gm/dL Hct (39.0-53.0) % MCHC (31.0-37.0) g/dL Sodium (137-145) mmol/L Chloride (98-107) mmol/L Carbon Dioxide (22-30) mmol/L BUN (9-20) mg/dL Creatinine (0.66-1.25) mg/dL Glucose (74-99) mg/dL POC Glucose (mg/dL) 69 L 69 L 162 H (75-99) mg/dL Alkaline Phosphatase (38-126) U/L Albumin (3.5-5.0) g/dL 12/24/20 12/24/20 12/25/20 Range/Units 20:09 23:31 01:59 RBC (4.30-5.90) m/uL Hgb (13.0-17.5) gm/dL Hct (39.0-53.0) % MCHC (31.0-37.0) g/dL Sodium (137-145) mmol/L Chloride (98-107) mmol/L Carbon Dioxide (22-30) mmol/L BUN (9-20) mg/dL Creatinine (0.66-1.25) mg/dL Glucose (74-99) mg/dL POC Glucose (mg/dL) 243 H 196 H 140 H (75-99) mg/dL Alkaline Phosphatase (38-126) U/L Albumin (3.5-5.0) g/dL 12/25/20 12/25/20 12/25/20 Range/Units 06:06 06:41 06:41 RBC 3.63 L (4.30-5.90) m/uL Hgb 10.6 L (13.0-17.5) gm/dL Hct 35.1 L (39.0-53.0) % MCHC 30.0 L (31.0-37.0) g/dL Sodium 134 L (137-145) mmol/L Chloride 96 L (98-107) mmol/L Carbon Dioxide 33 H (22-30) mmol/L BUN 36 H (9-20) mg/dL Creatinine 1.29 H (0.66-1.25) mg/dL Glucose 126 H (74-99) mg/dL POC Glucose (mg/dL) 170 H (75-99) mg/dL Alkaline Phosphatase 34 L (38-126) U/L Albumin 3.4 L (3.5-5.0) g/dL Microbiology - Last 24 Hours (Table) 12/23/20 15:28 Urine Culture - Preliminary Urine,Voided Gram Neg Bacilli 12/23/20 15:35 Blood Culture - Preliminary Blood No Growth after 24 hours 12/23/20 15:44 Blood Culture - Preliminary Blood No Growth after 24 hours Assessment and Plan Plan: 1. Hypothermia 2. Severe hypoglycemia 3. Evidence of urinary tract infection 4. Evidence of congestive heart failure with pleural effusion on chest x-ray 5. Hyperkalemia 6. Acute on chronic renal failure acute component is probably related to dehydration and prerenal azotemia 7. Underlying history of diabetes mellitus 8. Underlying history of congestive heart failure, with history of AICD placement 9. Underlying history of coronary artery disease 10. Underlying history of peripheral vascular disease with bilateral lower extremity amputations 11. Underlying history of COPD 12. Underlying history of tobacco abuse 13. Underlying history of benign prostatic hypertrophy At this time patient is admitted to telemetry floor He was started on IV antibiotic Rocephin, awaiting urine culture results He was started on IV D5 0.45 at 50 mL per hour He was given Kayexalate for hyperkalemia For DVT prophylaxis patient is maintained on Eliquis For GI prophylaxis Will add Protonix Cardiology and pulmonary consultation were requested
[2020-12-25 20:08] LABS: Glucose,Whole Blood 325 mg/dL (75-99)
[2020-12-25 21:27] LABS: Glucose,Whole Blood 285 mg/dL (75-99)
[2020-12-25] MEDS: traZODone HCL 50 MG TAB PO SCH (21:36)
[2020-12-25] MEDS: INSULIN ASPART (NovoLOG) 100 UNIT/ML VIAL SQ SCH (21:37)
--- NOTE | 2020-12-26 06:11 | CONS ---
CONSULTATION DATE OF SERVICE: 12/25/2020 REASON FOR CONSULTATION: Urinary tract infection. HISTORY OF PRESENT ILLNESS: The patient is a 70-year-old male with multiple comorbidities including COPD, coronary artery disease, CHF, peripheral arterial disease. The patient was in the hospital 2 days ago on 12/23/2020 for evaluation of confusion and apparently had mental status changes. The patient complained of generalized weakness and fatigue. Denies having any fever or chills. No headache. No chest pain. Some shortness of breath. No nausea, no vomiting. No abdominal pain. No diarrhea. On presentation to the hospital, the patient was hypothermic initially with a temperature of 95.5. Subsequently, patient's temperature has normalized. Patient did have a normal white count. The patient did have a positive UA with large leukocyte esterase and WBC in clumps. The patient did have giles PCR which came back negative. Chest x-ray more of a CHF pattern. The patient was admitted to the hospital and had diagnosis of CHF exacerbation, started on IV Lasix. The patient has been started on Rocephin for UTI. Infectious Disease was consulted for further management of antibiotic therapy today. The patient did have a Boyd catheter placed. The patient did have slight difficulty with urination, but denies suprapubic or flank pain. No nausea, no vomiting and no diarrhea. REVIEW OF SYSTEMS: Positive points have been mentioned in HPI. Rest of the systems are negative. PAST MEDICAL HISTORY: Coronary artery disease, heart failure, COPD, CVA, TIA, diabetes mellitus, hyperlipidemia, NV, prostate disorder, peripheral arterial disease. PAST SURGICAL HISTORY: Left BKA and right [id number] amputation, AICD placement. SOCIAL HISTORY: Current everyday smoker. No drinking or drug use. FAMILY HISTORY: No pertinent findings noticed. ALLERGIES: Mostly environmental. No known drug allergies. MEDICATIONS: The patient is currently on Tylenol, DuoNeb, Eliquis, Symbicort, Coreg, Rocephin 1 g daily, Lanoxin. clofibrate, Boyd catheter, Lasix, Neurontin NovoLog, Claritin, Cozaar, Singulair, Narcan, Nitrostat, and Restoril. PHYSICAL EXAMINATION: VITAL SIGNS: Blood pressure 129/69 with a pulse of 60, temperature 98.2. He is 99% on 4 L nasal cannula. GENERAL DESCRIPTION: Is an elderly male up in the chair in no distress. No tachypnea or accessory muscles of respiration use. HEENT: Shows pallor, no scleral icterus. Oral mucous membrane is dry. NECK: Trachea central, no thyromegaly. LUNGS: Unlabored breathing with decreased breath sounds in the bases, no wheeze. HEART S1, S2. Regular rate and rhythm. ABDOMEN: Soft, no tenderness. NEUROLOGICAL: The patient is awake, alert, oriented. Mood and affect normal. LABS: Hemoglobin is 10.7, white count 7.2, BUN of 36, creatinine 1.29. Urine was positive showing urine culture now with Morganella sensitive to Rocephin. Blood cultures negative. Chest x-ray with CHF pattern. DIAGNOSTIC IMPRESSION: Patient admitted to the hospital with mental status changes and weakness which is likely multifactorial. This patient has been diagnosed with congestive heart failure and is clinically diuresed. Did have some urinary symptoms with positive urinalysis, history of prostate disorder, likely no full obstruction and asymptomatic urinary tract infection. PLAN: 1. Rocephin 1 gram IV to continue while inpatient. 2. Will be on oral antibiotic on discharge. Thank you for this consultation. Will follow this patient along with you. MMODL / IJN: [id number] /
[2020-12-26 06:13] LABS: Glucose,Whole Blood 160 mg/dL (75-99)
[2020-12-26] MEDS: INSULIN ASPART (NovoLOG) 100 UNIT/ML VIAL SQ SCH ×4 (06:34→21:16)
[2020-12-26] MEDS: carvediloL 6.25 MG TAB PO SCH ×2 (06:34→17:15)
[2020-12-26] MEDS: DEXTROSE 5%-0.45% NACL 1,000 ML IV SCH (06:37)
[2020-12-26] MEDS: SYMBICORT 160-4.5 MCG INHALER INHALATION SCH ×2 (08:02→20:42)
[2020-12-26 08:20] LABS: Albumin 3.3 g/dL (3.5-5.0); Basophils % (A) 1 %; Calcium 8.8 mg/dL (8.4-10.2); Eosinophils # (A) 0.2 k/uL (0-0.7); Eosinophils % (A) 3 %; HCT 38.3 % (39.0-53.0); HGB 11.8 gm/dL (13.0-17.5); Hypochromasia Marked; Lymphocytes # (A) 1.5 k/uL (1.0-4.8); Lymphocytes % (A) 26 %; MCH 29.4 pg (25.0-35.0); MCHC 30.9 g/dL (31.0-37.0); MCV 95.2 fL (80.0-100.0); Monocytes # (A) 0.7 k/uL (0-1.0); Monocytes % (A) 12 %; Neutrophils % (A) 54 %; Platelet Count 204 k/uL (150-450); RBC 4.02 m/uL (4.30-5.90); RDW 14.1 % (11.5-15.5); Total Bilirubin 0.5 mg/dL (0.2-1.3); Total Protein 6.6 g/dL (6.3-8.2); WBC 5.6 k/uL (3.8-10.6)
[2020-12-26] MEDS: FUROSEMIDE 10 MG/ML 4 ML VIAL IV SCH (09:23)
[2020-12-26] MEDS: FENOFIBRATE 160 MG TAB PO SCH (09:24)
[2020-12-26] MEDS: LORATADINE 10 MG TAB PO SCH (09:24)
[2020-12-26] MEDS: TAMSULOSIN 0.4 MG CAP.ER.24H PO SCH (09:24)
[2020-12-26] MEDS: GABAPENTIN 300 MG CAP PO SCH ×3 (09:24→21:16)
[2020-12-26] MEDS: APIXABAN 5 MG TAB PO SCH ×2 (09:24→21:16)
[2020-12-26] MEDS: DIGOXIN 125 MCG TAB PO SCH (09:24)
[2020-12-26] MEDS: MONTELUKAST 10 MG TAB PO SCH (09:24)
[2020-12-26] MEDS: LOSARTAN 25 MG TAB PO SCH (09:24)
[2020-12-26] MEDS: FOLIC ACID 1 MG TAB PO SCH (09:24)
[2020-12-26] MEDS ORDERED: LOSARTAN 25 MG TAB PO STA (10:48)
--- NOTE | 2020-12-26 11:08 | P.PN ---
Subjective Progress Note Date: 12/26/20 70-year-old male, brought into the emergency room, by EMS, on December 23, at 1430, with complaints of weakness. Apparently, the patient was very confused in the emergency department and had altered mental status. He was evaluated in the emergency room and was apparently admitted with a diagnosis of mental status changes, confusion, and CHF. Will be walked into his room today, he was not wearing his oxygen. We put the pulse oximeter on him, his saturations were in the mid 50s. We placed him on oxygen at 10 L, and his saturation began to come up. His color improved and he felt much better. The nurse said that he should be on 6 L, and she would titrate him back down. The patient is a very poor historian, and we really don't get much history from him. He apparently has a history of bilateral lower extremity amputation, congestive heart failure, diabetes mellitus, COPD, and CAD. The patient apparently continues to smoke cigarettes. His chest x-ray was consistent with congestive heart failure, and bilateral pleural effusions. White count is 9, hemoglobin 11.6, hematocrit 37.6, and platelet count 277,000. Sodium 138, potassium 5.6, chlorides 100, CO2 28, anion gap 10, with a BUN of 36, and creatinine of 1.32. N-terminal proBNP was 4840. On 12/25/2020 I'm seeing the patient for a follow-up. The patient remains on Lasix 40 mg IV every 12 hours. Since yesterday, the patient is still on oxygen at 4 L per minute nasal cannula. On today's blood work, the patient's creatin chuy down to 1.29 compared to 1.3 from yesterday, less of the electrodes are all within normal limits, hemoglobin is at 10.6. The patient is a negative fluid balance. Overall, the patient has been and 1.6 L negative fluid balance since 12/25/2020 and 1.1 L 4 12/24/2020. He is still receiving IV fluids with normal saline at rate of 50 mL an hour. His chest x-ray of this current admission showed cardiomegaly and bilateral pleural effusions and pulmonary vascular congestion. He also has an AICD in the left. On 12/26/2020 I'm seeing Eder for a follow-up. Eder is being treated for congestion heart failure, bilateral pleural effusion in addition to that he has a gram-negative urinary tract infection that do not to be related to Morganella infection. The patient is currently on IV Rocephin. He is receiving Lasix 40 mg every 12 hours and he is making good urine output. He is less short of breath. He remains on 4 L of oxygen by nasal cannula.His current BUN is 41. Creatinine is at 1.06. With a hemoglobin of 11.8. No other new complaints otherwise for now. Based on the urine output, the patient has been negative fluid balance of -2.4 L over the past 24 hours. Objective - Vital Signs Vital signs: Vital Signs Temp 98.4 F 12/26/20 07:50 Pulse 89 12/26/20 07:50 Resp 18 12/26/20 07:50 BP 155/77 12/26/20 07:50 Pulse Ox 99 12/26/20 07:50 Intake & Output 12/25/20 12/26/20 12/26/20 18:59 06:59 18:59 Intake Total 840 400 Output Total 1600 1640 800 Balance -760 -1640 -400 Weight 94 kg Intake: Oral 840 400 Output: Urine 1600 1640 800 Other: Voiding Method Indwelling Catheter Indwelling Catheter Indwelling Catheter - Exam No acute distress, oriented 3. Nasal O2 at 6 L/m. Mild to moderate respiratory distress, while off oxygen. HEENT examination is grossly unremarkable. Mucous membranes are moist. No oral lesions. Neck supple. Full range of motion. No adenopathy thyromegaly or neck vein distention. Cardiovascular examination reveals irregular rhythm and rate. S1-S2 normal. No S3 or S4. Soft systolic murmur is noted. Lungs reveal bilateral rhonchi and crackles. The patient does not take deep breaths. No distinct wheezes are noted. Breath sounds equal bilaterally. There is diminished breath on lung bases bilaterally along with dullness to percussion consistent with bilateral pleural effusion. Abdomen soft bowel sounds are heard. No masses or tenderness. Extremities reveal a left mznmc-nub-jous amputation, and a right afpus-isc-qvkz amputation. Skin is without rash or lesion. Neurologic examination is difficult to assess. The patient is quite confused. This in part relates to his saturation of only 56%. - Labs CBC & Chem 7: 12/26/20 07:21 12/26/20 07:21 Labs: Abnormal Lab Results - Last 24 Hours (Table) 12/25/20 12/25/20 12/25/20 Range/Units 12:08 16:53 20:07 RBC (4.30-5.90) m/uL Hgb (13.0-17.5) gm/dL Hct (39.0-53.0) % MCHC (31.0-37.0) g/dL Sodium (137-145) mmol/L Chloride (98-107) mmol/L Carbon Dioxide (22-30) mmol/L BUN (9-20) mg/dL Glucose (74-99) mg/dL POC Glucose (mg/dL) 151 H 238 H 325 H (75-99) mg/dL Alkaline Phosphatase (38-126) U/L Albumin (3.5-5.0) g/dL 12/25/20 12/26/20 12/26/20 Range/Units 21:25 06:11 07:21 RBC 4.02 L (4.30-5.90) m/uL Hgb 11.8 L (13.0-17.5) gm/dL Hct 38.3 L (39.0-53.0) % MCHC 30.9 L (31.0-37.0) g/dL Sodium (137-145) mmol/L Chloride (98-107) mmol/L Carbon Dioxide (22-30) mmol/L BUN (9-20) mg/dL Glucose (74-99) mg/dL POC Glucose (mg/dL) 285 H 160 H (75-99) mg/dL Alkaline Phosphatase (38-126) U/L Albumin (3.5-5.0) g/dL 12/26/20 Range/Units 07:21 RBC (4.30-5.90) m/uL Hgb (13.0-17.5) gm/dL Hct (39.0-53.0) % MCHC (31.0-37.0) g/dL Sodium 133 L (137-145) mmol/L Chloride 94 L (98-107) mmol/L Carbon Dioxide 34 H (22-30) mmol/L BUN 41 H (9-20) mg/dL Glucose 116 H (74-99) mg/dL POC Glucose (mg/dL) (75-99) mg/dL Alkaline Phosphatase 30 L (38-126) U/L Albumin 3.3 L (3.5-5.0) g/dL Microbiology - Last 24 Hours (Table) 12/23/20 15:28 Urine Culture - Final Urine,Voided Morganella morganii 12/23/20 15:35 Blood Culture - Preliminary Blood No Growth after 48 hours 12/23/20 15:44 Blood Culture - Preliminary Blood No Growth after 48 hours Assessment and Plan Plan: 1 Acute hypoxemic respiratory failure, secondary to CHF with bilateral pleural effusions. Clinically the patient is improving. Still on 4 L of oxygen by nasal cannula. Neck fluid balance is been negative 2.4 L over the past 24 hours and the patient continues to improve. The patient has home oxygen 2 Mental status changes, which may in fact relate to have hypoxemia, secondary to his fluid overload state and CHF. 3 severe ischemic cardiomyopathy with a echocardiogram from September 2020 showed impaired LV function with an ejection fraction of 25-30%. The patient has severe ischemic cardiomyopathy and the patient has an AICD in place. He is post non-STEMI and successful stenting of the long segment of a mid circumflex art parisa. 4 History of COPD, secondary chronic tobacco use. 5 History of CAD, post non-STEMI post stenting of the circumflex artery, 6 Status post pacemaker/defibrillator implantation, 2005. 7 History of CVA. 7 History of diabetes mellitus. 8 History of hyperlipidemia. 9 Prior history of myocardial infarction. 10 Peripheral vascular occlusive disease, status post left below the knee amputation and right vppxg-nry-ahmx amputation. 11 Prior history of MRSA infection. 12 History of ongoing tobacco use with nicotine addiction. 13 ROSSY secondary to above, creatinine is improving and it dropped compared to yesterday 14 Morganella UTI currently on IV Rocephin Plan: Continue with Lasix 40 mg IV push every 12 hours, repeat chest x-ray in the morning and blood work and electrolytes and monitor the urine output Continue IV Rocephin Continue anticoagulation with Eliquis 5 mg by mouth twice a day Renal function is improved compared to yesterday Repeat chest x-ray in the morning We'll continue to follow. No need for thoracentesis noted the patient continues to improve.
[2020-12-26 12:03] LABS: Glucose,Whole Blood 175 mg/dL (75-99)
--- NOTE | 2020-12-26 13:37 | P.PN ---
Subjective Progress Note Date: 12/26/20 Eder Fang, is a 70-year-old male who presented to [facility] emergency room with confusion and mental status changes he was complaining of generalized weakness, he was evaluated in emergency room vital examination on presentation reveals a temperature of 95.5 pulse 91 respiration 20 blood pressure 160/94 pulse ox 90% on 2 L nasal cannula laboratory data revealed a white blood count of 6.0 hemoglobin 12.3 platelet count 257 INR 1.5 CO2 33 BUN 36 creatinine 1.23 glucose level was critically low at 33 urine analysis revealed evidence of urinary tract infection coronavirus PCR was negative chest x-ray was compatible with congestive heart failure with pleural effusions EKG revealed atrial fibrillation with a heart rate of 89 with poor R-wave progression in anterior leads. Patient was admitted to telemetry floor cardiology consultation and pulmonary consultation were requested, he was resuscitated with IV dextrose and warming blankets. His past medical history is significant for history of hypertension, history of diabetes mellitus, history of congestive heart failure with AICD placement, history of COPD, history of continued tobacco use, history of peripheral vascular disease with bilateral lower extremity amputation, history of coronary artery disease, history of atrial fibrillation maintained on anticoagulation at home. Review of system is not amenable at this time due to patient confusion and somnolence patient opens his eyes for a short while he answers few questions by yes or no then he goes back to sleep he denies any pain or discomfort at this time. on 12/25/2020 patient was seen and examined on the medical floor he is more alert and responsive today there is no fever or chills no headache or dizziness no chest pain no shortness of breath no cough no nausea or vomiting no abdominal pain no diarrhea no blood in the stools no burning with urination no frequency or urgency and no hematuria. On 12/26/2020 patient was seen and examined on the medical floor he is alert and oriented 3 in no apparent distress, there is no fever or chills no headache or dizziness no chest pain, his shortness of breath is improving he is still maintained on oxygen supplements 4 L by nasal cannula he has occasional cough no nausea or vomiting no abdominal pain no diarrhea no blood in the stools no burning with urination no frequency or urgency and no hematuria, patient is receiving IV Lasix for acute congestive heart failure exacerbation and is receiving IV Rocephin for urinary tract infection condition is improving gradually. Objective - Vital Signs Vital signs: Vital Signs Temp 97.8 F 12/26/20 04:00 Pulse 84 12/26/20 04:00 Resp 18 12/26/20 04:00 BP 155/83 12/26/20 04:00 Pulse Ox 99 12/26/20 04:00 Intake & Output 12/25/20 12/26/20 12/26/20 18:59 06:59 18:59 Intake Total 840 Output Total 1600 1640 Balance -760 -1640 Weight 94 kg Intake: Oral 840 Output: Urine 1600 1640 Other: Voiding Method Indwelling Catheter Indwelling Catheter - Exam In general patient is alert confused in no apparent distress HEENT head normocephalic and atraumatic Neck is supple no JVD no goiter no lymphadenopathy Chest exam reveals scattered crackles in both lung mccain no wheezing Cardiac exam reveals irregular heart sounds no gallops no murmurs Abdomen is soft nontender no organomegaly with normal bowel sounds Extremity exam reveals bilateral lower extremity amputation there is below knee amputation on the left and above-knee amputation on the right no obvious skin ulcers in the extremities Neurological examination reveals mental status changes with confusion and somnolence otherwise no gross focal deficit - Labs CBC & Chem 7: 12/26/20 07:21 12/26/20 07:21 Labs: Abnormal Lab Results - Last 24 Hours (Table) 12/25/20 12/25/20 12/25/20 Range/Units 12:08 16:53 20:07 RBC (4.30-5.90) m/uL Hgb (13.0-17.5) gm/dL Hct (39.0-53.0) % MCHC (31.0-37.0) g/dL Sodium (137-145) mmol/L Chloride (98-107) mmol/L Carbon Dioxide (22-30) mmol/L BUN (9-20) mg/dL Glucose (74-99) mg/dL POC Glucose (mg/dL) 151 H 238 H 325 H (75-99) mg/dL Alkaline Phosphatase (38-126) U/L Albumin (3.5-5.0) g/dL 12/25/20 12/26/20 12/26/20 Range/Units 21:25 06:11 07:21 RBC 4.02 L (4.30-5.90) m/uL Hgb 11.8 L (13.0-17.5) gm/dL Hct 38.3 L (39.0-53.0) % MCHC 30.9 L (31.0-37.0) g/dL Sodium (137-145) mmol/L Chloride (98-107) mmol/L Carbon Dioxide (22-30) mmol/L BUN (9-20) mg/dL Glucose (74-99) mg/dL POC Glucose (mg/dL) 285 H 160 H (75-99) mg/dL Alkaline Phosphatase (38-126) U/L Albumin (3.5-5.0) g/dL 12/26/20 Range/Units 07:21 RBC (4.30-5.90) m/uL Hgb (13.0-17.5) gm/dL Hct (39.0-53.0) % MCHC (31.0-37.0) g/dL Sodium 133 L (137-145) mmol/L Chloride 94 L (98-107) mmol/L Carbon Dioxide 34 H (22-30) mmol/L BUN 41 H (9-20) mg/dL Glucose 116 H (74-99) mg/dL POC Glucose (mg/dL) (75-99) mg/dL Alkaline Phosphatase 30 L (38-126) U/L Albumin 3.3 L (3.5-5.0) g/dL Microbiology - Last 24 Hours (Table) 12/23/20 15:28 Urine Culture - Final Urine,Voided Morganella morganii 12/23/20 15:35 Blood Culture - Preliminary Blood No Growth after 48 hours 12/23/20 15:44 Blood Culture - Preliminary Blood No Growth after 48 hours Assessment and Plan Plan: 1. Hypothermia 2. Severe hypoglycemia 3. Evidence of urinary tract infection 4. Evidence of congestive heart failure with pleural effusion on chest x-ray 5. Hyperkalemia 6. Acute on chronic renal failure acute component is probably related to dehy dration and prerenal azotemia 7. Underlying history of diabetes mellitus 8. Underlying history of congestive heart failure, with history of AICD placement 9. Underlying history of coronary artery disease 10. Underlying history of peripheral vascular disease with bilateral lower extremity amputations 11. Underlying history of COPD 12. Underlying history of tobacco abuse 13. Underlying history of benign prostatic hypertrophy At this time patient is admitted to telemetry floor He was started on IV antibiotic Rocephin, awaiting urine culture results He was started on IV D5 0.45 at 50 mL per hour He was given Kayexalate for hyperkalemia For DVT prophylaxis patient is maintained on Eliquis For GI prophylaxis Will add Protonix Cardiology and pulmonary consultation were requested
[2020-12-26 13:42] VITALS: BMI 63.2
--- NOTE | 2020-12-26 15:10 | P.PN ---
Subjective Progress Note Date: 12/26/20 CHIEF COMPLAINT: congestive heart failure HISTORY OF PRESENT ILLNESS: 12/25/2020 This is a 70-year-old male with a past medical history significant for COPD, co ngestive heart failure, hypertension, hyperlipidemia, ischemic cardiomyopathy with previous ICD implantation, and peripheral vascular disease with bilateral amputation of lower extremities. Patient follows in the office with Dr. Hernandez. We have been asked to see the patient in consultation for CHF. The patient was apparently brought to the hospital secondary to weakness, confusion, and mental status changes. Patient is lethargic this morning upon evaluation. He will open his eyes and answer one or two questions and then goes back to sleep and is somewhat difficult to arouse. He denied chest pain or pressure. He denied shortness of breath. Echocardiogram completed in September 2020 revealed ejection fraction 25-30%. Repeat echocardiogram performed today reveals EF 35-40%, mild tricuspid regurgitation, and moderate mitral regurgitation Patient underwent cardiac catheterization in September [address] Fenton with PCI to the left circumflex. 12/26/2020 Patient examined this morning at the bedside. Patient is much more awake today. He denies chest pain or pressure. Denies shortness of breath. He remains on IV Lasix 40 mg every 12 hours. Creatinine 1.06 today. Fluid balance over the last 24 hours is -2400 mL. Nursing reports a 9 beat run of V. tach this morning. Patient has a history of ICD placement. Patient's blood pressure remains elevated this morning with a reading of 155/77. PHYSICAL EXAM: VITAL SIGNS: Reviewed. GENERAL: Well-developed in no acute distress. HEENT: Head is normocephalic. Pupils are equal, round. Sclerae anicteric. Mucous membranes of the mouth are moist. Neck supple. No JVD or thyromegaly LUNGS: Respirations even and unlabored. Lungs diminished with scattered rhonchi HEART: Irregular rate and rhythm. S1 and S2 heard. systolic murmur noted. ABDOMEN: Soft. Nondistended. Nontender. EXTREMITIES: Normal range of motion. No clubbing or cyanosis. left avkdx-ukz-cgzr amputation and right kzujv-chg-eqrg amputation noted. ASSESSMENT: Altered mental status Urinary tract infection Acute exacerbation of chronic systolic heart failure, EF 35-40% Ischemic cardiomyopathy with previous AICD Paroxysmal atrial fibrillation, on anticoagulation with Eliquis Coronary artery disease with previous PCI to left circumflex, September 2020 Peripheral vascular disease with previous left BKA and right AKA Hypertension Hyperlipidemia COPD Diabetes mellitus PLAN: Continue antibiotics for UTI Continue Eliquis for anticoagulation Decrease IV Lasix to daily dosing Monitor kidney function Daily weights Accurate I&O Further recommendations pending patient course Nurse practitioner note has been reviewed by physician. Signing provider agrees with the documented findings, assessment, and plan of care. Objective - Vital Signs Vital signs: Vital Signs Temp 98.3 F 12/26/20 12:00 Pulse 88 12/26/20 12:00 Resp 18 12/26/20 12:00 BP 142/74 12/26/20 12:00 Pulse Ox 98 12/26/20 12:00 Intake & Output 12/25/20 12/26/20 12/26/20 18:59 06:59 18:59 Intake Total 840 940 Output Total 1600 1640 800 Balance -760 -1640 140 Weight 94 kg 94 kg Intake: Oral 840 940 Output: Urine 1600 1640 800 Other: Voiding Method Indwelling Catheter Indwelling Catheter Indwelling Catheter - Labs CBC & Chem 7: 12/26/20 07:21 12/26/20 07:21 Labs: Abnormal Lab Results - Last 24 Hours (Table) 12/25/20 12/25/20 12/25/20 Range/Units 16:53 20:07 21:25 RBC (4.30-5.90) m/uL Hgb (13.0-17.5) gm/dL Hct (39.0-53.0) % MCHC (31.0-37.0) g/dL Sodium (137-145) mmol/L Chloride (98-107) mmol/L Carbon Dioxide (22-30) mmol/L BUN (9-20) mg/dL Glucose (74-99) mg/dL POC Glucose (mg/dL) 238 H 325 H 285 H (75-99) mg/dL Alkaline Phosphatase (38-126) U/L Albumin (3.5-5.0) g/dL 12/26/20 12/26/20 12/26/20 Range/Units 06:11 07:21 07:21 RBC 4.02 L (4.30-5.90) m/uL Hgb 11.8 L (13.0-17.5) gm/dL Hct 38.3 L (39.0-53.0) % MCHC 30.9 L (31.0-37.0) g/dL Sodium 133 L (137-145) mmol/L Chloride 94 L (98-107) mmol/L Carbon Dioxide 34 H (22-30) mmol/L BUN 41 H (9-20) mg/dL Glucose 116 H (74-99) mg/dL POC Glucose (mg/dL) 160 H (75-99) mg/dL Alkaline Phosphatase 30 L (38-126) U/L Albumin 3.3 L (3.5-5.0) g/dL 12/26/20 Range/Units 12:02 RBC (4.30-5.90) m/uL Hgb (13.0-17.5) gm/dL Hct (39.0-53.0) % MCHC (31.0-37.0) g/dL Sodium (137-145) mmol/L Chloride (98-107) mmol/L Carbon Dioxide (22-30) mmol/L BUN (9-20) mg/dL Glucose (74-99) mg/dL POC Glucose (mg/dL) 175 H (75-99) mg/dL Alkaline Phosphatase (38-126) U/L Albumin (3.5-5.0) g/dL Microbiology - Last 24 Hours (Table) 12/23/20 15:28 Urine Culture - Final Urine,Voided Morganella morganii 12/23/20 15:35 Blood Culture - Preliminary Blood No Growth after 48 hours 12/23/20 15:44 Blood Culture - Preliminary Blood No Growth after 48 hours
[2020-12-26 17:01] LABS: Glucose,Whole Blood 217 mg/dL (75-99)
[2020-12-26 21:01] LABS: Glucose,Whole Blood 191 mg/dL (75-99)
[2020-12-26] MEDS: traZODone HCL 50 MG TAB PO SCH (21:16)
--- NOTE | 2020-12-26 21:59 | PN ---
PROGRESS NOTE DATE OF SERVICE: 12/26/2020 REASON FOR FOLLOWUP: Urinary tract infection. INTERVAL HISTORY: The patient is currently afebrile. The patient is breathing more comfortably. Denies having any chest pain or cough. No abdominal pain or diarrhea. PHYSICAL EXAMINATION: Blood pressure 139/63, pulse of 68, temperature of 98. He is 98% on 4 L nasal cannula. General description is an elderly male lying in bed in no distress. RESPIRATORY SYSTEM: Unlabored breathing with decreased breath sounds at the base. No wheeze. HEART: S1, S2. Regular rate and rhythm. ABDOMEN: Soft. No tenderness. LABS: Hemoglobin is 11.8, white count 5.6, BUN of 41, creatinine 1.06. DIAGNOSTIC IMPRESSION AND PLAN: Patient with a urinary tract infection, for which the patient is currently covered with Rocephin; to continue. Transition to oral antibiotic on discharge. Continue with supportive care. MMODL / IJN: [id number] /
[2020-12-27] MEDS: DEXTROSE 5%-0.45% NACL 1,000 ML IV SCH (02:00)
[2020-12-27 06:00] LABS: Glucose,Whole Blood 110 mg/dL (75-99)
[2020-12-27] MEDS: carvediloL 6.25 MG TAB PO SCH ×2 (06:31→16:01)
[2020-12-27] MEDS: INSULIN ASPART (NovoLOG) 100 UNIT/ML VIAL SQ SCH ×4 (06:32→20:56)
[2020-12-27] MEDS: SYMBICORT 160-4.5 MCG INHALER INHALATION SCH ×2 (08:04→20:08)
[2020-12-27] MEDS: IPRATROPIUM-ALBUTEROL 3 ML NEB INHALATION PRN (08:04)
--- NOTE | 2020-12-27 08:14 | XR ---
EXAMINATION TYPE: XR chest 1V portable DATE OF EXAM: 12/27/2020 Comparison: 12/23/2020 Clinical History: 70-year-old male CHF Findings: Left anterior chest wall ICD generator with right ventricular lead. Heart remains large. Moderate rig ht and small effusions appear slightly increased. Continued adjacent bibasilar opacities. Impression: Cardiomegaly with slight increasing moderate right and small left effusions with adjacent left basila r atelectasis and/or consolidation.
[2020-12-27] MEDS ORDERED: FUROSEMIDE 10 MG/ML 4 ML VIAL IV SCH (09:00)
[2020-12-27] MEDS: DIGOXIN 125 MCG TAB PO SCH (11:07)
[2020-12-27] MEDS: FENOFIBRATE 160 MG TAB PO SCH (11:07)
[2020-12-27] MEDS: APIXABAN 5 MG TAB PO SCH ×2 (11:07→20:56)
[2020-12-27] MEDS: FOLIC ACID 1 MG TAB PO SCH (11:08)
[2020-12-27] MEDS: LORATADINE 10 MG TAB PO SCH (11:09)
[2020-12-27] MEDS: MONTELUKAST 10 MG TAB PO SCH (11:09)
[2020-12-27] MEDS: GABAPENTIN 300 MG CAP PO SCH ×3 (11:09→20:56)
[2020-12-27] MEDS: LOSARTAN 25 MG TAB PO SCH (11:09)
[2020-12-27] MEDS: TAMSULOSIN 0.4 MG CAP.ER.24H PO SCH (11:38)
[2020-12-27 11:53] LABS: Glucose,Whole Blood 231 mg/dL (75-99)
[2020-12-27 12:01] LABS: Basophils # (A) 0.1 k/uL (0-0.2); Basophils % (A) 1 %; Eosinophils # (A) 0.2 k/uL (0-0.7); Eosinophils % (A) 3 %; HCT 36.1 % (39.0-53.0); HGB 11.3 gm/dL (13.0-17.5); Hypochromasia Moderate; Lymphocytes # (A) 1.3 k/uL (1.0-4.8); Lymphocytes % (A) 26 %; MCH 29.5 pg (25.0-35.0); MCHC 31.4 g/dL (31.0-37.0); MCV 94.2 fL (80.0-100.0); Mean Platelet Volume 8.5; Monocytes # (A) 0.7 k/uL (0-1.0); Monocytes % (A) 14 %; Neutrophils # (A) 2.8 k/uL (1.3-7.7); Neutrophils % (A) 55 %; Platelet Count 220 k/uL (150-450); RBC 3.83 m/uL (4.30-5.90); RDW 14.1 % (11.5-15.5); WBC 5.1 k/uL (3.8-10.6)
[2020-12-27 12:19] LABS: Albumin 3.1 g/dL (3.5-5.0); Calcium 8.9 mg/dL (8.4-10.2); Potassium 5.5 mmol/L (3.5-5.1); Total Bilirubin 0.4 mg/dL (0.2-1.3); Total Protein 6.3 g/dL (6.3-8.2)
--- NOTE | 2020-12-27 12:49 | P.PN ---
Subjective Progress Note Date: 12/27/20 Eder Fang, is a 70-year-old male who presented to [facility] emergency room with confusion and mental status changes he was complaining of generalized weakness, he was evaluated in emergency room vital examination on presentation reveals a temperature of 95.5 pulse 91 respiration 20 blood pressure 160/94 pulse ox 90% on 2 L nasal cannula laboratory data revealed a white blood count of 6.0 hemoglobin 12.3 platelet count 257 INR 1.5 CO2 33 BUN 36 creatinine 1.23 glucose level was critically low at 33 urine analysis revealed evidence of urinary tract infection coronavirus PCR was negative chest x-ray was compatible with congestive heart failure with pleural effusions EKG revealed atrial fibrillation with a heart rate of 89 with poor R-wave progression in anterior leads. Patient was admitted to telemetry floor cardiology consultation and pulmonary consultation were requested, he was resuscitated with IV dextrose and warming blankets. His past medical history is significant for history of hypertension, history of diabetes mellitus, history of congestive heart failure with AICD placement, history of COPD, history of continued tobacco use, history of peripheral vascular disease with bilateral lower extremity amputation, history of coronary artery disease, history of atrial fibrillation maintained on anticoagulation at home. Review of system is not amenable at this time due to patient confusion and somnolence patient opens his eyes for a short while he answers few questions by yes or no then he goes back to sleep he denies any pain or discomfort at this time. on 12/25/2020 patient was seen and examined on the medical floor he is more alert and responsive today there is no fever or chills no headache or dizziness no chest pain no shortness of breath no cough no nausea or vomiting no abdominal pain no diarrhea no blood in the stools no burning with urination no frequency or urgency and no hematuria. On 12/26/2020 patient was seen and examined on the medical floor he is alert and oriented 3 in no apparent distress, there is no fever or chills no headache or dizziness no chest pain, his shortness of breath is improving he is still maintained on oxygen supplements 4 L by nasal cannula he has occasional cough no nausea or vomiting no abdominal pain no diarrhea no blood in the stools no burning with urination no frequency or urgency and no hematuria, patient is receiving IV Lasix for acute congestive heart failure exacerbation and is receiving IV Rocephin for urinary tract infection condition is improving gradually. On 12/27/2020 patient alert and oriented 3. Shortness of breath appears to be improving. Patient remains on IV Lasix. At this time patient denies chest pain or shortness breath. Patient denies diarrhea. Denies any urinary burning or frequency. Objective - Vital Signs Vital signs: Vital Signs Temp 97.5 F L 12/27/20 11:44 Pulse 103 H 12/27/20 11:44 Resp 18 12/27/20 11:44 BP 135/63 12/27/20 11:44 Pulse Ox 99 12/27/20 11:44 Intake & Output 12/26/20 12/27/20 12/27/20 18:59 06:59 18:59 Intake Total 1412 480 Output Total 800 300 900 Balance 612 -300 -420 Weight 94 kg 93 kg Intake: Oral 1412 480 Output: Urine 800 300 900 Other: Voiding Method Indwelling Catheter Indwelling Catheter Indwelling Catheter - Exam In general patient is alert confused in no apparent distress HEENT head normocephalic and atraumatic Neck is supple no JVD no goiter no lymphadenopathy Chest exam reveals scattered crackles in both lung mccain no wheezing Cardiac exam reveals irregular heart sounds no gallops no murmurs Abdomen is soft nontender no organomegaly with normal bowel sounds Extremity exam reveals bilateral lower extremity amputation there is below knee amputation on the left and above-knee amputation on the right no obvious skin ulcers in the extremities Neurological examination reveals mental status changes with confusion and somnolence otherwise no gross focal deficit - Labs CBC & Chem 7: 12/27/20 11:18 12/27/20 11:18 Labs: Abnormal Lab Results - Last 24 Hours (Table) 12/26/20 12/26/20 12/27/20 Range/Units 16:59 20:55 05:58 RBC (4.30-5.90) m/uL Hgb (13.0-17.5) gm/dL Hct (39.0-53.0) % Sodium (137-145) mmol/L Potassium (3.5-5.1) mmol/L Chloride (98-107) mmol/L Carbon Dioxide (22-30) mmol/L BUN (9-20) mg/dL Glucose (74-99) mg/dL POC Glucose (mg/dL) 217 H 191 H 110 H (75-99) mg/dL Alkaline Phosphatase (38-126) U/L Albumin (3.5-5.0) g/dL 12/27/20 12/27/20 12/27/20 Range/Units 11:18 11:18 11:45 RBC 3.83 L (4.30-5.90) m/uL Hgb 11.3 L (13.0-17.5) gm/dL Hct 36.1 L (39.0-53.0) % Sodium 136 L (137-145) mmol/L Potassium 5.5 H (3.5-5.1) mmol/L Chloride 92 L (98-107) mmol/L Carbon Dioxide 39 H (22-30) mmol/L BUN 42 H (9-20) mg/dL Glucose 192 H (74-99) mg/dL POC Glucose (mg/dL) 231 H (75-99) mg/dL Alkaline Phosphatase 29 L (38-126) U/L Albumin 3.1 L (3.5-5.0) g/dL Microbiology - Last 24 Hours (Table) 12/23/20 15:35 Blood Culture - Preliminary Blood No Growth after 72 hours 12/23/20 15:44 Blood Culture - Preliminary Blood No Growth after 72 hours Assessment and Plan Plan: 1. Hypothermia 2. Severe hypoglycemia 3. Evidence of urinary tract infection patient currently on Rocephin. Infectious disease is following. Per ID patient may be transitioned to oral antibiotic on discharge 4. Evidence of congestive heart failure with pleural effusion on chest x-ray patient remains on IV Lasix. Cardiology services are following 5. Hyperkalemia. Potassium 5.5. Kayexalate ordered 6. Acute on chronic renal failure acute component is probably related to dehydration and prerenal azotemia 7. Underlying history of diabetes mellitus 8. Underlying history of congestive heart failure, with history of AICD placement 9. Underlying history of coronary artery disease 10. Underlying history of peripheral vascular disease with bilateral lower extremity amputations 11. Underlying history of COPD 12. Underlying history of tobacco abuse 13. Underlying history of benign prostatic hypertrophy At this time patient is admitted to telemetry floor He was started on IV antibiotic Rocephin, awaiting urine culture results He was started on IV D5 0.45 at 50 mL per hour He was given Kayexalate for hyperkalemia For DVT prophylaxis patient is maintained on Eliquis For GI prophylaxis Will add Protonix Cardiology pulmonary and infectious disease following PT OT consulted Social consulted for possible need for ECF placement
[2020-12-27] MEDS: SODIUM POLYSTYRENE SULFONATE 15 GM/60 ML BOTTLE PO ONE ×2 (13:13→13:48)
--- NOTE | 2020-12-27 13:28 | P.PN ---
Subjective Progress Note Date: 12/27/20 Principal diagnosis: Acute hypoxic respiratory failure secondary to CHF and bilateral pleural effusions 70-year-old male, brought into the emergency room, by EMS, on December 23, at 1430, with complaints of weakness. Apparently, the patient was very confused in the emergency department and had altered mental status. He was evaluated in the emergency room and was apparently admitted with a diagnosis of mental status changes, confusion, and CHF. Will be walked into his room today, he was not wearing his oxygen. We put the pulse oximeter on him, his saturations were in the mid 50s. We placed him on oxygen at 10 L, and his saturation began to come up. His color improved and he felt much better. The nurse said that he should be on 6 L, and she would titrate him back down. The patient is a very poor historian, and we really don't get much history from him. He apparently has a history of bilateral lower extremity amputation, congestive heart failure, diabetes mellitus, COPD, and CAD. The patient apparently continues to smoke cigarettes. His chest x-ray was consistent with congestive heart failure, and bilateral pleural effusions. White count is 9, hemoglobin 11.6, hematocrit 37.6, and platelet count 277,000. Sodium 138, potassium 5.6, chlorides 100, CO2 28, anion gap 10, with a BUN of 36, and creatinine of 1.32. N-terminal proBNP was 4840. On 12/25/2020 I'm seeing the patient for a follow-up. The patient remains on Lasix 40 mg IV every 12 hours. Since yesterday, the patient is still on oxygen at 4 L per minute nasal cannula. On today's blood work, the patient's creatinines down to 1.29 compared to 1.3 from yesterday, less of the electrodes are all within normal limits, hemoglobin is at 10.6. The patient is a negative fluid balance. Overall, the patient has been and 1.6 L negative fluid balance since 12/25/2020 and 1.1 L 4 12/24/2020. He is still receiving IV fluids with normal saline at rate of 50 mL an hour. His chest x-ray of this current admission showed cardiomegaly and bilateral pleural effusions and pulmonary vascular congestion. He also has an AICD in the left. On 12/26/2020 I'm seeing Eder for a follow-up. Eder is being treated for congestion heart failure, bilateral pleural effusion in addition to that he has a gram-negative urinary tract infection that do not to be related to Morganella infection. The patient is currently on IV Rocephin. He is receiving Lasix 40 mg every 12 hours and he is making good urine output. He is less short of breath. He remains on 4 L of oxygen by nasal cannula.His current BUN is 41. Creatinine is at 1.06. With a hemoglobin of 11.8. No other new complaints otherwise for now. Based on the urine output, the patient has been negative fluid balance of -2.4 L over the past 24 hours. On 12/27/2020 patient seen in follow-up on selective care unit. He is resting comfortably in bed, breathing comfortably, he remains on daily dose of IV Lasix 40 mg, and he is in -420 ML fluid balance over the last 24 hours, she is on 4 L of oxygen pulse ox of 90%, afebrile, his chest x-ray shows cardiomegaly and slight increasing moderate right and small left pleural effusion with adjacent left basilar atelectasis. She remains on Rocephin for urinary tract infection, urine culture showed Morganella morganii, blood cultures have been negative. Patient remains on oral anticoagulation in the form of Eliquis for history of paroxysmal A. fib Objective - Vital Signs Vital signs: Vital Signs Temp 97.5 F L 12/27/20 11:44 Pulse 103 H 12/27/20 11:44 Resp 18 12/27/20 11:44 BP 135/63 12/27/20 11:44 Pulse Ox 99 12/27/20 11:44 Intake & Output 12/26/20 12/27/20 12/27/20 18:59 06:59 18:59 Intake Total 1412 480 Output Total 800 300 900 Balance 612 -300 -420 Weight 94 kg 93 kg Intake: Oral 1412 480 Output: Urine 800 300 900 Other: Voiding Method Indwelling Catheter Indwelling Catheter Indwelling Catheter - Exam GENERAL EXAM: Alert, pleasant, 70-year-old white male, on 4 L of oxygen a pulse ox of 99%, comfortable in no apparent distress. HEAD: Normocephalic/atraumatic. EYES: Normal reaction of pupils, equal size. Conjunctiva pink, sclera white. NOSE: Clear with pink turbinates. THROAT: No erythema or exudates. NECK: No masses, no JVD, no thyroid enlargement, no adenopathy. CHEST: No chest wall deformity. Symmetrical expansion. LUNGS: Equal air entry with no crackles, wheeze, rhonchi or dullness. CVS: Regular rate and rhythm, normal S1 and S2, no gallops, no murmurs, no rubs ABDOMEN: Soft, nontender. No hepatosplenomegaly, normal bowel sounds, no guarding or rigidity. EXTREMITIES: No clubbing, no edema, no cyanosis, 2+ pulses and upper extremities. Patient is bilateral [id number] amputee MUSCULOSKELETAL: Muscle strength and tone normal. SPINE: No scoliosis or deformity SKIN: No rashes CENTRAL NERVOUS SYSTEM: Alert and oriented -3. No focal deficits, tone is normal in all 4 extremities. PSYCHIATRIC: Alert and oriented -3. Appropriate affect. Intact judgment and insight. - Labs CBC & Chem 7: 12/27/20 11:18 12/27/20 11:18 Labs: Abnormal Lab Results - Last 24 Hours (Table) 12/26/20 12/26/20 12/27/20 Range/Units 16:59 20:55 05:58 RBC (4.30-5.90) m/uL Hgb (13.0-17.5) gm/dL Hct (39.0-53.0) % Sodium (137-145) mmol/L Potassium (3.5-5.1) mmol/L Chloride (98-107) mmol/L Carbon Dioxide (22-30) mmol/L BUN (9-20) mg/dL Glucose (74-99) mg/dL POC Glucose (mg/dL) 217 H 191 H 110 H (75-99) mg/dL Alkaline Phosphatase (38-126) U/L Albumin (3.5-5.0) g/dL 12/27/20 12/27/20 12/27/20 Range/Units 11:18 11:18 11:45 RBC 3.83 L (4.30-5.90) m/uL Hgb 11.3 L (13.0-17.5) gm/dL Hct 36.1 L (39.0-53.0) % Sodium 136 L (137-145) mmol/L Potassium 5.5 H (3.5-5.1) mmol/L Chloride 92 L (98-107) mmol/L Carbon Dioxide 39 H (22-30) mmol/L BUN 42 H (9-20) mg/dL Glucose 192 H (74-99) mg/dL POC Glucose (mg/dL) 231 H (75-99) mg/dL Alkaline Phosphatase 29 L (38-126) U/L Albumin 3.1 L (3.5-5.0) g/dL Microbiology - Last 24 Hours (Table) 12/23/20 15:35 Blood Culture - Preliminary Blood No Growth after 72 hours 12/23/20 15:44 Blood Culture - Preliminary Blood No Growth after 72 hours Assessment and Plan Plan: Assessment: 1 Acute hypoxemic respiratory failure, secondary to CHF with bilateral pleural effusions. Clinically the patient is improving. Still on 4 L of oxygen by nasal cannula. Neck fluid balance is been negative 2.4 L over the past 24 hours and the patient continues to improve. The patient has home oxygen 2 Mental status changes, which may in fact relate to have hypoxemia, secondary to his fluid overload state and CHF. 3 severe ischemic cardiomyopathy with a echocardiogram from September 2020 showed impaired LV function with an ejection fraction of 25-30%. The patient has severe ischemic cardiomyopathy and the patient has an AICD in place. He is post non-STEMI and successful stenting of the long segment of a mid circumflex arter y. 4 History of COPD, secondary chronic tobacco use. 5 History of CAD, post non-STEMI post stenting of the circumflex artery, 6 Status post pacemaker/defibrillator implantation, 2005. 7 History of CVA. 7 History of diabetes mellitus. 8 History of hyperlipidemia. 9 Prior history of myocardial infarction. 10 Peripheral vascular occlusive disease, status post left below the knee amputation and right [id number] amputation. 11 Prior history of MRSA infection. 12 History of ongoing tobacco use with nicotine addiction. 13 ROSSY secondary to above, creatinine is improving and it dropped compared to yesterday 14 Morganella UTI currently on IV Rocephin Plan: Continue diuretics, antibiotics, today's chest x-ray has been reviewed showing small bilateral pleural effusions, slightly increased right pleural effusion and basilar atelectasis. We'll continue diuretics, no worsening dyspnea, we'll continue medical treatment, no plans with thoracentesis unless develops worsening dyspnea or worsening renal function. Continue bronchodilators, antibiotics, no fever or chills. I performed a history & physical examination of the patient and discussed their management with my nurse practitioner, Jes Melvin. I reviewed the nurse practitioner's note and agree with the documented findings and plan of care. Lung sounds are positive for diminished breath sounds. The findings and the impression was discussed with the patient. I attest to the documentation by the nurse practitioner. Time with Patient: Less than 30
--- NOTE | 2020-12-27 15:04 | P.PN ---
Subjective Progress Note Date: 12/27/20 CHIEF COMPLAINT: congestive heart failure HISTORY OF PRESENT ILLNESS: 12/25/2020 This is a 70-year-old male with a past medical history significant for COPD, co ngestive heart failure, hypertension, hyperlipidemia, ischemic cardiomyopathy with previous ICD implantation, and peripheral vascular disease with bilateral amputation of lower extremities. Patient follows in the office with Dr. Hernandez. We have been asked to see the patient in consultation for CHF. The patient was apparently brought to the hospital secondary to weakness, confusion, and mental status changes. Patient is lethargic this morning upon evaluation. He will open his eyes and answer one or two questions and then goes back to sleep and is somewhat difficult to arouse. He denied chest pain or pressure. He denied shortness of breath. Echocardiogram completed in September 2020 revealed ejection fraction 25-30%. Repeat echocardiogram performed today reveals EF 35-40%, mild tricuspid regurgitation, and moderate mitral regurgitation Patient underwent cardiac catheterization in September [address] Fenton with PCI to the left circumflex. 12/26/2020 Patient examined this morning at the bedside. Patient is much more awake today. He denies chest pain or pressure. Denies shortness of breath. He remains on IV Lasix 40 mg every 12 hours. Creatinine 1.06 today. Fluid balance over the last 24 hours is -2400 mL. Nursing reports a 9 beat run of V. tach this morning. Patient has a history of ICD placement. Patient's blood pressure remains elevated this morning with a reading of 155/77. 12/27/2020 Patient examined this morning at bedside. Patient is sleepy during examination. He refuses to open his eyes. He denies chest pain or pressure. He denies shortness of breath. He states his back is hurting him today. Chest x-ray revealed cardiomegaly with moderate right pleural effusion and small left pleural effusion. He remains on IV Lasix. Fluid balance over the last 24 hours is +312 mL. Patient's weight is down 1 kg. PHYSICAL EXAM: VITAL SIGNS: Reviewed. GENERAL: Well-developed in no acute distress. HEENT: Head is normocephalic. Pupils are equal, round. Sclerae anicteric. Mucous membranes of the mouth are moist. Neck supple. No JVD or thyromegaly LUNGS: Respirations even and unlabored. Lungs diminished with scattered rhonchi HEART: Irregular rate and rhythm. S1 and S2 heard. systolic murmur noted. ABDOMEN: Soft. Nondistended. Nontender. EXTREMITIES: Normal range of motion. No clubbing or cyanosis. left jkxhd-[id number] amputation and right ihunm-mjp-[id number] amputation noted. ASSESSMENT: Altered mental status Urinary tract infection Acute exacerbation of chronic systolic heart failure, EF 35-40% Ischemic cardiomyopathy with previous AICD Paroxysmal atrial fibrillation, on anticoagulation with Eliquis Coronary artery disease with previous PCI to left circumflex, September 2020 Peripheral vascular disease with previous left BKA and right AKA Hypertension Hyperlipidemia COPD Diabetes mellitus PLAN: Continue antibiotics for UTI Continue Eliquis for anticoagulation Continue IV Lasix Monitor kidney function Daily weights Accurate I&O Further recommendations pending patient course Nurse practitioner note has been reviewed by physician. Signing provider agrees with the documented findings, assessment, and plan of care. Objective - Vital Signs Vital signs: Vital Signs Temp 97.5 F L 12/27/20 11:44 Pulse 103 H 12/27/20 11:44 Resp 18 12/27/20 11:44 BP 135/63 12/27/20 11:44 Pulse Ox 99 12/27/20 11:44 Intake & Output 12/26/20 12/27/20 12/27/20 18:59 06:59 18:59 Intake Total 1412 500 Output Total 028 008 2386 Balance 612 -300 -1350 Weight 94 kg 93 kg Intake: IV 20 Invasive Line 4 20 Oral 1412 480 Output: Urine 164 [id number] Other: Voiding Method Indwelling Catheter Indwelling Catheter Indwelling Catheter - Labs CBC & Chem 7: 12/27/20 11:18 12/27/20 11:18 Labs: Abnormal Lab Results - Last 24 Hours (Table) 12/26/20 12/26/20 12/27/20 Range/Units 16:59 20:55 05:58 RBC (4.30-5.90) m/uL Hgb (13.0-17.5) gm/dL Hct (39.0-53.0) % Sodium (137-145) mmol/L Potassium (3.5-5.1) mmol/L Chloride (98-107) mmol/L Carbon Dioxide (22-30) mmol/L BUN (9-20) mg/dL Glucose (74-99) mg/dL POC Glucose (mg/dL) 217 H 191 H 110 H (75-99) mg/dL Alkaline Phosphatase (38-126) U/L Albumin (3.5-5.0) g/dL 12/27/20 12/27/20 12/27/20 Range/Units 11:18 11:18 11:45 RBC 3.83 L (4.30-5.90) m/uL Hgb 11.3 L (13.0-17.5) gm/dL Hct 36.1 L (39.0-53.0) % Sodium 136 L (137-145) mmol/L Potassium 5.5 H (3.5-5.1) mmol/L Chloride 92 L (98-107) mmol/L Carbon Dioxide 39 H (22-30) mmol/L BUN 42 H (9-20) mg/dL Glucose 192 H (74-99) mg/dL POC Glucose (mg/dL) 231 H (75-99) mg/dL Alkaline Phosphatase 29 L (38-126) U/L Albumin 3.1 L (3.5-5.0) g/dL Microbiology - Last 24 Hours (Table) 12/23/20 15:35 Blood Culture - Preliminary Blood No Growth after 72 hours 12/23/20 15:44 Blood Culture - Preliminary Blood No Growth after 72 hours
[2020-12-27 16:56] LABS: Glucose,Whole Blood 382 mg/dL (75-99)
[2020-12-27 20:49] LABS: Glucose,Whole Blood 383 mg/dL (75-99)
[2020-12-27] MEDS: traZODone HCL 50 MG TAB PO SCH (20:56)
--- NOTE | 2020-12-27 22:30 | PN ---
PROGRESS NOTE DATE OF SERVICE: 12/27/2020 REASON FOR FOLLOWUP: Urinary tract infection. INTERVAL HISTORY: The patient is currently afebrile. The patient is breathing comfortably. Denies having any chest pain or shortness of breath or cough. No abdominal pain or diarrhea. PHYSICAL EXAMINATION: Blood pressure 131/65, pulse of 94, temperature 98. He is 96% on 3 L nasal cannula. General description is an elderly male up in the bed in no distress. RESPIRATORY SYSTEM: Unlabored breathing with decreased breath sounds at the base. No wheeze. HEART: S1, S2. Regular rate and rhythm. ABDOMEN: Soft. No tenderness. LABS: Hemoglobin is 11.3, white count 5.1. BUN of 42, creatinine 1.0. DIAGNOSTIC IMPRESSION AND PLAN: Patient with and urinary tract infection, covered with Rocephin; to continue and transition to oral antibiotic on discharge. Continue supportive care. MMODL / IJN: [id number] /
[2020-12-28] MEDS: DEXTROSE 5%-0.45% NACL 1,000 ML IV SCH (03:00)
[2020-12-28] MEDS: INSULIN ASPART (NovoLOG) 100 UNIT/ML VIAL SQ SCH ×4 (06:14→21:36)
[2020-12-28 06:15] LABS: Glucose,Whole Blood 117 mg/dL (75-99)
[2020-12-28] MEDS: carvediloL 6.25 MG TAB PO SCH ×2 (06:18→17:27)
[2020-12-28] MEDS: SYMBICORT 160-4.5 MCG INHALER INHALATION SCH ×2 (08:03→20:00)
[2020-12-28] MEDS: IPRATROPIUM-ALBUTEROL 3 ML NEB INHALATION PRN ×2 (08:04→11:34)
[2020-12-28] MEDS ORDERED: FUROSEMIDE 40 MG TAB PO SCH (09:00)
[2020-12-28] MEDS ORDERED: lisinopriL 5 MG TAB PO SCH (09:00)
[2020-12-28] MEDS ORDERED: CIPROFLOXACIN HCL 500 MG TAB PO SCH (09:00)
[2020-12-28] MEDS: TAMSULOSIN 0.4 MG CAP.ER.24H PO SCH (09:45)
[2020-12-28] MEDS: MONTELUKAST 10 MG TAB PO SCH (09:45)
[2020-12-28] MEDS: DIGOXIN 125 MCG TAB PO SCH (09:45)
[2020-12-28] MEDS: FOLIC ACID 1 MG TAB PO SCH (09:45)
[2020-12-28] MEDS: APIXABAN 5 MG TAB PO SCH ×2 (09:45→21:35)
[2020-12-28] MEDS: LORATADINE 10 MG TAB PO SCH (09:45)
[2020-12-28] MEDS: GABAPENTIN 300 MG CAP PO SCH ×3 (09:45→21:36)
[2020-12-28] MEDS: FENOFIBRATE 160 MG TAB PO SCH (09:45)
[2020-12-28] MEDS: LOSARTAN 25 MG TAB PO SCH (09:45)
[2020-12-28] MEDS: FUROSEMIDE 10 MG/ML 4 ML VIAL IV SCH (09:46)
[2020-12-28 12:01] LABS: Glucose,Whole Blood 217 mg/dL (75-99)
--- NOTE | 2020-12-28 12:04 | P.PN ---
Subjective Progress Note Date: 12/28/20 CHIEF COMPLAINT: congestive heart failure HISTORY OF PRESENT ILLNESS: 12/25/2020 This is a 70-year-old male with a past medical history significant for COPD, co ngestive heart failure, hypertension, hyperlipidemia, ischemic cardiomyopathy with previous ICD implantation, and peripheral vascular disease with bilateral amputation of lower extremities. Patient follows in the office with Dr. Hernandez. We have been asked to see the patient in consultation for CHF. The patient was apparently brought to the hospital secondary to weakness, confusion, and mental status changes. Patient is lethargic this morning upon evaluation. He will open his eyes and answer one or two questions and then goes back to sleep and is somewhat difficult to arouse. He denied chest pain or pressure. He denied shortness of breath. Echocardiogram completed in September 2020 revealed ejection fraction 25-30%. Repeat echocardiogram performed today reveals EF 35-40%, mild tricuspid regurgitation, and moderate mitral regurgitation Patient underwent cardiac catheterization in September [address] Fenton with PCI to the left circumflex. 12/26/2020 Patient examined this morning at the bedside. Patient is much more awake today. He denies chest pain or pressure. Denies shortness of breath. He remains on IV Lasix 40 mg every 12 hours. Creatinine 1.06 today. Fluid balance over the last 24 hours is -2400 mL. Nursing reports a 9 beat run of V. tach this morning. Patient has a history of ICD placement. Patient's blood pressure remains elevated this morning with a reading of 155/77. 12/27/2020 Patient examined this morning at bedside. Patient is sleepy during examination. He refuses to open his eyes. He denies chest pain or pressure. He denies shortness of breath. He states his back is hurting him today. Chest x-ray revealed cardiomegaly with moderate right pleural effusion and small left pleural effusion. He remains on IV Lasix. Fluid balance over the last 24 hours is +312 mL. Patient's weight is down 1 kg. 12/28/2020 Patient examined this morning at the bedside. Patient is more awake today. He denies chest pain or pressure. He denies shortness of breath. Fluid balance over the last 24 hours is -2300 mL. BMP is pending. PHYSICAL EXAM: VITAL SIGNS: Reviewed. GENERAL: Well-developed in no acute distress. HEENT: Head is normocephalic. Pupils are equal, round. Sclerae anicteric. Mucous membranes of the mouth are moist. Neck supple. No JVD or thyromegaly LUNGS: Respirations even and unlabored. Lungs diminished bilaterally. HEART: Irregular rate and rhythm. S1 and S2 heard. systolic murmur noted. ABDOMEN: Soft. Nondistended. Nontender. EXTREMITIES: Normal range of motion. No clubbing or cyanosis. left [id number]-[id number] amputation and right [id number]-[id number]-[id number] amputation noted. ASSESSMENT: Altered mental status Urinary tract infection Acute exacerbation of chronic systolic heart failure, EF 35-40% Ischemic cardiomyopathy with previous AICD Paroxysmal atrial fibrillation, on anticoagulation with Eliquis Coronary artery disease with previous PCI to left circumflex, September 2020 Peripheral vascular disease with previous left BKA and right AKA Hypertension Hyperlipidemia COPD Diabetes mellitus PLAN: Continue antibiotics for UTI Continue Eliquis for anticoagulation Continue IV Lasix Monitor kidney function Daily weights Accurate I&O Further recommendations pending patient course Nurse practitioner note has been reviewed by physician. Signing provider agrees with the documented findings, assessment, and plan of care. Objective - Vital Signs Vital signs: Vital Signs Temp 98.5 F 12/28/20 08:00 Pulse 84 12/28/20 11:48 Resp 16 12/28/20 08:00 BP 129/86 12/28/20 08:00 Pulse Ox 99 12/28/20 08:00 Intake & Output 12/27/20 12/28/20 12/28/20 18:59 06:59 18:59 Intake Total 720 236 Output Total 2200 850 Balance -1480 -850 236 Weight 93.5 kg Intake: IV 40 Invasive Line 4 40 Oral 680 236 Output: Urine 2200 850 Other: Voiding Method Indwelling Catheter Indwelling Catheter Indwelling Catheter # Voids 0 # Bowel Movements 1 - Labs CBC & Chem 7: 12/27/20 11:18 12/27/20 11:18 Labs: Abnormal Lab Results - Last 24 Hours (Table) 12/27/20 12/27/20 12/27/20 Range/Units 11:18 11:18 16:54 RBC 3.83 L (4.30-5.90) m/uL Hgb 11.3 L (13.0-17.5) gm/dL Hct 36.1 L (39.0-53.0) % Sodium 136 L (137-145) mmol/L Potassium 5.5 H (3.5-5.1) mmol/L Chloride 92 L (98-107) mmol/L Carbon Dioxide 39 H (22-30) mmol/L BUN 42 H (9-20) mg/dL Glucose 192 H (74-99) mg/dL POC Glucose (mg/dL) 382 H (75-99) mg/dL Alkaline Phosphatase 29 L (38-126) U/L Albumin 3.1 L (3.5-5.0) g/dL 12/27/20 12/28/20 Range/Units 20:44 06:13 RBC (4.30-5.90) m/uL Hgb (13.0-17.5) gm/dL Hct (39.0-53.0) % Sodium (137-145) mmol/L Potassium (3.5-5.1) mmol/L Chloride (98-107) mmol/L Carbon Dioxide (22-30) mmol/L BUN (9-20) mg/dL Glucose (74-99) mg/dL POC Glucose (mg/dL) 383 H 117 H (75-99) mg/dL Alkaline Phosphatase (38-126) U/L Albumin (3.5-5.0) g/dL Microbiology - Last 24 Hours (Table) 12/23/20 15:35 Blood Culture - Preliminary Blood No Growth after 96 hours 12/23/20 15:44 Blood Culture - Preliminary Blood No Growth after 96 hours
[2020-12-28 12:14] LABS: Basophils # (A) 0.1 k/uL (0-0.2); Basophils % (A) 1 %; Eosinophils # (A) 0.2 k/uL (0-0.7); Eosinophils % (A) 3 %; HCT 36.6 % (39.0-53.0); HGB 11.4 gm/dL (13.0-17.5); Hypochromasia Marked; Lymphocytes # (A) 1.7 k/uL (1.0-4.8); Lymphocytes % (A) 27 %; MCH 29.6 pg (25.0-35.0); MCHC 31.2 g/dL (31.0-37.0); MCV 95.1 fL (80.0-100.0); Monocytes # (A) 0.7 k/uL (0-1.0); Monocytes % (A) 11 %; Neutrophils # (A) 3.4 k/uL (1.3-7.7); Neutrophils % (A) 56 %; Platelet Count 221 k/uL (150-450); RBC 3.85 m/uL (4.30-5.90); RDW 14.1 % (11.5-15.5); WBC 6.1 k/uL (3.8-10.6)
[2020-12-28 12:20] LABS: ALT 13 U/L (4-49); AST 29 U/L (17-59); African American GFR (CKD) >90 (>60 ml/min/1.73 sqM); Albumin 3.3 g/dL (3.5-5.0); Alkaline Phosphatase 29 U/L (38-126); Blood Urea Nitrogen 41 mg/dL (9-20); Chloride 89 mmol/L (98-107); Glucose 123 mg/dL (74-99); Non-African American GFR(CKD) 84 (>60 ml/min/1.73 sqM); Potassium 5.4 mmol/L (3.5-5.1); Sodium 135 mmol/L (137-145); Total Bilirubin 0.4 mg/dL (0.2-1.3); Total Protein 6.5 g/dL (6.3-8.2)
[2020-12-28 12:31] LABS: Anion Gap 7 mmol/L
[2020-12-28 12:34] LABS: Carbon Dioxide 39 mmol/L (22-30)
--- NOTE | 2020-12-28 13:48 | P.PN ---
Subjective Progress Note Date: 12/28/20 70-year-old male, brought into the emergency room, by EMS, on December 23, at 1430, with complaints of weakness. Apparently, the patient was very confused in the emergency department and had altered mental status. He was evaluated in the emergency room and was apparently admitted with a diagnosis of mental status changes, confusion, and CHF. Will be walked into his room today, he was not wearing his oxygen. We put the pulse oximeter on him, his saturations were in the mid 50s. We placed him on oxygen at 10 L, and his saturation began to come up. His color improved and he felt much better. The nurse said that he should be on 6 L, and she would titrate him back down. The patient is a very poor historian, and we really don't get much history from him. He apparently has a history of bilateral lower extremity amputation, congestive heart failure, diabetes mellitus, COPD, and CAD. The patient apparently continues to smoke cigarettes. His chest x-ray was consistent with congestive heart failure, and bilateral pleural effusions. White count is 9, hemoglobin 11.6, hematocrit 37.6, and platelet count 277,000. Sodium 138, potassium 5.6, chlorides 100, CO2 28, anion gap 10, with a BUN of 36, and creatinine of 1.32. N-terminal proBNP was 4840. On 12/25/2020 I'm seeing the patient for a follow-up. The patient remains on Lasix 40 mg IV every 12 hours. Since yesterday, the patient is still on oxygen at 4 L per minute nasal cannula. On today's blood work, the patient's creatini alin down to 1.29 compared to 1.3 from yesterday, less of the electrodes are all within normal limits, hemoglobin is at 10.6. The patient is a negative fluid balance. Overall, the patient has been and 1.6 L negative fluid balance since 12/25/2020 and 1.1 L 4 12/24/2020. He is still receiving IV fluids with normal saline at rate of 50 mL an hour. His chest x-ray of this current admission showed cardiomegaly and bilateral pleural effusions and pulmonary vascular congestion. He also has an AICD in the left. On 12/26/2020 I'm seeing Eder for a follow-up. Eder is being treated for congestion heart failure, bilateral pleural effusion in addition to that he has a gram-negative urinary tract infection that do not to be related to Morganella infection. The patient is currently on IV Rocephin. He is receiving Lasix 40 mg every 12 hours and he is making good urine output. He is less short of breath. He remains on 4 L of oxygen by nasal cannula.His current BUN is 41. Creatinine is at 1.06. With a hemoglobin of 11.8. No other new complaints otherwise for now. Based on the urine output, the patient has been negative fluid balance of -2.4 L over the past 24 hours. On 12/27/2020 patient seen in follow-up on selective care unit. He is resting comfortably in bed, breathing comfortably, he remains on daily dose of IV Lasix 40 mg, and he is in -420 ML fluid balance over the last 24 hours, she is on 4 L of oxygen pulse ox of 90%, afebrile, his chest x-ray shows cardiomegaly and slight increasing moderate right and small left pleural effusion with adjacent left basilar atelectasis. She remains on Rocephin for urinary tract infection, urine culture showed Morganella morganii, blood cultures have been negative. Patient remains on oral anticoagulation in the form of Eliquis for history of paroxysmal A. fib The patient is seen today 2020 in follow-up on the selective care unit. He is currently sitting up in a chair at the bedside. Awake and alert in no acute distress. Continue O2 saturations at 100% on 3 L/m per nasal cannula. He is afebrile. Hemodynamically stable. Urine culture was positive for Morganella Morganii. White count 6.1. Hemoglobin 11.4. Sodium 135. Potassium 5.4. Bicarb 39. Creatinine 0.91. Glucose 123. He remains on Symbicort, DuoNeb inhalations, IV diuretics. Anticoagulated with Eliquis. Heart rate controlled. Objective - Vital Signs Vital signs: Vital Signs Temp 97.5 F L 12/28/20 12:00 Pulse 82 12/28/20 12:00 Resp 16 12/28/20 12:00 BP 128/74 12/28/20 12:00 Pulse Ox 100 12/28/20 12:00 Intake & Output 12/27/20 12/28/20 12/28/20 18:59 06:59 18:59 Intake Total 720 236 Output Total 2200 850 1100 Balance -1480 -850 -864 Weight 93.5 kg Intake: IV 40 Invasive Line 4 40 Oral 680 236 Output: Urine 2200 850 1100 Other: Voiding Method Indwelling Catheter Indwelling Catheter Indwelling Catheter # Voids 0 # Bowel Movements 1 - Exam GENERAL EXAM: Alert, pleasant, 70-year-old male patient, on 3 L of oxygen a pulse ox of 100%, comfortable in no apparent distress. HEAD: Normocephalic/atraumatic. EYES: Normal reaction of pupils, equal size. Conjunctiva pink, sclera white. NOSE: Clear with pink turbinates. THROAT: No erythema or exudates. NECK: No masses, no JVD, no thyroid enlargement, no adenopathy. CHEST: No chest wall deformity. Symmetrical expansion. LUNGS: Equal air entry with crackles in the bilateral posterior bases CVS: Regular rate and rhythm, normal S1 and S2, no gallops, no murmurs, no rubs ABDOMEN: Soft, nontender. No hepatosplenomegaly, normal bowel sounds, no guarding or rigidity. EXTREMITIES: No clubbing, no edema, no cyanosis, 2+ pulses and upper extremities. Patient is bilateral kfzia-ksr-psso amputee MUSCULOSKELETAL: Muscle strength and tone normal. SPINE: No scoliosis or deformity SKIN: No rashes CENTRAL NERVOUS SYSTEM: No focal deficits, tone is normal in all 4 extremities. PSYCHIATRIC: Alert and oriented -3. Appropriate affect. Intact judgment and insight. - Labs CBC & Chem 7: 12/28/20 10:27 12/28/20 10:27 Labs: Abnormal Lab Results - Last 24 Hours (Table) 12/27/20 12/27/20 12/28/20 Range/Units 16:54 20:44 06:13 RBC (4.30-5.90) m/uL Hgb (13.0-17.5) gm/dL Hct (39.0-53.0) % Sodium (137-145) mmol/L Potassium (3.5-5.1) mmol/L Chloride (98-107) mmol/L Carbon Dioxide (22-30) mmol/L BUN (9-20) mg/dL Glucose (74-99) mg/dL POC Glucose (mg/dL) 382 H 383 H 117 H (75-99) mg/dL Alkaline Phosphatase (38-126) U/L Albumin (3.5-5.0) g/dL 12/28/20 12/28/20 12/28/20 Range/Units 10:27 10:27 12:00 RBC 3.85 L (4.30-5.90) m/uL Hgb 11.4 L (13.0-17.5) gm/dL Hct 36.6 L (39.0-53.0) % Sodium 135 L (137-145) mmol/L Potassium 5.4 H (3.5-5.1) mmol/L Chloride 89 L (98-107) mmol/L Carbon Dioxide 39 H (22-30) mmol/L BUN 41 H (9-20) mg/dL Glucose 123 H (74-99) mg/dL POC Glucose (mg/dL) 217 H (75-99) mg/dL Alkaline Phosphatase 29 L (38-126) U/L Albumin 3.3 L (3.5-5.0) g/dL Microbiology - Last 24 Hours (Table) 12/23/20 15:35 Blood Culture - Preliminary Blood No Growth after 96 hours 12/23/20 15:44 Blood Culture - Preliminary Blood No Growth after 96 hours Assessment and Plan Assessment: 1 Acute hypoxemic respiratory failure, secondary to CHF with bilateral pleural effusions. Clinically the patient is improving. Still on 3 L of oxygen by nasal cannula. Neck fluid balance is been negative 2.4 L over the past 24 hours and the patient continues to improve. The patient has home oxygen 2 Mental status changes, which may in fact relate to have hypoxemia, secondary to his fluid overload state and CHF. 3 severe ischemic cardiomyopathy with a echocardiogram from September 2020 showed impaired LV function with an ejection fraction of 25-30%. The patient has severe ischemic cardiomyopathy and the patient has an AICD in place. He is post non-STEMI and successful stenting of the long segment of a mid circumflex artery. 4 History of COPD, secondary chronic tobacco use. 5 History of CAD, post non-STEMI post stenting of the circumflex artery, 6 Status post pacemaker/defibrillator implantation, 2005. 7 History of CVA. 7 History of diabetes mellitus. 8 History of hyperlipidemia. 9 Prior history of myocardial infarction. 10 Peripheral vascular occlusive disease, status post left below the knee amputation and right bqrcb-zmy-zack amputation. 11 Prior history of MRSA infection. 12 History of ongoing tobacco use with nicotine addiction. 13 ROSSY secondary to above, creatinine is improving and it dropped compared to yesterday 14 Morganella UTI currently on IV Rocephin Plan: The patient was seen and evaluated by Dr. Freeman Discontinue ceftriaxone Add Cipro 500 mg twice a day Repeat chest x-ray in a.m. Acute down the FiO2 as tolerated We'll continue to follow I, the cosigning physician, performed a history & physical examination of the patient. Lungs sounds with crackles in the bilateral posterior bases Maintaining good O2 saturations in the 90s on 3 L/m per nasal cannula. I discussed the assessment and plan of care with my nurse practitioner, Celina Isaac. I attest to the above note as dictated by her.
[2020-12-28 16:57] LABS: Glucose,Whole Blood 249 mg/dL (75-99)
--- NOTE | 2020-12-28 18:33 | P.PN ---
Subjective Progress Note Date: 12/28/20 Eder Fang, is a 70-year-old male who presented to [facility] emergency room with confusion and mental status changes he was complaining of generalized weakness, he was evaluated in emergency room vital examination on presentation reveals a temperature of 95.5 pulse 91 respiration 20 blood pressure 160/94 pulse ox 90% on 2 L nasal cannula laboratory data revealed a white blood count of 6.0 hemoglobin 12.3 platelet count 257 INR 1.5 CO2 33 BUN 36 creatinine 1.23 glucose level was critically low at 33 urine analysis revealed evidence of urinary tract infection coronavirus PCR was negative chest x-ray was compatible with congestive heart failure with pleural effusions EKG revealed atrial fibrillation with a heart rate of 89 with poor R-wave progression in anterior leads. Patient was admitted to telemetry floor cardiology consultation and pulmonary consultation were requested, he was resuscitated with IV dextrose and warming blankets. His past medical history is significant for history of hypertension, history of diabetes mellitus, history of congestive heart failure with AICD placement, history of COPD, history of continued tobacco use, history of peripheral vascular disease with bilateral lower extremity amputation, history of coronary artery disease, history of atrial fibrillation maintained on anticoagulation at home. Review of system is not amenable at this time due to patient confusion and somnolence patient opens his eyes for a short while he answers few questions by yes or no then he goes back to sleep he denies any pain or discomfort at this time. on 12/25/2020 patient was seen and examined on the medical floor he is more alert and responsive today there is no fever or chills no headache or dizziness no chest pain no shortness of breath no cough no nausea or vomiting no abdominal pain no diarrhea no blood in the stools no burning with urination no frequency or urgency and no hematuria. On 12/26/2020 patient was seen and examined on the medical floor he is alert and oriented 3 in no apparent distress, there is no fever or chills no headache or dizziness no chest pain, his shortness of breath is improving he is still maintained on oxygen supplements 4 L by nasal cannula he has occasional cough no nausea or vomiting no abdominal pain no diarrhea no blood in the stools no burning with urination no frequency or urgency and no hematuria, patient is receiving IV Lasix for acute congestive heart failure exacerbation and is receiving IV Rocephin for urinary tract infection condition is improving gradually. On 12/27/2020 patient alert and oriented 3. Shortness of breath appears to be improving. Patient remains on IV Lasix. At this time patient denies chest pain or shortness breath. Patient denies diarrhea. Denies any urinary burning or frequency. on 12/28/2020 patient was seen and examined on the medical floor he is more aler t and oriented in no distress, today there is no fever or chills no headache or dizziness no chest pain no shortness of breath no cough no nausea or vomiting no abdominal pain no diarrhea no blood in the stools no burning with urination no frequency or urgency and no hematuria. Objective - Vital Signs Vital signs: Vital Signs Temp 97.6 F 12/28/20 15:59 Pulse 94 12/28/20 15:59 Resp 18 12/28/20 15:59 BP 138/73 12/28/20 15:59 Pulse Ox 98 12/28/20 15:59 Intake & Output 12/27/20 12/28/20 12/28/20 18:59 06:59 18:59 Intake Total 720 680 Output Total 2200 850 1750 Balance -1480 -850 -1070 Weight 93.5 kg Intake: IV 40 Invasive Line 4 40 Oral 680 680 Output: Urine 2200 850 1750 Other: Voiding Method Indwelling Catheter Indwelling Catheter Indwelling Catheter # Voids 0 # Bowel Movements 1 - Exam In general patient is alert confused in no apparent distress HEENT head normocephalic and atraumatic Neck is supple no JVD no goiter no lymphadenopathy Chest exam reveals scattered crackles in both lung mccain no wheezing Cardiac exam reveals irregular heart sounds no gallops no murmurs Abdomen is soft nontender no organomegaly with normal bowel sounds Extremity exam reveals bilateral lower extremity amputation there is below knee amputation on the left and above-knee amputation on the right no obvious skin ulcers in the extremities Neurological examination reveals mental status changes with confusion and somnolence otherwise no gross focal deficit - Labs CBC & Chem 7: 12/28/20 10:27 12/28/20 10:27 Labs: Abnormal Lab Results - Last 24 Hours (Table) 12/27/20 12/27/20 12/28/20 Range/Units 16:54 20:44 06:13 RBC (4.30-5.90) m/uL Hgb (13.0-17.5) gm/dL Hct (39.0-53.0) % Sodium (137-145) mmol/L Potassium (3.5-5.1) mmol/L Chloride (98-107) mmol/L Carbon Dioxide (22-30) mmol/L BUN (9-20) mg/dL Glucose (74-99) mg/dL POC Glucose (mg/dL) 382 H 383 H 117 H (75-99) mg/dL Alkaline Phosphatase (38-126) U/L Albumin (3.5-5.0) g/dL 12/28/20 12/28/20 12/28/20 Range/Units 10:27 10:27 12:00 RBC 3.85 L (4.30-5.90) m/uL Hgb 11.4 L (13.0-17.5) gm/dL Hct 36.6 L (39.0-53.0) % Sodium 135 L (137-145) mmol/L Potassium 5.4 H (3.5-5.1) mmol/L Chloride 89 L (98-107) mmol/L Carbon Dioxide 39 H (22-30) mmol/L BUN 41 H (9-20) mg/dL Glucose 123 H (74-99) mg/dL POC Glucose (mg/dL) 217 H (75-99) mg/dL Alkaline Phosphatase 29 L (38-126) U/L Albumin 3.3 L (3.5-5.0) g/dL Microbiology - Last 24 Hours (Table) 12/23/20 15:35 Blood Culture - Preliminary Blood No Growth after 96 hours 12/23/20 15:44 Blood Culture - Preliminary Blood No Growth after 96 hours Assessment and Plan Plan: 1. Hypothermia 2. Severe hypoglycemia 3. Evidence of urinary tract infection patient currently on Rocephin. Infectious disease is following. Per ID patient may be transitioned to oral antibiotic on discharge 4. Evidence of congestive heart failure with pleural effusion on chest x-ray patient remains on IV Lasix. Cardiology services are following 5. Hyperkalemia. Potassium 5.5. Kayexalate ordered 6. Acute on chronic renal failure acute component is probably related to de hydration and prerenal azotemia 7. Underlying history of diabetes mellitus 8. Underlying history of congestive heart failure, with history of AICD placement 9. Underlying history of coronary artery disease 10. Underlying history of peripheral vascular disease with bilateral lower extremity amputations 11. Underlying history of COPD 12. Underlying history of tobacco abuse 13. Underlying history of benign prostatic hypertrophy At this time patient is admitted to telemetry floor He was started on IV antibiotic Rocephin, awaiting urine culture results He was started on IV D5 0.45 at 50 mL per hour He was given Kayexalate for hyperkalemia For DVT prophylaxis patient is maintained on Eliquis For GI prophylaxis Will add Protonix Cardiology pulmonary and infectious disease following PT OT consulted Social consulted for possible need for ECF placement
[2020-12-28 19:55] LABS: Glucose,Whole Blood 185 mg/dL (75-99)
[2020-12-28] MEDS: CIPROFLOXACIN HCL 500 MG TAB PO SCH (21:36)
[2020-12-28] MEDS: traZODone HCL 50 MG TAB PO SCH (21:36)
--- NOTE | 2020-12-28 22:10 | PN ---
PROGRESS NOTE DATE OF SERVICE: 12/28/2020 REASON FOR FOLLOWUP: 1. Morganella urinary tract infection. 2. Stage II sacral pressure ulcer. INTERVAL HISTORY: The patient is currently afebrile, has been breathing comfortably. Denies having any chest pain or shortness of breath or cough. No abdominal pain. He has been complaining of pain to the sacral area where the patient has developed this pressure ulcer. PHYSICAL EXAMINATION: Blood pressure 137/66, pulse of 84, temperature 97.8. He is 97% on 2 L nasal cannula. General description is an elderly male up in the bed in no distress. RESPIRATORY SYSTEM: Unlabored breathing with decreased intensity of breath sounds. No wheeze. HEART: S1, S2. Regular rate and rhythm. ABDOMEN: Soft. No tenderness. Examination of sacral area reveals a stage II pressure ulcer swelling, slough tissue, surrounding cellulitis. LABS: Hemoglobin is 11.4, white count 6.9, BUN of 41, creatinine 0.91. DIAGNOSTIC IMPRESSION AND PLAN: 1. Patient with morganella urinary tract infection. Patient clinically responding to Rocephin; to continue and finish therapy with oral . 2. Patient with a stage II sacral pressure ulcer. Local wound care with dry Aquacel Silver dressing. Keep the area dry and off pressure. MMODL / IJN: [id number] /
[2020-12-29] MEDS: DEXTROSE 5%-0.45% NACL 1,000 ML IV SCH (03:18)
[2020-12-29] MEDS: INSULIN ASPART (NovoLOG) 100 UNIT/ML VIAL SQ SCH ×2 (06:22→12:51)
[2020-12-29 06:24] LABS: Glucose,Whole Blood 127 mg/dL (75-99)
[2020-12-29] MEDS: carvediloL 6.25 MG TAB PO SCH ×2 (06:24→16:05)
--- NOTE | 2020-12-29 07:32 | XR ---
EXAMINATION TYPE: XR chest 1V portable DATE OF EXAM: 12/29/2020 HISTORY: Shortness of breath. COMPARISON: None. TECHNIQUE: Single view of the chest is submitted. FINDINGS: Demonstrated are scattered senescent parenchymal change. Perihilar and basilar infiltrates persist. The heart is stable. Hilar and mediastinal structures are within normal limits. Degenerative changes are seen of the dorsal spine. IMPRESSION: 1. Perihilar and basilar infiltrates persist.
[2020-12-29 07:57] LABS: HCT 34.5 % (39.0-53.0); Hypochromasia Moderate; MCH 30.2 pg (25.0-35.0); MCHC 31.8 g/dL (31.0-37.0); MCV 95.1 fL (80.0-100.0); Mean Platelet Volume 8.3; Platelet Count 192 k/uL (150-450); RBC 3.63 m/uL (4.30-5.90); RDW 14.2 % (11.5-15.5); WBC 5.9 k/uL (3.8-10.6)
[2020-12-29] MEDS: FUROSEMIDE 10 MG/ML 4 ML VIAL IV SCH (08:02)
[2020-12-29] MEDS: TAMSULOSIN 0.4 MG CAP.ER.24H PO SCH (08:03)
[2020-12-29] MEDS: MONTELUKAST 10 MG TAB PO SCH (08:03)
[2020-12-29] MEDS: LORATADINE 10 MG TAB PO SCH (08:03)
[2020-12-29] MEDS: LOSARTAN 25 MG TAB PO SCH (08:03)
[2020-12-29] MEDS: APIXABAN 5 MG TAB PO SCH (08:03)
[2020-12-29] MEDS: GABAPENTIN 300 MG CAP PO SCH ×2 (08:03→16:03)
[2020-12-29] MEDS: FOLIC ACID 1 MG TAB PO SCH (08:03)
[2020-12-29] MEDS: FENOFIBRATE 160 MG TAB PO SCH (08:03)
[2020-12-29] MEDS: DIGOXIN 125 MCG TAB PO SCH (08:03)
[2020-12-29] MEDS: CIPROFLOXACIN HCL 500 MG TAB PO SCH (08:03)
[2020-12-29 08:07] LABS: African American GFR (CKD) >90 (>60 ml/min/1.73 sqM); Anion Gap 3 mmol/L; Blood Urea Nitrogen 40 mg/dL (9-20); Carbon Dioxide 38 mmol/L (22-30); Chloride 92 mmol/L (98-107); Glucose 129 mg/dL (74-99); Magnesium 1.8 mg/dL (1.6-2.3); Non-African American GFR(CKD) 86 (>60 ml/min/1.73 sqM); Potassium 5.2 mmol/L (3.5-5.1); Sodium 133 mmol/L (137-145)
[2020-12-29] MEDS: SYMBICORT 160-4.5 MCG INHALER INHALATION SCH (08:28)
[2020-12-29] MEDS: IPRATROPIUM-ALBUTEROL 3 ML NEB INHALATION PRN ×3 (08:28→15:45)
--- NOTE | 2020-12-29 12:01 | P.PN ---
Subjective Progress Note Date: 12/29/20 70-year-old male, brought into the emergency room, by EMS, on December 23, at 1430, with complaints of weakness. Apparently, the patient was very confused in the emergency department and had altered mental status. He was evaluated in the emergency room and was apparently admitted with a diagnosis of mental status changes, confusion, and CHF. Will be walked into his room today, he was not wearing his oxygen. We put the pulse oximeter on him, his saturations were in the mid 50s. We placed him on oxygen at 10 L, and his saturation began to come up. His color improved and he felt much better. The nurse said that he should be on 6 L, and she would titrate him back down. The patient is a very poor historian, and we really don't get much history from him. He apparently has a history of bilateral lower extremity amputation, congestive heart failure, diabetes mellitus, COPD, and CAD. The patient apparently continues to smoke cigarettes. His chest x-ray was consistent with congestive heart failure, and bilateral pleural effusions. White count is 9, hemoglobin 11.6, hematocrit 37.6, and platelet count 277,000. Sodium 138, potassium 5.6, chlorides 100, CO2 28, anion gap 10, with a BUN of 36, and creatinine of 1.32. N-terminal proBNP was 4840. On 12/25/2020 I'm seeing the patient for a follow-up. The patient remains on Lasix 40 mg IV every 12 hours. Since yesterday, the patient is still on oxygen at 4 L per minute nasal cannula. On today's blood work, the patient's creatini alin down to 1.29 compared to 1.3 from yesterday, less of the electrodes are all within normal limits, hemoglobin is at 10.6. The patient is a negative fluid balance. Overall, the patient has been and 1.6 L negative fluid balance since 12/25/2020 and 1.1 L 4 12/24/2020. He is still receiving IV fluids with normal saline at rate of 50 mL an hour. His chest x-ray of this current admission showed cardiomegaly and bilateral pleural effusions and pulmonary vascular congestion. He also has an AICD in the left. On 12/26/2020 I'm seeing Eder for a follow-up. Eder is being treated for congestion heart failure, bilateral pleural effusion in addition to that he has a gram-negative urinary tract infection that do not to be related to Morganella infection. The patient is currently on IV Rocephin. He is receiving Lasix 40 mg every 12 hours and he is making good urine output. He is less short of breath. He remains on 4 L of oxygen by nasal cannula.His current BUN is 41. Creatinine is at 1.06. With a hemoglobin of 11.8. No other new complaints otherwise for now. Based on the urine output, the patient has been negative fluid balance of -2.4 L over the past 24 hours. On 12/27/2020 patient seen in follow-up on selective care unit. He is resting comfortably in bed, breathing comfortably, he remains on daily dose of IV Lasix 40 mg, and he is in -420 ML fluid balance over the last 24 hours, she is on 4 L of oxygen pulse ox of 90%, afebrile, his chest x-ray shows cardiomegaly and slight increasing moderate right and small left pleural effusion with adjacent left basilar atelectasis. She remains on Rocephin for urinary tract infection, urine culture showed Morganella morganii, blood cultures have been negative. Patient remains on oral anticoagulation in the form of Eliquis for history of paroxysmal A. fib The patient is seen today 2020 in follow-up on the selective care unit. He is currently sitting up in a chair at the bedside. Awake and alert in no acute distress. Continue O2 saturations at 100% on 3 L/m per nasal cannula. He is afebrile. Hemodynamically stable. Urine culture was positive for Morganella Morganii. White count 6.1. Hemoglobin 11.4. Sodium 135. Potassium 5.4. Bicarb 39. Creatinine 0.91. Glucose 123. He remains on Symbicort, DuoNeb inhalations, IV diuretics. Anticoagulated with Eliquis. Heart rate controlled. The patient is seen today 12/29/2020 in follow-up on the selective care unit. He is currently resting comfortably in bed. Awake and alert in no acute distress. He is maintaining O2 saturation of 99% on 3 L/m per nasal cannula. He is afebrile. Hemodynamically stable. Chest x-ray continues to show perihila r and basilar infiltrates. Stable. Remains on Symbicort, DuoNeb inhalations. Urine culture positive for Morganella morganii. Antibiotics in the form of Cipro. Oral diuretics. White count 5.9. Hemoglobin 11.0. Sodium 133. Potassium 5.2. Creatinine 0.88. Objective - Vital Signs Vital signs: Vital Signs Temp 98.3 F 12/29/20 08:00 Pulse 80 12/29/20 11:45 Resp 16 12/29/20 08:00 BP 122/82 12/29/20 08:00 Pulse Ox 99 12/29/20 08:00 Intake & Output 12/28/20 12/29/20 12/29/20 18:59 06:59 18:59 Intake Total 902 222 Output Total 2650 1600 800 Balance -7438 -1600 -548 Weight 84 kg Intake: Oral 902 222 Output: Urine 2650 1600 800 Other: Voiding Method Indwelling Catheter Indwelling Catheter Indwelling Catheter # Bowel Movements 1 - Exam GENERAL EXAM: Alert, pleasant, 70-year-old male patient, on 3 L of oxygen a pu lse ox of 99%, comfortable in no apparent distress. HEAD: Normocephalic/atraumatic. EYES: Normal reaction of pupils, equal size. Conjunctiva pink, sclera white. NOSE: Clear with pink turbinates. THROAT: No erythema or exudates. NECK: No masses, no JVD, no thyroid enlargement, no adenopathy. CHEST: No chest wall deformity. Symmetrical expansion. LUNGS: Equal air entry with crackles in the bilateral posterior bases CVS: Regular rate and rhythm, normal S1 and S2, no gallops, no murmurs, no rubs ABDOMEN: Soft, nontender. No hepatosplenomegaly, normal bowel sounds, no guarding or rigidity. EXTREMITIES: No clubbing, no edema, no cyanosis, 2+ pulses and upper extremities. Patient is bilateral [id number] amputee MUSCULOSKELETAL: Muscle strength and tone normal. SPINE: No scoliosis or deformity SKIN: No rashes CENTRAL NERVOUS SYSTEM: No focal deficits, tone is normal in all 4 extremities. PSYCHIATRIC: Alert and oriented -3. Appropriate affect. Intact judgment and insight. - Labs CBC & Chem 7: 12/29/20 07:39 12/29/20 07:39 Labs: Abnormal Lab Results - Last 24 Hours (Table) 12/28/20 12/28/20 12/28/20 Range/Units 10:27 10:27 12:00 RBC 3.85 L (4.30-5.90) m/uL Hgb 11.4 L (13.0-17.5) gm/dL Hct 36.6 L (39.0-53.0) % Sodium 135 L (137-145) mmol/L Potassium 5.4 H (3.5-5.1) mmol/L Chloride 89 L (98-107) mmol/L Carbon Dioxide 39 H (22-30) mmol/L BUN 41 H (9-20) mg/dL Glucose 123 H (74-99) mg/dL POC Glucose (mg/dL) 217 H (75-99) mg/dL Alkaline Phosphatase 29 L (38-126) U/L Albumin 3.3 L (3.5-5.0) g/dL 12/28/20 12/28/20 12/29/20 Range/Units 16:56 19:54 06:22 RBC (4.30-5.90) m/uL Hgb (13.0-17.5) gm/dL Hct (39.0-53.0) % Sodium (137-145) mmol/L Potassium (3.5-5.1) mmol/L Chloride (98-107) mmol/L Carbon Dioxide (22-30) mmol/L BUN (9-20) mg/dL Glucose (74-99) mg/dL POC Glucose (mg/dL) 249 H 185 H 127 H (75-99) mg/dL Alkaline Phosphatase (38-126) U/L Albumin (3.5-5.0) g/dL 12/29/20 12/29/20 Range/Units 07:39 07:39 RBC 3.63 L (4.30-5.90) m/uL Hgb 11.0 L (13.0-17.5) gm/dL Hct 34.5 L (39.0-53.0) % Sodium 133 L (137-145) mmol/L Potassium 5.2 H (3.5-5.1) mmol/L Chloride 92 L (98-107) mmol/L Carbon Dioxide 38 H (22-30) mmol/L BUN 40 H (9-20) mg/dL Glucose 129 H (74-99) mg/dL POC Glucose (mg/dL) (75-99) mg/dL Alkaline Phosphatase (38-126) U/L Albumin (3.5-5.0) g/dL Microbiology - Last 24 Hours (Table) 12/23/20 15:35 Blood Culture - Preliminary Blood No Growth after 120 hours 12/23/20 15:44 Blood Culture - Preliminary Blood No Growth after 120 hours Assessment and Plan Assessment: 1 Acute hypoxemic respiratory failure, secondary to CHF with bilateral pleural effusions. Clinically the patient is improving. Still on 3 L of oxygen by nasal cannula. Fluid balance is been negative 2.4 L over the past 24 hours and the patient continues to improve. The patient has home oxygen 2 Mental status changes, which may in fact relate to have hypoxemia, secondary to his fluid overload state and CHF. 3 severe ischemic cardiomyopathy with a echocardiogram from September 2020 showed impaired LV function with an ejection fraction of 25-30%. The patient has severe ischemic cardiomyopathy and the patient has an AICD in place. He is post non-STEMI and successful stenting of the long segment of a mid circumflex artery. 4 History of COPD, secondary chronic tobacco use. 5 History of CAD, post non-STEMI post stenting of the circumflex artery, 6 Status post pacemaker/defibrillator implantation, 2005. 7 History of CVA. 7 History of diabetes mellitus. 8 History of hyperlipidemia. 9 Prior history of myocardial infarction. 10 Peripheral vascular occlusive disease, status post left below the knee amputation and right [id number] amputation. 11 Prior history of MRSA infection. 12 History of ongoing tobacco use with nicotine addiction. 13 ROSSY secondary to above, creatinine is improving and it dropped compared to yesterday 14 Morganella morganii UTI currently on Cipro Plan: The patient was seen and evaluated by Dr. Freeman Chest x-ray and labs reviewed Stable from the pulmonary standpoint Plan is for home with home care I, the cosigning physician, performed a history & physical examination of the patient. Lungs sounds with crackles in the bilateral posterior bases Maintaining good O2 saturations in the 90s on 3 L/m per nasal cannula. I discussed the assessment and plan of care with my nurse practitioner, Celina Isaac. I attest to the above note as dictated by her.
[2020-12-29 12:14] LABS: Glucose,Whole Blood 122 mg/dL (75-99)
--- NOTE | 2020-12-29 12:19 | P.PN ---
Subjective Progress Note Date: 12/29/20 CHIEF COMPLAINT: congestive heart failure HISTORY OF PRESENT ILLNESS: 12/25/2020 This is a 70-year-old male with a past medical history significant for COPD, co ngestive heart failure, hypertension, hyperlipidemia, ischemic cardiomyopathy with previous ICD implantation, and peripheral vascular disease with bilateral amputation of lower extremities. Patient follows in the office with Dr. Hernandez. We have been asked to see the patient in consultation for CHF. The patient was apparently brought to the hospital secondary to weakness, confusion, and mental status changes. Patient is lethargic this morning upon evaluation. He will open his eyes and answer one or two questions and then goes back to sleep and is somewhat difficult to arouse. He denied chest pain or pressure. He denied shortness of breath. Echocardiogram completed in September 2020 revealed ejection fraction 25-30%. Repeat echocardiogram performed today reveals EF 35-40%, mild tricuspid regurgitation, and moderate mitral regurgitation Patient underwent cardiac catheterization in September [address] Fenton with PCI to the left circumflex. 12/26/2020 Patient examined this morning at the bedside. Patient is much more awake today. He denies chest pain or pressure. Denies shortness of breath. He remains on IV Lasix 40 mg every 12 hours. Creatinine 1.06 today. Fluid balance over the last 24 hours is -2400 mL. Nursing reports a 9 beat run of V. tach this morning. Patient has a history of ICD placement. Patient's blood pressure remains elevated this morning with a reading of 155/77. 12/27/2020 Patient examined this morning at bedside. Patient is sleepy during examination. He refuses to open his eyes. He denies chest pain or pressure. He denies shortness of breath. He states his back is hurting him today. Chest x-ray revealed cardiomegaly with moderate right pleural effusion and small left pleural effusion. He remains on IV Lasix. Fluid balance over the last 24 hours is +312 mL. Patient's weight is down 1 kg. 12/28/2020 Patient examined this morning at the bedside. Patient is more awake today. He denies chest pain or pressure. He denies shortness of breath. Fluid balance over the last 24 hours is -2300 mL. BMP is pending. 12/29/2020 Patient examined this morning at the bedside. Patient is awake and alert. He denies chest pain or pressure. Denies shortness of breath. He remains on IV Lasix 40 mg daily. Creatinine 0.88 today. Fluid balance the last 24 hours is - 3350 mL. PHYSICAL EXAM: VITAL SIGNS: Reviewed. GENERAL: Well-developed in no acute distress. HEENT: Head is normocephalic. Pupils are equal, round. Sclerae anicteric. Mucous membranes of the mouth are moist. Neck supple. No JVD or thyromegaly LUNGS: Respirations even and unlabored. Lungs diminished bilaterally. HEART: Irregular rate and rhythm. S1 and S2 heard. systolic murmur noted. ABDOMEN: Soft. Nondistended. Nontender. EXTREMITIES: Normal range of motion. No clubbing or cyanosis. left doijr-ttw-[id number] amputation and right dkaju-nwu-yiul amputation noted. ASSESSMENT: Altered mental status Urinary tract infection Acute exacerbation of chronic systolic heart failure, EF 35-40% Ischemic cardiomyopathy with previous AICD Paroxysmal atrial fibrillation, on anticoagulation with Eliquis Coronary artery disease with previous PCI to left circumflex, September 2020 Peripheral vascular disease with previous left BKA and right AKA Hypertension Hyperlipidemia COPD Diabetes mellitus PLAN: Continue Eliquis for anticoagulation Discontinue IV Lasix. Transition to oral Lasix 40 mg daily Monitor kidney function Daily weights Accurate I&O Patient is stable from a cardiac perspective Nurse practitioner note has been reviewed by physician. Signing provider agrees with the documented findings, assessment, and plan of care. Objective - Vital Signs Vital signs: Vital Signs Temp 98.3 F 12/29/20 08:00 Pulse 84 12/29/20 12:00 Resp 16 12/29/20 08:00 BP 122/82 12/29/20 08:00 Pulse Ox 99 12/29/20 08:00 Intake & Output 12/28/20 12/29/20 12/29/20 18:59 06:59 18:59 Intake Total 902 222 Output Total 2650 1600 800 Balance -2128 -1600 -578 Weight 84 kg Intake: Oral 902 222 Output: Urine 2650 1600 800 Other: Voiding Method Indwelling Catheter Indwelling Catheter Indwelling Catheter # Bowel Movements 1 - Labs CBC & Chem 7: 12/29/20 07:39 12/29/20 07:39 Labs: Abnormal Lab Results - Last 24 Hours (Table) 12/28/20 12/28/20 12/28/20 Range/Units 10:27 16:56 19:54 RBC (4.30-5.90) m/uL Hgb (13.0-17.5) gm/dL Hct (39.0-53.0) % Sodium 135 L (137-145) mmol/L Potassium 5.4 H (3.5-5.1) mmol/L Chloride 89 L (98-107) mmol/L Carbon Dioxide 39 H (22-30) mmol/L BUN 41 H (9-20) mg/dL Glucose 123 H (74-99) mg/dL POC Glucose (mg/dL) 249 H 185 H (75-99) mg/dL Alkaline Phosphatase 29 L (38-126) U/L Albumin 3.3 L (3.5-5.0) g/dL 12/29/20 12/29/20 12/29/20 Range/Units 06:22 07:39 07:39 RBC 3.63 L (4.30-5.90) m/uL Hgb 11.0 L (13.0-17.5) gm/dL Hct 34.5 L (39.0-53.0) % Sodium 133 L (137-145) mmol/L Potassium 5.2 H (3.5-5.1) mmol/L Chloride 92 L (98-107) mmol/L Carbon Dioxide 38 H (22-30) mmol/L BUN 40 H (9-20) mg/dL Glucose 129 H (74-99) mg/dL POC Glucose (mg/dL) 127 H (75-99) mg/dL Alkaline Phosphatase (38-126) U/L Albumin (3.5-5.0) g/dL 12/29/20 Range/Units 12:12 RBC (4.30-5.90) m/uL Hgb (13.0-17.5) gm/dL Hct (39.0-53.0) % Sodium (137-145) mmol/L Potassium (3.5-5.1) mmol/L Chloride (98-107) mmol/L Carbon Dioxide (22-30) mmol/L BUN (9-20) mg/dL Glucose (74-99) mg/dL POC Glucose (mg/dL) 122 H (75-99) mg/dL Alkaline Phosphatase (38-126) U/L Albumin (3.5-5.0) g/dL Microbiology - Last 24 Hours (Table) 12/23/20 15:35 Blood Culture - Preliminary Blood No Growth after 120 hours 12/23/20 15:44 Blood Culture - Preliminary Blood No Growth after 120 hours
[2020-12-29 12:47] VITALS: BP 133/65; RESP 18; TEMP 97.4
[2020-12-29] MEDS ORDERED: LEVOFLOXACIN 500 MG TAB PO SCH (13:00)
--- NOTE | 2020-12-29 13:39 | P.DS ---
Providers Date of admission: 12/23/20 17:19 Expected date of discharge: 12/29/20 Attending physician: Robinson Campuzano Consults: 12/24/20 09:00 Consult Physician Routine Consulting Provider: Idalia Fenton Consult Reason/Comments: CHF Do you want consulting provider notified?: Yes 12/24/20 09:01 Consult Physician Routine Consulting Provider: Nicholas Ortiz Consult Reason/Comments: pleural effusion Do you want consulting provider notified?: Yes 12/25/20 08:16 Consult Physician Routine Consulting Provider: Romero Monsivais Consult Reason/Comments: UTI Do you want consulting provider notified?: Yes Primary care physician: Robinsonkerri Campuzano [facility] Course: Diagnosis on discharge: 1. Hypothermia, on admission resolved 2. Severe hypoglycemia, resolved 3. Evidence of urinary tract infection patient currently on Rocephin. Infectious disease is following. Patient was switched to Levaquin 500 milligram once daily for 10 days at the time of discharge 4. Evidence of congestive heart failure with pleural effusion on chest x-ray patient remains on IV Lasix. Cardiology services are following 5. Hyperkalemia. Potassium 5.5. Kayexalate ordered 6. Acute on chronic renal failure acute component is probably related to dehydration and prerenal azotemia 7. Underlying history of diabetes mellitus 8. Underlying history of congestive heart failure, with history of AICD placement 9. Underlying history of coronary artery disease 10. Underlying history of peripheral vascular disease with bilateral lower extremity amputations 11. Underlying history of COPD 12. Underlying history of tobacco abuse 13. Underlying history of benign prostatic hypertrophy Hospital course: Eder Fang, is a 70-year-old male who presented to [facility] emergency room with confusion and mental status changes he was complaining of generalized weakness, he was evaluated in emergency room vital examination on presentation reveals a temperature of 95.5 pulse 91 respiration 20 blood pressure 160/94 pulse ox 90% on 2 L nasal cannula laboratory data revealed a white blood count of 6.0 hemoglobin 12.3 platelet count 257 INR 1.5 CO2 33 BUN 36 creatinine 1.23 glucose level was critically low at 33 urine analysis revealed evidence of urinary tract infection coronavirus PCR was negative chest x-ray was compatible with congestive heart failure with pleural effusions EKG revealed atrial fibrillation with a heart rate of 89 with poor R-wave progression in anterior leads. Patient was admitted to telemetry floor cardiology consultation and pulmonary consultation were requested, he was resuscitated with IV dextrose and warming blankets. His past medical history is significant for history of hypertension, history of diabetes mellitus, history of congestive heart failure with AICD placement, history of COPD, history of continued tobacco use, history of peripheral vascular disease with bilateral lower extremity amputation, history of coronary artery disease, history of atrial fibrillation maintained on anticoagulation at home. Review of system is not amenable at this time due to patient confusion and somnolence patient opens his eyes for a short while he answers few questions by yes or no then he goes back to sleep he denies any pain or discomfort at this time. on 12/25/2020 patient was seen and examined on the medical floor he is more alert and responsive today there is no fever or chills no headache or dizziness no chest pain no shortness of breath no cough no nausea or vomiting no abdominal pain no diarrhea no blood in the stools no burning with urination no frequency or urgency and no hematuria. On 12/26/2020 patient was seen and examined on the medical floor he is alert and oriented 3 in no apparent distress, there is no fever or chills no headache or dizziness no chest pain, his shortness of breath is improving he is still maintained on oxygen supplements 4 L by nasal cannula he has occasional cough no nausea or vomiting no abdominal pain no diarrhea no blood in the stools no burning with urination no frequency or urgency and no hematuria, patient is receiving IV Lasix for acute congestive heart failure exacerbation and is receiving IV Rocephin for urinary tract infection condition is improving gradually. On 12/27/2020 patient alert and oriented 3. Shortness of breath appears to be improving. Patient remains on IV Lasix. At this time patient denies chest pain or shortness breath. Patient denies diarrhea. Denies any urinary burning or frequency. on 12/28/2020 patient was seen and examined on the medical floor he is more alert and oriented in no distress, today there is no fever or chills no headache or dizziness no chest pain no shortness of breath no cough no nausea or vomiting no abdominal pain no diarrhea no blood in the stools no burning with urination no frequency or urgency and no hematuria. On 12/29/2020 patient was seen and examined on the medical floor he is alert and oriented 3 in no apparent distress there is no fever or chills no headache or dizziness no chest pain no shortness of breath no cough no nausea or vomiting no abdominal pain no diarrhea no blood in the stools no burning with urination no frequency or urgency and no hematuria patient is back to his baseline he will be given a prescription for Levaquin 500 milligram one daily for 10 days he will be followed as outpatient for further evaluation and treatment Patient Condition at Discharge: Stable Plan - Discharge Summary New Discharge Prescriptions: New Furosemide [Lasix] 40 mg PO DAILY tab Levofloxacin [Levaquin] 500 mg PO Q24H 10 Days #10 tab Budesonide-Formot 160-4.5 Mcg [Symbicort 160-4.5 Mcg Inhaler] 2 puff INHALATION RT-BID puff Continue glipiZIDE [Glucotrol] 5 mg PO AC-TID Tamsulosin [Flomax] 0.4 mg PO DAILY Fenofibrate Nanocrystallized [Tricor] 145 mg PO DAILY Digoxin [Lanoxin] 125 mcg PO DAILY traZODone HCL 50 mg PO HS Nitroglycerin Sl Tabs [Nitrostat] 0.4 mg SUBLINGUAL Q5M PRN PRN Reason: Chest Pain Folic Acid 1 mg PO DAILY Montelukast [Singulair] 10 mg PO DAILY Losartan Potassium [Cozaar] 25 mg PO DAILY Gabapentin [Neurontin] 300 mg PO TID Fluticasone Propionate [Flovent Diskus] 1 puff INHALATION RT-DAILY Adalimumab [Humira Pen Crohn's-Uc-Hs] 40 mg SQ Q14D Cetirizine HCl [Zyrtec] 10 mg PO DAILY Apixaban [Eliquis] 5 mg PO BID tab carvediloL [Coreg] 6.25 mg PO BID Ipratropium-Albuterol Nebulize [Duoneb 0.5 mg-3 mg/3 ml Soln] 3 ml INHALATION RT-QID PRN PRN Reason: Shortness Of Breath Ergocalciferol [Vitamin D2 (1250 Mcg = 46912 Iu)] 1,250 mcg PO Q7D Discharge Medication List Digoxin [Lanoxin] 125 mcg PO DAILY 07/08/16 [History] Fenofibrate Nanocrystallized [Tricor] 145 mg PO DAILY 07/08/16 [History] Tamsulosin [Flomax] 0.4 mg PO DAILY 07/08/16 [History] glipiZIDE [Glucotrol] 5 mg PO AC-TID 07/08/16 [History] Folic Acid 1 mg PO DAILY 09/22/18 [History] Nitroglycerin Sl Tabs [Nitrostat] 0.4 mg SUBLINGUAL Q5M PRN 09/22/18 [History] traZODone HCL 50 mg PO HS 09/22/18 [History] Adalimumab [Humira Pen Crohn's-Uc-Hs] 40 mg SQ Q14D 10/03/20 [History] Cetirizine HCl [Zyrtec] 10 mg PO DAILY 10/03/20 [History] Fluticasone Propionate [Flovent Diskus] 1 puff INHALATION RT-DAILY 10/03/20 [History] Gabapentin [Neurontin] 300 mg PO TID 10/03/20 [History] Losartan Potassium [Cozaar] 25 mg PO DAILY 10/03/20 [History] Montelukast [Singulair] 10 mg PO DAILY 10/03/20 [History] Apixaban [Eliquis] 5 mg PO BID tab 10/13/20 [Rx] Ergocalciferol [Vitamin D2 (1250 Mcg = 26121 Iu)] 1,250 mcg PO Q7D 12/23/20 [History] Ipratropium-Albuterol Nebulize [Duoneb 0.5 mg-3 mg/3 ml Soln] 3 ml INHALATION RT-QID PRN 12/23/20 [History] carvediloL [Coreg] 6.25 mg PO BID 12/23/20 [History] Budesonide-Formot 160-4.5 Mcg [Symbicort 160-4.5 Mcg Inhaler] 2 puff INHALATION RT-BID puff 12/29/20 [Rx] Furosemide [Lasix] 40 mg PO DAILY tab 12/29/20 [Rx] Levofloxacin [Levaquin] 500 mg PO Q24H 10 Days #10 tab 12/29/20 [Rx] Follow up Appointment(s)/Referral(s): Robinson Campuzano MD [Primary Care Provider] - 01/04/21 2:00 pm [facility] Visiting Nurse, [NON-STAFF] - Patient Instructions/Handouts: Heart Failure (DC), Catheter-associated Urinary Tract Infection (DC) Activity/Diet/Wound Care/Special Instructions: Wheelchair van for transportation home.
--- NOTE | 2020-12-29 14:58 | PN ---
PROGRESS NOTE DATE OF SERVICE: 12/29/2020. REASON FOR FOLLOWUP: Morganella morganii urinary tract infection. INTERVAL HISTORY: The patient is currently afebrile. Patient is breathing comfortably, feeling better, wants to go home. No chest pain. No cough. No abdominal pain. No diarrhea. PHYSICAL EXAMINATION: Blood pressure is 133/65 with a pulse of 78, temperature is 97.4. He is 95% on 3 L nasal cannula. General description is an elderly male up in the bed in no distress. RESPIRATORY SYSTEM: Unlabored breathing, decreased breath sounds in the bases. No wheeze. HEART: S1, S2. Regular rate and rhythm. ABDOMEN: Soft, no tenderness. LABS: Hemoglobin 11, white count 5.9. BUN of 40, creatinine 0.88. DIAGNOSTIC IMPRESSION AND PLAN: 1. Patient with Morganella urinary tract infection. The patient has shown overall clinical improvement. Patient is covered with Rocephin. Finish therapy with short course of oral Levaquin. 2. Stage II sacral pressure ulcer. Local care with Aquacel Silver dressing. MMODL / IJN: [id number] /
[2020-12-29 15:47] VITALS: PULSE 80
[2020-12-30] MEDS ORDERED: FUROSEMIDE 40 MG TAB PO SCH (09:00)
== END 2020-12-29 16:45 | DRG 291 ==
LOC: EC 14:30 → 3SCARD 17:19
PROVIDERS: ADMIT Internal Medicine; ATTEND Internal Medicine
PROC: 5A0935A Assistance with Respiratory Ventilation, Less than 24 Consecutive Hours, High Flow/Velocity Cannula (ICD-10-PCS; principal; 2020-12-27)
DX: I13.0 Hypertensive heart and chronic kidney disease with heart failure and stage 1 through stage 4 chronic kidney disease, or unspecified chronic kidney disease (principal); I50.23 Acute on chronic systolic (congestive) heart failure; J96.01 Acute respiratory failure with hypoxia; G93.41 Metabolic encephalopathy; I47.2 Ventricular tachycardia; K50.90 Crohn's disease, unspecified, without complications; N17.9 Acute kidney failure, unspecified; N39.0 Urinary tract infection, site not specified; G93.1 Anoxic brain damage, not elsewhere classified; E11.22 Type 2 diabetes mellitus with diabetic chronic kidney disease; E11.51 Type 2 diabetes mellitus with diabetic peripheral angiopathy without gangrene; E11.649 Type 2 diabetes mellitus with hypoglycemia without coma; E78.5 Hyperlipidemia, unspecified; E86.0 Dehydration; E87.5 Hyperkalemia; F17.210 Nicotine dependence, cigarettes, uncomplicated; I25.10 Atherosclerotic heart disease of native coronary artery without angina pectoris; I25.2 Old myocardial infarction; I25.5 Ischemic cardiomyopathy; I48.0 Paroxysmal atrial fibrillation; J44.9 Chronic obstructive pulmonary disease, unspecified; L89.152 Pressure ulcer of sacral region, stage 2; N18.9 Chronic kidney disease, unspecified; N40.0 Benign prostatic hyperplasia without lower urinary tract symptoms; B96.89 Other specified bacterial agents as the cause of diseases classified elsewhere; Z79.01 Long term (current) use of anticoagulants; Z20.822 Contact with and (suspected) exposure to COVID-19; Z79.51 Long term (current) use of inhaled steroids; Z79.84 Long term (current) use of oral hypoglycemic drugs; Z79.899 Other long term (current) drug therapy; Z86.14 Personal history of Methicillin resistant Staphylococcus aureus infection; Z86.73 Personal history of transient ischemic attack (TIA), and cerebral infarction without residual deficits; Z89.512 Acquired absence of left leg below knee; Z89.611 Acquired absence of right leg above knee; Z95.810 Presence of automatic (implantable) cardiac defibrillator; Z98.61 Coronary angioplasty status
CPT/HCPCS: 36415; 71045; 71046; 80048; 80053; 80162; 80320; 81001; 83605; 83735; 83880; 84145; 84443; 84484; 85025; 85027; 85610; 85730; 87040; 87077; 87086; 87186; 87635; 93005; 93306; 94640; 94760; 96361; 96374; 96375; 99285